=== PATIENT | male | born 1955 | race Caucasian/White ===

== ENCOUNTER 2016-12-03 09:41 | Observation (INO) ==
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
--- NOTE | 2016-12-03 11:01 | XRay Report ---
History: Coronary artery disease Date: 12/03/2016 Study: Chest x-ray PA and lateral Comparison exam: October 18, 2016 The cardiac silhouette is not enlarged. There is no mediastinal mass. The pulmonary vasculature is not engorged. The lungs are generally clear for shallow breath. There is no pleural effusion. Osseous structures are unchanged. There is mild osteopenia. Impression: No acute cardiopulmonary process. No significant interval change from the previous study PROCEDURE INTERPRETED AT [facility] DEPARTMENT OF RADIOLOGY Final Report Signed by: Dr. Kacie Oswald
[2016-12-03 11:22] LABS: Basophils # 0.1 10*3/uL (0.0-0.2); Basophils % 0.8 % (0.0-0.8); Eosinophils # 0.4 10*3/uL (0.0-0.87); Eosinophils % 4.4 % (0.00-10.9); Hematocrit 44.7 VOL% (42.0-52.0); Hemoglobin 16.5 GM/DL (14.0-18.0); Immature Granulocytes % 0.4 %; Immature Granulocytes Absolute 0.04 #; Lymphocytes # 2.2 10*3/uL (1.4-4.0); Mean Corpuscular HGB Conc 36.9 GM/DL (32-36); Mean Corpuscular Hemoglobin 32 PG (27-34); Mean Corpuscular Volume 86.3 FL (87-102); Mean Platelet Volume 11.4 FL (9.6-12.0); Monocytes # 0.6 10*3/uL (0.11-0.8); Monocytes % 5.8 % (1.7-12.7); Neutrophils # 6.2 10*3/uL (1.4-7.4); Neutrophils % 65.6 % (38.7-73.9); Platelet Count 184 T/CUMM (130-400); Red Blood Count 5.18 MC/CUMM (3.8-5.5); Red Cell Distribution Width 13.2 % (9.3-17.3); White Blood Count 9.5 T/CUMM (4-12)
[2016-12-03 11:31] LABS: PT Patient Result 10.6 SECS; Partial Thromboplastin Time 26.4 SECS (0-40)
[2016-12-03 12:08] LABS: Albumin 3.9 G/DL (3.4-5.0); Bilirubin,Total 0.9 MG/DL (0.2-1.0); Osmolality,Calculated 297.1 MOS/KG (273-304); Potassium 4.7 MMOL/L (3.5-5.1); Total Protein 7.9 G/DL (6.4-8.3)
[2016-12-03 12:22] LABS: Apearance,Urine CLEAR (Clear); Bilirubin,Urine Negative (Negative); Blood, Urine Negative (Negative); Glucose,Urine (UA) >=500 mg/dL (Negative); Hyaline Casts,Urine 1 /LPF (0-3); Ketones,Urine 20 mg/dL (Negative); Nitrite,Urine Negative (Negative); Protein,Urine Negative; Urine Color Straw (Yellow); Urine Specific Gravity 1.027 (1.001-1.035); Urine Urobilinogen < 2.0 EU/DL (0.2-1.0); WBC,Urine <1 /HPF (0-6)
[2016-12-03 12:27] LABS: Barbiturates Screen,Urine Negative (Negative); Benzodiazepines Screen,Urine Negative (Negative); Cannabinoid Screen,Urine Negative (Negative); Opiate Screen,Urine Negative (Negative); Phencyclidine Screen,Urine Negative (Negative)
[2016-12-03] MEDS ORDERED: SODIUM CHLORIDE 0.9% 1,000 ML IV STA (12:45)
[2016-12-03] MEDS ORDERED: INSULIN LISPRO 100 UNIT/ML SUBCUT STA (12:45)
[2016-12-03] MEDS ORDERED: INSULIN LISPRO 100 UNIT/ML SUBCUT ONE (12:54)
[2016-12-03] MEDS ORDERED: hydrALAZINE 20 MG/1 ML VIAL IV STA (14:14)
[2016-12-03] MEDS ORDERED: hydrALAZINE 20 MG/1 ML VIAL ONE (14:16)
[2016-12-03] MEDS ORDERED: GLUCAGON 1 MG VIAL IM PRN (15:30)
[2016-12-03] MEDS ORDERED: DEXTROSE 50% 25 GM/50 ML VIAL IV PRN (15:30)
[2016-12-03] MEDS ORDERED: ZALEPLON 5 MG CAPSULE PO PRN (15:30)
[2016-12-03] MEDS ORDERED: ACETAMINOPHEN 325 MG TABLET PO PRN (15:30)
[2016-12-03] MEDS ORDERED: ONDANSETRON 4 MG/2 ML VIAL IV PRN (15:30)
[2016-12-03] MEDS: SODIUM CHLORIDE 0.9% 1,000 ML IV SCH ×2 (16:10→23:19)
[2016-12-03] MEDS: ENOXAPARIN 40 MG/0.4 ML SYRINGE SUBCUT SCH (16:12)
[2016-12-03] MEDS: INSULIN LISPRO 100 UNIT/ML SUBCUT SCH ×2 (16:29→21:17)
[2016-12-03] MEDS: LOSARTAN/HCTZ 50-12.5 MG TABLET PO SCH (16:30)
[2016-12-03] MEDS: amLODIPine 5 MG TABLET PO SCH (16:30)
[2016-12-03] MEDS ORDERED: hydrALAZINE 20 MG/1 ML VIAL IV PRN (16:36)
--- NOTE | 2016-12-03 16:40 | Hospitalist History & Physical ---
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 insulin use: with petroleum terminal plant operator use Qualified Code( s): E11.65 - Type 2 diabetes mellitus with hyperglycemia; Z79.4 - assisted ( current) use of insulin (3) Diabetes mellitus Status: Chronic Current Visit: Yes Qualifiers: Diabetes mellitus type: type 2 Diabetes mellitus complication detail: with chronic kidney disease Diabetes mellitus mcfp insulin use: with mcfp use (4) Aortic stenosis Status: Chronic Current Visit: No Qualifiers: Cardiac valve disease etiology: etiology unspecified Qualified Code(s): I35.0 - Nonrheumatic aortic (valve) stenosis (5) Uncontrolled diabetes mellitus Status: Chronic Current Visit: No Qualifiers: Diabetes mellitus type: type 2 Diabetes mellitus 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 Hartley is a 61 year old male brought to the emergency department today by ambulance with complaints of foot pain. During the course of his workup in the emergency department he was noted to have a blood sugar of greater than 600 and uncontrolled blood pressure with a systolic blood pressure greater than 200 and diastolic blood pressure greater than 110. He was referred to the hospitalist service for admission for management of his hypertensive urgency and uncontrolled hyperglycemia. He did not have evidence of diabetic ketoacidosis and did not appear to be acidotic. He did complain of some headache and was also found to have an elevated creatinine consistent with acute kidney injury suggesting hypertensive urgency with end organ dysfunction. His hemoglobin A1c is greater than 12 and his most recent creatinine was 1.3 today it is 1.8. He will be admitted to acute inpatient to the intensive care unit for management of his hyperglycemia and hypertension. Home Medications Medication Instructions Recorded Confirmed Type Gabapentin Cap/Tab [Neurontin 300 mg PO TID 07/23/15 12/03/16 History Cap/Tab] Insulin NPH/Regular 70/30 [HumuLIN 70 unit SUBCUT BEDTIME 07/23/15 12/03/16 History 70/30] Insulin NPH/Regular 70/30 [HumuLIN 70 unit SUBCUT QAM 07/23/15 12/03/16 History 70/30] Levothyroxine Tab [Synthroid Tab] 200 mcg PO DAILY 07/23/15 12/03/16 History Losartan/Hydrochlorothiazide 1 each PO DAILY 07/23/15 12/03/16 History [Losartan-Hctz 100-25 mg Tab] Zaleplon [Sonata] 20 mg PO BEDTIME PRN 07/23/15 12/03/16 History Atorvastatin [Lipitor] 20 mg PO DAILY 04/10/16 12/03/16 History Clopidogrel [Plavix] 75 mg PO DAILY 04/10/16 12/03/16 History Omeprazole 40 mg PO DAILY 04/10/16 12/03/16 History hydrALAZINE TAB [Apresoline Tab] 50 mg PO BID 04/10/16 12/03/16 History Ibuprofen Tab [Motrin Tab] 800 mg PO TID PRN #20 tablet 10/18/16 12/03/16 Rx Aspirin EC Tab 81 mg PO DAILY 12/03/16 12/03/16 History Carvedilol [Coreg] 6.25 mg PO BID 12/03/16 12/03/16 History Furosemide Tab [Lasix Tab] 20 mg PO DAILY 12/03/16 12/03/16 History amLODIPine [Norvasc] 5 mg PO DAILY 12/03/16 12/03/16 History Allergies Allergy/AdvReac Type Severity Reaction Status Date / Time Iodinated Contrast Media - AdvReac Intermediate Seizure Verified 03/11/16 07:35 Oral and [Iodinated Contrast Media - IV Dye] morphine AdvReac Nausea Verified 03/11/16 07:35 Medical,Surgical,& Family Hx - Medical History Cardio: History of: Hypertension, [place], PVD, Cardiovascular Problems (stents, aortic stenosis) Neurology: History of: Cerebrovascular Accident (possible stroke 20+ years ago) , Peripheral Neuropathy HEENT: History of: HEENT Problems (chronic sinus problems) Endocrine: History of: Diabetes Mellitus (IDDM), Thyroid Disorder Respiratory: History of: Obstructive Sleep Apnea Gastrointestinal: History of: GERD Musculoskeletal: History of: Back/Neck Problems (chronic pain), Musculoskeletal Problems (chronic pain r/t multiple old injuries) Other: History of: Cancer (history of skin cancer) - Surgical History Cardiac Surgeries: Sugical HX of: Cardiac Catheterization Thoracic Surgeries: Patient denies;: Organ Transplant, Lobectomy Neurologic Surgeries: Patient denies: Neurologic Surgery Orthopedic Surgeries: Surgical HX of;: Orthopedic Surgery (bilateral knee surgery), Spinal Surgery (back surgery) - Family History Family History: Reports;: Family Cancer (paternal side), Family Hypertension ( mother and father) - Social History Smoking Status: Never smoker Frequency of Alcohol Use: Rarely Type of Drug Use: None Marital Status: Single Lives With:: Alone Functional capacity: independent ambulation 12 point system: reviewed and no additional remarkable complaints except as stated Review of systems: 12 point review of systems was conducted and found to be otherwise negative except for what is listed above in HPI Exam - Constitutional Vitals: Period Temp Pulse Resp BP Sys/Dunlap Pulse Ox Last 24 Hr 97.0 F-97.0 F 51-56 16-18 181-193/76-98 95-96 Exam: Constitutional System: Mild distress. No tremulousness. Head: Normocephalic, atraumatic. Ears, Nose and Throat System: No pain or tenderness. No epistaxis or discharge Eyes System: Pupils equal, round, and reactive. Extraocular muscles intact. Neck: Supple, without adenopathy, No jugular venous distention. No thyromegaly, neck mass, or prior surgery apparent. Respiratory System: Chest clear to auscultation. Cardiovascular System: Heart with regular rate and rhythm. Systolic ejection murmur consistent with aortic stenosis. GI System: Abdomen soft, nontender. Normo active bowel sounds present. Musculoskeletal System: limbs with no pedal edema. Full distal pulses. Neurological System: No discernable sensory deficit. No aphasia Psychiatric System: Conversation is rational Results - Labs CBC & BMP: 12/03/16 11:16 12/03/16 11:16 Lab Results: I have reviewed the past 24 hour labs - Diagnostic Findings Procedure: Chest x-ray: image reviewed by me, report reviewed by me
[2016-12-03] MEDS: GABAPENTIN 300 MG CAPSULE PO SCH (21:17)
[2016-12-03] MEDS: ZALEPLON 5 MG CAPSULE PO PRN (21:17)
[2016-12-03] MEDS: INSULIN NPH/REGULAR 70/30 100 UNIT/ML SUBCUT SCH (21:18)
[2016-12-03] MEDS: CARVEDILOL 6.25 MG TABLET PO SCH (21:22)
[2016-12-04 05:04] LABS: Basophils # 0.1 10*3/uL (0.0-0.2); Basophils % 0.7 % (0.0-0.8); Eosinophils # 0.4 10*3/uL (0.0-0.87); Eosinophils % 4.5 % (0.00-10.9); Hematocrit 42.8 VOL% (42.0-52.0); Hemoglobin 15.2 GM/DL (14.0-18.0); Immature Granulocytes % 0.3 %; Immature Granulocytes Absolute 0.03 #; Lymphocytes # 2.5 10*3/uL (1.4-4.0); Mean Corpuscular HGB Conc 35.5 GM/DL (32-36); Mean Corpuscular Hemoglobin 31 PG (27-34); Mean Corpuscular Volume 88.2 FL (87-102); Mean Platelet Volume 11.6 FL (9.6-12.0); Monocytes # 0.6 10*3/uL (0.11-0.8); Monocytes % 6.6 % (1.7-12.7); Neutrophils # 5.1 10*3/uL (1.4-7.4); Neutrophils % 58.9 % (38.7-73.9); Platelet Count 168 T/CUMM (130-400); Red Blood Count 4.85 MC/CUMM (3.8-5.5); Red Cell Distribution Width 13.8 % (9.3-17.3); White Blood Count 8.6 T/CUMM (4-12)
[2016-12-04 05:32] LABS: Albumin 3.4 G/DL (3.4-5.0); Bilirubin,Total 0.7 MG/DL (0.2-1.0); Calcium 8.4 MG/DL (8.5-10.1); Magnesium 2.1 MG/DL (1.8-2.4); Potassium 4.3 MMOL/L (3.5-5.1); Risk Ratio 6.7; Thyroid Stimulating Hormone 93.9 uIU/ml (0.358-3.74); Total Protein 6.7 G/DL (6.4-8.3)
[2016-12-04 05:34] LABS: Platelet Estimate Normal
[2016-12-04 06:03] LABS: VLDL CHOLESTEROL 256.6 MG/DL
[2016-12-04] MEDS: SODIUM CHLORIDE 0.9% 1,000 ML IV SCH ×2 (07:42→17:35)
--- NOTE | 2016-12-04 07:43 | EKG Report ---
Stationary ECG Study [facility] ER Test Date: 12/03/2016 10:59:48 AM Pat Name: RADHA MONSALVE Department: Room: 112 Gender: M Tub Mender: : 1955 Requested by: Sam De Jesus Order Number: [id number] Reading MD: ARUN VARGHESE Intervals [place] Rate: 46 P: 46 NC: 187 QRS: 92 QRSD: 102 T: -17 QT: 465 QTc: 424 Interpretive Statements SINUS BRADYCARDIA BORDERLINE RIGHT AXIS DEVIATION Electronically Signed On 12-05-16 15:30:12 CDT by ARUN VARGHESE [email or web address]
[2016-12-04] MEDS: INSULIN NPH/REGULAR 70/30 100 UNIT/ML SUBCUT SCH ×2 (08:42→20:34)
[2016-12-04] MEDS: CLOPIDOGREL 75 MG TABLET PO SCH (08:43)
[2016-12-04] MEDS: PANTOPRAZOLE 40 MG TABLET PO SCH (08:43)
[2016-12-04] MEDS: INSULIN LISPRO 100 UNIT/ML SUBCUT SCH ×4 (08:43→20:34)
[2016-12-04] MEDS: LEVOTHYROXINE 200 MCG TABLET PO SCH (08:43)
[2016-12-04] MEDS: ATORVASTATIN 20 MG TABLET PO SCH (08:44)
[2016-12-04] MEDS: amLODIPine 5 MG TABLET PO SCH (08:44)
[2016-12-04] MEDS: GABAPENTIN 300 MG CAPSULE PO SCH ×3 (08:44→20:34)
[2016-12-04] MEDS: ASPIRIN EC 81 MG TABLET PO SCH (08:45)
[2016-12-04] MEDS: LOSARTAN/HCTZ 50-12.5 MG TABLET PO SCH (08:45)
[2016-12-04] MEDS: CARVEDILOL 6.25 MG TABLET PO SCH (08:49)
[2016-12-04] MEDS ORDERED: PANTOPRAZOLE 40 MG TABLET PO SCH (09:00)
[2016-12-04] MEDS ORDERED: LOSARTAN/HCTZ 50-12.5 MG TABLET PO SCH (09:00)
[2016-12-04] MEDS ORDERED: amLODIPine 5 MG TABLET PO SCH (09:00)
--- NOTE | 2016-12-04 12:24 | Hospitalist Progress Note ---
Assessment and Plan (1) Hypertensive urgency Status: Acute Assessment and plan: Transfer to the floor. Resume home medications IV hydralazine as needed Current Visit: Yes (2) Uncontrolled type 2 diabetes mellitus with hyperglycemia Status: Acute Assessment and plan: Subcutaneous insulin before meals and at bedtime Resume home medications Diabetic diet Diabetes education consult Current Visit: Yes Qualifiers: Diabetes mellitus 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 insulin use: with 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 use Qualified Code( s): E11.65 - Type 2 diabetes mellitus with hyperglycemia; Z79.4 - retirement ( current) use of insulin (3) Diabetes mellitus Status: Chronic Current Visit: Yes Qualifiers: Diabetes mellitus type: type 2 Diabetes mellitus complication detail: with chronic kidney disease Diabetes mellitus care home insulin use: with 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 use (4) Aortic stenosis Status: Chronic Current Visit: No Qualifiers: Cardiac valve disease etiology: etiology unspecified Qualified Code(s): I35.0 - Nonrheumatic aortic (valve) stenosis (5) Uncontrolled diabetes mellitus Status: Chronic Current Visit: No Qualifiers: Diabetes mellitus type: type 2 Diabetes mellitus 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 insulin use: with 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 use (6) Acute renal failure Status: Resolved Current Visit: No Qualifiers: Acute renal failure type: unspecified Qualified Code(s): N17.9 - Acute kidney failure, unspecified (7) Dehydration Status: Resolved Current Visit: No (8) Hypothyroidism Status: Acute Assessment and plan: Markedly elevated TSH. Resume Synthroid 200 mcg daily. Current Visit: Yes Qualifiers: Hypothyroidism type: acquired Qualified Code(s): E03.9 - Hypothyroidism, unspecified Hospitalist: Subjective Interval history: Patient seen and examined. No acute events overnight. Case discussed with nursing staff. Labs reviewed. Patient with a markedly elevated TSH as well as a markedly elevated triglyceride level. He is noncompliant with his medications. Blood pressure and blood sugars have improved. Will transfer to the floor today. Plan for discharge home tomorrow. Exam - Constitutional Vitals: Period Temp Pulse Resp BP Sys/Dunlap Pulse Ox Last 24 Hr 96.8 F-98.4 F 45-72 10-20 138-205/61-86 92-97 Exam: Constitutional System: Mild distress. No tremulousness. Head: Normocephalic, atraumatic. Ears, Nose and Throat System: No pain or tenderness. No epistaxis or discharge Eyes System: Pupils equal, round, and reactive. Extraocular muscles intact. Neck: Supple, without adenopathy, No jugular venous distention. No thyromegaly, neck mass, or prior surgery apparent. Respiratory System: Chest clear to auscultation. Cardiovascular System: Heart with regular rate and rhythm. Systolic ejection murmur consistent with aortic stenosis. GI System: Abdomen soft, nontender. Normo active bowel sounds present. Musculoskeletal System: limbs with no pedal edema. Full distal pulses. Neurological System: No discernable sensory deficit. No aphasia Psychiatric System: Conversation is rational Results - Labs CBC & BMP: 12/04/16 03:45 12/04/16 03:45 Lab Results: I have reviewed the past 24 hour labs
[2016-12-04] MEDS: ENOXAPARIN 40 MG/0.4 ML SYRINGE SUBCUT SCH (15:47)
[2016-12-04] MEDS: ZALEPLON 5 MG CAPSULE PO PRN (20:34)
[2016-12-05] MEDS: SODIUM CHLORIDE 0.9% 1,000 ML IV SCH (02:38)
[2016-12-05] MEDS: LOSARTAN/HCTZ 50-12.5 MG TABLET PO SCH (08:17)
[2016-12-05] MEDS: ATORVASTATIN 20 MG TABLET PO SCH (08:17)
[2016-12-05] MEDS: ASPIRIN EC 81 MG TABLET PO SCH (08:17)
[2016-12-05] MEDS: amLODIPine 5 MG TABLET PO SCH (08:17)
[2016-12-05] MEDS: CLOPIDOGREL 75 MG TABLET PO SCH (08:17)
[2016-12-05] MEDS: INSULIN NPH/REGULAR 70/30 100 UNIT/ML SUBCUT SCH (08:18)
[2016-12-05] MEDS: PANTOPRAZOLE 40 MG TABLET PO SCH (08:18)
[2016-12-05] MEDS: INSULIN LISPRO 100 UNIT/ML SUBCUT SCH ×2 (08:18→10:56)
[2016-12-05] MEDS: GABAPENTIN 300 MG CAPSULE PO SCH (08:18)
[2016-12-05] MEDS: LEVOTHYROXINE 200 MCG TABLET PO SCH (08:18)
[2016-12-05] MEDS ORDERED: CARVEDILOL 3.125 MG TABLET PO SCH (09:00)
--- NOTE | 2016-12-05 10:32 | Physician Query Form ---
CLICK EDIT DOCUMENT TO SELECT QUERY ANSWER --> OK --> SIGN Bertha Alicea RN Clinical Form Coverer W) [phone] (f) [phone] [email or web address] PROVIDERS: Make your selection(s) from the choices in EACH section by typing an "x" and enter comments in the comment section. Please use your independent medical judgment in providing your response. This request does not imply that any particular answer is desired or expected. CLINICAL INDICATORS: (Providers should not edit this section) Based on lab results of sodium on admission of 128. Pt. treated with IV fluids of Normal Saline. Based on the above, could you clarify the appropriate diagnosis, if significant , that supports the above abnormalities and additional evaluation, monitoring, and/or treatment rendered: ( ) Pt. treated for hyponatremia (X ) Pt. not treated for hyponatremia (X ) Other, please specify: This is pseudohyponatremia related to his hyperglycemia. ( ) Clinically unable to determine COMMENTS: PLEASE ALSO DOCUMENT RESPONSE IN PROGRESS NOTES AND/OR DISCHARGE SUMMARY Use of terms such as suspected, likely, or probable (associated with a specific diagnosis that is being evaluated, monitored, or treated as if it exists) are acceptable and can be restated in the discharge summary if not ruled out. MTDD
[2016-12-05 11:05] VITALS: BP 117/73
--- NOTE | 2016-12-05 11:27 | Discharge Summary ---
Hospital Course - Hospital Course Hospital Course: Mr. Hartley was admitted to the emergency department with elevated blood sugars and elevated blood pressure. He has a history of diabetes and hypertension and is noncompliant with his medication therapy. He presented to the emergency department with complaints of foot pain and tooth pain. He had not had his morning blood pressure medications. His blood pressure was found to be uncontrollably high with a systolic greater than 200 and a diastolic greater than 110. His blood sugars were also greater than 600. He was admitted to the hospitalist service to the intensive care unit for IV insulin therapy and IV blood pressure medications and management of his uncontrolled hypertension and uncontrolled hyperglycemia. He improved during the course of hospital stay and was transferred to the fifth floor where he has continued to do well.His blood pressure and blood sugars are much better controlled now. He is stable and ready for discharge home. - Time spent with patient Time with patient DS: Greater than 30 minutes (Total discharge time for this patient, including [id number] time, clinical documentation, medication reconciliation, and discharge planning was 45 minutes.) Diagnosis - Discharge Diagnosis (1) Hypertensive urgency Status: Acute (2) Uncontrolled type 2 diabetes mellitus with hyperglycemia Status: Acute (3) Diabetes mellitus Status: Chronic (4) Aortic stenosis Status: Chronic (5) Uncontrolled diabetes mellitus Status: Chronic (6) Acute renal failure Status: Resolved (7) Dehydration Status: Resolved (8) Hypothyroidism Status: Acute Discharge Plan - Discharge Data Disposition: Disch To Home/Self Care Condition at Discharge: Stable Discharge Diet: diabetic diet Activity: resume usual activities as tolerated Hygiene: no restrictions Contact your physician if you experience:: fever over 101, Shortness of breath - Discharge Medications New Zaleplon [Sonata] 5 mg PO BEDTIME PRN #30 capsule PRN Reason: Insomnia Carvedilol [Coreg] 3.125 mg PO BID #60 tablet HYDROcodone/ACETAMIN 10-325 [[place] 10-325] 1 tablet PO Q4H PRN #60 tablet PRN Reason: Pain Moderate (4-7) Amoxicillin/Clav Tab [Augmentin Tab] 875 mg PO BID #20 tablet Continue Insulin NPH/Regular 70/30 [HumuLIN 70/30] 70 unit SUBCUT QAM Aspirin EC Tab 81 mg PO DAILY amLODIPine [Norvasc] 5 mg PO DAILY #30 Clopidogrel [Plavix] 75 mg PO DAILY #30 Furosemide Tab [Lasix Tab] 20 mg PO DAILY #30 Gabapentin Cap/Tab [Neurontin Cap/Tab] 300 mg PO TID #90 Insulin NPH/Regular 70/30 [HumuLIN 70/30] 70 unit SUBCUT BEDTIME #1 vial Losartan/Hydrochlorothiazide [Losartan-Hctz 100-25 mg Tab] 1 each PO DAILY # 30 Omeprazole 40 mg PO DAILY #30 Ibuprofen Tab [Motrin Tab] 800 mg PO TID PRN #20 tablet PRN Reason: Fever > 100.4 Or Headache Atorvastatin [Lipitor] 20 mg PO DAILY #30 hydrALAZINE TAB [Apresoline Tab] 50 mg PO BID #60 Levothyroxine Tab [Synthroid Tab] 200 mcg PO DAILY #30 Discontinued Zaleplon [Sonata] 20 mg PO BEDTIME PRN PRN Reason: Sleep Carvedilol [Coreg] 6.25 mg PO BID - Follow Up or Referral - Forms/Instructions Additional Discharge Instructions: Follow-up with primary care physician and dentist as soon as possible Exam - Constitutional Vitals: Period Temp Pulse Resp BP Sys/Dunlap Pulse Ox Last 24 Hr 97.6 F-99.4 F 50-73 16-189 117-238/65-92 93-98 Discharge Results Labs on day of discharge: Labs from last 24 hours 12/05/16 12/04/16 12/04/16 07:11 19:50 16:37 POC Glucose 97 301 H 263 H 12/04/16 11:41 POC Glucose 248 H DS: Provider Date of admission: 12/03/16 13:20 Primary care physician: . No PCP Attending physician on admission: Dasia Lilly MD Consults: 12/03/16 15:33 Consult to [facility], Educator [CONS] Routine Reason for Finished Garment Inspector: Diabetes Education Consult to Dietitian [CONS] Routine Reason for Dietitian: Dietary Consult Coumadin Education 12/04/16 21:18 Consult to Diabetes Center, Educator [CONS] Routine Reason for Finished Garment Inspector: Other Consult Comment: cannot afford new meter but feels current one is not calibrated properly Discharging clinician: Dasia Lilly MD Expected date of discharge: 12/05/16
== END 2016-12-05 13:33 | disposition home or self-care (01) ==
LOC: EDUNIT# → EDBD → N.ED 09:41 → SUATTDRO 13:20 → N.EDINP 13:20 → INTOOBSV 13:20 → N.ICU 15:20 → N.5E 12-04 13:26
PROVIDERS: ADMIT Family Medicine; ATTEND Family Medicine

== ENCOUNTER 2017-03-19 16:04 | Inpatient (IN) ==
[2017-03-19] MEDS ORDERED: ENOXAPARIN 100 MG/ML SYRINGE SUBCUT STA (16:55)
[2017-03-19] MEDS ORDERED: ASPIRIN 325 MG TABLET PO STA (16:55)
[2017-03-19] MEDS ORDERED: ASPIRIN 325 MG TABLET ONE (16:58)
[2017-03-19] MEDS ORDERED: ENOXAPARIN 100 MG/ML SYRINGE SUBCUT ONE (16:58)
[2017-03-19 17:07] LABS: Basophils # 0.1 10*3/uL (0.0-0.2); Basophils % 0.7 % (0.0-0.8); Eosinophils # 0.3 10*3/uL (0.0-0.87); Eosinophils % 3.2 % (0.00-10.9); Hematocrit 35.1 VOL% (42.0-52.0); Hemoglobin 12.5 GM/DL (14.0-18.0); Immature Granulocytes % 0.4 %; Immature Granulocytes Absolute 0.03 #; Lymphocytes # 2.1 10*3/uL (1.4-4.0); Lymphocytes % 25.1 % (21.2-54.2); Mean Corpuscular HGB Conc 35.6 GM/DL (32-36); Mean Corpuscular Hemoglobin 31 PG (27-34); Mean Platelet Volume 12.3 FL (9.6-12.0); Monocytes # 0.6 10*3/uL (0.11-0.8); Monocytes % 7.7 % (1.7-12.7); Neutrophils # 5.3 10*3/uL (1.4-7.4); Neutrophils % 62.9 % (38.7-73.9); Platelet Count 147 T/CUMM (130-400); Red Blood Count 4.08 MC/CUMM (3.8-5.5); Red Cell Distribution Width 13.1 % (9.3-17.3); White Blood Count 8.4 T/CUMM (4-12)
[2017-03-19 17:13] LABS: PT Patient Result 10.7 SECS
[2017-03-19 17:17] LABS: Albumin 3.7 G/DL (3.4-5.0); Bilirubin,Total 0.6 MG/DL (0.2-1.0); Calcium 9.8 MG/DL (8.5-10.1); Magnesium 1.8 MG/DL (1.8-2.4); Osmolality,Calculated 295.4 MOS/KG (273-304); Potassium 4.6 MMOL/L (3.5-5.1); Total Protein 6.8 G/DL (6.4-8.3)
[2017-03-19] MEDS ORDERED: DEXTROSE 50% 25 GM/50 ML VIAL IV PRN (17:36)
[2017-03-19] MEDS ORDERED: ONDANSETRON 4 MG/2 ML VIAL IV PRN (17:36)
[2017-03-19] MEDS ORDERED: MAGNESIUM SULF RIDER 4 GM in PREMIX 1 EACH IV PRN (17:36)
[2017-03-19] MEDS ORDERED: MAGNESIUM SULF RIDER 2 GM in PREMIX 1 EACH IV PRN (17:36)
[2017-03-19] MEDS ORDERED: GLUCAGON 1 MG VIAL IM PRN (17:36)
[2017-03-19] MEDS ORDERED: ZALEPLON 5 MG CAPSULE PO PRN (17:36)
[2017-03-19] MEDS ORDERED: NITROGLYCERIN 2% OINT 1 INCH/GM PACK TOP STA (17:38)
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
[2017-03-19] MEDS ORDERED: NITROGLYCERIN 2% OINT 1 INCH/GM PACK TOP ONE (17:58)
--- NOTE | 2017-03-19 18:02 | XRay Report ---
Portable chest Exam date: 03/19/2017 501 PM Indication: Chest pain Comparison: December 03, 2016 Findings: Cardiomediastinal contours are stable with underlying cardiomegaly. Central coarsened interstitial markings, minimally progressed the interim. No acute osseous abnormalities. Visualized upper abdomen demonstrates no acute pathology. Impression: Coarsened central interstitial opacities, may represent hypoaeration changes. Cannot exclude developing inflammatory process or early interstitial edema PROCEDURE INTERPRETED AT [facility] DEPARTMENT OF RADIOLOGY Final Report Signed by: Alan Fountain MD
[2017-03-19] MEDS ORDERED: hydrALAZINE 20 MG/1 ML VIAL IV PRN (19:22)
[2017-03-19] MEDS: CARVEDILOL 6.25 MG TABLET PO SCH (20:54)
--- NOTE | 2017-03-19 21:02 | Order Completion Report ---
See report scanned to EMR
--- NOTE | 2017-03-19 23:53 | Order Completion Report ---
See report scanned to EMR
[2017-03-20 08:41] LABS: Troponin I Only 0.077 NG/ML (0.00-0.045)
[2017-03-20] MEDS: LOSARTAN 50 MG TABLET PO SCH (08:49)
[2017-03-20] MEDS: GABAPENTIN 300 MG CAPSULE PO SCH ×3 (08:49→20:38)
[2017-03-20] MEDS: CARVEDILOL 6.25 MG TABLET PO SCH ×2 (08:52→20:38)
[2017-03-20] MEDS ORDERED: amLODIPine 5 MG TABLET PO SCH (09:00)
[2017-03-20] MEDS ORDERED: MAGNESIUM SULF RIDER 2 GM in PREMIX 1 EACH IV PRN (09:33)
[2017-03-20] MEDS ORDERED: diphenhydrAMINE CAP 25 MG CAPSULE PO ONE (09:33)
[2017-03-20] MEDS ORDERED: HYDROCORTISONE 100 MG VIAL IM ONE (09:33)
[2017-03-20] MEDS ORDERED: DIAZEPAM 5 MG TABLET PO ONE (09:33)
[2017-03-20] MEDS ORDERED: POTASSIUM CHLORIDE RIDER 10 MEQ in PREMIX 1 EACH IV PRN (09:33)
[2017-03-20] MEDS: SODIUM CHLORIDE 0.45% 1,000 ML IV SCH ×3 (10:58→23:41)
--- NOTE | 2017-03-20 11:06 | Ultrasound Report ---
Carotid artery ultrasound Indication: Carotid bruit Comparison: None available Color Doppler flow and spectral analysis was performed. Findings: Small amount of atherosclerotic plaque is present in both proximal internal carotid arteries. Right peak systolic velocity: Right CCA:72.9 cm/s Right proximal Internal Carotid Artery is 110.7 cm/s. Ratio of flow is 1.5 Right distal Internal Carotid is 91.2 cm/s . Left peak systolic velocity: Left CCA:80.6 cm/s Left proximal Internal carotid Artery is 78.6 cm/s . Ratio of flow is 1.1 Left distal Internal carotid Artery is 90.4cm/s Bilateral antegrade vertebral flow is seen. Impression: No evidence of hemodynamically significant stenosis is seen, 0-49% estimated stenosis. Consensus conference on the carotid ultrasound criteria used. Ultrasound images were captured and stored. PROCEDURE INTERPRETED AT [facility] DEPARTMENT OF RADIOLOGY Final Report Signed by: Dr. Siva Martell
[2017-03-20] MEDS ORDERED: LIDOCAINE 1% 20 ML VIAL ONE (11:42)
[2017-03-20] MEDS ORDERED: HEPARIN/NACL 0.9% 2 UNITS/ML 1,000 ML IV ONE (11:42)
[2017-03-20] MEDS ORDERED: MIDAZOLAM 2 MG/2 ML VIAL ONE (11:49)
[2017-03-20] MEDS ORDERED: fentaNYL 100 MCG/2 ML VIAL ONE (11:50)
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
--- NOTE | 2017-03-20 12:06 | History and Physical Update ---
Sedation H&P Update - History and Physical H&P was reviewed, the patient examined and there: are no changes in the patients condition since last H&P was completed. - Dictation Physical: refer to H&P completed by admitting physician - Physical Exam Mental Status: alert and oriented Heart: regular rate and rhythm, other (III/ HSM and I/ early DM) Lung: clear to auscultation Abdomen: within normal limits Vitals: within normal limits - Sedation Plan for Sedation: moderate Patient Consent: Procedure disscussed with patient and patinet has consented., Risks and benefits were discussed with patient,including infection,, bleeding, injury to surrounding structures, seizure, temporary nerve, Patient understands and accepts potential risks/benefits and agrees to, proceed. ASA Class: IV Airway Assessment: Class II: Soft palate, uvula, fauces visible
[2017-03-20] MEDS ORDERED: hydrALAZINE 20 MG/1 ML VIAL ONE (12:39)
[2017-03-20] MEDS ORDERED: ACETAMINOPHEN 325 MG TABLET PO PRN (13:09)
[2017-03-20] MEDS ORDERED: fentaNYL 100 MCG/2 ML VIAL IV PRN (13:09)
[2017-03-20] MEDS ORDERED: GLUCAGON 1 MG VIAL IM PRN (13:15)
--- NOTE | 2017-03-20 13:22 | Order Completion Report ---
See report scanned to EMR
[2017-03-20] MEDS ORDERED: amLODIPine 10 MG TABLET PO SCH (13:58)
[2017-03-20] MEDS ORDERED: ZALEPLON 5 MG CAPSULE PO PRN (14:00)
[2017-03-20] MEDS ORDERED: LABETALOL 20 MG/4 ML SYRINGE IV ONE ×2 (14:03→16:11)
[2017-03-20] MEDS ORDERED: DILTIAZEM 100 MG VIAL.ADD IV ONE (14:31)
[2017-03-20 14:45] LABS: Troponin I Only 0.054 NG/ML (0.00-0.045)
[2017-03-20] MEDS: niCARdipine INJ 25 MG in SODIUM CHLORIDE 0.9% 240 ML IV SCH ×3 (14:59→20:40)
[2017-03-20] MEDS: predniSONE 20 MG TABLET PO SCH ×3 (15:26→23:41)
[2017-03-20] MEDS ORDERED: MORPHINE 2 MG/1 ML SYRINGE ONE (15:56)
[2017-03-20] MEDS ORDERED: MORPHINE 2 MG/1 ML SYRINGE IV ONE (16:00)
[2017-03-20] MEDS ORDERED: HYDROmorphone 2 MG/1 ML VIAL IV ONE (16:30)
[2017-03-20] MEDS: INSULIN REGULAR 100 UNIT/ML SUBCUT SCH ×2 (17:09→20:36)
[2017-03-20 17:32] LABS: Apearance,Urine CLEAR (Clear); Bilirubin,Urine Negative (Negative); Blood, Urine Negative (Negative); Glucose,Urine (UA) >=500 mg/dL (Negative); Ketones,Urine 5 mg/dL (Negative); Nitrite,Urine Negative (Negative); Protein,Urine Negative; RBC,Urine <1 /HPF (0-4); Urine Color Straw (Yellow); Urine Specific Gravity 1.011 (1.001-1.035); Urine Urobilinogen < 2.0 EU/DL (0.2-1.0); WBC,Urine <1 /HPF (0-6)
--- NOTE | 2017-03-20 17:32 | Cardiothoracic Consult ---
Assessment and Plan - Time spent with patient Time spent with patient: Greater than 30 minutes (1) Coronary artery disease Problem details: 04/01: per echo, LV EF 60%; mild mitral/tricuspid regurgitation ; aortic valve with severe stenosis showing GLADYS 0.96cm2, mean gradient 33 mmHg, peak gradient 66 mmHg. Status: Chronic Assessment and plan: Risk Model and Variables - STS Adult Cardiac Surgery Database Version 2.81 RISK SCORES About the STS Risk Calculator Procedure: AV Replacement + CAB Risk of Mortality: 4.483% Morbidity or Mortality: 28.439% Long Length of Stay: 14.26% Short Length of Stay: 24.785% Permanent Stroke: 1.472% Prolonged Ventilation: 19.96% DSW Infection: 0.869% Renal Failure: 9.263% Reoperation: 10.051% 61-year-old male with severe aortic insufficiency combined with stenosis, in- stent restenosis of his right main coronary artery, severe stenosis of his diagonal artery which is a significant branch. Risks benefits and alternatives of a combined aortic valve replacement with a coronary artery bypass graft were discussed with the patient as detailed above. The patient understand and is eager to proceed. We will keep him under close observation for gentle diuresis over the next few days to optimize his condition for the surgery Of note upon my initial evaluation the patient was having hypertensive emergency with chest pain related to his blood pressure being systolic of 200. He was being transferred to the ICU by the cardiology team. Later on his blood pressure got under control and his pain significantly improved after receiving pain medication. During that time his EKG as well as his troponin remained unchanged. We will continue to monitor that closely. If his chest pain recurs while awaiting surgery I will proceed in an emergency fashion to preserve his myocardium. I explained that to the patient with increased risk of an emergency procedure he understands and in agreement. Current Visit: No History of Present Illness - Data of Consult Patient: new to practice Consult date: 03/20/17 - Consult Narrative Reason for consult: Aortic valve stenosis with insufficiency, severe coronary artery disease History of present illness: Mr. Hartley is a 61 year old male who has been having some shortness of breath with chest pain. He was just admitted to the hospital because of that. He did have a heart cath showing diagonal artery stenosis as well as in-stent stenosis of his right main coronary artery. The patient had a known aortic stenosis with aortic insufficiency from a previous echo. On my evaluation immediately after the cath the patient was having hypertensive urgency with chest pain related to that. His EKG as well as his troponins were not changed from prior to that. He was being transferred to the ICU for that reason to control his blood pressure. CC: Maricel Wellington, - Home Medications and Allergies Home Medications: Home Medications Medication Instructions Recorded Confirmed Type Aspirin EC Tab 81 mg PO DAILY 12/03/16 03/19/17 History Carvedilol [Coreg] 3.125 mg PO BID #60 tablet 12/05/16 03/19/17 Rx Clopidogrel [Plavix] 75 mg PO DAILY #30 12/05/16 03/19/17 Rx Furosemide Tab [Lasix Tab] 20 mg PO DAILY #30 12/05/16 03/19/17 Rx Gabapentin Cap/Tab [Neurontin 300 mg PO TID #90 12/05/16 03/19/17 Rx Cap/Tab] Levothyroxine Tab [Synthroid Tab] 200 mcg PO DAILY #30 12/05/16 03/19/17 Rx Losartan/Hydrochlorothiazide 1 each PO DAILY #30 12/05/16 03/19/17 Rx [Losartan-Hctz 100-25 mg Tab] Omeprazole 40 mg PO DAILY #30 12/05/16 03/19/17 Rx amLODIPine [Norvasc] 5 mg PO DAILY #30 12/05/16 03/19/17 Rx hydrALAZINE TAB [Apresoline Tab] 50 mg PO BID #60 12/05/16 03/19/17 Rx Insulin NPH Hum/Reg Insulin Hm 70 unit SUBCUT BID #5 ml 12/19/16 03/19/17 Rx [NovoLIN 70/30] Diclofenac Potassium Tab [Cataflam] 50 mg PO TID PRN #30 tablet 02/20/17 Rx HYDROcodone/ACETAMIN 7.5-325 1 tablet PO Q6H PRN #10 tablet 02/20/17 03/19/17 Rx [Kenvir 7.5-325] Atorvastatin [Lipitor] 20 mg PO BEDTIME 03/19/17 03/19/17 History Zaleplon [Zaleplon] 10 mg PO BEDTIME PRN 03/19/17 03/19/17 History Allergies/Adverse Reactions: Allergies Allergy/AdvReac Type Severity Reaction Status Date / Time Iodinated Contrast Media - AdvReac Intermediate Seizure Verified 12/19/16 09:49 Oral and [Iodinated Contrast Media - IV Dye] morphine AdvReac Nausea Verified 03/19/17 16:19 12 point system: reviewed and no additional remarkable complaints except as stated (HPI) Medical,Surgical,& Family Hx - Medical History Cardio: History of: Hypertension, [place], Valvular Heart Disease, Cardiovascular Problems (stents, aortic stenosis) Psychological: History of: Depression Neurology: History of: Cerebrovascular Accident (possible stroke 20+ years ago) , Peripheral Neuropathy No history of: Seizures HEENT: History of: HEENT Problems (chronic sinus problems) Endocrine: History of: Diabetes Mellitus (IDDM), Thyroid Disorder Respiratory: History of: Obstructive Sleep Apnea Gastrointestinal: History of: GERD Musculoskeletal: History of: Back/Neck Problems (chronic pain), Musculoskeletal Problems (chronic pain r/t multiple old injuries) Other: History of: Cancer (history of skin cancer) - Surgical History Cardiac Surgeries: Sugical HX of: Cardiac Catheterization Thoracic Surgeries: Patient denies;: Organ Transplant, Lobectomy Neurologic Surgeries: Patient denies: Neurologic Surgery Orthopedic Surgeries: Surgical HX of;: Orthopedic Surgery (bilateral knee surgery), Spinal Surgery (back surgery) - Family History Family History: Reports;: Family Cancer (paternal side), Family Heart Disease, Family Hypertension (mother and father) - Social History Smoking Status: Never smoker Frequency of Alcohol Use: None Type of Drug Use: None Physical Examination Vital Signs Temp Pulse Resp BP Pulse Ox 56 F L 55 L 18 206/80 98 03/19/17 16:07 03/19/17 16:07 03/19/17 16:07 03/19/17 16:07 03/19/17 16:07 General: Present: Other (He was initially uncomfortable with chest pain that was immediately improved after controlling his blood pressure and pain medication.) HEENT: Present: PERRL Neck: Present: Supple Neck Cardiac: Present: Reg Rate and Rhythm Lungs: Present: Decreased Breath Sounds Neuro: Present: Cranial Nerve 2-12 Intact Abdomen: Present: Soft Skin: Present: Clear Result/EKG - Labs CBC & BMP: 03/19/17 16:34 03/19/17 16:34 Labs: Laboratory Results - last 24 hr 03/19/17 03/19/17 03/19/17 16:34 20:33 22:46 POC Glucose Total Creatine Kinase CK-MB (CK-2) Troponin I 0.089 H 0.088 H B-Natriuretic Peptide 625 H 03/20/17 03/20/17 03/20/17 07:51 13:54 16:34 POC Glucose 321 H Total Creatine Kinase 64 68 CK-MB (CK-2) 1.3 1.2 Troponin I 0.077 H 0.054 H D B-Natriuretic Peptide
--- NOTE | 2017-03-20 20:12 | Order Completion Report ---
See report scanned to EMR
--- NOTE | 2017-03-20 20:13 | Order Completion Report ---
See report scanned to EMR
[2017-03-20] MEDS: INSULIN NPH/REGULAR 70/30 100 UNIT/ML SUBCUT SCH (20:36)
[2017-03-20 20:37] LABS: Troponin I Only 0.387 NG/ML (0.00-0.045)
[2017-03-20] MEDS: ATORVASTATIN 20 MG TABLET PO SCH (20:38)
[2017-03-20] MEDS ORDERED: niCARdipine INJ 50 MG in SODIUM CHLORIDE 0.9% 480 ML IV SCH (22:00)
--- NOTE | 2017-03-21 04:20 | Order Completion Report ---
See report scanned to EMR
[2017-03-21 05:00] LABS: Basophils % 0.2 % (0.0-0.8); Hematocrit 33.6 VOL% (42.0-52.0); Hemoglobin 11.9 GM/DL (14.0-18.0); Immature Granulocytes % 0.6 %; Immature Granulocytes Absolute 0.05 #; Lymphocytes # 0.9 10*3/uL (1.4-4.0); Lymphocytes % 9.9 % (21.2-54.2); Mean Corpuscular HGB Conc 35.4 GM/DL (32-36); Mean Corpuscular Hemoglobin 30 PG (27-34); Mean Corpuscular Volume 85.9 FL (87-102); Mean Platelet Volume 12.4 FL (9.6-12.0); Monocytes # 0.1 10*3/uL (0.11-0.8); Monocytes % 1.3 % (1.7-12.7); Neutrophils # 7.8 10*3/uL (1.4-7.4); Platelet Count 159 T/CUMM (130-400); Red Blood Count 3.91 MC/CUMM (3.8-5.5); Red Cell Distribution Width 13.2 % (9.3-17.3); White Blood Count 8.9 T/CUMM (4-12)
[2017-03-21 05:26] LABS: Calcium 8.6 MG/DL (8.5-10.1); Osmolality,Calculated 297.7 MOS/KG (273-304); Potassium 4.9 MMOL/L (3.5-5.1)
[2017-03-21 05:28] LABS: Risk Ratio 3.21
[2017-03-21 05:48] LABS: Troponin I Only 5.48 NG/ML (0.00-0.045)
[2017-03-21] MEDS: LEVOTHYROXINE 200 MCG TABLET PO SCH (06:30)
[2017-03-21] MEDS: predniSONE 20 MG TABLET PO SCH (06:30)
[2017-03-21] MEDS: INSULIN NPH/REGULAR 70/30 100 UNIT/ML SUBCUT SCH ×2 (08:31→21:04)
[2017-03-21] MEDS: ASPIRIN EC 81 MG TABLET PO SCH (08:32)
[2017-03-21] MEDS: INSULIN REGULAR 100 UNIT/ML SUBCUT SCH ×4 (08:32→21:05)
[2017-03-21] MEDS: CARVEDILOL 6.25 MG TABLET PO SCH ×2 (08:32→21:01)
[2017-03-21] MEDS: PANTOPRAZOLE 40 MG TABLET PO SCH (08:32)
[2017-03-21] MEDS: LOSARTAN 50 MG TABLET PO SCH (08:32)
[2017-03-21] MEDS: GABAPENTIN 300 MG CAPSULE PO SCH ×3 (08:32→21:01)
[2017-03-21] MEDS: FUROSEMIDE 40 MG/4 ML VIAL IV SCH ×2 (08:33→16:06)
[2017-03-21] MEDS: HEPARIN DRIP 25,000 UNITS/500 ML PREMIX IV SCH (08:33)
[2017-03-21] MEDS ORDERED: LOSARTAN/HCTZ 50-12.5 MG TABLET PO SCH (09:00)
--- NOTE | 2017-03-21 09:09 | Cardiology Progress Note ---
<Terese Lopes E - Last Filed: 03/21/17 09:50> Assessment and Plan - Time spent with patient Time spent with patient: Greater than 30 minutes (due to lengthy patient discussion regarding course of treatment and plan, assessment, plan, documentation, and medication review) (1) NSTEMI (non-ST elevated myocardial infarction) Status: Acute Assessment and plan: See plan of care listed below. Current Visit: Yes (2) Coronary artery disease Problem details: 04/01: per echo, LV EF 60%; mild mitral/tricuspid regurgitation ; aortic valve with severe stenosis showing GLADYS 0.96cm2, mean gradient 33 mmHg, peak gradient 66 mmHg. 04/02: per echo, LV EF 50%, mild TR/MR; moderate to severe showing GLADYS 1.23cm2, mean gradient 25mmHg, maximum gradient 45mmHg. Status: Chronic Assessment and plan: See plan of care listed below. Current Visit: Yes (3) Aortic stenosis Status: Chronic Assessment and plan: See plan of care listed below. Current Visit: Yes Qualifiers: Cardiac valve disease etiology: etiology unspecified Qualified Code(s): I35.0 - Nonrheumatic aortic (valve) stenosis (4) Chronic renal disease Status: Chronic Assessment and plan: See plan of care listed below. Current Visit: Yes Qualifiers: Chronic kidney disease stage: stage 3 (moderate) Qualified Code(s): N18.3 - Chronic kidney disease, stage 3 (moderate) (5) Obstructive sleep apnea Status: Chronic Assessment and plan: See plan of care listed below. Current Visit: Yes (6) Diabetes mellitus Status: Chronic Assessment and plan: See plan of care listed below. Current Visit: Yes Qualifiers: Diabetes mellitus type: type 2 Diabetes mellitus complication detail: with chronic kidney disease Diabetes mellitus jail insulin use: with jail use (7) Essential hypertension Status: Chronic Assessment and plan: See plan of care listed below. Current Visit: Yes (8) Carotid bruit Status: Acute Assessment and plan: See plan of care listed below. Current Visit: Yes Qualifiers: Laterality: bilateral Qualified Code(s): R09.89 - Other specified symptoms and signs involving the circulatory and respiratory systems (9) Chest pain Status: Acute Assessment and plan: See plan of care listed below. Current Visit: Yes Cardiology - PN: Subj Interval history: HEAD TEACHER: Dr. Marie SUMMARY: Mr. Hartley is a 61 year old WM, who presented to the emergency room with complaints of chest discomfort, dyspnea, and diaphoresis. EKG revealed sinus rhythm with PVCs, one EKG demonstrates bigeminy with ST-T wave changes. Cardiac biomarkers mildly elevated but overall flat. He was taken to the woods lab[facility] for further evaluation and was found to have severe two-vessel CAD and moderate to severe aortic regurgitation and aortic stenosis. CV surgery was consulted for AVR/CABG which is tentatively planned for next Saturday. His inferior branch of the first diagonal artery had 95% in-stent restenosis, mid RCA had 95% in-stent restenosis, EF 50%, patent proximal to midLAD stent. Post catheterization, Mr. Hartley had significantly elevated blood pressures and chest pain radiating to the jaw. He was subsequently transferred to the ICU for closer monitoring and placed on Cardene infusion. It was felt the steroids given for his iodine allergy could have been exacerbating his pain. MARCH 21, 2017: This morning, Mr. Hartley is seen resting comfortably in the bed. Overnight, he had a troponin bump to 5.48. We are continuing to follow him for NSTEMI. He is emotional this morning and tells me that he wants to go home before his surgery to make sure he has his affairs in order and to see his grandchildren. He did have some chest pressure last night but reports he got up to the bedside chair early this morning for a while and did not have any pain at that time. He is pain free at this time. He is off the cardene infusion but his blood pressure is a little elevated prior to receiving his morning medicines. If his blood pressure remains well controlled this morning after he receives his medicines, he could be transferred up to telemetry later today. We will continue to monitor his symptoms to determine whether he is stable enough to be discharged home prior to his surgery on Saturday. He was instructed to take it easy and not strain himself. His right groin looks good this morning. His dressing was removed and he has no bleeding, hematoma, or bruit at the site. Femoral pulse is 3+. It is nontender to palpation. Peripheral pulses are present and palpable bilaterally. Dr. Wellington to follow with further plan and addendum. REVIEW OF SYSTEMS: CARDIAC: Denies chest pain. RESPIRATORY: Denies shortness of breath. IMPRESSION AND PLAN: 1. NSTEMI: With troponin up to 5.48. He is scheduled for 2. CAD: [facility] revealed severe two-vessel CAD and moderate to severe aortic regurgitation and aortic stenosis. CV surgery was consulted for AVR/CABG which is tentatively planned for next Saturday. His inferior branch of the first diagonal artery had 95% in-stent restenosis, mid RCA had 95% in-stent restenosis , EF 50%, patent proximal to midLAD stent. 3. AORTIC STENOSIS: Echocardiogram revealed EF 50%, mild MR, moderate to severe aortic stenosis. He is scheduled for AVR on Saturday. 4. CHRONIC RENAL INSUFFICIENCY: Chronic, stage II-III, creatinine 1.8 post catheterization. 5. RISA: Noncompliant with CPAP, states he cannot wear mask. 6. DIABETES MELLITUS: Poorly controlled per pt. report, glucose 297 in labs. 7. HYPERTENSION: Uncontrolled, will monitor and adjust medications accordingly. 8. CAROTID BRUIT: Carotid ultrasound revealed no evidence of hemodynamically significant stenosis bilaterally. I suspect this is radiation of his carotid murmur. 9. CHEST PAIN: It was felt the steroids given for his iodine allergy could have been exacerbating his pain. We will avoid giving him more steroids unless he shows signs of an allergic reaction. Exam (Progress Note) - Constitutional Vitals: Period Temp Pulse Resp BP Sys/Dunlap Pulse Ox Last 24 Hr 97.3 F-98.2 F 46-90 12-23 94-208/46-96 88-97 Exam: General: Appears well with no apparent distress. Pleasant and cooperative. Appears comfortable. HEENT: PERRL, normocephalic, atraumatic. Mucous membranes moist. No jaundice noted. Conjunctiva moist and clear, sclerae anicteric. Neck: No JVD, no thyromegaly or lymphadenopathy noted. Carotid bruit present bilaterally, carotid upstroke is normal. Cardiac: Regular rate and rhythm. 3/6 holosystolic murmur auscultated at the right upper sternal border and apex, there is a 1/6 brief early diastolic murmur., no rub or gallop. PMI is nondisplaced. Lungs: Clear to auscultation without accessory muscle use to assist the respiratory pattern. Abdomen: Soft, bowel sounds normoactive. Nontender and nondistended. No abdominal bruit or thrill noted. No masses noted. Musculoskeletal: No fluid collection. Decreased range of motion is noted. Extremities: No clubbing, cyanosis noted. No edema noted. Upper extremity pulses 2+. Lower extremity pulses 2+. Capillary refill less than 3 seconds. Skin: No unusual lesions or rashes. No skin breakdown appreciated. Neuro: Awake, alert and oriented 3. Moves all extremities well without hemiparesis or paralysis. No essential tremor is appreciated. Right groin: Open to air, no bleeding, hematoma, or bruit at site. Femoral pulse 3+. Distal pulses present and palpable bilaterally. Result/EKG - Labs CBC & BMP: 03/21/17 04:07 03/21/17 04:07 Lab Results: I have reviewed the past 24 hour labs Labs: Laboratory Results - last 24 hr 03/19/17 03/20/17 03/20/17 16:21 13:54 16:34 WBC RBC Hgb Hct MCV MCH MCHC RDW Plt Count MPV Neut % (Auto) Lymph % (Auto) [place] % (Auto) Eos % (Auto) Baso % (Auto) Neut # (Auto) Lymph # (Auto) [place] # (Auto) Eos # (Auto) Baso # (Auto) Immature Gran % Nucleated RBC % Immature Gran # Nucleated RBCs # Immature Plt Fraction Circ Anticoag PTT Sodium Potassium Chloride Carbon Dioxide Anion Gap BUN Creatinine GFR Calculation BUN/Creatinine Ratio Glucose POC Glucose 296 H 321 H Calculated Osmolality Calcium Magnesium Total Creatine Kinase 68 CK-MB (CK-2) 1.2 CK and CKMB Interp Troponin I 0.054 H D Triglycerides Cholesterol LDL Cholesterol VLDL Cholesterol HDL Cholesterol Heart Disease Risk Ratio Urine Color Urine Appearance Urine pH Ur Specific [place] Urine Protein Urine Glucose (UA) Urine Ketones Urine Blood Urine Nitrate Urine Bilirubin Urine Urobilinogen Urine Leukocytes Urine RBC Urine WBC Ur Culture Indicated? 03/20/17 03/20/17 03/20/17 19:17 20:22 23:25 WBC RBC Hgb Hct MCV MCH MCHC RDW Plt Count MPV Neut % (Auto) Lymph % (Auto) [place] % (Auto) Eos % (Auto) Baso % (Auto) Neut # (Auto) Lymph # (Auto) [place] # (Auto) Eos # (Auto) Baso # (Auto) Immature Gran % Nucleated RBC % Immature Gran # Nucleated RBCs # Immature Plt Fraction Circ Anticoag PTT Sodium Potassium Chloride Carbon Dioxide Anion Gap BUN Creatinine GFR Calculation BUN/Creatinine Ratio Glucose POC Glucose 358 H 367 H Calculated Osmolality Calcium Magnesium Total Creatine Kinase 69 CK-MB (CK-2) 2.2 CK and CKMB Interp Troponin I 0.387 H D Triglycerides Cholesterol LDL Cholesterol VLDL Cholesterol HDL Cholesterol Heart Disease Risk Ratio Urine Color Urine Appearance Urine pH Ur Specific [place] Urine Protein Urine Glucose (UA) Urine Ketones Urine Blood Urine Nitrate Urine Bilirubin Urine Urobilinogen Urine Leukocytes Urine RBC Urine WBC Ur Culture Indicated? 03/20/17 03/21/17 03/21/17 Unknown 04:07 04:07 WBC 8.9 RBC 3.91 Hgb 11.9 L Hct 33.6 L MCV 85.9 L MCH 30 MCHC 35.4 RDW 13.2 Plt Count 159 MPV 12.4 H Neut % (Auto) 88.0 H Lymph % (Auto) 9.9 L [place] % (Auto) 1.3 L Eos % (Auto) 0.0 Baso % (Auto) 0.2 Neut # (Auto) 7.8 H Lymph # (Auto) 0.9 L [place] # (Auto) 0.1 L Eos # (Auto) 0.0 Baso # (Auto) 0.0 Immature Gran % 0.6 Nucleated RBC % 0.0 Immature Gran # 0.05 Nucleated RBCs # 0.00 Immature Plt Fraction 0.0 Circ Anticoag PTT Sodium 138 Potassium 4.9 Chloride 103 Carbon Dioxide 25 Anion Gap 14.9 BUN 38 H Creatinine 1.80 H GFR Calculation 49 BUN/Creatinine Ratio 21.00 H Glucose 350 H POC Glucose Calculated Osmolality 297.7 Calcium 8.6 Magnesium 2.0 Total Creatine Kinase CK-MB (CK-2) CK and CKMB Interp Troponin I Triglycerides Cholesterol LDL Cholesterol VLDL Cholesterol HDL Cholesterol Heart Disease Risk Ratio Urine Color Straw Urine Appearance Clear Urine pH 7.0 Ur Specific [place] 1.011 Urine Protein Negative Urine Glucose (UA) >=500 Urine Ketones 5 Urine Blood Negative Urine Nitrate Negative Urine Bilirubin Negative Urine Urobilinogen < 2.0 H Urine Leukocytes Negative Urine RBC <1 Urine WBC <1 Ur Culture Indicated? Not indicated 03/21/17 03/21/17 03/21/17 04:07 04:07 07:28 WBC RBC Hgb Hct MCV MCH MCHC RDW Plt Count MPV Neut % (Auto) Lymph % (Auto) [place] % (Auto) Eos % (Auto) Baso % (Auto) Neut # (Auto) Lymph # (Auto) [place] # (Auto) Eos # (Auto) Baso # (Auto) Immature Gran % Nucleated RBC % Immature Gran # Nucleated RBCs # Immature Plt Fraction Circ Anticoag PTT 26.6 Sodium Potassium Chloride Carbon Dioxide Anion Gap BUN Creatinine GFR Calculation BUN/Creatinine Ratio Glucose POC Glucose Calculated Osmolality Calcium Magnesium Total Creatine Kinase 146 D CK-MB (CK-2) 8.8 H D CK and CKMB Interp 6.0 Troponin I 5.480 H D Triglycerides 145 Cholesterol 125 LDL Cholesterol 64.0 VLDL Cholesterol 29.0 HDL Cholesterol 39 L Heart Disease Risk Ratio 3.21 Urine Color Urine Appearance Urine pH Ur Specific [place] Urine Protein Urine Glucose (UA) Urine Ketones Urine Blood Urine Nitrate Urine Bilirubin Urine Urobilinogen Urine Leukocytes Urine RBC Urine WBC Ur Culture Indicated? 03/21/17 07:47 WBC RBC Hgb Hct MCV MCH MCHC RDW Plt Count MPV Neut % (Auto) Lymph % (Auto) [place] % (Auto) Eos % (Auto) Baso % (Auto) Neut # (Auto) Lymph # (Auto) [place] # (Auto) Eos # (Auto) Baso # (Auto) Immature Gran % Nucleated RBC % Immature Gran # Nucleated RBCs # Immature Plt Fraction Circ Anticoag PTT Sodium Potassium Chloride Carbon Dioxide Anion Gap BUN Creatinine GFR Calculation BUN/Creatinine Ratio Glucose POC Glucose 360 H Calculated Osmolality Calcium Magnesium Total Creatine Kinase CK-MB (CK-2) CK and CKMB Interp Troponin I Triglycerides Cholesterol LDL Cholesterol VLDL Cholesterol HDL Cholesterol Heart Disease Risk Ratio Urine Color Urine Appearance Urine pH Ur Specific [place] Urine Protein Urine Glucose (UA) Urine Ketones Urine Blood Urine Nitrate Urine Bilirubin Urine Urobilinogen Urine Leukocytes Urine RBC Urine WBC Ur Culture Indicated? - EKG EKG results: interpreted by me, sinus rhythm <Maricel Wellington - Last Filed: 03/21/17 17:34> Assessment and Plan (1) Chronic renal disease Status: Chronic Current Visit: Yes Qualifiers: Chronic kidney disease stage: stage 3 (moderate) Qualified Code(s): N18.3 - Chronic kidney disease, stage 3 (moderate) (2) Chest pain Status: Acute Current Visit: Yes (3) Obstructive sleep apnea Status: Chronic Current Visit: Yes (4) Coronary artery disease Problem details: 04/01: per echo, LV EF 60%; mild mitral/tricuspid regurgitation ; aortic valve with severe stenosis showing GLADYS 0.96cm2, mean gradient 33 mmHg, peak gradient 66 mmHg. 04/02: per echo, LV EF 50%, mild TR/MR; moderate to severe showing GLADYS 1.23cm2, mean gradient 25mmHg, maximum gradient 45mmHg. Status: Chronic Current Visit: Yes (5) Uncontrolled diabetes mellitus Status: Chronic Current Visit: No Qualifiers: Diabetes mellitus type: type 2 Diabetes mellitus rag collector insulin use: with jail use (6) Aortic stenosis Status: Chronic Current Visit: Yes Qualifiers: Cardiac valve disease etiology: etiology unspecified Qualified Code(s): I35.0 - Nonrheumatic aortic (valve) stenosis (7) Diabetes mellitus Status: Chronic Current Visit: Yes Qualifiers: Diabetes mellitus type: type 2 Diabetes mellitus complication detail: with chronic kidney disease Diabetes mellitus jail insulin use: with rag collector use (8) Hypertension Status: Acute Current Visit: Yes Cardiology - PN: Subj Interval history: I have personally interviewed and evaluated the patient, reviewed the chart and discussed medical decision-making with practitioner Moses. I have read this note and agree with her documentation here in. Left heart catheterization confirmed severe aortic stenosis and severe aortic insufficiency as well as two- vessel coronary artery disease. The plan is to medically stabilize him prior to proceeding with surgery. Exam (Progress Note) - Constitutional Vitals: Period Temp Pulse Resp BP Sys/Dunlap Pulse Ox Last 24 Hr 97.5 F-98.7 F 52-87 12-25 94-171/46-93 88-97 Result/EKG - Labs CBC & BMP: 03/21/17 04:07 03/21/17 04:07 Labs: Laboratory Results - last 24 hr 03/19/17 03/20/17 03/20/17 16:21 19:17 20:22 WBC RBC Hgb Hct MCV MCH MCHC RDW Plt Count MPV Neut % (Auto) Lymph % (Auto) [place] % (Auto) Eos % (Auto) Baso % (Auto) Neut # (Auto) Lymph # (Auto) [place] # (Auto) Eos # (Auto) Baso # (Auto) Immature Gran % Nucleated RBC % Immature Gran # Nucleated RBCs # Immature Plt Fraction Circ Anticoag PTT Sodium Potassium Chloride Carbon Dioxide Anion Gap BUN Creatinine GFR Calculation BUN/Creatinine Ratio Glucose POC Glucose 296 H 358 H Calculated Osmolality Calcium Magnesium Total Creatine Kinase 69 CK-MB (CK-2) 2.2 CK and CKMB Interp Troponin I 0.387 H D Triglycerides Cholesterol LDL Cholesterol VLDL Cholesterol HDL Cholesterol Heart Disease Risk Ratio Urine Color Urine Appearance Urine pH Ur Specific [place] Urine Protein Urine Glucose (UA) Urine Ketones Urine Blood Urine Nitrate Urine Bilirubin Urine Urobilinogen Urine Leukocytes Urine RBC Urine WBC Ur Culture Indicated? 03/20/17 03/20/17 03/21/17 23:25 Unknown 04:07 WBC 8.9 RBC 3.91 Hgb 11.9 L Hct 33.6 L MCV 85.9 L MCH 30 MCHC 35.4 RDW 13.2 Plt Count 159 MPV 12.4 H Neut % (Auto) 88.0 H Lymph % (Auto) 9.9 L [place] % (Auto) 1.3 L Eos % (Auto) 0.0 Baso % (Auto) 0.2 Neut # (Auto) 7.8 H Lymph # (Auto) 0.9 L [place] # (Auto) 0.1 L Eos # (Auto) 0.0 Baso # (Auto) 0.0 Immature Gran % 0.6 Nucleated RBC % 0.0 Immature Gran # 0.05 Nucleated RBCs # 0.00 Immature Plt Fraction 0.0 Circ Anticoag PTT Sodium Potassium Chloride Carbon Dioxide Anion Gap BUN Creatinine GFR Calculation BUN/Creatinine Ratio Glucose POC Glucose 367 H Calculated Osmolality Calcium Magnesium Total Creatine Kinase CK-MB (CK-2) CK and CKMB Interp Troponin I Triglycerides Cholesterol LDL Cholesterol VLDL Cholesterol HDL Cholesterol Heart Disease Risk Ratio Urine Color Straw Urine Appearance Clear Urine pH 7.0 Ur Specific [place] 1.011 Urine Protein Negative Urine Glucose (UA) >=500 Urine Ketones 5 Urine Blood Negative Urine Nitrate Negative Urine Bilirubin Negative Urine Urobilinogen < 2.0 H Urine Leukocytes Negative Urine RBC <1 Urine WBC <1 Ur Culture Indicated? Not indicated 03/21/17 03/21/17 03/21/17 04:07 04:07 04:07 WBC RBC Hgb Hct MCV MCH MCHC RDW Plt Count MPV Neut % (Auto) Lymph % (Auto) [place] % (Auto) Eos % (Auto) Baso % (Auto) Neut # (Auto) Lymph # (Auto) [place] # (Auto) Eos # (Auto) Baso # (Auto) Immature Gran % Nucleated RBC % Immature Gran # Nucleated RBCs # Immature Plt Fraction Circ Anticoag PTT Sodium 138 Potassium 4.9 Chloride 103 Carbon Dioxide 25 Anion Gap 14.9 BUN 38 H Creatinine 1.80 H GFR Calculation 49 BUN/Creatinine Ratio 21.00 H Glucose 350 H POC Glucose Calculated Osmolality 297.7 Calcium 8.6 Magnesium 2.0 Total Creatine Kinase 146 D CK-MB (CK-2) 8.8 H D CK and CKMB Interp 6.0 Troponin I 5.480 H D Triglycerides 145 Cholesterol 125 LDL Cholesterol 64.0 VLDL Cholesterol 29.0 HDL Cholesterol 39 L Heart Disease Risk Ratio 3.21 Urine Color Urine Appearance Urine pH Ur Specific [place] Urine Protein Urine Glucose (UA) Urine Ketones Urine Blood Urine Nitrate Urine Bilirubin Urine Urobilinogen Urine Leukocytes Urine RBC Urine WBC Ur Culture Indicated? 03/21/17 03/21/17 03/21/17 07:28 07:47 09:58 WBC RBC Hgb Hct MCV MCH MCHC RDW Plt Count MPV Neut % (Auto) Lymph % (Auto) [place] % (Auto) Eos % (Auto) Baso % (Auto) Neut # (Auto) Lymph # (Auto) [place] # (Auto) Eos # (Auto) Baso # (Auto) Immature Gran % Nucleated RBC % Immature Gran # Nucleated RBCs # Immature Plt Fraction Circ Anticoag PTT 26.6 Sodium Potassium Chloride Carbon Dioxide Anion Gap BUN Creatinine GFR Calculation BUN/Creatinine Ratio Glucose POC Glucose 360 H Calculated Osmolality Calcium Magnesium Total Creatine Kinase 156 CK-MB (CK-2) 9.5 H CK and CKMB Interp 6.1 Troponin I 5.510 H Triglycerides Cholesterol LDL Cholesterol VLDL Cholesterol HDL Cholesterol Heart Disease Risk Ratio Urine Color Urine Appearance Urine pH Ur Specific [place] Urine Protein Urine Glucose (UA) Urine Ketones Urine Blood Urine Nitrate Urine Bilirubin Urine Urobilinogen Urine Leukocytes Urine RBC Urine WBC Ur Culture Indicated? 03/21/17 03/21/17 03/21/17 12:19 12:50 15:52 WBC RBC Hgb Hct MCV MCH MCHC RDW Plt Count MPV Neut % (Auto) Lymph % (Auto) [place] % (Auto) Eos % (Auto) Baso % (Auto) Neut # (Auto) Lymph # (Auto) [place] # (Auto) Eos # (Auto) Baso # (Auto) Immature Gran % Nucleated RBC % Immature Gran # Nucleated RBCs # Immature Plt Fraction Circ Anticoag PTT 35.2 D Sodium Potassium Chloride Carbon Dioxide Anion Gap BUN Creatinine GFR Calculation BUN/Creatinine Ratio Glucose POC Glucose 405 H 334 H Calculated Osmolality Calcium Magnesium Total Creatine Kinase CK-MB (CK-2) CK and CKMB Interp Troponin I Triglycerides Cholesterol LDL Cholesterol VLDL Cholesterol HDL Cholesterol Heart Disease Risk Ratio Urine Color Urine Appearance Urine pH Ur Specific [place] Urine Protein Urine Glucose (UA) Urine Ketones Urine Blood Urine Nitrate Urine Bilirubin Urine Urobilinogen Urine Leukocytes Urine RBC Urine WBC Ur Culture Indicated? 03/21/17 16:23 WBC RBC Hgb Hct MCV MCH MCHC RDW Plt Count MPV Neut % (Auto) Lymph % (Auto) [place] % (Auto) Eos % (Auto) Baso % (Auto) Neut # (Auto) Lymph # (Auto) [place] # (Auto) Eos # (Auto) Baso # (Auto) Immature Gran % Nucleated RBC % Immature Gran # Nucleated RBCs # Immature Plt Fraction Circ Anticoag PTT Sodium Potassium Chloride Carbon Dioxide Anion Gap BUN Creatinine GFR Calculation BUN/Creatinine Ratio Glucose POC Glucose Calculated Osmolality Calcium Magnesium Total Creatine Kinase 131 CK-MB (CK-2) 7.0 H CK and CKMB Interp 5.3 Troponin I 3.210 H D Triglycerides Cholesterol LDL Cholesterol VLDL Cholesterol HDL Cholesterol Heart Disease Risk Ratio Urine Color Urine Appearance Urine pH Ur Specific [place] Urine Protein Urine Glucose (UA) Urine Ketones Urine Blood Urine Nitrate Urine Bilirubin Urine Urobilinogen Urine Leukocytes Urine RBC Urine WBC Ur Culture Indicated?
[2017-03-21] MEDS ORDERED: ENOXAPARIN 100 MG/ML SYRINGE SUBCUT SCH (09:30)
[2017-03-21 10:42] LABS: CKMB % 6.1 %
--- NOTE | 2017-03-21 10:43 | Cardiothoracic Progress Note ---
Assessment and Plan (1) Coronary artery disease Problem details: 04/01: per echo, LV EF 60%; mild mitral/tricuspid regurgitation ; aortic valve with severe stenosis showing GLADYS 0.96cm2, mean gradient 33 mmHg, peak gradient 66 mmHg. 04/02: per echo, LV EF 50%, mild TR/MR; moderate to severe showing GLADYS 1.23cm2, mean gradient 25mmHg, maximum gradient 45mmHg. Status: Chronic Assessment and plan: 61-year-old male with non-ST elevation myocardial infarction, the patient had some chest pain yesterday. He appears that he had some demand ischemia yesterday from hypertensive emergency. Although his troponin rise to 5 he is free of chest pain since last night. He has been stable hemodynamically. No major EKG changes. Started him on heparin drip today. Will give his myocardium chance to recover from this demand ischemia and will schedule him for surgery on Saturday for CABG aVR. If he becomes unstable or chest pain recurred would be forced to perform emergency surgery otherwise I would prefer him to recover completely from that event yesterday and to improve his kidney functions prior to surgery. I explained all that to him and he is willing to proceed with this plan. Current Visit: Yes Exam (Progress Note) - Constitutional Vitals: Period Temp Pulse Resp BP Sys/Dunlap Pulse Ox Last 24 Hr 97.3 F-98.7 F 46-90 12-25 94-208/46-96 88-97 Result/EKG - Labs CBC & BMP: 03/21/17 04:07 03/21/17 04:07 Labs: Laboratory Results - last 24 hr 03/19/17 03/20/17 03/20/17 16:21 13:54 16:34 WBC RBC Hgb Hct MCV MCH MCHC RDW Plt Count MPV Neut % (Auto) Lymph % (Auto) [place] % (Auto) Eos % (Auto) Baso % (Auto) Neut # (Auto) Lymph # (Auto) [place] # (Auto) Eos # (Auto) Baso # (Auto) Immature Gran % Nucleated RBC % Immature Gran # Nucleated RBCs # Immature Plt Fraction Circ Anticoag PTT Sodium Potassium Chloride Carbon Dioxide Anion Gap BUN Creatinine GFR Calculation BUN/Creatinine Ratio Glucose POC Glucose 296 H 321 H Calculated Osmolality Calcium Magnesium Total Creatine Kinase 68 CK-MB (CK-2) 1.2 CK and CKMB Interp Troponin I 0.054 H D Triglycerides Cholesterol LDL Cholesterol VLDL Cholesterol HDL Cholesterol Heart Disease Risk Ratio Urine Color Urine Appearance Urine pH Ur Specific Mcgrann Urine Protein Urine Glucose (UA) Urine Ketones Urine Blood Urine Nitrate Urine Bilirubin Urine Urobilinogen Urine Leukocytes Urine RBC Urine WBC Ur Culture Indicated? 03/20/17 03/20/17 03/20/17 19:17 20:22 23:25 WBC RBC Hgb Hct MCV MCH MCHC RDW Plt Count MPV Neut % (Auto) Lymph % (Auto) [place] % (Auto) Eos % (Auto) Baso % (Auto) Neut # (Auto) Lymph # (Auto) [place] # (Auto) Eos # (Auto) Baso # (Auto) Immature Gran % Nucleated RBC % Immature Gran # Nucleated RBCs # Immature Plt Fraction Circ Anticoag PTT Sodium Potassium Chloride Carbon Dioxide Anion Gap BUN Creatinine GFR Calculation BUN/Creatinine Ratio Glucose POC Glucose 358 H 367 H Calculated Osmolality Calcium Magnesium Total Creatine Kinase 69 CK-MB (CK-2) 2.2 CK and CKMB Interp Troponin I 0.387 H D Triglycerides Cholesterol LDL Cholesterol VLDL Cholesterol HDL Cholesterol Heart Disease Risk Ratio Urine Color Urine Appearance Urine pH Ur Specific Mcgrann Urine Protein Urine Glucose (UA) Urine Ketones Urine Blood Urine Nitrate Urine Bilirubin Urine Urobilinogen Urine Leukocytes Urine RBC Urine WBC Ur Culture Indicated? 03/20/17 03/21/17 03/21/17 Unknown 04:07 04:07 WBC 8.9 RBC 3.91 Hgb 11.9 L Hct 33.6 L MCV 85.9 L MCH 30 MCHC 35.4 RDW 13.2 Plt Count 159 MPV 12.4 H Neut % (Auto) 88.0 H Lymph % (Auto) 9.9 L [place] % (Auto) 1.3 L Eos % (Auto) 0.0 Baso % (Auto) 0.2 Neut # (Auto) 7.8 H Lymph # (Auto) 0.9 L [place] # (Auto) 0.1 L Eos # (Auto) 0.0 Baso # (Auto) 0.0 Immature Gran % 0.6 Nucleated RBC % 0.0 Immature Gran # 0.05 Nucleated RBCs # 0.00 Immature Plt Fraction 0.0 Circ Anticoag PTT Sodium 138 Potassium 4.9 Chloride 103 Carbon Dioxide 25 Anion Gap 14.9 BUN 38 H Creatinine 1.80 H GFR Calculation 49 BUN/Creatinine Ratio 21.00 H Glucose 350 H POC Glucose Calculated Osmolality 297.7 Calcium 8.6 Magnesium 2.0 Total Creatine Kinase CK-MB (CK-2) CK and CKMB Interp Troponin I Triglycerides Cholesterol LDL Cholesterol VLDL Cholesterol HDL Cholesterol Heart Disease Risk Ratio Urine Color Straw Urine Appearance Clear Urine pH 7.0 Ur Specific Mcgrann 1.011 Urine Protein Negative Urine Glucose (UA) >=500 Urine Ketones 5 Urine Blood Negative Urine Nitrate Negative Urine Bilirubin Negative Urine Urobilinogen < 2.0 H Urine Leukocytes Negative Urine RBC <1 Urine WBC <1 Ur Culture Indicated? Not indicated 03/21/17 03/21/17 03/21/17 04:07 04:07 07:28 WBC RBC Hgb Hct MCV MCH MCHC RDW Plt Count MPV Neut % (Auto) Lymph % (Auto) [place] % (Auto) Eos % (Auto) Baso % (Auto) Neut # (Auto) Lymph # (Auto) [place] # (Auto) Eos # (Auto) Baso # (Auto) Immature Gran % Nucleated RBC % Immature Gran # Nucleated RBCs # Immature Plt Fraction Circ Anticoag PTT 26.6 Sodium Potassium Chloride Carbon Dioxide Anion Gap BUN Creatinine GFR Calculation BUN/Creatinine Ratio Glucose POC Glucose Calculated Osmolality Calcium Magnesium Total Creatine Kinase 146 D CK-MB (CK-2) 8.8 H D CK and CKMB Interp 6.0 Troponin I 5.480 H D Triglycerides 145 Cholesterol 125 LDL Cholesterol 64.0 VLDL Cholesterol 29.0 HDL Cholesterol 39 L Heart Disease Risk Ratio 3.21 Urine Color Urine Appearance Urine pH Ur Specific Mcgrann Urine Protein Urine Glucose (UA) Urine Ketones Urine Blood Urine Nitrate Urine Bilirubin Urine Urobilinogen Urine Leukocytes Urine RBC Urine WBC Ur Culture Indicated? 03/21/17 07:47 WBC RBC Hgb Hct MCV MCH MCHC RDW Plt Count MPV Neut % (Auto) Lymph % (Auto) [place] % (Auto) Eos % (Auto) Baso % (Auto) Neut # (Auto) Lymph # (Auto) [place] # (Auto) Eos # (Auto) Baso # (Auto) Immature Gran % Nucleated RBC % Immature Gran # Nucleated RBCs # Immature Plt Fraction Circ Anticoag PTT Sodium Potassium Chloride Carbon Dioxide Anion Gap BUN Creatinine GFR Calculation BUN/Creatinine Ratio Glucose POC Glucose 360 H Calculated Osmolality Calcium Magnesium Total Creatine Kinase CK-MB (CK-2) CK and CKMB Interp Troponin I Triglycerides Cholesterol LDL Cholesterol VLDL Cholesterol HDL Cholesterol Heart Disease Risk Ratio Urine Color Urine Appearance Urine pH Ur Specific Mcgrann Urine Protein Urine Glucose (UA) Urine Ketones Urine Blood Urine Nitrate Urine Bilirubin Urine Urobilinogen Urine Leukocytes Urine RBC Urine WBC Ur Culture Indicated?
[2017-03-21 10:48] LABS: Troponin I Only 5.51 NG/ML (0.00-0.045)
--- NOTE | 2017-03-21 14:06 | Physician Query Form ---
CLICK EDIT DOCUMENT TO SELECT QUERY ANSWER --> OK --> SIGN Almaz Cheng RN Clinical Social Sciences Department Chair W) [phone] (f) [phone] [email or web address] PROVIDERS: Make your selection(s) from the choices in EACH section by typing an "x" and enter comments in the comment section. Please use your independent medical judgment in providing your response. This request does not imply that any particular answer is desired or expected. CLINICAL INDICATORS: (Providers should not edit this section) Based on documentation of "Acute chronic renal disease" "Chronic renal disease stage 3" Creatinine from 1.4 to 1.8. GFR form 67 to 49. Treated with 1/2 NS infusion. Clarify which of the following most accurately represents the patient's renal status: ( ) Acute kidney injury (non-traumatic) (X) Acute renal failure ( ) Acute renal failure with underlying Chronic Kidney Disease (CKD) - please provide stage below ( ) Acute renal failure with pathological renal lesion ( ) Acute renal failure with necrosis ( ) tubular ( ) medullary ( ) cortical ( ) CKD - please provide stage below ( ) End Stage Renal Disease ( ) Acute interstitial nephritis ( ) Hepatorenal syndrome ( ) Other, please specify: ( ) Clinically unable to determine Chronic Kidney Disease Stages Source: National Kidney Disease Foundation ( ) Stage I (eGFR > or = 90) CURRENTLY:::: (X) Stage II (eGFR 60 - 89) ( ) Stage III (eGFR 30 - 59) ( ) Stage IV (eGFR 15 - 29) ( ) Stage V (eGFR < 15 or dialysis) COMMENTS: Patient's creatinine worsened after receiving dye from heart catheterization and has since returned to normal at 1.2. PLEASE ALSO DOCUMENT RESPONSE IN PROGRESS NOTES AND/OR DISCHARGE SUMMARY Use of terms such as suspected, likely, or probable (associated with a specific diagnosis that is being evaluated, monitored, or treated as if it exists) are acceptable and can be restated in the discharge summary if not ruled out. MTDD
[2017-03-21] MEDS: hydrALAZINE 25 MG TABLET PO SCH ×2 (16:06→21:01)
[2017-03-21 17:15] LABS: CKMB % 5.3 %
[2017-03-21 17:16] LABS: Troponin I Only 3.21 NG/ML (0.00-0.045)
[2017-03-21 20:20] LABS: PT Patient Result 10.9 SECS
[2017-03-21 20:27] LABS: Partial Thromboplastin Time 45.3 SECS (0-40)
[2017-03-21] MEDS: ATORVASTATIN 20 MG TABLET PO SCH (21:01)
[2017-03-22 02:58] LABS: INR 1.1; PT Patient Result 11.4 SECS
[2017-03-22 03:07] LABS: Partial Thromboplastin Time 54.6 SECS (0-40)
[2017-03-22] MEDS: HEPARIN DRIP 25,000 UNITS/500 ML PREMIX IV SCH ×2 (03:37→21:10)
[2017-03-22 05:10] LABS: Calcium 9.7 MG/DL (8.5-10.1); Magnesium 2.5 MG/DL (1.8-2.4); Osmolality,Calculated 296.4 MOS/KG (273-304); Potassium 4.8 MMOL/L (3.5-5.1)
[2017-03-22] MEDS: LEVOTHYROXINE 200 MCG TABLET PO SCH (06:14)
[2017-03-22] MEDS: INSULIN REGULAR 100 UNIT/ML SUBCUT SCH ×4 (08:34→22:39)
[2017-03-22 08:42] LABS: INR 1.1; PT Patient Result 11.1 SECS
[2017-03-22] MEDS: CARVEDILOL 6.25 MG TABLET PO SCH (09:13)
[2017-03-22] MEDS: ASPIRIN EC 81 MG TABLET PO SCH (09:18)
[2017-03-22] MEDS: amLODIPine 10 MG TABLET PO SCH (09:18)
[2017-03-22] MEDS: PANTOPRAZOLE 40 MG TABLET PO SCH (09:19)
[2017-03-22] MEDS: LOSARTAN 50 MG TABLET PO SCH (09:19)
[2017-03-22] MEDS: hydrALAZINE 25 MG TABLET PO SCH ×3 (09:19→21:12)
[2017-03-22] MEDS: GABAPENTIN 300 MG CAPSULE PO SCH ×3 (09:20→22:44)
[2017-03-22] MEDS: INSULIN NPH/REGULAR 70/30 100 UNIT/ML SUBCUT SCH ×2 (09:39→21:13)
--- NOTE | 2017-03-22 10:05 | Cardiothoracic Progress Note ---
Assessment and Plan (1) Coronary artery disease Problem details: 04/01: per echo, LV EF 60%; mild mitral/tricuspid regurgitation ; aortic valve with severe stenosis showing GLADYS 0.96cm2, mean gradient 33 mmHg, peak gradient 66 mmHg. 04/02: per echo, LV EF 50%, mild TR/MR; moderate to severe showing GLADYS 1.23cm2, mean gradient 25mmHg, maximum gradient 45mmHg. Status: Chronic Assessment and plan: 61-year-old male with non-ST elevation myocardial infarction, the patient is improving and reports no chest pain. His troponins has been trending down steadily. We will continue close observation, anticoagulation in anticipation for surgery on Saturday. The patient seems to elect mechanical valve for his aortic valve replacement which I agree with. Current Visit: Yes Exam (Progress Note) - Constitutional Vitals: Period Temp Pulse Resp BP Sys/Dunlap Pulse Ox Last 24 Hr 98.0 F-98.7 F 44-87 12-24 119-158/54-93 87-96 Result/EKG - Labs CBC & BMP: 03/21/17 04:07 03/22/17 02:40 Labs: Laboratory Results - last 24 hr 03/21/17 03/21/17 03/21/17 09:58 12:19 12:50 INR PT Patient/Control Mix Circ Anticoag PTT 35.2 D Sodium Potassium Chloride Carbon Dioxide Anion Gap BUN Creatinine GFR Calculation BUN/Creatinine Ratio Glucose POC Glucose 405 H Calculated Osmolality Calcium Magnesium Total Creatine Kinase 156 CK-MB (CK-2) 9.5 H CK and CKMB Interp 6.1 Troponin I 5.510 H 03/21/17 03/21/17 03/21/17 15:52 16:22 16:23 INR PT Patient/Control Mix Circ Anticoag PTT 35.5 Sodium Potassium Chloride Carbon Dioxide Anion Gap BUN Creatinine GFR Calculation BUN/Creatinine Ratio Glucose POC Glucose 334 H Calculated Osmolality Calcium Magnesium Total Creatine Kinase 131 CK-MB (CK-2) 7.0 H CK and CKMB Interp 5.3 Troponin I 3.210 H D 03/21/17 03/21/17 03/21/17 19:50 19:55 21:52 INR 1.0 PT Patient/Control Mix 10.9 Circ Anticoag PTT 45.3 H D Sodium Potassium Chloride Carbon Dioxide Anion Gap BUN Creatinine GFR Calculation BUN/Creatinine Ratio Glucose POC Glucose 428 H Calculated Osmolality Calcium Magnesium Total Creatine Kinase 110 CK-MB (CK-2) 4.9 H CK and CKMB Interp Troponin I 2.520 H D 03/21/17 03/22/17 03/22/17 23:57 02:40 02:40 INR 1.1 PT Patient/Control Mix 11.4 Circ Anticoag PTT 54.6 H D Sodium 140 Potassium 4.8 Chloride 107 Carbon Dioxide 25 Anion Gap 12.8 BUN 48 H D Creatinine 1.70 H GFR Calculation 53 BUN/Creatinine Ratio 28.00 H Glucose 190 H POC Glucose 321 H Calculated Osmolality 296.4 Calcium 9.7 Magnesium 2.5 H Total Creatine Kinase CK-MB (CK-2) CK and CKMB Interp Troponin I 03/22/17 03/22/17 03/22/17 04:51 06:03 08:16 INR 1.1 PT Patient/Control Mix 11.1 Circ Anticoag PTT 61.0 H Sodium Potassium Chloride Carbon Dioxide Anion Gap BUN Creatinine GFR Calculation BUN/Creatinine Ratio Glucose POC Glucose 126 H 124 H Calculated Osmolality Calcium Magnesium Total Creatine Kinase CK-MB (CK-2) CK and CKMB Interp Troponin I 03/22/17 08:18 INR PT Patient/Control Mix Circ Anticoag PTT Sodium Potassium Chloride Carbon Dioxide Anion Gap BUN Creatinine GFR Calculation BUN/Creatinine Ratio Glucose POC Glucose 97 Calculated Osmolality Calcium Magnesium Total Creatine Kinase CK-MB (CK-2) CK and CKMB Interp Troponin I Specialty Discharge - Follow Up or Referrals
--- NOTE | 2017-03-22 14:03 | Cardiology Progress Note ---
Assessment and Plan (1) Chronic renal disease Status: Chronic Assessment and plan: SEE PLAN BELOW Current Visit: Yes Qualifiers: Chronic kidney disease stage: stage 3 (moderate) Qualified Code(s): N18.3 - Chronic kidney disease, stage 3 (moderate) (2) Chest pain Status: Acute Assessment and plan: SEE PLAN BELOW Current Visit: Yes (3) Obstructive sleep apnea Status: Chronic Assessment and plan: SEE PLAN BELOW Current Visit: Yes (4) Coronary artery disease Problem details: 04/01: per echo, LV EF 60%; mild mitral/tricuspid regurgitation ; aortic valve with severe stenosis showing GLADYS 0.96cm2, mean gradient 33 mmHg, peak gradient 66 mmHg. 04/02: per echo, LV EF 50%, mild TR/MR; moderate to severe showing GLADYS 1.23cm2, mean gradient 25mmHg, maximum gradient 45mmHg. Status: Chronic Assessment and plan: SEE PLAN BELOW Current Visit: Yes (5) Uncontrolled diabetes mellitus Status: Chronic Assessment and plan: SEE PLAN BELOW Current Visit: No Qualifiers: Diabetes mellitus type: type 2 Diabetes mellitus watermelon inspector insulin use: with watermelon inspector use (6) Aortic stenosis Status: Chronic Assessment and plan: SEE PLAN BELOW Current Visit: Yes Qualifiers: Cardiac valve disease etiology: etiology unspecified Qualified Code(s): I35.0 - Nonrheumatic aortic (valve) stenosis (7) Diabetes mellitus Status: Chronic Assessment and plan: SEE PLAN BELOW Current Visit: Yes Qualifiers: Diabetes mellitus type: type 2 Diabetes mellitus complication detail: with chronic kidney disease Diabetes mellitus watermelon inspector insulin use: with watermelon inspector use (8) Hypertension Status: Acute Assessment and plan: SEE PLAN BELOW Current Visit: Yes Cardiology - PN: Subj Interval history: INFECTION PREVENTION COORDINATOR: Dr. Marie SUMMARY: Mr. Hartley is a 61 year old WM, who presented to the emergency room with complaints of chest discomfort, dyspnea, and diaphoresis. EKG revealed sinus rhythm with PVCs, one EKG demonstrates bigeminy with ST-T wave changes. Cardiac biomarkers mildly elevated but overall flat. He was taken to the specialist employee labor relations and was found to have severe two-vessel CAD and moderate to severe aortic regurgitation and aortic stenosis. CV surgery was consulted for AVR/CABG which is tentatively planned for next Saturday. His inferior branch of the first diagonal artery had 95% in-stent restenosis, mid RCA had 95% in-stent restenosis , EF 50%, patent proximal to midLAD stent. MARCH 21, 2017: This morning, Mr. Hartley is seen resting comfortably in the bed. Overnight, he had a troponin bump to 5.48. We are continuing to follow him for NSTEMI. He is emotional this morning and tells me that he wants to go home before his surgery to make sure he has his affairs in order and to see his grandchildren. He did have some chest pressure last night but reports he got up to the bedside chair early this morning for a while and did not have any pain at that time. He is pain free at this time. He is off the cardene infusion but his blood pressure is a little elevated prior to receiving his morning medicines. If his blood pressure remains well controlled this morning after he receives his medicines, he could be transferred up to telemetry later today. We will continue to monitor his symptoms to determine whether he is stable enough to be discharged home prior to his surgery on Saturday. He was instructed to take it easy and not strain himself. His right groin looks good this morning. His dressing was removed and he has no bleeding, hematoma, or bruit at the site. Femoral pulse is 3+. It is nontender to palpation. Peripheral pulses are present and palpable bilaterally. Dr. Wellington to follow with further plan and addendum. March 22, 2017: He has not had any recurrent chest pain overnight. He has no acute complaints today. He denies shortness of breath. IMPRESSION AND PLAN: 1. NSTEMI: With troponin up to 5.48. He has two-vessel coronary artery disease that are both in-stent restenosis. 2. CAD: [facility] revealed severe two-vessel CAD and moderate to severe aortic regurgitation and aortic stenosis. CV surgery was consulted for AVR/CABG which is tentatively planned for next Saturday. His inferior branch of the first diagonal artery had 95% in-stent restenosis, mid RCA had 95% in-stent restenosis , EF 50%, patent proximal to midLAD stent. 3. AORTIC STENOSIS: Echocardiogram revealed EF 50%, mild MR, moderate to severe aortic stenosis. He is scheduled for AVR on Saturday. 4. CHRONIC RENAL INSUFFICIENCY: Chronic, stage II-III, creatinine 1.8 post catheterization. 5. RISA: Noncompliant with CPAP, states he cannot wear mask. 6. DIABETES MELLITUS: Poorly controlled per pt. report, glucose 297 in labs. 7. HYPERTENSION: Uncontrolled, will monitor and adjust medications accordingly. 8. CAROTID BRUIT: Carotid ultrasound revealed no evidence of hemodynamically significant stenosis bilaterally. I suspect this is radiation of his carotid murmur. Exam (Progress Note) - Constitutional Vitals: Period Temp Pulse Resp BP Sys/Dunlap Pulse Ox Last 24 Hr 97.7 F-98.7 F 44-76 12-24 119-158/54-93 87-96 Exam: General appearance: normal weight, no acute distress - Head Head exam: Present: normal inspection, normocephalic, atraumatic. Absent: hematoma, laceration - Eye Eye exam: Present: EOMI. Absent: conjunctival injection, nystagmus, periorbital swelling, scleral icterus, laceration to eyelids Pupils: Present: PERRL. Absent: constricted, dilated, fixed, irregular, unequal - ENT ENT exam: Present: normal exam, normal external ear exam - Neck Neck exam: Present: normal inspection. Absent: lymphadenopathy, meningismus, tenderness, thyromegaly - Respiratory Respiratory exam: Present: clear to auscultation bilaterally. Absent: accessory muscle use, chest wall tenderness - Cardiovascular Cardiovascular exam: Present: regular rate and rhythm with a 2/6 holosystolic murmur, 1/6 early diastolic murmur, bilateral carotid bruits. Absent: gallop, JVD, rubs - GI/Abdominal GI/Abdominal exam: Present: normal bowel sounds, soft. Absent: distended, firm , guarding, hernia, mass, tenderness, rebound. - Extremities Exam Extremities exam: Present: normal inspection, normal capillary refill. Absent: calf tenderness, edema - Back Exam Back exam: Present: normal inspection. Absent: muscle spasm, vertebral tenderness - Neurological Exam Neurological exam: Present: alert, oriented X3, grossly intact without resting or intention tremor - Psychiatric Psychiatric exam: Present: normal affect, normal mood - Skin Skin exam: Present: normal color, warm, dry, intact. Absent: cyanosis, diaphoretic, rash, urticaria Result/EKG - Labs CBC & BMP: 03/21/17 04:07 03/22/17 02:40 Lab Results: I have reviewed the past 24 hour labs Labs: Laboratory Results - last 24 hr 03/21/17 03/21/17 03/21/17 15:52 16:22 16:23 INR PT Patient/Control Mix Circ Anticoag PTT 35.5 Sodium Potassium Chloride Carbon Dioxide Anion Gap BUN Creatinine GFR Calculation BUN/Creatinine Ratio Glucose POC Glucose 334 H Calculated Osmolality Calcium Magnesium Total Creatine Kinase 131 CK-MB (CK-2) 7.0 H CK and CKMB Interp 5.3 Troponin I 3.210 H D 03/21/17 03/21/17 03/21/17 19:50 19:55 21:52 INR 1.0 PT Patient/Control Mix 10.9 Circ Anticoag PTT 45.3 H D Sodium Potassium Chloride Carbon Dioxide Anion Gap BUN Creatinine GFR Calculation BUN/Creatinine Ratio Glucose POC Glucose 428 H Calculated Osmolality Calcium Magnesium Total Creatine Kinase 110 CK-MB (CK-2) 4.9 H CK and CKMB Interp Troponin I 2.520 H D 03/21/17 03/22/17 03/22/17 23:57 02:40 02:40 INR 1.1 PT Patient/Control Mix 11.4 Circ Anticoag PTT 54.6 H D Sodium 140 Potassium 4.8 Chloride 107 Carbon Dioxide 25 Anion Gap 12.8 BUN 48 H D Creatinine 1.70 H GFR Calculation 53 BUN/Creatinine Ratio 28.00 H Glucose 190 H POC Glucose 321 H Calculated Osmolality 296.4 Calcium 9.7 Magnesium 2.5 H Total Creatine Kinase CK-MB (CK-2) CK and CKMB Interp Troponin I 03/22/17 03/22/17 03/22/17 04:51 06:03 08:16 INR 1.1 PT Patient/Control Mix 11.1 Circ Anticoag PTT 61.0 H Sodium Potassium Chloride Carbon Dioxide Anion Gap BUN Creatinine GFR Calculation BUN/Creatinine Ratio Glucose POC Glucose 126 H 124 H Calculated Osmolality Calcium Magnesium Total Creatine Kinase CK-MB (CK-2) CK and CKMB Interp Troponin I 03/22/17 03/22/17 08:18 11:50 INR PT Patient/Control Mix Circ Anticoag PTT Sodium Potassium Chloride Carbon Dioxide Anion Gap BUN Creatinine GFR Calculation BUN/Creatinine Ratio Glucose POC Glucose 97 88 Calculated Osmolality Calcium Magnesium Total Creatine Kinase CK-MB (CK-2) CK and CKMB Interp Troponin I Specialty Discharge - Follow Up or Referrals
[2017-03-22] MEDS: POLYETHYLENE GLYCOL POWDER 17 GM PACK PO SCH (21:12)
[2017-03-22] MEDS: ATORVASTATIN 20 MG TABLET PO SCH (21:12)
[2017-03-22] MEDS: CARVEDILOL 3.125 MG TABLET PO SCH (21:12)
[2017-03-23 04:37] LABS: Hematocrit 35.8 VOL% (42.0-52.0); Hemoglobin 12.5 GM/DL (14.0-18.0); Mean Corpuscular HGB Conc 34.9 GM/DL (32-36); Mean Corpuscular Hemoglobin 31 PG (27-34); Mean Corpuscular Volume 87.7 FL (87-102); Platelet Count 212 T/CUMM (130-400); Red Blood Count 4.08 MC/CUMM (3.8-5.5); Red Cell Distribution Width 14.1 % (9.3-17.3); White Blood Count 12.8 T/CUMM (4-12)
[2017-03-23 04:38] LABS: Basophils # 0.1 10*3/uL (0.0-0.2); Basophils % 0.6 % (0.0-0.8); Eosinophils # 0.5 10*3/uL (0.0-0.87); Eosinophils % 3.5 % (0.00-10.9); Immature Granulocytes % 0.6 %; Immature Granulocytes Absolute 0.08 #; Lymphocytes % 31.6 % (21.2-54.2); Mean Platelet Volume 12.3 FL (9.6-12.0); Monocytes % 7.6 % (1.7-12.7); Neutrophils # 7.1 10*3/uL (1.4-7.4); Neutrophils % 56.1 % (38.7-73.9)
[2017-03-23 05:20] LABS: Calcium 8.3 MG/DL (8.5-10.1); Magnesium 2.2 MG/DL (1.8-2.4); Osmolality,Calculated 292.1 MOS/KG (273-304); Potassium 3.4 MMOL/L (3.5-5.1)
[2017-03-23] MEDS: LEVOTHYROXINE 200 MCG TABLET PO SCH (06:50)
[2017-03-23] MEDS: INSULIN REGULAR 100 UNIT/ML SUBCUT SCH ×4 (08:27→22:14)
[2017-03-23] MEDS: HEPARIN DRIP 25,000 UNITS/500 ML PREMIX IV SCH ×2 (08:27→16:28)
[2017-03-23] MEDS: CARVEDILOL 3.125 MG TABLET PO SCH ×2 (08:29→08:34)
[2017-03-23] MEDS: INSULIN NPH/REGULAR 70/30 100 UNIT/ML SUBCUT SCH ×2 (08:32→22:20)
[2017-03-23] MEDS: POLYETHYLENE GLYCOL POWDER 17 GM PACK PO SCH (08:32)
[2017-03-23] MEDS: hydrALAZINE 25 MG TABLET PO SCH (08:33)
[2017-03-23] MEDS: amLODIPine 10 MG TABLET PO SCH (08:33)
[2017-03-23] MEDS: ASPIRIN EC 81 MG TABLET PO SCH (08:33)
[2017-03-23] MEDS: GABAPENTIN 300 MG CAPSULE PO SCH ×3 (08:33→22:10)
[2017-03-23] MEDS: PANTOPRAZOLE 40 MG TABLET PO SCH (08:33)
[2017-03-23] MEDS: LOSARTAN 50 MG TABLET PO SCH (08:34)
[2017-03-23] MEDS: FUROSEMIDE 40 MG/4 ML VIAL IV SCH (12:22)
--- NOTE | 2017-03-23 12:26 | Cardiothoracic Progress Note ---
Assessment and Plan (1) Coronary artery disease Problem details: 04/01: per echo, LV EF 60%; mild mitral/tricuspid regurgitation ; aortic valve with severe stenosis showing GLADYS 0.96cm2, mean gradient 33 mmHg, peak gradient 66 mmHg. 04/02: per echo, LV EF 50%, mild TR/MR; moderate to severe showing GLADYS 1.23cm2, mean gradient 25mmHg, maximum gradient 45mmHg. Status: Chronic Assessment and plan: The patient is doing very well. He has no complaints. No chest pain. He has been active. I will start diuresing him gently today. His kidney functions are improving significantly. We will continue with our current plan with surgery planned for Saturday.. Current Visit: Yes Exam (Progress Note) - Constitutional Vitals: Period Temp Pulse Resp BP Sys/Dunlap Pulse Ox Last 24 Hr 97.1 F-98.6 F 42-67 17-20 127-153/55-75 92-98 Result/EKG - Labs CBC & BMP: 03/23/17 03:50 03/23/17 03:50 Labs: Laboratory Results - last 24 hr 03/22/17 03/22/17 03/23/17 15:45 20:29 03:50 WBC 12.8 H D RBC 4.08 Hgb 12.5 L Hct 35.8 L MCV 87.7 MCH 31 MCHC 34.9 RDW 14.1 Plt Count 212 D MPV 12.3 H Neut % (Auto) 56.1 Lymph % (Auto) 31.6 [place] % (Auto) 7.6 Eos % (Auto) 3.5 Baso % (Auto) 0.6 Neut # (Auto) 7.1 Lymph # (Auto) 4.0 [place] # (Auto) 1.0 H Eos # (Auto) 0.5 Baso # (Auto) 0.1 Immature Gran % 0.6 Nucleated RBC % 0.0 Immature Gran # 0.08 Nucleated RBCs # 0.00 Immature Plt Fraction 0.0 Circ Anticoag PTT Sodium Potassium Chloride Carbon Dioxide Anion Gap BUN Creatinine GFR Calculation BUN/Creatinine Ratio Glucose POC Glucose 180 H 150 H Calculated Osmolality Calcium Magnesium 03/23/17 03/23/17 03/23/17 03:50 03:50 04:20 WBC RBC Hgb Hct MCV MCH MCHC RDW Plt Count MPV Neut % (Auto) Lymph % (Auto) [place] % (Auto) Eos % (Auto) Baso % (Auto) Neut # (Auto) Lymph # (Auto) [place] # (Auto) Eos # (Auto) Baso # (Auto) Immature Gran % Nucleated RBC % Immature Gran # Nucleated RBCs # Immature Plt Fraction Circ Anticoag PTT 59.8 H Sodium 142 Potassium 3.4 L Chloride 107 Carbon Dioxide 26 Anion Gap 12.4 BUN 46 H Creatinine 1.30 GFR Calculation 73 BUN/Creatinine Ratio 35.00 H Glucose 54 L POC Glucose 66 L Calculated Osmolality 292.1 Calcium 8.3 L Magnesium 2.2 03/23/17 03/23/17 03/23/17 05:35 07:36 11:52 WBC RBC Hgb Hct MCV MCH MCHC RDW Plt Count MPV Neut % (Auto) Lymph % (Auto) [place] % (Auto) Eos % (Auto) Baso % (Auto) Neut # (Auto) Lymph # (Auto) [place] # (Auto) Eos # (Auto) Baso # (Auto) Immature Gran % Nucleated RBC % Immature Gran # Nucleated RBCs # Immature Plt Fraction Circ Anticoag PTT Sodium Potassium Chloride Carbon Dioxide Anion Gap BUN Creatinine GFR Calculation BUN/Creatinine Ratio Glucose POC Glucose 161 H 200 H 129 H Calculated Osmolality Calcium Magnesium Specialty Discharge - Follow Up or Referrals
--- NOTE | 2017-03-23 13:09 | Cardiology Progress Note ---
Assessment and Plan (1) Chest pain Status: Acute Assessment and plan: SEE PLAN BELOW Current Visit: Yes (2) Coronary artery disease Status: Chronic Assessment and plan: SEE PLAN BELOW Current Visit: Yes (3) Aortic stenosis Status: Chronic Assessment and plan: SEE PLAN BELOW Current Visit: Yes Qualifiers: Cardiac valve disease etiology: etiology unspecified Qualified Code(s): I35.0 - Nonrheumatic aortic (valve) stenosis (4) Diabetes mellitus Status: Chronic Assessment and plan: SEE PLAN BELOW Current Visit: Yes Qualifiers: Diabetes mellitus type: type 2 Diabetes mellitus complication detail: with chronic kidney disease Diabetes mellitus custodial insulin use: with terminal carman use (5) Hypertension Status: Chronic Assessment and plan: SEE PLAN BELOW Current Visit: Yes (6) Chronic renal disease Status: Chronic Assessment and plan: SEE PLAN BELOW Current Visit: Yes Qualifiers: Chronic kidney disease stage: stage 3 (moderate) Qualified Code(s): N18.3 - Chronic kidney disease, stage 3 (moderate) (7) Obstructive sleep apnea Status: Chronic Assessment and plan: SEE PLAN BELOW Current Visit: Yes Cardiology - PN: Subj Interval history: COKE WHEELER: Dr. Marie SUMMARY: Mr. Hartley is a 61 year old WM, who presented to the emergency room with complaints of chest discomfort, dyspnea, and diaphoresis. EKG revealed sinus rhythm with PVCs, one EKG demonstrates bigeminy with ST-T wave changes. Cardiac biomarkers mildly elevated but overall flat. He was taken to the [employer] and was found to have severe two-vessel CAD and moderate to severe aortic regurgitation and aortic stenosis. CV surgery was consulted for AVR/CABG which is tentatively planned for next Saturday. His inferior branch of the first diagonal artery had 95% in-stent restenosis, mid RCA had 95% in-stent restenosis , EF 50%, patent proximal to midLAD stent. He was treated perioperatively with steroids due to contrast allergy, developed extreme hypertension and a non- STEMI test operatively. MARCH 23, 2017: He is doing very well today. He has been ambulating. Denies any chest discomfort, shortness of breath, lower extremity edema. He has been experiencing some constipation. He denies nausea or vomiting. He woke up with diaphoresis, symptoms of hypoglycemia, blood sugar was 60. We have been covering him with a sliding scale. IMPRESSION AND PLAN: 1. NSTEMI: With troponin up to 5.48. He has two-vessel coronary artery disease that are both in-stent restenosis. This has stabilized. He is on a heparin drip. 2. CAD: [facility] revealed severe two-vessel CAD and moderate to severe aortic regurgitation and aortic stenosis. CV surgery was consulted for AVR/CABG which is tentatively planned for next Saturday. His inferior branch of the first diagonal artery had 95% in-stent restenosis, mid RCA had 95% in-stent restenosis , EF 50%, patent proximal to midLAD stent. 3. AORTIC STENOSIS: Echocardiogram revealed EF 50%, mild MR, moderate to severe aortic stenosis and insufficiency. He is scheduled for AVR on Saturday. 4. CHRONIC RENAL INSUFFICIENCY: Chronic, stage II-III, creatinine 1.8 post catheterization. This has improved to 1.3 today. 5. RISA: Noncompliant with CPAP, states he cannot wear mask. 6. DIABETES MELLITUS: Poorly controlled per pt. report, glucose 297 in labs. He has some relative hypoglycemia and I will decrease his sliding scale. 7. HYPERTENSION: Uncontrolled, will monitor and adjust medications accordingly. 8. CAROTID BRUIT: Carotid ultrasound revealed no evidence of hemodynamically significant stenosis bilaterally. I suspect this is radiation of his carotid murmur. Exam (Progress Note) - Constitutional Vitals: Period Temp Pulse Resp BP Sys/Dunlap Pulse Ox Last 24 Hr 97.1 F-98.6 F 42-67 17-20 127-153/55-75 92-98 Exam: General appearance: normal weight, no acute distress - Head Head exam: Present: normal inspection, normocephalic, atraumatic. Absent: hematoma, laceration - Eye Eye exam: Present: EOMI. Absent: conjunctival injection, nystagmus, periorbital swelling, scleral icterus, laceration to eyelids Pupils: Present: PERRL. Absent: constricted, dilated, fixed, irregular, unequal - ENT ENT exam: Present: normal exam, normal external ear exam - Neck Neck exam: Present: normal inspection. Absent: lymphadenopathy, meningismus, tenderness, thyromegaly - Respiratory Respiratory exam: Present: clear to auscultation bilaterally. Absent: accessory muscle use, chest wall tenderness - Cardiovascular Cardiovascular exam: Present: regular rate and rhythm with a 2/6 holosystolic murmur, 1/6 early diastolic murmur, bilateral carotid bruits. Absent: gallop, JVD, rubs - GI/Abdominal GI/Abdominal exam: Present: normal bowel sounds, soft. Absent: distended, firm , guarding, hernia, mass, tenderness, rebound. - Extremities Exam Extremities exam: Present: normal inspection, normal capillary refill. Absent: calf tenderness, edema - Back Exam Back exam: Present: normal inspection. Absent: muscle spasm, vertebral tenderness - Neurological Exam Neurological exam: Present: alert, oriented X3, grossly intact without resting or intention tremor - Psychiatric Psychiatric exam: Present: normal affect, normal mood - Skin Skin exam: Present: normal color, warm, dry, intact. Absent: cyanosis, diaphoretic, rash, urticaria Result/EKG - Labs CBC & BMP: 03/23/17 03:50 03/23/17 03:50 Lab Results: I have reviewed the past 24 hour labs Labs: Laboratory Results - last 24 hr 03/22/17 03/22/17 03/23/17 15:45 20:29 03:50 WBC 12.8 H D RBC 4.08 Hgb 12.5 L Hct 35.8 L MCV 87.7 MCH 31 MCHC 34.9 RDW 14.1 Plt Count 212 D MPV 12.3 H Neut % (Auto) 56.1 Lymph % (Auto) 31.6 [place] % (Auto) 7.6 Eos % (Auto) 3.5 Baso % (Auto) 0.6 Neut # (Auto) 7.1 Lymph # (Auto) 4.0 [place] # (Auto) 1.0 H Eos # (Auto) 0.5 Baso # (Auto) 0.1 Immature Gran % 0.6 Nucleated RBC % 0.0 Immature Gran # 0.08 Nucleated RBCs # 0.00 Immature Plt Fraction 0.0 Circ Anticoag PTT Sodium Potassium Chloride Carbon Dioxide Anion Gap BUN Creatinine GFR Calculation BUN/Creatinine Ratio Glucose POC Glucose 180 H 150 H Calculated Osmolality Calcium Magnesium 03/23/17 03/23/17 03/23/17 03:50 03:50 04:20 WBC RBC Hgb Hct MCV MCH MCHC RDW Plt Count MPV Neut % (Auto) Lymph % (Auto) [place] % (Auto) Eos % (Auto) Baso % (Auto) Neut # (Auto) Lymph # (Auto) [place] # (Auto) Eos # (Auto) Baso # (Auto) Immature Gran % Nucleated RBC % Immature Gran # Nucleated RBCs # Immature Plt Fraction Circ Anticoag PTT 59.8 H Sodium 142 Potassium 3.4 L Chloride 107 Carbon Dioxide 26 Anion Gap 12.4 BUN 46 H Creatinine 1.30 GFR Calculation 73 BUN/Creatinine Ratio 35.00 H Glucose 54 L POC Glucose 66 L Calculated Osmolality 292.1 Calcium 8.3 L Magnesium 2.2 03/23/17 03/23/17 03/23/17 05:35 07:36 11:52 WBC RBC Hgb Hct MCV MCH MCHC RDW Plt Count MPV Neut % (Auto) Lymph % (Auto) [place] % (Auto) Eos % (Auto) Baso % (Auto) Neut # (Auto) Lymph # (Auto) [place] # (Auto) Eos # (Auto) Baso # (Auto) Immature Gran % Nucleated RBC % Immature Gran # Nucleated RBCs # Immature Plt Fraction Circ Anticoag PTT Sodium Potassium Chloride Carbon Dioxide Anion Gap BUN Creatinine GFR Calculation BUN/Creatinine Ratio Glucose POC Glucose 161 H 200 H 129 H Calculated Osmolality Calcium Magnesium Specialty Discharge - Follow Up or Referrals
[2017-03-23] MEDS: ATORVASTATIN 20 MG TABLET PO SCH (22:10)
[2017-03-24 05:00] LABS: Basophils # 0.1 10*3/uL (0.0-0.2); Basophils % 0.5 % (0.0-0.8); Eosinophils # 0.4 10*3/uL (0.0-0.87); Hematocrit 35.3 VOL% (42.0-52.0); Hemoglobin 12.3 GM/DL (14.0-18.0); Immature Granulocytes % 1.2 %; Immature Granulocytes Absolute 0.11 #; Lymphocytes # 2.9 10*3/uL (1.4-4.0); Lymphocytes % 30.1 % (21.2-54.2); Mean Corpuscular HGB Conc 34.8 GM/DL (32-36); Mean Corpuscular Hemoglobin 31 PG (27-34); Mean Corpuscular Volume 87.6 FL (87-102); Mean Platelet Volume 11.9 FL (9.6-12.0); Monocytes # 0.9 10*3/uL (0.11-0.8); Monocytes % 9.1 % (1.7-12.7); Neutrophils # 5.2 10*3/uL (1.4-7.4); Neutrophils % 55.1 % (38.7-73.9); Platelet Count 189 T/CUMM (130-400); Red Blood Count 4.03 MC/CUMM (3.8-5.5); Red Cell Distribution Width 13.9 % (9.3-17.3); White Blood Count 9.5 T/CUMM (4-12)
[2017-03-24 05:29] LABS: Calcium 8.6 MG/DL (8.5-10.1); Magnesium 2.2 MG/DL (1.8-2.4); Osmolality,Calculated 295.7 MOS/KG (273-304); Potassium 3.6 MMOL/L (3.5-5.1)
[2017-03-24] MEDS: LEVOTHYROXINE 200 MCG TABLET PO SCH (06:55)
[2017-03-24] MEDS: GABAPENTIN 300 MG CAPSULE PO SCH ×3 (08:29→22:36)
[2017-03-24] MEDS: PANTOPRAZOLE 40 MG TABLET PO SCH (08:29)
[2017-03-24] MEDS: ASPIRIN EC 81 MG TABLET PO SCH (08:29)
[2017-03-24] MEDS: amLODIPine 10 MG TABLET PO SCH (08:29)
[2017-03-24] MEDS: LOSARTAN 50 MG TABLET PO SCH (08:29)
[2017-03-24] MEDS: POLYETHYLENE GLYCOL POWDER 17 GM PACK PO SCH (08:30)
[2017-03-24] MEDS: FUROSEMIDE 40 MG/4 ML VIAL IV SCH (08:32)
[2017-03-24] MEDS: INSULIN REGULAR 100 UNIT/ML SUBCUT SCH ×4 (08:35→22:36)
[2017-03-24] MEDS: INSULIN NPH/REGULAR 70/30 100 UNIT/ML SUBCUT SCH ×2 (10:08→22:35)
--- NOTE | 2017-03-24 10:22 | Cardiothoracic Progress Note ---
Assessment and Plan (1) Coronary artery disease Status: Chronic Assessment and plan: The patient is doing very well. He has no complaints. No chest pain. He has been active. He is diuresing well. He is scheduled for CABG aVR as planned on March 26. Current Visit: Yes Exam (Progress Note) - Constitutional Vitals: Period Temp Pulse Resp BP Sys/Dunlap Pulse Ox Last 24 Hr 97.7 F-98.5 F 45-93 18-20 125-154/47-71 90-95 Result/EKG - Labs CBC & BMP: 03/24/17 04:05 03/24/17 04:05 Labs: Laboratory Results - last 24 hr 03/23/17 03/23/17 03/23/17 11:52 15:36 22:14 WBC RBC Hgb Hct MCV MCH MCHC RDW Plt Count MPV Neut % (Auto) Lymph % (Auto) [place] % (Auto) Eos % (Auto) Baso % (Auto) Neut # (Auto) Lymph # (Auto) [place] # (Auto) Eos # (Auto) Baso # (Auto) Immature Gran % Nucleated RBC % Immature Gran # Nucleated RBCs # Immature Plt Fraction Circ Anticoag PTT Sodium Potassium Chloride Carbon Dioxide Anion Gap BUN Creatinine GFR Calculation BUN/Creatinine Ratio Glucose POC Glucose 129 H 270 H 234 H Calculated Osmolality Calcium Magnesium 03/24/17 03/24/17 03/24/17 04:05 04:05 04:05 WBC 9.5 RBC 4.03 Hgb 12.3 L Hct 35.3 L MCV 87.6 MCH 31 MCHC 34.8 RDW 13.9 Plt Count 189 MPV 11.9 Neut % (Auto) 55.1 Lymph % (Auto) 30.1 [place] % (Auto) 9.1 Eos % (Auto) 4.0 Baso % (Auto) 0.5 Neut # (Auto) 5.2 Lymph # (Auto) 2.9 [place] # (Auto) 0.9 H Eos # (Auto) 0.4 Baso # (Auto) 0.1 Immature Gran % 1.2 Nucleated RBC % 0.0 Immature Gran # 0.11 Nucleated RBCs # 0.00 Immature Plt Fraction 0.0 Circ Anticoag PTT 50.7 H Sodium 145 Potassium 3.6 Chloride 108 H Carbon Dioxide 28 Anion Gap 12.6 BUN 35 H Creatinine 1.20 GFR Calculation 81 BUN/Creatinine Ratio 29.00 H Glucose 97 POC Glucose Calculated Osmolality 295.7 Calcium 8.6 Magnesium 2.2 03/24/17 03/24/17 07:32 09:18 WBC RBC Hgb Hct MCV MCH MCHC RDW Plt Count MPV Neut % (Auto) Lymph % (Auto) [place] % (Auto) Eos % (Auto) Baso % (Auto) Neut # (Auto) Lymph # (Auto) [place] # (Auto) Eos # (Auto) Baso # (Auto) Immature Gran % Nucleated RBC % Immature Gran # Nucleated RBCs # Immature Plt Fraction Circ Anticoag PTT Sodium Potassium Chloride Carbon Dioxide Anion Gap BUN Creatinine GFR Calculation BUN/Creatinine Ratio Glucose POC Glucose 65 L 160 H Calculated Osmolality Calcium Magnesium Specialty Discharge - Follow Up or Referrals
[2017-03-24] MEDS: HEPARIN DRIP 25,000 UNITS/500 ML PREMIX IV SCH (14:43)
--- NOTE | 2017-03-24 15:10 | Cardiology Progress Note ---
Assessment and Plan (1) Chest pain Status: Acute Assessment and plan: SEE PLAN BELOW Current Visit: Yes (2) Coronary artery disease Status: Chronic Assessment and plan: SEE PLAN BELOW Current Visit: Yes (3) Aortic stenosis Status: Chronic Assessment and plan: SEE PLAN BELOW Current Visit: Yes Qualifiers: Cardiac valve disease etiology: etiology unspecified Qualified Code(s): I35.0 - Nonrheumatic aortic (valve) stenosis (4) Diabetes mellitus Status: Chronic Assessment and plan: SEE PLAN BELOW Current Visit: Yes Qualifiers: Diabetes mellitus type: type 2 Diabetes mellitus complication detail: with chronic kidney disease Diabetes mellitus custodial insulin use: with adjunct faculty for medical terminology use (5) Hypertension Status: Chronic Assessment and plan: SEE PLAN BELOW Current Visit: Yes (6) Chronic renal disease Status: Chronic Assessment and plan: SEE PLAN BELOW Current Visit: Yes Qualifiers: Chronic kidney disease stage: stage 3 (moderate) Qualified Code(s): N18.3 - Chronic kidney disease, stage 3 (moderate) (7) Obstructive sleep apnea Status: Chronic Assessment and plan: SEE PLAN BELOW Current Visit: Yes Cardiology - PN: Subj Interval history: TELETYPIST: Dr. Marie SUMMARY: Mr. Hartley is a 61 year old WM, who presented to the emergency room with complaints of chest discomfort, dyspnea, and diaphoresis. EKG revealed sinus rhythm with PVCs, one EKG demonstrates bigeminy with ST-T wave changes. Cardiac biomarkers mildly elevated but overall flat. 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 CV surgery was consulted for AVR/CABG which is tentatively planned for Monday 03/26. His inferior branch of the first diagonal artery had 95% in-stent restenosis, mid RCA had 95% in-stent restenosis , EF 50%, patent proximal to midLAD stent. He was treated perioperatively with steroids due to contrast allergy, developed extreme hypertension and a non- STEMI post operatively. MARCH 25, 2017: He is doing very well today. He has been ambulating. Denies any chest discomfort, shortness of breath, lower extremity edema. He is ready for surgery Saturday he tells me. He continues to have some mild bradycardia off of his beta-marina but overall this is improved. IMPRESSION AND PLAN: 1. NSTEMI: With troponin up to 5.48. He has two-vessel coronary artery disease that are both in-stent restenosis. This has stabilized. He is on a heparin drip. 2. CAD: [facility] revealed severe two-vessel CAD and moderate to severe aortic regurgitation and aortic stenosis. CV surgery was consulted for AVR/CABG which is tentatively planned for next Saturday. His inferior branch of the first diagonal artery had 95% in-stent restenosis, mid RCA had 95% in-stent restenosis , EF 50%, patent proximal to midLAD stent. 3. AORTIC STENOSIS: Echocardiogram revealed EF 50%, mild MR, moderate to severe aortic stenosis and insufficiency. He is scheduled for AVR on Saturday. 4. CHRONIC RENAL INSUFFICIENCY: Chronic, stage II-III, creatinine 1.8 post catheterization. This has improved. 5. RISA: Noncompliant with CPAP, states he cannot wear mask. 6. DIABETES MELLITUS: Poorly controlled per pt. he is on insulin and sliding scale. 7. HYPERTENSION: Controlled. He is not on beta mar[place] due to his bradycardia. 8. CAROTID BRUIT: Carotid ultrasound revealed no evidence of hemodynamically significant stenosis bilaterally. I suspect this is radiation of his carotid murmur. Exam (Progress Note) - Constitutional Vitals: Period Temp Pulse Resp BP Sys/Dunlap Pulse Ox Last 24 Hr 97.0 F-98.5 F 45-93 18-20 125-154/47-71 90-94 Exam: General appearance: normal weight, no acute distress - Head Head exam: Present: normal inspection, normocephalic, atraumatic. Absent: hematoma, laceration - Eye Eye exam: Present: EOMI. Absent: conjunctival injection, nystagmus, periorbital swelling, scleral icterus, laceration to eyelids Pupils: Present: PERRL. Absent: constricted, dilated, fixed, irregular, unequal - ENT ENT exam: Present: normal exam, normal external ear exam - Neck Neck exam: Present: normal inspection. Absent: lymphadenopathy, meningismus, tenderness, thyromegaly - Respiratory Respiratory exam: Present: clear to auscultation bilaterally. Absent: accessory muscle use, chest wall tenderness - Cardiovascular Cardiovascular exam: Present: regular rate and rhythm with a 2/6 holosystolic murmur, 1/6 early diastolic murmur, bilateral carotid bruits. Absent: gallop, JVD, rubs - GI/Abdominal GI/Abdominal exam: Present: normal bowel sounds, soft. Absent: distended, firm , guarding, hernia, mass, tenderness, rebound. - Extremities Exam Extremities exam: Present: normal inspection, normal capillary refill. Absent: calf tenderness, edema - Back Exam Back exam: Present: normal inspection. Absent: muscle spasm, vertebral tenderness - Neurological Exam Neurological exam: Present: alert, oriented X3, grossly intact without resting or intention tremor - Psychiatric Psychiatric exam: Present: normal affect, normal mood - Skin Skin exam: Present: normal color, warm, dry, intact. Absent: cyanosis, diaphoretic, rash, urticaria Result/EKG - Labs CBC & BMP: 03/24/17 04:05 03/24/17 04:05 Lab Results: I have reviewed the past 24 hour labs Labs: Laboratory Results - last 24 hr 03/23/17 03/23/17 03/24/17 15:36 22:14 04:05 WBC 9.5 RBC 4.03 Hgb 12.3 L Hct 35.3 L MCV 87.6 MCH 31 MCHC 34.8 RDW 13.9 Plt Count 189 MPV 11.9 Neut % (Auto) 55.1 Lymph % (Auto) 30.1 [place] % (Auto) 9.1 Eos % (Auto) 4.0 Baso % (Auto) 0.5 Neut # (Auto) 5.2 Lymph # (Auto) 2.9 [place] # (Auto) 0.9 H Eos # (Auto) 0.4 Baso # (Auto) 0.1 Immature Gran % 1.2 Nucleated RBC % 0.0 Immature Gran # 0.11 Nucleated RBCs # 0.00 Immature Plt Fraction 0.0 Circ Anticoag PTT Sodium Potassium Chloride Carbon Dioxide Anion Gap BUN Creatinine GFR Calculation BUN/Creatinine Ratio Glucose POC Glucose 270 H 234 H Calculated Osmolality Calcium Magnesium 03/24/17 03/24/17 03/24/17 04:05 04:05 07:32 WBC RBC Hgb Hct MCV MCH MCHC RDW Plt Count MPV Neut % (Auto) Lymph % (Auto) [place] % (Auto) Eos % (Auto) Baso % (Auto) Neut # (Auto) Lymph # (Auto) [place] # (Auto) Eos # (Auto) Baso # (Auto) Immature Gran % Nucleated RBC % Immature Gran # Nucleated RBCs # Immature Plt Fraction Circ Anticoag PTT 50.7 H Sodium 145 Potassium 3.6 Chloride 108 H Carbon Dioxide 28 Anion Gap 12.6 BUN 35 H Creatinine 1.20 GFR Calculation 81 BUN/Creatinine Ratio 29.00 H Glucose 97 POC Glucose 65 L Calculated Osmolality 295.7 Calcium 8.6 Magnesium 2.2 03/24/17 03/24/17 09:18 11:45 WBC RBC Hgb Hct MCV MCH MCHC RDW Plt Count MPV Neut % (Auto) Lymph % (Auto) [place] % (Auto) Eos % (Auto) Baso % (Auto) Neut # (Auto) Lymph # (Auto) [place] # (Auto) Eos # (Auto) Baso # (Auto) Immature Gran % Nucleated RBC % Immature Gran # Nucleated RBCs # Immature Plt Fraction Circ Anticoag PTT Sodium Potassium Chloride Carbon Dioxide Anion Gap BUN Creatinine GFR Calculation BUN/Creatinine Ratio Glucose POC Glucose 160 H 175 H Calculated Osmolality Calcium Magnesium Specialty Discharge - Follow Up or Referrals
[2017-03-24] MEDS: MAGNESIUM HYDROXIDE SUSP 30 ML UDCUP PO PRN ×2 (16:26→22:35)
[2017-03-24] MEDS: ATORVASTATIN 20 MG TABLET PO SCH (22:36)
[2017-03-25 06:03] LABS: Calcium 8.6 MG/DL (8.5-10.1); Magnesium 2.4 MG/DL (1.8-2.4); Potassium 3.8 MMOL/L (3.5-5.1)
[2017-03-25] MEDS: LEVOTHYROXINE 200 MCG TABLET PO SCH (06:17)
[2017-03-25 06:25] LABS: Basophils # 0.1 10*3/uL (0.0-0.2); Basophils % 0.9 % (0.0-0.8); Eosinophils # 0.4 10*3/uL (0.0-0.87); Eosinophils % 4.1 % (0.00-10.9); Hematocrit 38.1 VOL% (42.0-52.0); Hemoglobin 13.1 GM/DL (14.0-18.0); Immature Granulocytes % 1.9 %; Immature Granulocytes Absolute 0.17 #; Lymphocytes # 2.6 10*3/uL (1.4-4.0); Lymphocytes % 28.2 % (21.2-54.2); Mean Corpuscular HGB Conc 34.4 GM/DL (32-36); Mean Corpuscular Hemoglobin 31 PG (27-34); Mean Corpuscular Volume 89.9 FL (87-102); Mean Platelet Volume 11.8 FL (9.6-12.0); Monocytes # 0.8 10*3/uL (0.11-0.8); Monocytes % 8.4 % (1.7-12.7); Neutrophils # 5.1 10*3/uL (1.4-7.4); Neutrophils % 56.5 % (38.7-73.9); Platelet Count 164 T/CUMM (130-400); Red Blood Count 4.24 MC/CUMM (3.8-5.5); Red Cell Distribution Width 14.4 % (9.3-17.3); White Blood Count 9.1 T/CUMM (4-12)
--- NOTE | 2017-03-25 08:23 | Ultrasound Report ---
History is saphenous vein mapping for CABG The saphenous veins is a at their proximal mid and distal aspects of the effectively measure: Right; 5.2 mm, 2.5 mm, 1.6 mm Left; 4.2 mm, 2.1 mm, 1.7 mm Both saphenous veins are patent without evidence of thrombus. Impression: Saphenous vein mapping described above. PROCEDURE INTERPRETED AT [facility] DEPARTMENT OF RADIOLOGY Final Report Signed by: Dr. Ana Pope
[2017-03-25] MEDS: INSULIN NPH/REGULAR 70/30 100 UNIT/ML SUBCUT SCH ×2 (09:44→21:18)
[2017-03-25] MEDS: FUROSEMIDE 40 MG/4 ML VIAL IV SCH (09:45)
[2017-03-25] MEDS: INSULIN REGULAR 100 UNIT/ML SUBCUT SCH ×4 (09:45→20:59)
[2017-03-25] MEDS: LOSARTAN 50 MG TABLET PO SCH (09:46)
[2017-03-25] MEDS: ASPIRIN EC 81 MG TABLET PO SCH (09:46)
[2017-03-25] MEDS: GABAPENTIN 300 MG CAPSULE PO SCH ×3 (09:47→21:18)
[2017-03-25] MEDS: PANTOPRAZOLE 40 MG TABLET PO SCH (09:47)
[2017-03-25] MEDS: POLYETHYLENE GLYCOL POWDER 17 GM PACK PO SCH (09:48)
--- NOTE | 2017-03-25 10:14 | Cardiology Progress Note ---
Cardiology - PN: Subj Interval history: Cardiology note 61-year-old man status post non-Q-wave SC. Cardiac cath showed two-vessel CAD and moderate /AI No chest pain or shortness of breath Telemetry benign O2 sat 94% on 2 L Blood pressure 140/76 Regular rhythm with systolic ejection murmur Decreased breath sounds but clear Abdomen benign Right groin soft and dry. No hematoma Lab data White count 9.1 hemoglobin 13.1 hematocrit 38.1 Sodium 143 potassium 3.8 chloride 108 CO2 24 BUN 27 creatinine 1.20 glucose 169 Impression Status post non-Q-wave SC Three-vessel CAD and moderate /AI Chronic hypertension Diabetes Echo showed EF 50% Mild chronic renal insufficiency Plan Continue losartan 100 mg, amlodipine 10 mg daily and hydralazine 50 mg 3 times daily Continue Lipitor 20 mg daily and aspirin 81 mg daily Combined AVR/CABG tomorrow Watch sugars closely Exam (Progress Note) - Constitutional Vitals: Period Temp Pulse Resp BP Sys/Dunlap Pulse Ox Last 24 Hr 97.0 F-98.3 F 49-70 16-20 141-187/63-91 92-98 Result/EKG - Labs CBC & BMP: 03/25/17 05:00 03/25/17 05:00 Labs: Laboratory Results - last 24 hr 03/24/17 03/24/17 03/25/17 11:45 15:02 05:00 WBC 9.1 RBC 4.24 Hgb 13.1 L Hct 38.1 L MCV 89.9 MCH 31 MCHC 34.4 RDW 14.4 Plt Count 164 MPV 11.8 Neut % (Auto) 56.5 Lymph % (Auto) 28.2 [place] % (Auto) 8.4 Eos % (Auto) 4.1 Baso % (Auto) 0.9 H Neut # (Auto) 5.1 Lymph # (Auto) 2.6 [place] # (Auto) 0.8 Eos # (Auto) 0.4 Baso # (Auto) 0.1 Immature Gran % 1.9 Nucleated RBC % 0.0 Immature Gran # 0.17 Nucleated RBCs # 0.00 Circ Anticoag PTT Sodium Potassium Chloride Carbon Dioxide Anion Gap BUN Creatinine GFR Calculation BUN/Creatinine Ratio Glucose POC Glucose 175 H 151 H Calculated Osmolality Calcium Magnesium Blood Type Antibody Screen 03/25/17 03/25/17 03/25/17 05:00 06:27 06:27 WBC RBC Hgb Hct MCV MCH MCHC RDW Plt Count MPV Neut % (Auto) Lymph % (Auto) [place] % (Auto) Eos % (Auto) Baso % (Auto) Neut # (Auto) Lymph # (Auto) [place] # (Auto) Eos # (Auto) Baso # (Auto) Immature Gran % Nucleated RBC % Immature Gran # Nucleated RBCs # Circ Anticoag PTT 56.7 H Sodium 143 Potassium 3.8 Chloride 108 H Carbon Dioxide 24 Anion Gap 14.8 BUN 27 H Creatinine 1.20 GFR Calculation 81 BUN/Creatinine Ratio 22.00 H Glucose 169 H POC Glucose Calculated Osmolality 293.0 Calcium 8.6 Magnesium 2.4 Blood Type O POSITIVE Antibody Screen Negative 03/25/17 08:31 WBC RBC Hgb Hct MCV MCH MCHC RDW Plt Count MPV Neut % (Auto) Lymph % (Auto) [place] % (Auto) Eos % (Auto) Baso % (Auto) Neut # (Auto) Lymph # (Auto) [place] # (Auto) Eos # (Auto) Baso # (Auto) Immature Gran % Nucleated RBC % Immature Gran # Nucleated RBCs # Circ Anticoag PTT Sodium Potassium Chloride Carbon Dioxide Anion Gap BUN Creatinine GFR Calculation BUN/Creatinine Ratio Glucose POC Glucose 155 H Calculated Osmolality Calcium Magnesium Blood Type Antibody Screen Quality Measures - VTE Contraindication to Pharmacological VTE Prophylaxis: Active Bleeding Specialty Discharge - Follow Up or Referrals
[2017-03-25] MEDS: amLODIPine 10 MG TABLET PO SCH (10:18)
[2017-03-25] MEDS: SODIUM CHLORIDE 0.9% 1,000 ML IV SCH (10:19)
[2017-03-25] MEDS: CHLORHEXIDINE 4% SOLN 118 ML BOTTLE TOP SCH ×3 (14:42→21:19)
[2017-03-25] MEDS: HEPARIN DRIP 25,000 UNITS/500 ML PREMIX IV SCH (14:42)
[2017-03-25] MEDS: CHLORHEXIDINE 0.12% ORAL RINSE 60 ML BOTTLE SWISH/SPIT SCH ×2 (14:43→21:20)
[2017-03-25] MEDS: ATORVASTATIN 20 MG TABLET PO SCH (21:19)
[2017-03-26] MEDS ORDERED: CEFUROXIME INJ 1,500 MG in SODIUM CHLORIDE 0.9% 100 ML IV ONE (00:01)
[2017-03-26] MEDS ORDERED: VANCOMYCIN 1,000 MG VIAL ONE ×2 (05:18)
[2017-03-26] MEDS ORDERED: PAPAVERINE 60 MG/2 ML VIAL ONE (05:18)
[2017-03-26] MEDS ORDERED: FAMOTIDINE 20 MG TABLET PO ONE (05:36)
[2017-03-26] MEDS ORDERED: LORazepam 1 MG TABLET PO ONE (05:36)
[2017-03-26] MEDS: LEVOTHYROXINE 200 MCG TABLET PO SCH (06:00)
[2017-03-26] MEDS: amLODIPine 10 MG TABLET PO SCH ×2 (06:00→09:07)
[2017-03-26] MEDS: PANTOPRAZOLE 40 MG TABLET PO SCH ×2 (06:00→09:08)
[2017-03-26] MEDS: LOSARTAN 50 MG TABLET PO SCH ×2 (06:00→09:07)
[2017-03-26] MEDS ORDERED: TRANEXAMIC ACID 1,000 MG/10 ML VIAL IV ONE ×2 (06:38→13:51)
--- NOTE | 2017-03-26 07:34 | Cardiology Progress Note ---
Cardiology - PN: Subj Interval history: Cardiology note 61-year-old man status post non-Q-wave [place]. Patient has two-vessel CAD and moderate /AI For combined AVR and CABG today Telemetry shows steady sinus rhythm blood pressure 136/84 O2 sat 96% room air Regular rhythm no gallop 2/6 systolic murmur as before Abdomen soft benign Clear chest Right groin looks good no bruit or hematoma Fasting blood sugar 118 Impression Status post non-Q-wave [place] two-vessel CAD and moderate /AI Diabetes Hypertension EF 50% by echo Mild chronic renal insufficiency Plan Combined AVR/CABG today Intra-Op CEDRICK Watch sugars closely Aspirin 81 mg and Lipitor 20 mg daily Current blood pressure regimen includes losartan 100 mg daily, amlodipine 10 mg daily, hydralazine 50 mg 3 times daily Exam (Progress Note) - Constitutional Vitals: Period Temp Pulse Resp BP Sys/Dunlap Pulse Ox Last 24 Hr 98 F-98.5 F 51-92 16-20 128-170/51-89 94-98 Result/EKG - Labs CBC & BMP: 03/25/17 05:00 03/25/17 05:00 Labs: Laboratory Results - last 24 hr 03/24/17 03/25/17 03/25/17 19:48 06:27 08:31 POC Glucose 204 H 155 H Blood Type O POSITIVE Antibody Screen Negative Crossmatch Blood Bank Comment 03/25/17 03/25/17 03/25/17 12:06 15:09 19:03 POC Glucose 98 120 H 172 H Blood Type Antibody Screen Crossmatch Blood Bank Comment 03/26/17 03/26/17 03/26/17 03:15 04:31 05:42 POC Glucose 66 L 119 H Blood Type Cancelled Antibody Screen Cancelled Crossmatch See Detail Blood Bank Comment Cancelled 03/26/17 Unknown POC Glucose Blood Type O POSITIVE Antibody Screen Crossmatch Blood Bank Comment Quality Measures - VTE Contraindication to Pharmacological VTE Prophylaxis: Active Bleeding Specialty Discharge - Follow Up or Referrals
[2017-03-26 07:58] LABS: ABG Base Excess 0.6 MMOL/L (-2.5-2.5); ABG PCO2 30.9 MM HG (35-48); ABG PH 7.483 (7.35-7.45); ABG TCO2 20.2 MMOL/L (23-27); Glucose Heart Surgery 132 MG/DL (74-106); Hematocrit Heart Surgery 38.9 PERCENT (42-52); Hemoglobin Heart Surgery 12.6 G/DL (14.0-18.0); Ionized Calcium Arterial 1.15 MMOL/L (1.21-1.46); PCO2 Patient Temp Arterial 30.9 MMHG; PH Patient Temp Arterial 7.483; Patient Temperature 37 CELCIUS; Potassium Heart/CVR 3.9 MMOL/L (3.5-5.1); Sodium Heart/CVR 141 MMOL/L (135-145)
[2017-03-26 08:14] LABS: Apearance,Urine CLEAR (Clear); Bilirubin,Urine Negative (Negative); Blood, Urine Negative (Negative); Glucose,Urine (UA) Negative (Negative); Ketones,Urine Negative (Negative); Mucus,Urine Occasional /LPF (Occasional); Nitrite,Urine Negative (Negative); Protein,Urine Negative; RBC,Urine 2 /HPF (0-4); Urine Color Yellow (Yellow); Urine Specific Gravity 1.016 (1.001-1.035); Urine Urobilinogen < 2.0 EU/DL (0.2-1.0); WBC,Urine 1 /HPF (0-6)
[2017-03-26] MEDS ORDERED: TISSUE ADHESIVE 1 EACH APPLICATOR TOP ONE (08:21)
[2017-03-26] MEDS ORDERED: PHENYLEPHRINE DRIP 0 MG/0 ML PREMIX IV ONE (08:28)
[2017-03-26 08:43] LABS: Hemoglobin Heart Surgery 8.6 G/DL (14.0-18.0); PCO2 Patient Temp Venous 34.9 MM HG; PH Patient Temp Venous 7.477; PO2 Patient Temp Venous 41.3 MM HG; Potassium Heart/CVR 4.1 MMOL/L (3.5-5.1); VBG Base Excess 2.5 MEQ/L (0-4); VBG HCO3 26.5 MEQ/L (24-28); VBG Oxygen Saturation 85.9 %; VBG PCO2 40.3 MMHG (41-51); VBG PH 7.432; VBG PO2 50.7 MMHG (17-40)
[2017-03-26 08:44] LABS: Hematocrit Heart Surgery 26.8 PERCENT (42-52)
[2017-03-26] MEDS: HEPARIN DRIP 25,000 UNITS/500 ML PREMIX IV SCH (09:05)
[2017-03-26] MEDS: INSULIN REGULAR 100 UNIT/ML SUBCUT SCH ×2 (09:06→16:23)
[2017-03-26] MEDS: ASPIRIN EC 81 MG TABLET PO SCH (09:06)
[2017-03-26] MEDS: POLYETHYLENE GLYCOL POWDER 17 GM PACK PO SCH (09:07)
[2017-03-26] MEDS: FUROSEMIDE 40 MG/4 ML VIAL IV SCH (09:07)
[2017-03-26] MEDS: INSULIN NPH/REGULAR 70/30 100 UNIT/ML SUBCUT SCH (09:07)
[2017-03-26] MEDS: GABAPENTIN 300 MG CAPSULE PO SCH (09:07)
[2017-03-26] MEDS: CHLORHEXIDINE 0.12% ORAL RINSE 60 ML BOTTLE SWISH/SPIT SCH ×2 (09:08→20:48)
[2017-03-26] MEDS: SODIUM CHLORIDE 0.9% 1,000 ML IV SCH (09:08)
[2017-03-26 09:19] LABS: PH Patient Temp Venous 7.556; Potassium Heart/CVR 4.4 MMOL/L (3.5-5.1); VBG Base Excess 2.7 MEQ/L (0-4); VBG HCO3 26.3 MEQ/L (24-28); VBG Oxygen Saturation 80.6 %; VBG PCO2 36.1 MMHG (41-51); VBG PH 7.48; VBG PO2 39.4 MMHG (17-40)
[2017-03-26 09:20] LABS: PO2 Patient Temp Venous 27.7 MM HG
[2017-03-26 09:42] LABS: Hematocrit Heart Surgery 26.3 PERCENT (42-52); Hemoglobin Heart Surgery 8.5 G/DL (14.0-18.0); PCO2 Patient Temp Venous 28.5 MM HG; PH Patient Temp Venous 7.552; PO2 Patient Temp Venous 30.5 MM HG; Potassium Heart/CVR 4.5 MMOL/L (3.5-5.1); VBG Base Excess 3.2 MEQ/L (0-4); VBG HCO3 27.1 MEQ/L (24-28); VBG Oxygen Saturation 80.8 %; VBG PCO2 36.2 MMHG (41-51); VBG PH 7.477; VBG PO2 43.2 MMHG (17-40)
[2017-03-26 10:15] LABS: PCO2 Patient Temp Venous 24.7 MM HG; PH Patient Temp Venous 7.59; Potassium Heart/CVR 4.2 MMOL/L (3.5-5.1); VBG Base Excess 1.3 MEQ/L (0-4); VBG HCO3 24.1 MEQ/L (24-28); VBG Oxygen Saturation 80.4 %; VBG PCO2 30.7 MMHG (41-51); VBG PH 7.513; VBG PO2 37.6 MMHG (17-40)
[2017-03-26 10:16] LABS: PO2 Patient Temp Venous 26.4 MM HG
[2017-03-26 10:45] LABS: Hematocrit Heart Surgery 25.4 PERCENT (42-52); Hemoglobin Heart Surgery 8.2 G/DL (14.0-18.0); PCO2 Patient Temp Venous 34.2 MM HG; PH Patient Temp Venous 7.483; PO2 Patient Temp Venous 38.1 MM HG; Potassium Heart/CVR 4.3 MMOL/L (3.5-5.1); VBG Base Excess 2.4 MEQ/L (0-4); VBG HCO3 26.2 MEQ/L (24-28); VBG Oxygen Saturation 76.8 %; VBG PCO2 35.9 MMHG (41-51); VBG PH 7.468; VBG PO2 40.8 MMHG (17-40)
[2017-03-26 11:43] LABS: ABG Base Excess -1.8 MMOL/L (-2.5-2.5); ABG HCO3 22.9 MMOL/L (20-26); ABG PCO2 31.4 MM HG (35-48); ABG PH 7.446 (7.35-7.45); ABG TCO2 19.9 MMOL/L (23-27); Glucose Heart Surgery 268 MG/DL (74-106); Hematocrit Heart Surgery 27.8 PERCENT (42-52); Hemoglobin Heart Surgery 8.9 G/DL (14.0-18.0); Ionized Calcium Arterial 1.18 MMOL/L (1.21-1.46); PCO2 Patient Temp Arterial 31.4 MMHG; PH Patient Temp Arterial 7.446; Patient Temperature 37 CELCIUS; Potassium Heart/CVR 3.5 MMOL/L (3.5-5.1); Sodium Heart/CVR 134 MMOL/L (135-145)
[2017-03-26] MEDS ORDERED: PHENYLEPHRINE DRIP 20 MG/250 ML PREMIX IV ONE ×2 (11:46→13:57)
[2017-03-26] MEDS ORDERED: DEXTROSE 5% KCL 20 MEQ 60 MEQ/3,000 ML BAG IV ONE (11:46)
[2017-03-26] MEDS ORDERED: MANNITOL 100 GM/500 ML BAG IV ONE (11:46)
[2017-03-26] MEDS ORDERED: SODIUM BICARBONATE 50 MEQ/50 ML SYRINGE IV ONE (11:46)
[2017-03-26] MEDS ORDERED: HEPARIN 10,000 UNIT/10 ML VIAL ONE (11:47)
[2017-03-26] MEDS ORDERED: PROTAMINE SULFATE 250 MG/25 ML VIAL IV ONE (11:47)
[2017-03-26] MEDS ORDERED: MAGNESIUM SULFATE 1 GM/2 ML VIAL ONE (11:47)
[2017-03-26] MEDS ORDERED: ALBUMIN 25% 25 GM/100 ML VIAL IV ONE (11:47)
[2017-03-26] MEDS ORDERED: ALBUMIN 5% 12.5 GM/250 ML VIAL IV ONE ×3 (11:47→12:38)
[2017-03-26] MEDS ORDERED: methylPREDNISolone SOD SUC 1,000 MG/8 ML VIAL ONE (11:47)
[2017-03-26] MEDS ORDERED: FUROSEMIDE 20 MG/2 ML VIAL ONE (11:47)
[2017-03-26] MEDS ORDERED: PROTAMINE SULFATE 50 MG/5 ML VIAL IV ONE (11:48)
[2017-03-26] MEDS ORDERED: EPINEPHrine 1 MG/ML VIAL ONE (12:07)
--- NOTE | 2017-03-26 12:37 | Anesthesia Procedures ---
Anesthesia Procedures - Arterial Line Time out performed arterial line: Yes Size (Gauge): 20 Technique used arterial line: guide wire technique Post-Procedure: line sutured into place, dry sterile dressing placed Patient tolerated procedure arterial line: well, no complications Complications art line: none Site: right
[2017-03-26] MEDS ORDERED: ONDANSETRON 4 MG/2 ML VIAL IV PRN (12:43)
[2017-03-26] MEDS ORDERED: MAGNESIUM SULF RIDER 4 GM in PREMIX 1 EACH IV PRN (12:43)
[2017-03-26] MEDS ORDERED: MIDAZOLAM 2 MG/2 ML VIAL IV PRN (12:43)
[2017-03-26] MEDS ORDERED: CALCIUM CHLORIDE 1,000 MG/10 ML SYRINGE IV PRN (12:43)
[2017-03-26] MEDS ORDERED: ACETAMINOPHEN 650 MG SUPP RECTAL PRN (12:43)
[2017-03-26] MEDS ORDERED: MORPHINE 2 MG/1 ML SYRINGE IV PRN (12:43)
[2017-03-26] MEDS ORDERED: SODIUM CHLORIDE 0.9% 250 ML IV PRN (12:43)
[2017-03-26] MEDS ORDERED: MORPHINE 10 MG/1 ML VIAL IV PRN (12:43)
[2017-03-26] MEDS ORDERED: DEXTROSE 50% 25 GM/50 ML VIAL IV PRN ×2 (12:43)
[2017-03-26] MEDS ORDERED: CHLORHEXIDINE 4% SOLN 118 ML BOTTLE TOP PRN (12:43)
[2017-03-26] MEDS ORDERED: POTASSIUM CHLORIDE RIDER 20 MEQ in PREMIX 1 EACH IV PRN (12:43)
[2017-03-26] MEDS ORDERED: POTASSIUM CHLORIDE RIDER 10 MEQ in PREMIX 1 EACH IV PRN (12:43)
--- NOTE | 2017-03-26 12:43 | Anesthesia Procedures ---
Anesthesia Procedures - Central Venous Insert Monitors Applied: pulse oximetry, EKG, BP cuff, oxygen via MSBT: pulse oximetry, EKG, BP cuff, oxygen via Procedure: after sterile technique was performed as outlined above, , ultrasound guidance was used to identify vessel, 18G introducer needle was passed into vessel under direct visualizatio (Jwire passed using seldinger tegnique, SWG cather advaced through RA-RV-PA(09/06) TO WEDGE position(12 Mm)
[2017-03-26] MEDS ORDERED: SUFentanil 250 MCG/5 ML AMP ONE (12:44)
[2017-03-26] MEDS ORDERED: ePHEDrine 50 MG/ML AMP ONE (12:45)
[2017-03-26] MEDS ORDERED: MIDAZOLAM 10 MG/2 ML VIAL ONE (12:45)
[2017-03-26 12:49] LABS: Basophils % 0.2 % (0.0-0.8); Eosinophils # 0.2 10*3/uL (0.0-0.87); Eosinophils % 0.9 % (0.00-10.9); Hematocrit 28.2 VOL% (42.0-52.0); Hemoglobin 9.8 GM/DL (14.0-18.0); Immature Granulocytes % 2.4 %; Immature Granulocytes Absolute 0.41 #; Lymphocytes # 2.6 10*3/uL (1.4-4.0); Lymphocytes % 15.3 % (21.2-54.2); Mean Corpuscular HGB Conc 34.8 GM/DL (32-36); Mean Corpuscular Hemoglobin 31 PG (27-34); Mean Corpuscular Volume 89.5 FL (87-102); Mean Platelet Volume 11.7 FL (9.6-12.0); Monocytes # 0.6 10*3/uL (0.11-0.8); Monocytes % 3.7 % (1.7-12.7); NRBC # 0.02 10*3/uL; Neutrophils # 13.1 10*3/uL (1.4-7.4); Neutrophils % 77.5 % (38.7-73.9); Platelet Count 150 T/CUMM (130-400); Red Blood Count 3.15 MC/CUMM (3.8-5.5); Red Cell Distribution Width 14.6 % (9.3-17.3)
[2017-03-26 13:01] LABS: VBG Base Excess -4.2 MEQ/L (0-4); VBG HCO3 20.4 MEQ/L (24-28); VBG Oxygen Saturation 65.1 %; VBG PCO2 43.9 MMHG (41-51); VBG PH 7.307; VBG PO2 39.5 MMHG (17-40)
[2017-03-26 13:01] LABS: INR 1.3; PT Patient Result 13.4 SECS; Partial Thromboplastin Time 33.7 SECS (0-40)
[2017-03-26 13:03] LABS: ABG Base Excess -3.3 MMOL/L (-2.5-2.5); ABG Oxygen Saturation 97.4 % (95-100); ABG PH 7.397 (7.35-7.45); ABG PO2 114.6 MM HG (80-95); ABG TCO2 22.1 MMOL/L (23-27); Glucose Heart Surgery 239 MG/DL (74-106); Hemoglobin Heart Surgery 10.3 G/DL (14.0-18.0); Potassium Heart/CVR 3.6 MMOL/L (3.5-5.1)
[2017-03-26] MEDS: SODIUM CHLORIDE 0.45% 1,000 ML IV SCH ×2 (13:09→13:11)
[2017-03-26 13:10] LABS: Calcium 7.6 MG/DL (8.5-10.1); Magnesium 2.3 MG/DL (1.8-2.4); Osmolality,Calculated 294.1 MOS/KG (273-304); Potassium 3.8 MMOL/L (3.5-5.1)
[2017-03-26] MEDS: ALBUMIN 5% 12.5 GM in PREMIX 1 EACH IV PRN ×4 (13:13→13:17)
--- NOTE | 2017-03-26 13:13 | XRay Report ---
Portable chest Date: 03/26/2017 Clinical history: Endotracheal tube and line placement Comparison: 03/19/2017 Technique: Portable AP sitting chest Findings: Persistent cardiomegaly with interval median sternotomy and cardiac valve replacement. The endotracheal tube, nasogastric tube and mediastinal chest tubes are in satisfactory position. Right IJ N[place]-Adri catheter with tip coiled upon itself in the right atrium. Progressive perihilar atelectasis/edema with no significant pneumothorax. Impression: Interval median sternotomy with cardiac valve replacement. Minimal perihilar atelectasis/edema with no pneumothorax on this supine film. The endotracheal tube, nasogastric tube, mediastinal chest tubes are in satisfactory position. However the N[place]-Adri catheter is coiled upon itself in the right atrium as discussed with the patient's nurseKate at 1:10 PM on 03/26/2017. PROCEDURE INTERPRETED AT [facility] DEPARTMENT OF RADIOLOGY Final Report Signed by: Dr. Bethany Norton
[2017-03-26 13:16] LABS: Band Neutrophils 3 % (0-10); Eosinophils 2 % (0-10); Giant Platelets Few; Hypochromasia Slight; Lymphocytes 16 % (20-55); Nucleated Red Blood Cells 1 (0-5); Platelet Estimate Normal; Segmented Neutrophils 79 % (50-85); Total Cells Counted 100
--- NOTE | 2017-03-26 13:20 | Operative Note ---
Date of procedure: 03/26/17 Pre-op diagnosis: Aortic stenosis with aortic insufficiency, coronary artery disease Post-op diagnosis: same Procedure: 1. [place] of left great saphenous vein 2. Institution of cardiopulmonary bypass 3. Coronary artery bypass graft 2, venous graft to the diagonal artery, venous graft to the posterior descending artery 4. Aortic valve replacement with size 21 mechanical valve 5. Transesophageal echocardiogram Findings: It was noted the patient had severe inflammatory reaction mainly around the aorta as well as the right atrium which lead me to believe he had pericarditis in the past was some adhesions noted. There was severe distal coronary artery disease for which the patient received a coronary artery bypass graft using venous graft to the posterior descending artery with good size distal around 1.5 mm with good flow after institution of the bypass, the patient also had a large diagonal distal target with good flow in the instituted graft. The aortic valve leaflets were noted to be calcified however the annulus was free of disease for the most part. 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 Of note on the transesophageal echocardiogram that was done after the procedure his previously noted mitral insufficiency was more characterized to be through a defect in the mitral valve leaflet. It can needs to be characterized as moderate. Details of the procedure: The patient was brought into the OR placed supine on the OR table and general endotracheal anesthesia was induced without any problems. The patient was then prepped and draped in the usual sterile fashion. Antibiotics were given and timeout was performed. Midline chest incision was performed. Sternotomy was performed. Hemostasis was achieved. The pericardium was opened and pericardial cradle was achieved. Again noted that chronic inflammatory reaction around the aortic adventitia and the right atrium. After giving heparin and achieving ACT I cannulated the proximal arch of the aorta. The dual stage cannula was inserted through the right atrium to the IVC. Cardioplegia needle was inserted in the aortic root. Started cardiopulmonary bypass without any problems. I inserted LV vent through the right superior pulmonary vein. Cross-clamp was applied and the heart arrested successfully with cardioplegia. I then performed a bypass to the posterior descending artery using 7-0 Prolene stitch with a reversed saphenous vein graft. There was very good flow when tested. After that I turned my attention to the diagonal branch. The bypass was also instituted without any problems using 7-0 Prolene stitch. Again noted very good flow after institution of the bypass. At this point I gave extra dose of cardioplegia through the right coronary venous graft I give a total of 200 cc. At this point I proceeded with doing my aortotomy. I opened the aorta transversely and then towards the middle of the noncoronary sinus. The valve leaflets were noted to be diseased with some defects through the leaflets. They were cleaned resected successfully. The annulus was cleaned and debrided. The heart was irrigated. And then I sized the valve annulus to be size 21 mechanical valve. Alternating green white Ethibond horizontal mattress pledgeted stitches were placed in a subannular fashion circumferentially. The stitches were then inserted into the cuff of the valve. The valve was seated well without any problems. All knots were tied using core not. I then proceeded with closing the aortotomy with 33 0 Prolene stitches one from each side with over and over technique. I then proceeded with the earring the heart with the de-airing maneuvers with Trendelenburg and giving positive ventilation as well as increasing the volume in the left ventricle. After that I removed the cross clamp and the heart recovered successfully without any problems. At this point I instituted the anastomosis to the ascending aorta proximal this was done using running 6-0 Prolene stitches. This was done successfully to both grafts without any problems. I then started weaning the patient off pump. He was weaned successfully without any problems. At this point Dr. Zimmerman performed a transesophageal echocardiogram which showed very good cardiac function as well as will seated valve with no leak. I think it is more protamine and reversed the heparin. After protamine was given and while preparing to decannulate there was a transient episode of decreased myocardial activity as well as hypertension. It was mainly due to LV depressed function however this recovered spontaneously without any problems. It appears to be due to a transient protamine reaction. The heart after the completely recovered and a repeat CEDRICK showed very good function After this I proceeded with completely decannulating the heart. Hemostasis was achieved. A CT was back to baseline. After placing the chest tube and pacing wire I proceeded with closing the sternum with wires. Subcutaneous tissue was closed using PDS. And the skin was closed using Monocryl. The patient tolerated the procedure fairly well. He was transferred to ICU in good condition Anesthesia: GETA Surgeon / Physician: Caryl Seaman Utility Aide: Lis Rodriguez Estimated blood loss: other (Cardiopulmonary bypass) Tourniquet Time (Minutes): 103 Specimens: other (Aortic valve leaflets) Condition: stable Disposition: ICU Results - Labs CBC & BMP: 03/26/17 12:34 03/25/17 05:00 Discharge Plan - Discharge Medications No Action Aspirin EC Tab 81 mg PO DAILY amLODIPine [Norvasc] 5 mg PO DAILY #30 Clopidogrel [Plavix] 75 mg PO DAILY #30 Furosemide Tab [Lasix Tab] 20 mg PO DAILY #30 Gabapentin Cap/Tab [Neurontin Cap/Tab] 300 mg PO TID #90 Losartan/Hydrochlorothiazide [Losartan-Hctz 100-25 mg Tab] 1 each PO DAILY # 30 Omeprazole 40 mg PO DAILY #30 Insulin NPH Hum/Reg Insulin Hm [NovoLIN 70/30] 70 unit SUBCUT BID #5 ml Diclofenac Potassium Tab [Cataflam] 50 mg PO TID PRN #30 tablet PRN Reason: Pain HYDROcodone/ACETAMIN 7.5-325 [[place] 7.5-325] 1 tablet PO Q6H PRN #10 tablet PRN Reason: Pain Atorvastatin [Lipitor] 20 mg PO BEDTIME Carvedilol [Coreg] 3.125 mg PO BID #60 tablet hydrALAZINE TAB [Apresoline Tab] 50 mg PO BID #60 Levothyroxine Tab [Synthroid Tab] 200 mcg PO DAILY #30 Zaleplon [Zaleplon] 10 mg PO BEDTIME PRN PRN Reason: Sleep - Follow Up or Referral - Forms/Instructions Instructions: Myocardial Infarction (GEN), Coronary Artery Disease (GEN), Heart Healthy Diet (GEN)
[2017-03-26] MEDS: INSULIN REGULAR DRIP 100 ML IV SCH ×2 (13:33→19:04)
[2017-03-26 13:42] LABS: Lactic Acid 4.2 MMOL/L (0.4-2.0)
[2017-03-26] MEDS ORDERED: SEVOFLURANE 1 UNIT/15 MINUTE INH ONE (13:54)
[2017-03-26] MEDS ORDERED: CALCIUM CHLORIDE 1,000 MG/10 ML VIAL IV ONE (13:57)
[2017-03-26] MEDS ORDERED: ATROPINE 1 MG/1 ML VIAL ONE (13:57)
[2017-03-26] MEDS ORDERED: HEPARIN/NACL 0.9% 2 UNITS/ML 500 ML IV ONE (13:57)
[2017-03-26] MEDS ORDERED: MINERAL OIL/PETROLATUM OPH OINT 3.5 GM TUBE ONE (13:58)
[2017-03-26] MEDS ORDERED: EPINEPHrine 1 MG/10 ML SYRINGE ONE (13:58)
[2017-03-26] MEDS ORDERED: ETOMIDATE 20 MG/10 ML VIAL IV ONE (13:58)
[2017-03-26] MEDS ORDERED: SODIUM CHLORIDE 0.9% 1,000 ML IV ONE (13:58)
[2017-03-26] MEDS ORDERED: NITROGLYCERIN DRIP 50 MG/250 ML BOTTLE IV ONE (13:58)
[2017-03-26] MEDS ORDERED: diphenhydrAMINE 50 MG/1 ML VIAL ONE (13:58)
[2017-03-26] MEDS ORDERED: VECURONIUM 10 MG VIAL IV ONE (13:58)
[2017-03-26] MEDS ORDERED: LACTATED RINGERS 1,000 ML IV ONE (13:58)
[2017-03-26] MEDS ORDERED: HYDROCORTISONE 100 MG VIAL ONE (13:58)
[2017-03-26] MEDS ORDERED: SODIUM CHLORIDE 0.9% 500 ML IV ONE (13:58)
--- NOTE | 2017-03-26 14:06 | Order Completion Report ---
See report scanned to EMR
[2017-03-26] MEDS: MAGNESIUM SULF RIDER 2 GM in PREMIX 1 EACH IV PRN (14:25)
[2017-03-26] MEDS: INSULIN REGULAR 100 UNIT/ML IV PRN ×2 (15:13→17:11)
--- NOTE | 2017-03-26 15:24 | XRay Report ---
Portable chest. Indication: Line placement. Comparison: Exam from earlier today. An endotracheal tube is in place and is in satisfactory position. 3 mediastinal chest tubes are seen. The heart size is enlarged. The pulmonary vasculature is normal. There is worsening atelectasis at the left lung base with a small left-sided pleural effusion. A [place]ri catheter coils upon itself within the right atrium, unchanged from the previous. The tip does not appear to reach the pulmonary outflow tract. Impression: Continued coiling and malposition of the [place]Adri catheter. Worsening atelectasis at the left lung base. PROCEDURE INTERPRETED AT [facility] DEPARTMENT OF RADIOLOGY Final Report Signed by: Dr. Tg Pope
[2017-03-26] MEDS ORDERED: CALCIUM GLUCONATE 1,000 MG in SODIUM CHLORIDE 0.9% 100 ML IV ONE (16:52)
[2017-03-26] MEDS ORDERED: LACTATED RINGERS 500 ML IV ONE (16:54)
[2017-03-26 20:33] LABS: ABG Base Excess -0.6 MMOL/L (-2.5-2.5); ABG HCO3 23.9 MMOL/L (20-26); ABG Oxygen Saturation 98.5 % (95-100); ABG PH 7.414 (7.35-7.45); Glucose Heart Surgery 140 MG/DL (74-106); Hematocrit Heart Surgery 25.7 PERCENT (42-52); Hemoglobin Heart Surgery 8.3 G/DL (14.0-18.0); Potassium Heart/CVR 4.4 MMOL/L (3.5-5.1)
[2017-03-26] MEDS: CEFUROXIME INJ 1,500 MG in SODIUM CHLORIDE 0.9% 50 ML IV SCH (20:48)
[2017-03-26] MEDS: HYDROmorphone 2 MG/1 ML VIAL IV PRN (23:02)
[2017-03-27] MEDS: SODIUM CHLORIDE 0.45% 1,000 ML IV SCH ×2 (01:32→11:22)
[2017-03-27] MEDS: INSULIN REGULAR DRIP 100 ML IV SCH ×2 (01:34→14:50)
[2017-03-27 02:17] LABS: Basophils % 0.1 % (0.0-0.8); Hematocrit 27.2 VOL% (42.0-52.0); Hemoglobin 9.4 GM/DL (14.0-18.0); Immature Granulocytes % 1.5 %; Lymphocytes # 0.9 10*3/uL (1.4-4.0); Lymphocytes % 6.6 % (21.2-54.2); Mean Corpuscular HGB Conc 34.6 GM/DL (32-36); Mean Corpuscular Hemoglobin 31 PG (27-34); Mean Corpuscular Volume 88.9 FL (87-102); Mean Platelet Volume 11.8 FL (9.6-12.0); Monocytes # 0.4 10*3/uL (0.11-0.8); Monocytes % 2.8 % (1.7-12.7); Neutrophils # 12.1 10*3/uL (1.4-7.4); Platelet Count 133 T/CUMM (130-400); Red Blood Count 3.06 MC/CUMM (3.8-5.5); Red Cell Distribution Width 14.8 % (9.3-17.3); White Blood Count 13.6 T/CUMM (4-12)
[2017-03-27 02:18] LABS: Calcium 8.3 MG/DL (8.5-10.1); Magnesium 2.5 MG/DL (1.8-2.4); Potassium 4.4 MMOL/L (3.5-5.1)
[2017-03-27] MEDS: HYDROmorphone 2 MG/1 ML VIAL IV PRN ×5 (03:06→20:53)
[2017-03-27] MEDS: METOPROLOL TARTRATE 5 MG/5 ML VIAL IV SCH ×4 (05:12→16:49)
[2017-03-27 06:54] LABS: ABG Base Excess -1.8 MMOL/L (-2.5-2.5); ABG HCO3 22.9 MMOL/L (20-26); ABG Oxygen Saturation 98.6 % (95-100); ABG PCO2 40.4 MM HG (35-48); ABG PH 7.369 (7.35-7.45); ABG TCO2 21.4 MMOL/L (23-27); Glucose Heart Surgery 89 MG/DL (74-106); Hematocrit Heart Surgery 29.6 PERCENT (42-52); Hemoglobin Heart Surgery 9.6 G/DL (14.0-18.0); Potassium Heart/CVR 4.4 MMOL/L (3.5-5.1)
[2017-03-27] MEDS ORDERED: FUROSEMIDE 40 MG/4 ML VIAL IV ONE (06:58)
--- NOTE | 2017-03-27 07:17 | Cardiology Progress Note ---
Cardiology - PN: Subj Interval history: Cardiology note Postop day #1 combined #21 [place] AVR and two-vessel CABG with vein graft to diagonal and vein graft to PDA. Preop EF 40%. Sleepy but arousable. Telemetry shows sinus rhythm in the 60s Blood pressure 160/65 O2 sat 9940% FiO2 Good urine output Total CT drainage 680 Received 1 unit transfusion last night Regular rhythm prosthetic clicks and systolic murmur Decreased breath sounds Abdomen benign Incision looks good Lab data today White count 13.6 hemoglobin 9.4 hematocrit 27.2 Sodium 143 potassium 4.4 chloride 109 CO2 26 BUN 23 creatinine 1.0 glucose 121 magnesium 2.5 Impression Status post non-Q-wave NE Status post combined two-vessel CABG vein graft to diagonal and vein graft to PDA and #21 [place] AVR EF 40% with mild 2+ MR by CEDRICK. Baseline gradient across the mechanical aortic valve is 30 mmHg Diabetes Hypertension Mild chronic renal insufficiency Plan Extubate today Insulin drip We will need to restart BP meds Exam (Progress Note) - Constitutional Vitals: Period Temp Pulse Resp BP Sys/[place] Pulse Ox Last 24 Hr 97.0 F-99.5 F 55-86 8-15 105-196/47-83 97-100 Result/EKG - Labs CBC & BMP: 03/27/17 02:00 03/27/17 01:45 Labs: Laboratory Results - last 24 hr 03/26/17 03/26/17 03/26/17 03:15 07:00 07:55 WBC RBC Hgb Hct MCV MCH MCHC RDW Plt Count 158 MPV Neut % (Auto) Lymph % (Auto) [place] % (Auto) Eos % (Auto) Baso % (Auto) Neut # (Auto) Lymph # (Auto) [place] # (Auto) Eos # (Auto) Baso # (Auto) Total Counted Immature Gran % Nucleated RBC % Immature Gran # Segmented Neutrophils Band Neutrophils Lymphocytes Eosinophils Nucleated RBCs Nucleated RBCs # Platelet Estimate Giant Platelets Immature Plt Fraction Hypochromasia INR PT Patient/Control Mix Circ Anticoag PTT Patient Temperature ABG pH ABG pH at Pt Temp ABG pCO2 ABG pCO2 at Pt Temp ABG pO2 ABG pO2 at Pt Temp ABG HCO3 ABG Total CO2 ABG O2 Saturation ABG Base Excess ABG Sodium VBG pH VBG pCO2 VBG pO2 VBG HCO3 VBG Total CO2 VBG O2 Saturation VBG Base Excess Hemoglobin Hematocrit Potassium Glucose Ionized Calcium FiO2 Sodium Chloride Carbon Dioxide Anion Gap BUN Creatinine GFR Calculation BUN/Creatinine Ratio POC Glucose Calculated Osmolality Lactic Acid Calcium Venous Ioniz Calcium Magnesium Urine Color Yellow Urine Appearance Clear Urine pH 5.0 Ur Specific [place] 1.016 Urine Protein Negative Urine Glucose (UA) Negative Urine Ketones Negative Urine Blood Negative Urine Nitrate Negative Urine Bilirubin Negative Urine Urobilinogen < 2.0 H Urine Leukocytes Negative Urine RBC 2 Urine WBC 1 Urine Mucus Occasional Ur Culture Indicated? Not indicated Blood Type Cancelled Antibody Screen Cancelled Crossmatch See Detail Blood Bank Comment Cancelled 03/26/17 03/26/17 03/26/17 07:55 08:40 09:10 WBC RBC Hgb Hct MCV MCH MCHC RDW Plt Count MPV Neut % (Auto) Lymph % (Auto) [place] % (Auto) Eos % (Auto) Baso % (Auto) Neut # (Auto) Lymph # (Auto) [place] # (Auto) Eos # (Auto) Baso # (Auto) Total Counted Immature Gran % Nucleated RBC % Immature Gran # Segmented Neutrophils Band Neutrophils Lymphocytes Eosinophils Nucleated RBCs Nucleated RBCs # Platelet Estimate Giant Platelets Immature Plt Fraction Hypochromasia INR PT Patient/Control Mix Circ Anticoag PTT Patient Temperature 37 34 32 ABG pH 7.483 H ABG pH at Pt Temp 7.483 7.477 7.556 ABG pCO2 30.9 L ABG pCO2 at Pt Temp 30.9 34.9 29.0 ABG pO2 495.0 H ABG pO2 at Pt Temp 495.0 41.3 27.7 ABG HCO3 25.0 ABG Total CO2 20.2 L ABG O2 Saturation 100.0 ABG Base Excess 0.6 ABG Sodium 141 135 132 L VBG pH 7.432 7.480 VBG pCO2 40.3 L 36.1 L VBG pO2 50.7 H 39.4 VBG HCO3 26.5 26.3 VBG Total CO2 24.9 27.4 VBG O2 Saturation 85.9 80.6 VBG Base Excess 2.5 2.7 Hemoglobin 12.6 L 8.6 L D 9.0 L Hematocrit 38.9 L 26.8 L 26.0 L Potassium 3.9 4.1 4.4 Glucose 132 H 259 H 271 H Ionized Calcium 1.15 L FiO2 80.00 80.00 Sodium Chloride Carbon Dioxide Anion Gap BUN Creatinine GFR Calculation BUN/Creatinine Ratio POC Glucose Calculated Osmolality Lactic Acid Calcium Venous Ioniz Calcium 1.02 L 1.00 Magnesium Urine Color Urine Appearance Urine pH Ur Specific [place] Urine Protein Urine Glucose (UA) Urine Ketones Urine Blood Urine Nitrate Urine Bilirubin Urine Urobilinogen Urine Leukocytes Urine RBC Urine WBC Urine Mucus Ur Culture Indicated? Blood Type Antibody Screen Crossmatch Blood Bank Comment 03/26/17 03/26/17 03/26/17 09:39 10:10 10:40 WBC RBC Hgb Hct MCV MCH MCHC RDW Plt Count MPV Neut % (Auto) Lymph % (Auto) [place] % (Auto) Eos % (Auto) Baso % (Auto) Neut # (Auto) Lymph # (Auto) [place] # (Auto) Eos # (Auto) Baso # (Auto) Total Counted Immature Gran % Nucleated RBC % Immature Gran # Segmented Neutrophils Band Neutrophils Lymphocytes Eosinophils Nucleated RBCs Nucleated RBCs # Platelet Estimate Giant Platelets Immature Plt Fraction Hypochromasia INR PT Patient/Control Mix Circ Anticoag PTT Patient Temperature 32 32 36 ABG pH ABG pH at Pt Temp 7.552 7.590 7.483 ABG pCO2 ABG pCO2 at Pt Temp 28.5 24.7 34.2 ABG pO2 ABG pO2 at Pt Temp 30.5 26.4 38.1 ABG HCO3 ABG Total CO2 ABG O2 Saturation ABG Base Excess ABG Sodium 132 L 131 L 133 L VBG pH 7.477 7.513 7.468 VBG pCO2 36.2 L 30.7 L 35.9 L VBG pO2 43.2 H 37.6 40.8 H VBG HCO3 27.1 24.1 26.2 VBG Total CO2 24.9 25.1 24.2 VBG O2 Saturation 80.8 80.4 76.8 VBG Base Excess 3.2 1.3 2.4 Hemoglobin 8.5 L 8.0 L 8.2 L Hematocrit 26.3 L 24.0 L 25.4 L Potassium 4.5 4.2 4.3 Glucose 329 H 256 H 307 H Ionized Calcium FiO2 80.00 80.00 80.00 Sodium Chloride Carbon Dioxide Anion Gap BUN Creatinine GFR Calculation BUN/Creatinine Ratio POC Glucose Calculated Osmolality Lactic Acid Calcium Venous Ioniz Calcium 1.04 L 0.94 1.19 L Magnesium Urine Color Urine Appearance Urine pH Ur Specific [place] Urine Protein Urine Glucose (UA) Urine Ketones Urine Blood Urine Nitrate Urine Bilirubin Urine Urobilinogen Urine Leukocytes Urine RBC Urine WBC Urine Mucus Ur Culture Indicated? Blood Type Antibody Screen Crossmatch Blood Bank Comment 03/26/17 03/26/17 03/26/17 11:40 11:40 12:34 WBC 17.0 H D RBC 3.15 L D Hgb 9.8 L D Hct 28.2 L MCV 89.5 MCH 31 MCHC 34.8 RDW 14.6 Plt Count 110 L D 150 D MPV 11.7 Neut % (Auto) 77.5 H Lymph % (Auto) 15.3 L [place] % (Auto) 3.7 Eos % (Auto) 0.9 Baso % (Auto) 0.2 Neut # (Auto) 13.1 H Lymph # (Auto) 2.6 [place] # (Auto) 0.6 Eos # (Auto) 0.2 Baso # (Auto) 0.0 Total Counted 100 Immature Gran % 2.4 Nucleated RBC % 0.1 Immature Gran # 0.41 Segmented Neutrophils 79 Band Neutrophils 3 Lymphocytes 16 L Eosinophils 2 Nucleated RBCs 1 Nucleated RBCs # 0.02 Platelet Estimate Normal Giant Platelets Few Immature Plt Fraction 0.0 Hypochromasia Slight INR PT Patient/Control Mix Circ Anticoag PTT Patient Temperature 37 ABG pH 7.446 ABG pH at Pt Temp 7.446 ABG pCO2 31.4 L ABG pCO2 at Pt Temp 31.4 ABG pO2 507.0 H ABG pO2 at Pt Temp 507.0 ABG HCO3 22.9 ABG Total CO2 19.9 L ABG O2 Saturation 99.0 ABG Base Excess -1.8 ABG Sodium 134 L VBG pH VBG pCO2 VBG pO2 VBG HCO3 VBG Total CO2 VBG O2 Saturation VBG Base Excess Hemoglobin 8.9 L Hematocrit 27.8 L Potassium 3.5 Glucose 268 H Ionized Calcium 1.18 L FiO2 Sodium Chloride Carbon Dioxide Anion Gap BUN Creatinine GFR Calculation BUN/Creatinine Ratio POC Glucose Calculated Osmolality Lactic Acid Calcium Venous Ioniz Calcium Magnesium Urine Color Urine Appearance Urine pH Ur Specific [place] Urine Protein Urine Glucose (UA) Urine Ketones Urine Blood Urine Nitrate Urine Bilirubin Urine Urobilinogen Urine Leukocytes Urine RBC Urine WBC Urine Mucus Ur Culture Indicated? Blood Type Antibody Screen Crossmatch Blood Bank Comment 03/26/17 03/26/17 03/26/17 12:34 12:34 12:34 WBC RBC Hgb Hct MCV MCH MCHC RDW Plt Count MPV Neut % (Auto) Lymph % (Auto) [place] % (Auto) Eos % (Auto) Baso % (Auto) Neut # (Auto) Lymph # (Auto) [place] # (Auto) Eos # (Auto) Baso # (Auto) Total Counted Immature Gran % Nucleated RBC % Immature Gran # Segmented Neutrophils Band Neutrophils Lymphocytes Eosinophils Nucleated RBCs Nucleated RBCs # Platelet Estimate Giant Platelets Immature Plt Fraction Hypochromasia INR 1.3 PT Patient/Control Mix 13.4 D Circ Anticoag PTT 33.7 D Patient Temperature ABG pH 7.397 ABG pH at Pt Temp ABG pCO2 35.0 ABG pCO2 at Pt Temp ABG pO2 114.6 H ABG pO2 at Pt Temp ABG HCO3 21.0 ABG Total CO2 22.1 L ABG O2 Saturation 97.4 ABG Base Excess -3.3 L ABG Sodium VBG pH VBG pCO2 VBG pO2 VBG HCO3 VBG Total CO2 VBG O2 Saturation VBG Base Excess Hemoglobin 10.3 L D Hematocrit 30.0 L Potassium 3.8 3.6 Glucose 248 H 239 H Ionized Calcium FiO2 Sodium 142 Chloride 108 H Carbon Dioxide 23 Anion Gap 14.8 BUN 23 H Creatinine 1.30 GFR Calculation 74 BUN/Creatinine Ratio 17.00 POC Glucose Calculated Osmolality 294.1 Lactic Acid 4.2 H Calcium 7.6 L Venous Ioniz Calcium Magnesium 2.3 Urine Color Urine Appearance Urine pH Ur Specific [place] Urine Protein Urine Glucose (UA) Urine Ketones Urine Blood Urine Nitrate Urine Bilirubin Urine Urobilinogen Urine Leukocytes Urine RBC Urine WBC Urine Mucus Ur Culture Indicated? Blood Type Antibody Screen Crossmatch Blood Bank Comment 03/26/17 03/26/17 03/26/17 12:55 14:04 15:07 WBC RBC Hgb Hct MCV MCH MCHC RDW Plt Count MPV Neut % (Auto) Lymph % (Auto) [place] % (Auto) Eos % (Auto) Baso % (Auto) Neut # (Auto) Lymph # (Auto) [place] # (Auto) Eos # (Auto) Baso # (Auto) Total Counted Immature Gran % Nucleated RBC % Immature Gran # Segmented Neutrophils Band Neutrophils Lymphocytes Eosinophils Nucleated RBCs Nucleated RBCs # Platelet Estimate Giant Platelets Immature Plt Fraction Hypochromasia INR PT Patient/Control Mix Circ Anticoag PTT Patient Temperature ABG pH ABG pH at Pt Temp ABG pCO2 ABG pCO2 at Pt Temp ABG pO2 ABG pO2 at Pt Temp ABG HCO3 ABG Total CO2 ABG O2 Saturation ABG Base Excess ABG Sodium VBG pH 7.307 VBG pCO2 43.9 VBG pO2 39.5 VBG HCO3 20.4 L VBG Total CO2 20.4 VBG O2 Saturation 65.1 VBG Base Excess -4.2 L Hemoglobin Hematocrit Potassium Glucose Ionized Calcium FiO2 21.00 Sodium Chloride Carbon Dioxide Anion Gap BUN Creatinine GFR Calculation BUN/Creatinine Ratio POC Glucose 285 H 290 H Calculated Osmolality Lactic Acid Calcium Venous Ioniz Calcium Magnesium Urine Color Urine Appearance Urine pH Ur Specific [place] Urine Protein Urine Glucose (UA) Urine Ketones Urine Blood Urine Nitrate Urine Bilirubin Urine Urobilinogen Urine Leukocytes Urine RBC Urine WBC Urine Mucus Ur Culture Indicated? Blood Type Antibody Screen Crossmatch Blood Bank Comment 03/26/17 03/26/17 03/26/17 16:04 17:05 18:05 WBC RBC Hgb Hct MCV MCH MCHC RDW Plt Count MPV Neut % (Auto) Lymph % (Auto) [place] % (Auto) Eos % (Auto) Baso % (Auto) Neut # (Auto) Lymph # (Auto) [place] # (Auto) Eos # (Auto) Baso # (Auto) Total Counted Immature Gran % Nucleated RBC % Immature Gran # Segmented Neutrophils Band Neutrophils Lymphocytes Eosinophils Nucleated RBCs Nucleated RBCs # Platelet Estimate Giant Platelets Immature Plt Fraction Hypochromasia INR PT Patient/Control Mix Circ Anticoag PTT Patient Temperature ABG pH ABG pH at Pt Temp ABG pCO2 ABG pCO2 at Pt Temp ABG pO2 ABG pO2 at Pt Temp ABG HCO3 ABG Total CO2 ABG O2 Saturation ABG Base Excess ABG Sodium VBG pH VBG pCO2 VBG pO2 VBG HCO3 VBG Total CO2 VBG O2 Saturation VBG Base Excess Hemoglobin Hematocrit Potassium Glucose Ionized Calcium FiO2 Sodium Chloride Carbon Dioxide Anion Gap BUN Creatinine GFR Calculation BUN/Creatinine Ratio POC Glucose 272 H 263 H 211 H Calculated Osmolality Lactic Acid Calcium Venous Ioniz Calcium Magnesium Urine Color Urine Appearance Urine pH Ur Specific [place] Urine Protein Urine Glucose (UA) Urine Ketones Urine Blood Urine Nitrate Urine Bilirubin Urine Urobilinogen Urine Leukocytes Urine RBC Urine WBC Urine Mucus Ur Culture Indicated? Blood Type Antibody Screen Crossmatch Blood Bank Comment 03/26/17 03/26/17 03/27/17 20:34 20:34 01:45 WBC RBC Hgb Hct MCV MCH MCHC RDW Plt Count MPV Neut % (Auto) Lymph % (Auto) [place] % (Auto) Eos % (Auto) Baso % (Auto) Neut # (Auto) Lymph # (Auto) [place] # (Auto) Eos # (Auto) Baso # (Auto) Total Counted Immature Gran % Nucleated RBC % Immature Gran # Segmented Neutrophils Band Neutrophils Lymphocytes Eosinophils Nucleated RBCs Nucleated RBCs # Platelet Estimate Giant Platelets Immature Plt Fraction Hypochromasia INR PT Patient/Control Mix Circ Anticoag PTT Patient Temperature ABG pH 7.414 ABG pH at Pt Temp ABG pCO2 37.0 ABG pCO2 at Pt Temp ABG pO2 107.0 H ABG pO2 at Pt Temp ABG HCO3 23.9 ABG Total CO2 22.0 L ABG O2 Saturation 98.5 ABG Base Excess -0.6 ABG Sodium VBG pH VBG pCO2 VBG pO2 VBG HCO3 VBG Total CO2 VBG O2 Saturation VBG Base Excess Hemoglobin 8.3 L Hematocrit 25.7 L Potassium 4.4 4.4 Glucose 140 H 121 H Ionized Calcium FiO2 Sodium 143 Chloride 109 H Carbon Dioxide 26 Anion Gap 12.4 BUN 23 H Creatinine 1.00 GFR Calculation 101 BUN/Creatinine Ratio 23.00 H POC Glucose Calculated Osmolality 289.0 Lactic Acid 1.6 Calcium 8.3 L Venous Ioniz Calcium Magnesium 2.5 H Urine Color Urine Appearance Urine pH Ur Specific [place] Urine Protein Urine Glucose (UA) Urine Ketones Urine Blood Urine Nitrate Urine Bilirubin Urine Urobilinogen Urine Leukocytes Urine RBC Urine WBC Urine Mucus Ur Culture Indicated? Blood Type Antibody Screen Crossmatch Blood Bank Comment 03/27/17 03/27/17 02:00 06:50 WBC 13.6 H RBC 3.06 L Hgb 9.4 L Hct 27.2 L MCV 88.9 MCH 31 MCHC 34.6 RDW 14.8 Plt Count 133 MPV 11.8 Neut % (Auto) 89.0 H Lymph % (Auto) 6.6 L [place] % (Auto) 2.8 Eos % (Auto) 0.0 Baso % (Auto) 0.1 Neut # (Auto) 12.1 H Lymph # (Auto) 0.9 L [place] # (Auto) 0.4 Eos # (Auto) 0.0 Baso # (Auto) 0.0 Total Counted Immature Gran % 1.5 Nucleated RBC % 0.0 Immature Gran # 0.20 Segmented Neutrophils Band Neutrophils Lymphocytes Eosinophils Nucleated RBCs Nucleated RBCs # 0.00 Platelet Estimate Giant Platelets Immature Plt Fraction 0.0 Hypochromasia INR PT Patient/Control Mix Circ Anticoag PTT Patient Temperature ABG pH 7.369 ABG pH at Pt Temp ABG pCO2 40.4 ABG pCO2 at Pt Temp ABG pO2 120.0 H ABG pO2 at Pt Temp ABG HCO3 22.9 ABG Total CO2 21.4 L ABG O2 Saturation 98.6 ABG Base Excess -1.8 ABG Sodium VBG pH VBG pCO2 VBG pO2 VBG HCO3 VBG Total CO2 VBG O2 Saturation VBG Base Excess Hemoglobin 9.6 L Hematocrit 29.6 L Potassium 4.4 Glucose 89 Ionized Calcium FiO2 Sodium Chloride Carbon Dioxide Anion Gap BUN Creatinine GFR Calculation BUN/Creatinine Ratio POC Glucose Calculated Osmolality Lactic Acid Calcium Venous Ioniz Calcium Magnesium Urine Color Urine Appearance Urine pH Ur Specific [place] Urine Protein Urine Glucose (UA) Urine Ketones Urine Blood Urine Nitrate Urine Bilirubin Urine Urobilinogen Urine Leukocytes Urine RBC Urine WBC Urine Mucus Ur Culture Indicated? Blood Type Antibody Screen Crossmatch Blood Bank Comment Quality Measures - VTE Contraindication to Pharmacological VTE Prophylaxis: Active Bleeding Specialty Discharge - Follow Up or Referrals
--- NOTE | 2017-03-27 07:35 | XRay Report ---
History is chest tube management Comparison 03/26/2017 ET tube tip is at T3. Anterior chest tube remains. There has been improvement of prior mild diffuse interstitial edema. Minimal patchy and reticular opacities the lung bases remain. No pneumothorax seen. Impression: Mild improvement described above. PROCEDURE INTERPRETED AT [facility] DEPARTMENT OF RADIOLOGY Final Report Signed by: Dr. Ana Pope
--- NOTE | 2017-03-27 07:38 | Anesthesia Post-Op ---
Anesthesia Post OP - Post Ansesthetic Evaluation Patient seen in post op: Yes Resp: within normal limits (remains intubated) CV: within normal limits Mental: other (alert, oriented, follows commands) Temp: within normal limits [id number]: within normal limits Nausea and Vomiting: within normal limits Pain: within normal limits
[2017-03-27] MEDS: CEFUROXIME INJ 1,500 MG in SODIUM CHLORIDE 0.9% 50 ML IV SCH ×2 (09:48→22:12)
[2017-03-27] MEDS: CLOPIDOGREL 75 MG TABLET PO SCH (09:49)
[2017-03-27] MEDS: CHLORHEXIDINE 0.12% ORAL RINSE 60 ML BOTTLE SWISH/SPIT SCH ×2 (10:05→22:11)
[2017-03-27] MEDS: ATORVASTATIN 40 MG TABLET PO SCH (13:04)
[2017-03-27] MEDS: ASPIRIN EC 325 MG TABLET PO SCH (13:07)
[2017-03-27] MEDS: FUROSEMIDE 40 MG TABLET PO SCH (13:07)
--- NOTE | 2017-03-27 15:35 | Cardiothoracic Progress Note ---
Assessment and Plan (1) Coronary artery disease Status: Chronic Assessment and plan: Postoperative day 1 status post CABG 2, aortic valve replacement. The patient has been doing very well. He was extubated earlier this morning within 24 hours after surgery will put the chest tubes to. Waterseal, get him out of bed , start aspirin, statin, Lasix, Plavix. We will remove the A-line. Start him on metoprolol p.o. 25 twice daily, he was started on IV metoprolol to control his heart rate as his blood pressure which is controlled well. Current Visit: Yes Exam (Progress Note) - Constitutional Vitals: Period Temp Pulse Resp BP Sys/Dunlap Pulse Ox Last 24 Hr 98.0 F-99.7 F 55-83 8-15 105-196/47-91 97-100 Result/EKG - Labs CBC & BMP: 03/27/17 02:00 03/27/17 01:45 Labs: Laboratory Results - last 24 hr 03/26/17 03/26/17 03/26/17 03:15 14:04 15:07 WBC RBC Hgb Hct MCV MCH MCHC RDW Plt Count MPV Neut % (Auto) Lymph % (Auto) [place] % (Auto) Eos % (Auto) Baso % (Auto) Neut # (Auto) Lymph # (Auto) [place] # (Auto) Eos # (Auto) Baso # (Auto) Immature Gran % Nucleated RBC % Immature Gran # Nucleated RBCs # Immature Plt Fraction ABG pH ABG pCO2 ABG pO2 ABG HCO3 ABG Total CO2 ABG O2 Saturation ABG Base Excess Hemoglobin Hematocrit Potassium Glucose Sodium Chloride Carbon Dioxide Anion Gap BUN Creatinine GFR Calculation BUN/Creatinine Ratio POC Glucose 285 H 290 H Calculated Osmolality Lactic Acid Calcium Magnesium Blood Type Cancelled Antibody Screen Cancelled Crossmatch See Detail Blood Bank Comment Cancelled 03/26/17 03/26/17 03/26/17 16:04 17:05 18:05 WBC RBC Hgb Hct MCV MCH MCHC RDW Plt Count MPV Neut % (Auto) Lymph % (Auto) [place] % (Auto) Eos % (Auto) Baso % (Auto) Neut # (Auto) Lymph # (Auto) [place] # (Auto) Eos # (Auto) Baso # (Auto) Immature Gran % Nucleated RBC % Immature Gran # Nucleated RBCs # Immature Plt Fraction ABG pH ABG pCO2 ABG pO2 ABG HCO3 ABG Total CO2 ABG O2 Saturation ABG Base Excess Hemoglobin Hematocrit Potassium Glucose Sodium Chloride Carbon Dioxide Anion Gap BUN Creatinine GFR Calculation BUN/Creatinine Ratio POC Glucose 272 H 263 H 211 H Calculated Osmolality Lactic Acid Calcium Magnesium Blood Type Antibody Screen Crossmatch Blood Bank Comment 03/26/17 03/26/17 03/26/17 19:02 20:01 20:34 WBC RBC Hgb Hct MCV MCH MCHC RDW Plt Count MPV Neut % (Auto) Lymph % (Auto) [place] % (Auto) Eos % (Auto) Baso % (Auto) Neut # (Auto) Lymph # (Auto) [place] # (Auto) Eos # (Auto) Baso # (Auto) Immature Gran % Nucleated RBC % Immature Gran # Nucleated RBCs # Immature Plt Fraction ABG pH ABG pCO2 ABG pO2 ABG HCO3 ABG Total CO2 ABG O2 Saturation ABG Base Excess Hemoglobin Hematocrit Potassium Glucose Sodium Chloride Carbon Dioxide Anion Gap BUN Creatinine GFR Calculation BUN/Creatinine Ratio POC Glucose 186 H 183 H Calculated Osmolality Lactic Acid 1.6 Calcium Magnesium Blood Type Antibody Screen Crossmatch Blood Bank Comment 03/26/17 03/26/17 03/26/17 20:34 21:07 22:03 WBC RBC Hgb Hct MCV MCH MCHC RDW Plt Count MPV Neut % (Auto) Lymph % (Auto) [place] % (Auto) Eos % (Auto) Baso % (Auto) Neut # (Auto) Lymph # (Auto) [place] # (Auto) Eos # (Auto) Baso # (Auto) Immature Gran % Nucleated RBC % Immature Gran # Nucleated RBCs # Immature Plt Fraction ABG pH 7.414 ABG pCO2 37.0 ABG pO2 107.0 H ABG HCO3 23.9 ABG Total CO2 22.0 L ABG O2 Saturation 98.5 ABG Base Excess -0.6 Hemoglobin 8.3 L Hematocrit 25.7 L Potassium 4.4 Glucose 140 H Sodium Chloride Carbon Dioxide Anion Gap BUN Creatinine GFR Calculation BUN/Creatinine Ratio POC Glucose 139 H 122 H Calculated Osmolality Lactic Acid Calcium Magnesium Blood Type Antibody Screen Crossmatch Blood Bank Comment 03/26/17 03/27/17 03/27/17 22:58 00:01 01:17 WBC RBC Hgb Hct MCV MCH MCHC RDW Plt Count MPV Neut % (Auto) Lymph % (Auto) [place] % (Auto) Eos % (Auto) Baso % (Auto) Neut # (Auto) Lymph # (Auto) [place] # (Auto) Eos # (Auto) Baso # (Auto) Immature Gran % Nucleated RBC % Immature Gran # Nucleated RBCs # Immature Plt Fraction ABG pH ABG pCO2 ABG pO2 ABG HCO3 ABG Total CO2 ABG O2 Saturation ABG Base Excess Hemoglobin Hematocrit Potassium Glucose Sodium Chloride Carbon Dioxide Anion Gap BUN Creatinine GFR Calculation BUN/Creatinine Ratio POC Glucose 92 90 127 H Calculated Osmolality Lactic Acid Calcium Magnesium Blood Type Antibody Screen Crossmatch Blood Bank Comment 03/27/17 03/27/17 03/27/17 01:45 02:00 02:12 WBC 13.6 H RBC 3.06 L Hgb 9.4 L Hct 27.2 L MCV 88.9 MCH 31 MCHC 34.6 RDW 14.8 Plt Count 133 MPV 11.8 Neut % (Auto) 89.0 H Lymph % (Auto) 6.6 L [place] % (Auto) 2.8 Eos % (Auto) 0.0 Baso % (Auto) 0.1 Neut # (Auto) 12.1 H Lymph # (Auto) 0.9 L [place] # (Auto) 0.4 Eos # (Auto) 0.0 Baso # (Auto) 0.0 Immature Gran % 1.5 Nucleated RBC % 0.0 Immature Gran # 0.20 Nucleated RBCs # 0.00 Immature Plt Fraction 0.0 ABG pH ABG pCO2 ABG pO2 ABG HCO3 ABG Total CO2 ABG O2 Saturation ABG Base Excess Hemoglobin Hematocrit Potassium 4.4 Glucose 121 H Sodium 143 Chloride 109 H Carbon Dioxide 26 Anion Gap 12.4 BUN 23 H Creatinine 1.00 GFR Calculation 101 BUN/Creatinine Ratio 23.00 H POC Glucose 124 H Calculated Osmolality 289.0 Lactic Acid Calcium 8.3 L Magnesium 2.5 H Blood Type Antibody Screen Crossmatch Blood Bank Comment 03/27/17 03/27/17 03/27/17 03:02 04:13 05:06 WBC RBC Hgb Hct MCV MCH MCHC RDW Plt Count MPV Neut % (Auto) Lymph % (Auto) [place] % (Auto) Eos % (Auto) Baso % (Auto) Neut # (Auto) Lymph # (Auto) [place] # (Auto) Eos # (Auto) Baso # (Auto) Immature Gran % Nucleated RBC % Immature Gran # Nucleated RBCs # Immature Plt Fraction ABG pH ABG pCO2 ABG pO2 ABG HCO3 ABG Total CO2 ABG O2 Saturation ABG Base Excess Hemoglobin Hematocrit Potassium Glucose Sodium Chloride Carbon Dioxide Anion Gap BUN Creatinine GFR Calculation BUN/Creatinine Ratio POC Glucose 106 82 102 Calculated Osmolality Lactic Acid Calcium Magnesium Blood Type Antibody Screen Crossmatch Blood Bank Comment 03/27/17 03/27/17 03/27/17 06:18 06:50 07:07 WBC RBC Hgb Hct MCV MCH MCHC RDW Plt Count MPV Neut % (Auto) Lymph % (Auto) [place] % (Auto) Eos % (Auto) Baso % (Auto) Neut # (Auto) Lymph # (Auto) [place] # (Auto) Eos # (Auto) Baso # (Auto) Immature Gran % Nucleated RBC % Immature Gran # Nucleated RBCs # Immature Plt Fraction ABG pH 7.369 ABG pCO2 40.4 ABG pO2 120.0 H ABG HCO3 22.9 ABG Total CO2 21.4 L ABG O2 Saturation 98.6 ABG Base Excess -1.8 Hemoglobin 9.6 L Hematocrit 29.6 L Potassium 4.4 Glucose 89 Sodium Chloride Carbon Dioxide Anion Gap BUN Creatinine GFR Calculation BUN/Creatinine Ratio POC Glucose 100 93 Calculated Osmolality Lactic Acid Calcium Magnesium Blood Type Antibody Screen Crossmatch Blood Bank Comment 03/27/17 08:19 WBC RBC Hgb Hct MCV MCH MCHC RDW Plt Count MPV Neut % (Auto) Lymph % (Auto) [place] % (Auto) Eos % (Auto) Baso % (Auto) Neut # (Auto) Lymph # (Auto) [place] # (Auto) Eos # (Auto) Baso # (Auto) Immature Gran % Nucleated RBC % Immature Gran # Nucleated RBCs # Immature Plt Fraction ABG pH ABG pCO2 ABG pO2 ABG HCO3 ABG Total CO2 ABG O2 Saturation ABG Base Excess Hemoglobin Hematocrit Potassium Glucose Sodium Chloride Carbon Dioxide Anion Gap BUN Creatinine GFR Calculation BUN/Creatinine Ratio POC Glucose 83 Calculated Osmolality Lactic Acid Calcium Magnesium Blood Type Antibody Screen Crossmatch Blood Bank Comment Quality Measures - VTE Contraindication to Pharmacological VTE Prophylaxis: Active Bleeding Specialty Discharge - Follow Up or Referrals
[2017-03-27] MEDS: INSULIN REGULAR 100 UNIT/ML SUBCUT SCH ×2 (16:48→20:13)
--- NOTE | 2017-03-27 17:37 | Sleep Medicine Consult ---
Assessment and Plan (1) Obstructive sleep apnea Status: Chronic Assessment and plan: This patient has a history of obstructive sleep apnea and we will try to see if we can find evidence of prior evaluation at [place]. He needs to be reevaluated and treated given his comorbidities. He did not sound like he was very interested in doing so but this may just be postop related. We possibly could reevaluate him with home sleep testing in the next few days after he recovers from surgery. I will follow-up with him Saturday if still here. Current Visit: Yes (2) Uncontrolled diabetes mellitus Status: Chronic Assessment and plan: The prevalence rate for obstructive sleep apnea in patients with type 2 diabetes can be as high as 86%. Those patients with moderate to severe obstructive sleep apnea are at a greater risk for diabetic nephropathy and neuropathy. Compliance with CPAP therapy for these patients can lead to improvement in glycemic control and improvement in insulin sensitivity. 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 This study proved significant reduction in the risk of fatal and nonfatal cardiac events in patients with severe obstructive sleep apnea compliant with CPAP, in comparison with those noncompliant with CPAP for severe sleep apnea. Current Visit: Yes History of Present Illness Chief complaint: Obstructive sleep apnea History of present illness: Mr. Hartley is a 61 year old male status post bypass surgery with aortic valve replacement. Sleep medicine was consulted. This patient has a history of sleep apnea in the past according to Dr. Wellington's note. He states that he does have a history of snoring and abnormal breathing during sleep. States that he was treated with CPAP at [place] many years ago but that he could not tolerate CPAP and quit using it. I do not have any details of that evaluation or severity of sleep apnea. He does usually retires about 10:50 PM and awakens at 6 AM. He awakens 3-4 times a night to urinate. He does have issues with daytime fatigue and sleepiness and will awaken from sleep short of breath. He has been told in the past by his ex- that he stop breathing during his sleep. Home Medications Medication Instructions Recorded Confirmed Type Aspirin EC Tab 81 mg PO DAILY 12/03/16 03/19/17 History Carvedilol [Coreg] 3.125 mg PO BID #60 tablet 12/05/16 03/19/17 Rx Clopidogrel [Plavix] 75 mg PO DAILY #30 12/05/16 03/19/17 Rx Furosemide Tab [Lasix Tab] 20 mg PO DAILY #30 12/05/16 03/19/17 Rx Gabapentin Cap/Tab [Neurontin 300 mg PO TID #90 12/05/16 03/19/17 Rx Cap/Tab] Levothyroxine Tab [Synthroid Tab] 200 mcg PO DAILY #30 12/05/16 03/19/17 Rx Losartan/Hydrochlorothiazide 1 each PO DAILY #30 12/05/16 03/19/17 Rx [Losartan-Hctz 100-25 mg Tab] Omeprazole 40 mg PO DAILY #30 12/05/16 03/19/17 Rx amLODIPine [Norvasc] 5 mg PO DAILY #30 12/05/16 03/19/17 Rx hydrALAZINE TAB [Apresoline Tab] 50 mg PO BID #60 12/05/16 03/19/17 Rx Insulin NPH Hum/Reg Insulin Hm 70 unit SUBCUT BID #5 ml 12/19/16 03/19/17 Rx [NovoLIN 70/30] Diclofenac Potassium Tab [Cataflam] 50 mg PO TID PRN #30 tablet 02/20/17 Rx HYDROcodone/ACETAMIN 7.5-325 1 tablet PO Q6H PRN #10 tablet 02/20/17 03/19/17 Rx [[place] 7.5-325] Atorvastatin [Lipitor] 20 mg PO BEDTIME 03/19/17 03/19/17 History Zaleplon [Zaleplon] 10 mg PO BEDTIME PRN 03/19/17 03/19/17 History Allergies Allergy/AdvReac Type Severity Reaction Status Date / Time Iodinated Contrast Media - AdvReac Intermediate Seizure Verified 12/19/16 09:49 Oral and [Iodinated Contrast Media - IV Dye] morphine AdvReac Nausea Verified 03/19/17 16:19 Review of systems: Otherwise unremarkable from a sleep medicine standpoint. Exam ([place]) H&P - Constitutional Vitals: Period Temp Pulse Resp BP Sys/Dunlap Pulse Ox Last 24 Hr 98.0 F-100.0 F 55-87 8-15 105-196/47-91 97-100 Exam: He is alert and responsive. Pupils equal round reactive to light and accommodation. Extraocular movements intact. Oropharynx with a class IV Mallampati exam. Neck supple without adenopathy. Chest with symmetrical breath sounds without focal wheeze rhonchi. Cardiac exam reveals regular rhythm without murmur gallop. Abdomen soft nontender extremities without overt edema. Neurologically, he is grossly intact. Medical,Surgical,& Family Hx - Medical History Cardio: History of: Hypertension, ID, Valvular Heart Disease, Cardiovascular Problems (stents, aortic stenosis) Psychological: History of: Depression Neurology: History of: Cerebrovascular Accident (possible stroke 20+ years ago) , Peripheral Neuropathy No history of: Seizures HEENT: History of: HEENT Problems (chronic sinus problems) Endocrine: History of: Diabetes Mellitus (IDDM), Thyroid Disorder Respiratory: History of: Obstructive Sleep Apnea Gastrointestinal: History of: GERD Musculoskeletal: History of: Back/Neck Problems (chronic pain), Musculoskeletal Problems (chronic pain r/t multiple old injuries) Other: History of: Cancer (history of skin cancer) - Surgical History Cardiac Surgeries: Sugical HX of: Cardiac Catheterization Thoracic Surgeries: Patient denies;: Organ Transplant, Lobectomy Neurologic Surgeries: Patient denies: Neurologic Surgery Orthopedic Surgeries: Surgical HX of;: Orthopedic Surgery (bilateral knee surgery), Spinal Surgery (back surgery) - Family History Family History: Reports;: Family Cancer (paternal side), Family Heart Disease, Family Hypertension (mother and father) - Social History Smoking Status: Never smoker Frequency of Alcohol Use: None Type of Drug Use: None Results - Labs CBC & BMP: 03/27/17 02:00 03/27/17 01:45 Lab Results: I have reviewed the past 24 hour labs Quality Measures - VTE Contraindication to Pharmacological VTE Prophylaxis: Active Bleeding Specialty Discharge - Follow Up or Referrals
[2017-03-27] MEDS: METOPROLOL TARTRATE 25 MG TABLET PO SCH (22:10)
[2017-03-28] MEDS: INSULIN REGULAR 100 UNIT/ML SUBCUT SCH ×6 (00:16→20:19)
[2017-03-28] MEDS: HYDROmorphone 2 MG/1 ML VIAL IV PRN ×3 (00:46→20:10)
[2017-03-28 03:21] LABS: Basophils % 0.1 % (0.0-0.8); Hematocrit 26.1 VOL% (42.0-52.0); Hemoglobin 8.7 GM/DL (14.0-18.0); Immature Granulocytes Absolute 0.17 #; Lymphocytes # 1.8 10*3/uL (1.4-4.0); Lymphocytes % 10.4 % (21.2-54.2); Mean Corpuscular HGB Conc 33.3 GM/DL (32-36); Mean Corpuscular Hemoglobin 31 PG (27-34); Mean Corpuscular Volume 91.6 FL (87-102); Mean Platelet Volume 11.8 FL (9.6-12.0); Monocytes # 1.8 10*3/uL (0.11-0.8); Monocytes % 10.4 % (1.7-12.7); NRBC # 0.02 10*3/uL; Neutrophils # 13.4 10*3/uL (1.4-7.4); Neutrophils % 78.1 % (38.7-73.9); Platelet Count 149 T/CUMM (130-400); Red Blood Count 2.85 MC/CUMM (3.8-5.5); Red Cell Distribution Width 14.9 % (9.3-17.3); White Blood Count 17.2 T/CUMM (4-12)
[2017-03-28 03:43] LABS: Calcium 8.3 MG/DL (8.5-10.1); Magnesium 2.5 MG/DL (1.8-2.4); Osmolality,Calculated 293.5 MOS/KG (273-304); Potassium 4.8 MMOL/L (3.5-5.1)
--- NOTE | 2017-03-28 07:36 | Cardiology Progress Note ---
Cardiology - PN: Subj Interval history: Cardiology note Postop day #2 combined #21 [place] AVR and two-vessel CABG with vein graft to diagonal and vein graft to PDA. EF 40% Awake and alert today. Telemetry shows sinus rhythm in the 60s-70s. Blood pressure 140/74 O2 sat 97% on 2 L cannula Regular rhythm with prosthetic click and soft systolic murmur Decreased breath sounds Abdomen nontender Incision looks good Lab data today White count 17.2 hemoglobin 8.7 hematocrit 26.1 Sodium 139 potassium 4.8 chloride 104 CO2 29 BUN 41 creatinine 1.40 glucose 222 magnesium 2.5 Impression Status post non-Q-wave NV. Postop day #2 combined two-vessel CABG with vein graft to diagonal and vein graft to PDA #21 [place] AVR EF 40% with mild 2+ MR by CEDRICK. Diabetes Hypertension Mild chronic renal insufficiency Plan Pull chest tube today Transferred to telemetry Watch blood pressure Exam (Progress Note) - Constitutional Vitals: Period Temp Pulse Resp BP Sys/Dunlap Pulse Ox Last 24 Hr 99.0 F-100.0 F 59-87 10-18 116-175/55-91 95-99 Result/EKG - Labs CBC & BMP: 03/28/17 03:05 03/28/17 03:05 Labs: Laboratory Results - last 24 hr 03/26/17 03/26/17 03/26/17 03:15 19:02 20:01 WBC RBC Hgb Hct MCV MCH MCHC RDW Plt Count MPV Neut % (Auto) Lymph % (Auto) [place] % (Auto) Eos % (Auto) Baso % (Auto) Neut # (Auto) Lymph # (Auto) [place] # (Auto) Eos # (Auto) Baso # (Auto) Immature Gran % Nucleated RBC % Immature Gran # Nucleated RBCs # Immature Plt Fraction Sodium Potassium Chloride Carbon Dioxide Anion Gap BUN Creatinine GFR Calculation BUN/Creatinine Ratio Glucose POC Glucose 186 H 183 H Calculated Osmolality Calcium Magnesium Crossmatch See Detail 03/26/17 03/26/17 03/26/17 21:07 22:03 22:58 WBC RBC Hgb Hct MCV MCH MCHC RDW Plt Count MPV Neut % (Auto) Lymph % (Auto) [place] % (Auto) Eos % (Auto) Baso % (Auto) Neut # (Auto) Lymph # (Auto) [place] # (Auto) Eos # (Auto) Baso # (Auto) Immature Gran % Nucleated RBC % Immature Gran # Nucleated RBCs # Immature Plt Fraction Sodium Potassium Chloride Carbon Dioxide Anion Gap BUN Creatinine GFR Calculation BUN/Creatinine Ratio Glucose POC Glucose 139 H 122 H 92 Calculated Osmolality Calcium Magnesium Crossmatch 03/27/17 03/27/17 03/27/17 00:01 01:17 02:12 WBC RBC Hgb Hct MCV MCH MCHC RDW Plt Count MPV Neut % (Auto) Lymph % (Auto) [place] % (Auto) Eos % (Auto) Baso % (Auto) Neut # (Auto) Lymph # (Auto) [place] # (Auto) Eos # (Auto) Baso # (Auto) Immature Gran % Nucleated RBC % Immature Gran # Nucleated RBCs # Immature Plt Fraction Sodium Potassium Chloride Carbon Dioxide Anion Gap BUN Creatinine GFR Calculation BUN/Creatinine Ratio Glucose POC Glucose 90 127 H 124 H Calculated Osmolality Calcium Magnesium Crossmatch 03/27/17 03/27/17 03/27/17 03:02 04:13 05:06 WBC RBC Hgb Hct MCV MCH MCHC RDW Plt Count MPV Neut % (Auto) Lymph % (Auto) [place] % (Auto) Eos % (Auto) Baso % (Auto) Neut # (Auto) Lymph # (Auto) [place] # (Auto) Eos # (Auto) Baso # (Auto) Immature Gran % Nucleated RBC % Immature Gran # Nucleated RBCs # Immature Plt Fraction Sodium Potassium Chloride Carbon Dioxide Anion Gap BUN Creatinine GFR Calculation BUN/Creatinine Ratio Glucose POC Glucose 106 82 102 Calculated Osmolality Calcium Magnesium Crossmatch 03/27/17 03/27/17 03/27/17 06:18 07:07 08:19 WBC RBC Hgb Hct MCV MCH MCHC RDW Plt Count MPV Neut % (Auto) Lymph % (Auto) [place] % (Auto) Eos % (Auto) Baso % (Auto) Neut # (Auto) Lymph # (Auto) [place] # (Auto) Eos # (Auto) Baso # (Auto) Immature Gran % Nucleated RBC % Immature Gran # Nucleated RBCs # Immature Plt Fraction Sodium Potassium Chloride Carbon Dioxide Anion Gap BUN Creatinine GFR Calculation BUN/Creatinine Ratio Glucose POC Glucose 100 93 83 Calculated Osmolality Calcium Magnesium Crossmatch 03/27/17 03/27/17 03/28/17 16:35 20:05 00:12 WBC RBC Hgb Hct MCV MCH MCHC RDW Plt Count MPV Neut % (Auto) Lymph % (Auto) [place] % (Auto) Eos % (Auto) Baso % (Auto) Neut # (Auto) Lymph # (Auto) [place] # (Auto) Eos # (Auto) Baso # (Auto) Immature Gran % Nucleated RBC % Immature Gran # Nucleated RBCs # Immature Plt Fraction Sodium Potassium Chloride Carbon Dioxide Anion Gap BUN Creatinine GFR Calculation BUN/Creatinine Ratio Glucose POC Glucose 275 H 305 H 319 H Calculated Osmolality Calcium Magnesium Crossmatch 03/28/17 03/28/17 03:05 03:05 WBC 17.2 H RBC 2.85 L Hgb 8.7 L Hct 26.1 L MCV 91.6 MCH 31 MCHC 33.3 RDW 14.9 Plt Count 149 MPV 11.8 Neut % (Auto) 78.1 H Lymph % (Auto) 10.4 L [place] % (Auto) 10.4 Eos % (Auto) 0.0 Baso % (Auto) 0.1 Neut # (Auto) 13.4 H Lymph # (Auto) 1.8 [place] # (Auto) 1.8 H Eos # (Auto) 0.0 Baso # (Auto) 0.0 Immature Gran % 1.0 Nucleated RBC % 0.1 Immature Gran # 0.17 Nucleated RBCs # 0.02 Immature Plt Fraction 0.0 Sodium 139 Potassium 4.8 Chloride 104 Carbon Dioxide 29 Anion Gap 10.8 BUN 41 H Creatinine 1.40 H GFR Calculation 65 BUN/Creatinine Ratio 29.00 H Glucose 222 H POC Glucose Calculated Osmolality 293.5 Calcium 8.3 L Magnesium 2.5 H Crossmatch Quality Measures - VTE Contraindication to Pharmacological VTE Prophylaxis: Active Bleeding Specialty Discharge - Follow Up or Referrals
--- NOTE | 2017-03-28 07:49 | XRay Report ---
Portable chest Date: 03/28/2017 Clinical history: Evaluate for pneumothorax Comparison: 03/27/2017 Technique: Portable AP sitting chest Findings: Persistent cardiomegaly in patient with median sternotomy and cardiac valve replacement. Coronary artery calcifications/stents. Removal of the endotracheal tube and nasogastric tube with minimal atelectasis/edema at the lung bases with small pleural effusions. No definite pneumothorax is identified with stable mediastinal chest tubes. Degenerative changes are noted. Impression: Removal of the endotracheal tube and nasogastric tube with recent median sternotomy and cardiac valve replacement. Residual edema/atelectasis at the lung bases with small pleural effusions. PROCEDURE INTERPRETED AT [facility] DEPARTMENT OF RADIOLOGY Final Report Signed by: Dr. Bethany Norton
[2017-03-28] MEDS ORDERED: FUROSEMIDE 40 MG/4 ML VIAL IV ONE (07:51)
--- NOTE | 2017-03-28 08:14 | XRay Report ---
Portable chest Date: 03/28/2017 Clinical history: Post chest tube removal Comparison: 03/28/2017 Technique: Portable AP sitting chest Findings: Persistent cardiomegaly patient with prior median sternotomy and cardiac valve replacement. Coronary artery calcifications/stents noted. Interval removal of the mediastinal chest tubes with no definite pneumothorax. Stable edema/atelectasis at the lung bases with small pleural effusions. Impression: No pneumothorax following removal of the mediastinal chest tubes. Recent median sternotomy and cardiac valve replacement. Fairly stable edema/atelectasis at the lung bases with small pleural effusions. PROCEDURE INTERPRETED AT [facility] DEPARTMENT OF RADIOLOGY Final Report Signed by: Dr. Bethany Norton
[2017-03-28] MEDS: FUROSEMIDE 40 MG TABLET PO SCH (08:17)
[2017-03-28] MEDS: CLOPIDOGREL 75 MG TABLET PO SCH (08:18)
[2017-03-28] MEDS: ASPIRIN EC 325 MG TABLET PO SCH (08:18)
[2017-03-28] MEDS: METOPROLOL TARTRATE 25 MG TABLET PO SCH ×2 (08:18→20:06)
[2017-03-28] MEDS: INSULIN REGULAR DRIP 100 ML IV SCH (08:46)
[2017-03-28] MEDS: CHLORHEXIDINE 0.12% ORAL RINSE 60 ML BOTTLE SWISH/SPIT SCH ×2 (09:45→20:19)
--- NOTE | 2017-03-28 12:45 | Cardiothoracic Progress Note ---
Assessment and Plan (1) Coronary artery disease Status: Chronic Assessment and plan: Postoperative day 2 status post CABG 2, aortic valve replacement. The patient has been doing very well. I removed the mediastinal chest tubes, the pacing wire. Patient getting out of bed. Pain is well controlled. Will increase his ambulation. I gave him an extra dose of Lasix today. Current Visit: Yes Exam (Progress Note) - Constitutional Vitals: Period Temp Pulse Resp BP Sys/Dunlap Pulse Ox Last 24 Hr 97.2 F-100.0 F 58-87 10-20 116-152/55-87 95-99 Result/EKG - Labs CBC & BMP: 03/28/17 03:05 03/28/17 03:05 Labs: Laboratory Results - last 24 hr 03/26/17 03/27/17 03/27/17 03:15 09:09 10:08 WBC RBC Hgb Hct MCV MCH MCHC RDW Plt Count MPV Neut % (Auto) Lymph % (Auto) [place] % (Auto) Eos % (Auto) Baso % (Auto) Neut # (Auto) Lymph # (Auto) [place] # (Auto) Eos # (Auto) Baso # (Auto) Immature Gran % Nucleated RBC % Immature Gran # Nucleated RBCs # Immature Plt Fraction Sodium Potassium Chloride Carbon Dioxide Anion Gap BUN Creatinine GFR Calculation BUN/Creatinine Ratio Glucose POC Glucose 93 139 H Calculated Osmolality Calcium Magnesium Crossmatch See Detail 03/27/17 03/27/17 03/27/17 11:18 12:31 16:35 WBC RBC Hgb Hct MCV MCH MCHC RDW Plt Count MPV Neut % (Auto) Lymph % (Auto) [place] % (Auto) Eos % (Auto) Baso % (Auto) Neut # (Auto) Lymph # (Auto) [place] # (Auto) Eos # (Auto) Baso # (Auto) Immature Gran % Nucleated RBC % Immature Gran # Nucleated RBCs # Immature Plt Fraction Sodium Potassium Chloride Carbon Dioxide Anion Gap BUN Creatinine GFR Calculation BUN/Creatinine Ratio Glucose POC Glucose 159 H 175 H 275 H Calculated Osmolality Calcium Magnesium Crossmatch 03/27/17 03/28/17 03/28/17 20:05 00:12 03:05 WBC 17.2 H RBC 2.85 L Hgb 8.7 L Hct 26.1 L MCV 91.6 MCH 31 MCHC 33.3 RDW 14.9 Plt Count 149 MPV 11.8 Neut % (Auto) 78.1 H Lymph % (Auto) 10.4 L [place] % (Auto) 10.4 Eos % (Auto) 0.0 Baso % (Auto) 0.1 Neut # (Auto) 13.4 H Lymph # (Auto) 1.8 [place] # (Auto) 1.8 H Eos # (Auto) 0.0 Baso # (Auto) 0.0 Immature Gran % 1.0 Nucleated RBC % 0.1 Immature Gran # 0.17 Nucleated RBCs # 0.02 Immature Plt Fraction 0.0 Sodium Potassium Chloride Carbon Dioxide Anion Gap BUN Creatinine GFR Calculation BUN/Creatinine Ratio Glucose POC Glucose 305 H 319 H Calculated Osmolality Calcium Magnesium Crossmatch 03/28/17 03/28/17 03/28/17 03:05 08:05 11:53 WBC RBC Hgb Hct MCV MCH MCHC RDW Plt Count MPV Neut % (Auto) Lymph % (Auto) [place] % (Auto) Eos % (Auto) Baso % (Auto) Neut # (Auto) Lymph # (Auto) [place] # (Auto) Eos # (Auto) Baso # (Auto) Immature Gran % Nucleated RBC % Immature Gran # Nucleated RBCs # Immature Plt Fraction Sodium 139 Potassium 4.8 Chloride 104 Carbon Dioxide 29 Anion Gap 10.8 BUN 41 H Creatinine 1.40 H GFR Calculation 65 BUN/Creatinine Ratio 29.00 H Glucose 222 H POC Glucose 183 H 216 H Calculated Osmolality 293.5 Calcium 8.3 L Magnesium 2.5 H Crossmatch Quality Measures - VTE Contraindication to Pharmacological VTE Prophylaxis: Active Bleeding Specialty Discharge - Follow Up or Referrals
--- NOTE | 2017-03-28 18:19 | Pathology Report from [facility] ---
[facility] ACCESSION # : [id number] PATIENT NAME : Radha Monsalve ORDERING DR : Caryl Seaman MD CLINICAL HX: Aortic stenosis - Coronary artery disease POST-OP DX: Same SPECIMEN INFO: Aortic valve GROSS DESCRIPTION: The specimen is received in formalin labeled with the patients name and consists of three fragments of partially calcified thickened valve tissue measuring 3.0 x 2.2 cm in aggregate. Embedded Software Engineer sections submitted in one cassette following decalcification. DIAGNOSIS FOR RADHA MONSALVE: AORTIC VALVE: Calcified aortic valve with new bone formation. COLLECTED DATE: 03/26/2017 [facility] REPORT DATE: 03/27/2017 ELECTRONICALLY SIGNED BY: Tyler Mcginnis III, M.D. 03/27/2017 - 10:51:04 RADHA
[2017-03-28] MEDS: ATORVASTATIN 40 MG TABLET PO SCH (20:06)
[2017-03-29] MEDS: INSULIN REGULAR 100 UNIT/ML SUBCUT SCH ×5 (00:11→16:54)
[2017-03-29] MEDS: HYDROmorphone 2 MG/1 ML VIAL IV PRN ×2 (00:12→06:15)
[2017-03-29 05:42] LABS: Hematocrit 23.6 VOL% (42.0-52.0); Immature Granulocytes Absolute 0.13 #; Lymphocytes # 1.7 10*3/uL (1.4-4.0); Lymphocytes % 12.9 % (21.2-54.2); Mean Corpuscular HGB Conc 33.9 GM/DL (32-36); Mean Corpuscular Hemoglobin 31 PG (27-34); Mean Corpuscular Volume 90.4 FL (87-102); Mean Platelet Volume 11.8 FL (9.6-12.0); Monocytes # 1.5 10*3/uL (0.11-0.8); Monocytes % 11.2 % (1.7-12.7); Neutrophils # 9.7 10*3/uL (1.4-7.4); Neutrophils % 74.9 % (38.7-73.9); Platelet Count 130 T/CUMM (130-400); Red Blood Count 2.61 MC/CUMM (3.8-5.5); Red Cell Distribution Width 14.5 % (9.3-17.3)
[2017-03-29 06:07] LABS: Calcium 8.5 MG/DL (8.5-10.1); Magnesium 2.2 MG/DL (1.8-2.4); Osmolality,Calculated 293.5 MOS/KG (273-304); Potassium 4.2 MMOL/L (3.5-5.1)
--- NOTE | 2017-03-29 08:31 | XRay Report ---
Portable chest Date: 03/29/2017 Clinical history: Postop, evaluate for pneumothorax Comparison: 03/28/2017 Technique: Portable AP sitting chest Findings: Persistent cardiomegaly patient with recent median sternotomy and cardiac valve replacement. No evidence of a pneumothorax. Persistent diffuse parenchymal findings in the mid to lower lung zones with small pleural effusions. Stable mediastinum and osseous structures. Impression: No pneumothorax. Recent median sternotomy and cardiac valve replacement. Progressive pulmonary edema/atelectasis with enlarging at least small bilateral pleural effusions. PROCEDURE INTERPRETED AT [facility] DEPARTMENT OF RADIOLOGY Final Report Signed by: Dr. Bethany Norton
[2017-03-29] MEDS: CLOPIDOGREL 75 MG TABLET PO SCH (08:53)
[2017-03-29] MEDS: ASPIRIN EC 325 MG TABLET PO SCH (08:53)
[2017-03-29] MEDS: METOPROLOL TARTRATE 25 MG TABLET PO SCH (08:53)
[2017-03-29] MEDS: FUROSEMIDE 40 MG TABLET PO SCH (08:53)
[2017-03-29] MEDS: CHLORHEXIDINE 0.12% ORAL RINSE 60 ML BOTTLE SWISH/SPIT SCH ×2 (08:54→21:06)
[2017-03-29] MEDS ORDERED: SODIUM CHLORIDE 0.9% 250 ML IV PRN (09:20)
[2017-03-29] MEDS ORDERED: FUROSEMIDE 40 MG/4 ML VIAL IV ONE (09:21)
--- NOTE | 2017-03-29 10:45 | Cardiothoracic Progress Note ---
Assessment and Plan (1) Coronary artery disease Status: Chronic Assessment and plan: Postoperative day 3 status post CABG 2, aortic valve replacement. The patient has been doing very well. H&H is 02/06 today I will transfuse 2 units of packed RBCs with an extra dose of IV Lasix 80 mg. I would likely start anticoagulation for the mechanical valve over the weekend. Current Visit: Yes Exam (Progress Note) - Constitutional Vitals: Period Temp Pulse Resp BP Sys/Dunlap Pulse Ox Last 24 Hr 97.2 F-98.7 F 55-78 16-20 117-143/60-79 90-98 Result/EKG - Labs CBC & BMP: 03/29/17 04:58 03/29/17 04:58 Labs: Laboratory Results - last 24 hr 03/28/17 03/28/17 03/28/17 11:53 16:12 20:06 WBC RBC Hgb Hct MCV MCH MCHC RDW Plt Count MPV Neut % (Auto) Lymph % (Auto) [place] % (Auto) Eos % (Auto) Baso % (Auto) Neut # (Auto) Lymph # (Auto) [place] # (Auto) Eos # (Auto) Baso # (Auto) Immature Gran % Nucleated RBC % Immature Gran # Nucleated RBCs # Immature Plt Fraction Sodium Potassium Chloride Carbon Dioxide Anion Gap BUN Creatinine GFR Calculation BUN/Creatinine Ratio Glucose POC Glucose 216 H 295 H 274 H Calculated Osmolality Calcium Magnesium Blood Type Antibody Screen Crossmatch 03/28/17 03/29/17 03/29/17 23:55 04:58 04:58 WBC 13.0 H RBC 2.61 L Hgb 8.0 L Hct 23.6 L MCV 90.4 MCH 31 MCHC 33.9 RDW 14.5 Plt Count 130 MPV 11.8 Neut % (Auto) 74.9 H Lymph % (Auto) 12.9 L [place] % (Auto) 11.2 Eos % (Auto) 0.0 Baso % (Auto) 0.0 Neut # (Auto) 9.7 H Lymph # (Auto) 1.7 [place] # (Auto) 1.5 H Eos # (Auto) 0.0 Baso # (Auto) 0.0 Immature Gran % 1.0 Nucleated RBC % 0.0 Immature Gran # 0.13 Nucleated RBCs # 0.00 Immature Plt Fraction 0.0 Sodium 139 Potassium 4.2 Chloride 102 Carbon Dioxide 30 Anion Gap 11.2 BUN 42 H Creatinine 1.20 GFR Calculation 82 BUN/Creatinine Ratio 35.00 H Glucose 206 H POC Glucose 269 H Calculated Osmolality 293.5 Calcium 8.5 Magnesium 2.2 Blood Type Antibody Screen Crossmatch 03/29/17 03/29/17 04:58 07:15 WBC RBC Hgb Hct MCV MCH MCHC RDW Plt Count MPV Neut % (Auto) Lymph % (Auto) [place] % (Auto) Eos % (Auto) Baso % (Auto) Neut # (Auto) Lymph # (Auto) [place] # (Auto) Eos # (Auto) Baso # (Auto) Immature Gran % Nucleated RBC % Immature Gran # Nucleated RBCs # Immature Plt Fraction Sodium Potassium Chloride Carbon Dioxide Anion Gap BUN Creatinine GFR Calculation BUN/Creatinine Ratio Glucose POC Glucose 301 H Calculated Osmolality Calcium Magnesium Blood Type O POSITIVE Antibody Screen Negative Crossmatch See Detail Quality Measures - VTE Contraindication to Pharmacological VTE Prophylaxis: Active Bleeding Specialty Discharge - Follow Up or Referrals
[2017-03-29] MEDS: SERTRALINE 25 MG TABLET PO SCH (13:27)
--- NOTE | 2017-03-29 16:43 | Hospitalist Consult Note ---
Assessment and Plan - Time spent with patient Time spent with patient: Greater than 30 minutes (1) Diabetes mellitus Status: Chronic Assessment and plan: Patient has history of insulin requiring diabetes mellitus. His blood sugars have been reviewed while here. We will make further adjustments to optimize his glucose control and continue Accu-Cheks with sliding scale insulin. Current Visit: Yes Qualifiers: Diabetes mellitus type: type 2 Diabetes mellitus complication detail: with chronic kidney disease Diabetes mellitus senior care insulin use: with senior care use (2) Hypothyroidism Status: Chronic Assessment and plan: Continuing thyroid replacement therapy. Current Visit: No Qualifiers: Hypothyroidism type: acquired Qualified Code(s): E03.9 - Hypothyroidism, unspecified (3) Essential hypertension Status: Chronic Assessment and plan: Blood pressure well controlled at this time. Continue current regimen. Current Visit: Yes (4) Hyperlipidemia Status: Chronic Current Visit: No (5) Coronary artery disease Status: Chronic Assessment and plan: Patient had coronary artery disease and aortic stenosis and is now status post CABG and status post aortic valve replacement. Defer post op care to Dr. Nina Baxter. Current Visit: Yes (6) Aortic stenosis Status: Chronic Current Visit: Yes Qualifiers: Cardiac valve disease etiology: etiology unspecified Qualified Code(s): I35.0 - Nonrheumatic aortic (valve) stenosis (7) S/P CABG x 2 Status: Acute Current Visit: Yes (8) S/P AVR (aortic valve replacement) Status: Acute Current Visit: Yes History of Present Illness - Data of Consult Consult date: 03/29/17 Requesting Physician: Caryl Seaman - Consult Narrative Reason for consult: Assist with med management History of present illness: Mr. Hartley is a 61 year old white male who was initially admitted to the cardiology service and found to have coronary disease and severe aortic stenosis and ultimately underwent coronary artery bypass grafting and aortic valve placement. He is now on telemetry and sitting upright in a chair and has no complaints. We have been consulted to assist with his medical management. He only has some postoperative pain. He denies any shortness of breath, abdominal pain, nausea, vomiting, diarrhea, constipation, melena, hematochezia, hematemesis, dysuria, hematuria, urinary frequency urgency or incontinence. He does complain that both feet or extremely cold. CC: Maricel Wellington, - Home Medications and Allergies Home Medications: Home Medications Medication Instructions Recorded Confirmed Type Aspirin EC Tab 81 mg PO DAILY 12/03/16 03/19/17 History Carvedilol [Coreg] 3.125 mg PO BID #60 tablet 12/05/16 03/19/17 Rx Clopidogrel [Plavix] 75 mg PO DAILY #30 12/05/16 03/19/17 Rx Furosemide Tab [Lasix Tab] 20 mg PO DAILY #30 12/05/16 03/19/17 Rx Gabapentin Cap/Tab [Neurontin 300 mg PO TID #90 12/05/16 03/19/17 Rx Cap/Tab] Levothyroxine Tab [Synthroid Tab] 200 mcg PO DAILY #30 12/05/16 03/19/17 Rx Losartan/Hydrochlorothiazide 1 each PO DAILY #30 12/05/16 03/19/17 Rx [Losartan-Hctz 100-25 mg Tab] Omeprazole 40 mg PO DAILY #30 12/05/16 03/19/17 Rx amLODIPine [Norvasc] 5 mg PO DAILY #30 12/05/16 03/19/17 Rx hydrALAZINE TAB [Apresoline Tab] 50 mg PO BID #60 12/05/16 03/19/17 Rx Insulin NPH Hum/Reg Insulin Hm 70 unit SUBCUT BID #5 ml 12/19/16 03/19/17 Rx [NovoLIN 70/30] Diclofenac Potassium Tab [Cataflam] 50 mg PO TID PRN #30 tablet 02/20/17 Rx HYDROcodone/ACETAMIN 7.5-325 1 tablet PO Q6H PRN #10 tablet 02/20/17 03/19/17 Rx [[place] 7.5-325] Atorvastatin [Lipitor] 20 mg PO BEDTIME 03/19/17 03/19/17 History Zaleplon [Zaleplon] 10 mg PO BEDTIME PRN 03/19/17 03/19/17 History Allergies/Adverse Reactions: Allergies Allergy/AdvReac Type Severity Reaction Status Date / Time Iodinated Contrast Media - AdvReac Intermediate Seizure Verified 12/19/16 09:49 Oral and [Iodinated Contrast Media - IV Dye] morphine AdvReac Nausea Verified 03/19/17 16:19 Medical,Surgical,& Family Hx - Medical History Cardio: History of: Hypertension, CT, Valvular Heart Disease, Cardiovascular Problems (stents, aortic stenosis) Psychological: History of: Depression Neurology: History of: Cerebrovascular Accident (possible stroke 20+ years ago) , Peripheral Neuropathy No history of: Seizures HEENT: History of: HEENT Problems (chronic sinus problems) Endocrine: History of: Diabetes Mellitus (IDDM), Thyroid Disorder Respiratory: History of: Obstructive Sleep Apnea Gastrointestinal: History of: GERD Musculoskeletal: History of: Back/Neck Problems (chronic pain), Musculoskeletal Problems (chronic pain r/t multiple old injuries) Other: History of: Cancer (history of skin cancer) - Surgical History Cardiac Surgeries: Sugical HX of: Cardiac Catheterization Thoracic Surgeries: Patient denies;: Organ Transplant, Lobectomy Neurologic Surgeries: Patient denies: Neurologic Surgery Orthopedic Surgeries: Surgical HX of;: Orthopedic Surgery (bilateral knee surgery), Spinal Surgery (back surgery) - Family History Family History: Reports;: Family Cancer (paternal side), Family Heart Disease, Family Hypertension (mother and father) - Social History Smoking Status: Never smoker Frequency of Alcohol Use: None Type of Drug Use: None 12 point system: reviewed and no additional remarkable complaints except as stated Exam - Constitutional Vitals: Period Temp Pulse Resp BP Sys/Dunlap Pulse Ox Last 24 Hr 97.3 F-98.6 F 51-78 16-20 117-140/57-84 90-100 General appearance: no acute distress - Head Head exam: Present: normocephalic, atraumatic - Eye Eye exam: Present: EOMI. Absent: scleral icterus Pupils: Present: SYEDA - ENT ENT exam: Present: normal oropharynx - Neck Neck exam: Present: normal inspection - Respiratory Respiratory exam: Present: clear to auscultation bilaterally - Cardiovascular Cardiovascular exam: Present: regular rate and rhythm - GI/Abdominal GI/Abdominal exam: Present: normal bowel sounds, soft. Absent: tenderness, rebound - Extremities Exam Extremities exam: Present: normal capillary refill. Absent: calf tenderness - Back Exam Back exam: Present: normal inspection - Neurological Exam Neurological exam: Present: alert, oriented X3, CN II-XII intact. Absent: motor sensory deficit - Psychiatric Psychiatric exam: Present: normal affect, normal mood. Absent: agitated, anxious - Skin Skin exam: Present: warm, dry. Absent: rash Results - Labs CBC & BMP: 03/29/17 04:58 03/29/17 04:58 Lab Results: I have reviewed the past 24 hour labs - Diagnostic Findings Procedure: Chest x-ray: report reviewed by me Quality Measures - VTE Contraindication to Pharmacological VTE Prophylaxis: Active Bleeding Specialty Discharge - Follow Up or Referrals
[2017-03-29] MEDS: INSULIN NPH/REGULAR 70/30 100 UNIT/ML SUBCUT SCH (17:20)
[2017-03-29 19:42] LABS: Hematocrit 28.9 VOL% (42.0-52.0)
[2017-03-29 19:45] LABS: Hemoglobin 10.1 GM/DL (14.0-18.0)
[2017-03-29] MEDS: ATORVASTATIN 40 MG TABLET PO SCH (20:59)
[2017-03-29] MEDS ORDERED: METOPROLOL TARTRATE 25 MG TABLET PO SCH (21:00)
[2017-03-29] MEDS ORDERED: DOCUSATE SODIUM 100 MG CAPSULE PO SCH (21:00)
[2017-03-29] MEDS: INSULIN LISPRO 100 UNIT/ML SUBCUT SCH (21:15)
--- NOTE | 2017-03-29 23:25 | Cardiology Progress Note ---
I, Yvette Vazquez, BJ, am scribing for, and in the presence of, Dioni Marie MD 23:23. Assessment and Plan - Time spent with patient Time spent with patient: Greater than 30 minutes (Record review, assessment, and documentation) (1) Chronic renal disease Status: Chronic Assessment and plan: SEE PLAN BELOW the patient is irritable and complaining he seems to be moping. He likely has postoperative depression We'll try sertraline 25 mg now and then daily at bedtime May increase the dose as tolerated Increase activity I discussed with him the likely has sleep apnea and recommended being evaluated for CPAP. He declines. Current Visit: Yes Qualifiers: Chronic kidney disease stage: stage 3 (moderate) Qualified Code(s): N18.3 - Chronic kidney disease, stage 3 (moderate) (2) Chest pain Status: Resolved Assessment and plan: SEE PLAN BELOW Current Visit: Yes (3) Obstructive sleep apnea Status: Chronic Assessment and plan: SEE PLAN BELOW Current Visit: Yes (4) Coronary artery disease Status: Chronic Assessment and plan: SEE PLAN BELOW Current Visit: Yes (5) Uncontrolled diabetes mellitus Status: Chronic Assessment and plan: SEE PLAN BELOW Current Visit: No Qualifiers: Diabetes mellitus type: type 2 Diabetes mellitus medical terminologist insulin use: with medical terminologist use (6) Aortic stenosis Status: Chronic Assessment and plan: SEE PLAN BELOW Current Visit: Yes Qualifiers: Cardiac valve disease etiology: etiology unspecified Qualified Code(s): I35.0 - Nonrheumatic aortic (valve) stenosis (7) Diabetes mellitus Status: Chronic Assessment and plan: SEE PLAN BELOW Current Visit: Yes Qualifiers: Diabetes mellitus type: type 2 Diabetes mellitus complication detail: with chronic kidney disease Diabetes mellitus medical terminologist insulin use: with jail use (8) Hypertension Status: Chronic Assessment and plan: SEE PLAN BELOW Current Visit: Yes (9) NSTEMI (non-ST elevated myocardial infarction) Status: Acute Assessment and plan: SEE PLAN LISTED BELOW Current Visit: Yes (10) S/P CABG x 2 Status: Acute Assessment and plan: SEE PLAN LISTED BELOW Current Visit: Yes (11) S/P AVR (aortic valve replacement) Status: Acute Assessment and plan: SEE PLAN LISTED BELOW Current Visit: Yes (12) Postoperative depression Status: Acute Current Visit: Yes Cardiology - PN: Subj Interval history: MECHANICAL MAINTENANCE WORKER: Dr. Marie SUMMARY: Mr. Hartley is a 61 year old WM, admitted with chest discomfort, dyspnea, and diaphoresis. Cardiac cath revealed severe two-vessel CAD and moderate to severe aortic regurgitation and aortic stenosis. 03/26/17 pt. underwent CABG X 2, venous graft to diagonal artery, venous graft to the PDA. Aortic valve replacement with #21 [place] [place] mechanical valve. EF 40% with mild 2 + MR by CEDRICK. Baseline gradient across the mechanical aortic valve is 30 mmHg. 1 unit PRBCs transfused. March 29, 2017: The patient was seen today sitting up in a chair, postop day #3. He is awake and alert and states he is not feeling well today. 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 Cardiac rehab has been initiated and the patient is ambulating throughout the unit. Blood pressure 127/62 this morning, sinus rhythm noted on monitor rate 50s-70s. I's and O's reviewed, weight is down 3 pounds. Labs reviewed: WBCs 13 and trending downward, hemoglobin 8, hematocrit 24 and the patient will be transfused today. Potassium 4.2, sodium 139, creatinine one-point today, BUN 42 , technetium 2.2. Glucose poorly controlled. Plan blood transfusion today, start sertraline for depression, monitor blood pressure closely. IMPRESSION AND PLAN: DIABETES -poorly controlled, Accu-Cheks with sliding scale. CAD -POD #3 s/p CABG X2 with AVR. Continue ASA, Plavix, beta-marina, status post non-Q-wave DC. SEVERE AORTIC STENOSIS - s/p AVR with #21 [facility] [place] mechanical valve, anticipate initiation of warfarin. CHRONIC RENAL INSUFFICIENCY -creatinine 1.2 today, will continue to monitor closely. DEPRESSION - initiate Sertraline 25mg daily. HYPERTENSION -continue to monitor closely, adjust medications accordingly. CHF -persistent diffuse parenchymal findings with small pleural effusion bilaterally, enlarging per chest xray. Exam (Progress Note) - Constitutional Vitals: Period Temp Pulse Resp BP Sys/Dunlap Pulse Ox Last 24 Hr 97.2 F-98.7 F 55-78 16-20 117-143/60-79 90-98 Exam: General: Appears well with no apparent distress. Pleasant and cooperative. Appears comfortable. HEENT: PERRL, normocephalic, atraumatic. Mucous membranes moist. No jaundice noted. Conjunctiva moist and clear, sclerae anicteric. Neck: No JVD, no thyromegaly or lymphadenopathy noted. No carotid bruit appreciated. Cardiac: Regular rate and rhythm. Soft murmur, No gallop, prosthetic click auscultated. PMI is nondisplaced. Lungs: Bilaterally decreased bases, auscultation without accessory muscle use to assist the respiratory pattern. Oxygen in use via nasal cannula. Abdomen: Soft, bowel sounds normoactive. Nontender and nondistended. No abdominal bruit or thrill noted. No masses noted. Musculoskeletal: Incisional dressing noted to midline sternum, epigastric region , left leg. Decreased range of motion is noted. Extremities: No clubbing, cyanosis noted. Trace generalized edema noted. Upper extremity pulses 2+. Lower extremity pulses 2+. Capillary refill less than 3 seconds. Skin: Warm and dry. No unusual lesions or rashes. No skin breakdown appreciated. Neuro: Awake, alert and oriented 3. Moves all extremities well without hemiparesis or paralysis. No essential tremor is appreciated. Result/EKG - Labs CBC & BMP: 03/29/17 19:13 03/29/17 04:58 Lab Results: I have reviewed the past 24 hour labs Labs: Laboratory Results - last 24 hr 03/28/17 03/28/17 03/28/17 11:53 16:12 20:06 WBC RBC Hgb Hct MCV MCH MCHC RDW Plt Count MPV Neut % (Auto) Lymph % (Auto) [place] % (Auto) Eos % (Auto) Baso % (Auto) Neut # (Auto) Lymph # (Auto) [place] # (Auto) Eos # (Auto) Baso # (Auto) Immature Gran % Nucleated RBC % Immature Gran # Nucleated RBCs # Immature Plt Fraction Sodium Potassium Chloride Carbon Dioxide Anion Gap BUN Creatinine GFR Calculation BUN/Creatinine Ratio Glucose POC Glucose 216 H 295 H 274 H Calculated Osmolality Calcium Magnesium Blood Type Antibody Screen Crossmatch 03/28/17 03/29/17 03/29/17 23:55 04:58 04:58 WBC 13.0 H RBC 2.61 L Hgb 8.0 L Hct 23.6 L MCV 90.4 MCH 31 MCHC 33.9 RDW 14.5 Plt Count 130 MPV 11.8 Neut % (Auto) 74.9 H Lymph % (Auto) 12.9 L [place] % (Auto) 11.2 Eos % (Auto) 0.0 Baso % (Auto) 0.0 Neut # (Auto) 9.7 H Lymph # (Auto) 1.7 [place] # (Auto) 1.5 H Eos # (Auto) 0.0 Baso # (Auto) 0.0 Immature Gran % 1.0 Nucleated RBC % 0.0 Immature Gran # 0.13 Nucleated RBCs # 0.00 Immature Plt Fraction 0.0 Sodium 139 Potassium 4.2 Chloride 102 Carbon Dioxide 30 Anion Gap 11.2 BUN 42 H Creatinine 1.20 GFR Calculation 82 BUN/Creatinine Ratio 35.00 H Glucose 206 H POC Glucose 269 H Calculated Osmolality 293.5 Calcium 8.5 Magnesium 2.2 Blood Type Antibody Screen Crossmatch 03/29/17 03/29/17 04:58 07:15 WBC RBC Hgb Hct MCV MCH MCHC RDW Plt Count MPV Neut % (Auto) Lymph % (Auto) [place] % (Auto) Eos % (Auto) Baso % (Auto) Neut # (Auto) Lymph # (Auto) [place] # (Auto) Eos # (Auto) Baso # (Auto) Immature Gran % Nucleated RBC % Immature Gran # Nucleated RBCs # Immature Plt Fraction Sodium Potassium Chloride Carbon Dioxide Anion Gap BUN Creatinine GFR Calculation BUN/Creatinine Ratio Glucose POC Glucose 301 H Calculated Osmolality Calcium Magnesium Blood Type O POSITIVE Antibody Screen Negative Crossmatch See Detail - Diagnostic Findings Procedure: Chest x-ray: report reviewed by me - EKG EKG results: interpreted by me, sinus rhythm Quality Measures - VTE Contraindication to Pharmacological VTE Prophylaxis: Active Bleeding Specialty Discharge - Follow Up or Referrals Follow up with: Dioni Marie MD [Physician] - ICynthia Dale, MD, personally performed the services described in this documentation, ascribed by Yvette Vazquez NP in my presence, and it is both accurate and complete [id number] .
[2017-03-30] MEDS: METOPROLOL TARTRATE 5 MG/5 ML VIAL IV PRN (04:01)
[2017-03-30 04:10] LABS: Basophils % 0.1 % (0.0-0.8); Eosinophils # 0.1 10*3/uL (0.0-0.87); Eosinophils % 0.5 % (0.00-10.9); Hematocrit 29.1 VOL% (42.0-52.0); Hemoglobin 10.3 GM/DL (14.0-18.0); Immature Granulocytes % 1.3 %; Immature Granulocytes Absolute 0.14 #; Lymphocytes # 1.8 10*3/uL (1.4-4.0); Lymphocytes % 16.2 % (21.2-54.2); Mean Corpuscular HGB Conc 35.4 GM/DL (32-36); Mean Corpuscular Hemoglobin 31 PG (27-34); Mean Corpuscular Volume 87.4 FL (87-102); Monocytes # 1.1 10*3/uL (0.11-0.8); Monocytes % 9.6 % (1.7-12.7); NRBC # 0.02 10*3/uL; Neutrophils % 72.3 % (38.7-73.9); Platelet Count 134 T/CUMM (130-400); Red Blood Count 3.33 MC/CUMM (3.8-5.5); Red Cell Distribution Width 13.6 % (9.3-17.3); White Blood Count 11.1 T/CUMM (4-12)
[2017-03-30 04:39] LABS: Calcium 8.6 MG/DL (8.5-10.1); Magnesium 1.9 MG/DL (1.8-2.4); Osmolality,Calculated 292.5 MOS/KG (273-304)
[2017-03-30] MEDS ORDERED: AMIODARONE INJ 450 MG in DEXTROSE 5% 241 ML IV SCH (06:30)
[2017-03-30] MEDS: LEVOTHYROXINE 100 MCG TABLET PO SCH (07:00)
[2017-03-30] MEDS: MAGNESIUM SULF RIDER 2 GM in PREMIX 1 EACH IV PRN (07:00)
[2017-03-30] MEDS: INSULIN NPH/REGULAR 70/30 100 UNIT/ML SUBCUT SCH ×2 (09:12→16:38)
[2017-03-30] MEDS: ASPIRIN EC 325 MG TABLET PO SCH (09:12)
[2017-03-30] MEDS: FUROSEMIDE 40 MG TABLET PO SCH (09:12)
[2017-03-30] MEDS: CLOPIDOGREL 75 MG TABLET PO SCH (09:12)
[2017-03-30] MEDS: METOPROLOL TARTRATE 25 MG TABLET PO SCH ×2 (09:12→21:11)
[2017-03-30] MEDS: SERTRALINE 25 MG TABLET PO SCH (09:12)
[2017-03-30] MEDS: INSULIN LISPRO 100 UNIT/ML SUBCUT SCH ×4 (09:13→21:10)
[2017-03-30] MEDS: CHLORHEXIDINE 0.12% ORAL RINSE 60 ML BOTTLE SWISH/SPIT SCH ×2 (09:14→21:11)
--- NOTE | 2017-03-30 11:54 | Order Completion Report ---
See report scanned to EMR
[2017-03-30] MEDS ORDERED: AMIODARONE INJ 150 MG in DEXTROSE 5% 100 ML IV ONE (12:30)
--- NOTE | 2017-03-30 13:15 | Hospitalist Progress Note ---
Assessment and Plan (1) S/P CABG x 2 Status: Acute Assessment and plan: Managed by Dr. Seaman Current Visit: Yes (2) S/P AVR (aortic valve replacement) Status: Acute Assessment and plan: Managed by Dr. Seaman Current Visit: Yes (3) Insulin dependent diabetes mellitus Status: Acute Assessment and plan: Add metformin 500 mg p.o. twice daily change 70/30 to 25 units twice a day Current Visit: Yes Hospitalist: Subjective Interval history: Patient is status post CABG. We are responsible for blood sugar management only. Exam - Constitutional Vitals: Period Temp Pulse Resp BP Sys/Dunlap Pulse Ox Last 24 Hr 97.9 F-98.6 F 51-107 16-20 117-160/57-86 94-99 Exam: Heart Rate-[RRR] Lungs-[CTAB but diminished] GI-[+bs soft Psych depressed mood and affect Results - Labs CBC & BMP: 03/30/17 02:41 03/30/17 02:41 Lab Results: I have reviewed the past 24 hour labs Quality Measures - VTE Contraindication to Pharmacological VTE Prophylaxis: Active Bleeding Specialty Discharge - Follow Up or Referrals Follow up with: Dioni Marie MD [Physician] -
--- NOTE | 2017-03-30 16:19 | Cardiothoracic Progress Note ---
Assessment and Plan (1) Coronary artery disease Status: Chronic Assessment and plan: Postoperative day 4 status post CABG 2, aortic valve replacement. The patient has been doing very well. He had a transient episode of atrial fibrillation that was controlled with beta-marina overnight. Patient is were otherwise doing very well. Hemodynamically stable. Ambulating well. I will start anticoagulation for his mechanical valve tomorrow. I anticipate discharge on Saturday. Current Visit: Yes Exam (Progress Note) - Constitutional Vitals: Period Temp Pulse Resp BP Sys/Dunlap Pulse Ox Last 24 Hr 97.9 F-99 F 54-107 16-20 117-160/61-86 94-99 Result/EKG - Labs CBC & BMP: 03/30/17 02:41 03/30/17 02:41 Labs: Laboratory Results - last 24 hr 03/29/17 03/29/17 03/29/17 04:58 16:50 19:13 WBC RBC Hgb 10.1 L D Hct 28.9 L MCV MCH MCHC RDW Plt Count MPV Neut % (Auto) Lymph % (Auto) [place] % (Auto) Eos % (Auto) Baso % (Auto) Neut # (Auto) Lymph # (Auto) [place] # (Auto) Eos # (Auto) Baso # (Auto) Immature Gran % Nucleated RBC % Immature Gran # Nucleated RBCs # Immature Plt Fraction Sodium Potassium Chloride Carbon Dioxide Anion Gap BUN Creatinine GFR Calculation BUN/Creatinine Ratio Glucose POC Glucose 248 H Calculated Osmolality Calcium Magnesium Crossmatch See Detail 03/29/17 03/30/17 03/30/17 21:05 02:41 02:41 WBC 11.1 RBC 3.33 L D Hgb 10.3 L Hct 29.1 L MCV 87.4 MCH 31 MCHC 35.4 RDW 13.6 Plt Count 134 MPV 12.0 Neut % (Auto) 72.3 Lymph % (Auto) 16.2 L [place] % (Auto) 9.6 Eos % (Auto) 0.5 Baso % (Auto) 0.1 Neut # (Auto) 8.0 H Lymph # (Auto) 1.8 [place] # (Auto) 1.1 H Eos # (Auto) 0.1 Baso # (Auto) 0.0 Immature Gran % 1.3 Nucleated RBC % 0.2 Immature Gran # 0.14 Nucleated RBCs # 0.02 Immature Plt Fraction 0.0 Sodium 139 Potassium 4.0 Chloride 100 Carbon Dioxide 29 Anion Gap 14.0 BUN 38 H Creatinine 1.10 GFR Calculation 92 BUN/Creatinine Ratio 34.00 H Glucose 220 H POC Glucose 256 H Calculated Osmolality 292.5 Calcium 8.6 Magnesium 1.9 Crossmatch 03/30/17 03/30/17 03/30/17 06:58 11:19 14:57 WBC RBC Hgb Hct MCV MCH MCHC RDW Plt Count MPV Neut % (Auto) Lymph % (Auto) [place] % (Auto) Eos % (Auto) Baso % (Auto) Neut # (Auto) Lymph # (Auto) [place] # (Auto) Eos # (Auto) Baso # (Auto) Immature Gran % Nucleated RBC % Immature Gran # Nucleated RBCs # Immature Plt Fraction Sodium Potassium Chloride Carbon Dioxide Anion Gap BUN Creatinine GFR Calculation BUN/Creatinine Ratio Glucose POC Glucose 268 H 304 H 235 H Calculated Osmolality Calcium Magnesium Crossmatch Quality Measures - VTE Contraindication to Pharmacological VTE Prophylaxis: Active Bleeding Specialty Discharge - Follow Up or Referrals Follow up with: Dioni Marie MD [Physician] -
[2017-03-30] MEDS: metFORMIN 500 MG TABLET PO SCH (16:37)
--- NOTE | 2017-03-30 17:34 | Cardiology Progress Note ---
Assessment and Plan (1) Chronic renal disease Status: Chronic Assessment and plan: SEE PLAN BELOW the patient is irritable and complaining he seems to be moping. He likely has postoperative depression We'll try sertraline 25 mg now and then daily at bedtime May increase the dose as tolerated Increase activity I discussed with him the likely has sleep apnea and recommended being evaluated for CPAP. He declines. 03/30/17 Slightly better regarding his postop depression it may be a halo effect We will increase the dose of sertraline to 50 mg p.o. nightly Current Visit: Yes Qualifiers: Chronic kidney disease stage: stage 3 (moderate) Qualified Code(s): N18.3 - Chronic kidney disease, stage 3 (moderate) (2) Chest pain Status: Resolved Assessment and plan: SEE PLAN BELOW Current Visit: Yes (3) Obstructive sleep apnea Status: Chronic Assessment and plan: SEE PLAN BELOW Current Visit: Yes (4) Coronary artery disease Status: Chronic Assessment and plan: SEE PLAN BELOW Current Visit: Yes (5) Uncontrolled diabetes mellitus Status: Chronic Assessment and plan: SEE PLAN BELOW Current Visit: No Qualifiers: Diabetes mellitus type: type 2 Diabetes mellitus 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 insulin use: with intermediate use (6) Aortic stenosis Status: Chronic Assessment and plan: SEE PLAN BELOW Current Visit: Yes Qualifiers: Cardiac valve disease etiology: etiology unspecified Qualified Code(s): I35.0 - Nonrheumatic aortic (valve) stenosis (7) Diabetes mellitus Status: Chronic Assessment and plan: SEE PLAN BELOW Current Visit: Yes Qualifiers: Diabetes mellitus type: type 2 Diabetes mellitus complication detail: with chronic kidney disease Diabetes mellitus intermediate insulin use: with intermediate use (8) Hypertension Status: Chronic Assessment and plan: SEE PLAN BELOW Current Visit: Yes (9) NSTEMI (non-ST elevated myocardial infarction) Status: Acute Assessment and plan: SEE PLAN LISTED BELOW Current Visit: Yes (10) S/P CABG x 2 Status: Acute Assessment and plan: SEE PLAN LISTED BELOW Current Visit: Yes (11) S/P AVR (aortic valve replacement) Status: Acute Assessment and plan: SEE PLAN LISTED BELOW Current Visit: Yes (12) Postoperative depression Status: Acute Current Visit: Yes (13) Suspected sleep apnea Status: Acute Current Visit: Yes Cardiology - PN: Subj Interval history: No chest pain or shortness of breath. Exam (Progress Note) - Constitutional Vitals: Period Temp Pulse Resp BP Sys/Dunlap Pulse Ox Last 24 Hr 97.9 F-99 F 54-107 16-20 117-160/61-77 95-99 Exam: General: Appears well with no apparent distress. Pleasant and cooperative. Appears comfortable. HEENT: PERRL, normocephalic, atraumatic. Mucous membranes moist. No jaundice noted. Conjunctiva moist and clear, sclerae anicteric. Neck: No JVD, no thyromegaly or lymphadenopathy noted. No carotid bruit appreciated. Cardiac: Regular rate and rhythm. Soft murmur, No gallop, prosthetic click auscultated. PMI is nondisplaced. Lungs: Bilaterally decreased bases, auscultation without accessory muscle use to assist the respiratory pattern. Oxygen in use via nasal cannula. Abdomen: Soft, bowel sounds normoactive. Nontender and nondistended. No abdominal bruit or thrill noted. No masses noted. Musculoskeletal: Incisional dressing noted to midline sternum, epigastric region , left leg. Decreased range of motion is noted. Extremities: No clubbing, cyanosis noted. Trace generalized edema noted. Upper extremity pulses 2+. Lower extremity pulses 2+. Capillary refill less than 3 seconds. Skin: Warm and dry. No unusual lesions or rashes. No skin breakdown appreciated. Neuro: Awake, alert and oriented 3. Moves all extremities well without hemiparesis or paralysis. No essential tremor is appreciated. The patient seems slightly less irritable today Result/EKG - Labs CBC & BMP: 03/30/17 02:41 03/30/17 02:41 Lab Results: I have reviewed the past 24 hour labs Labs: Laboratory Results - last 24 hr 03/29/17 03/29/17 03/30/17 19:13 21:05 02:41 WBC 11.1 RBC 3.33 L D Hgb 10.1 L D 10.3 L Hct 28.9 L 29.1 L MCV 87.4 MCH 31 MCHC 35.4 RDW 13.6 Plt Count 134 MPV 12.0 Neut % (Auto) 72.3 Lymph % (Auto) 16.2 L [place] % (Auto) 9.6 Eos % (Auto) 0.5 Baso % (Auto) 0.1 Neut # (Auto) 8.0 H Lymph # (Auto) 1.8 [place] # (Auto) 1.1 H Eos # (Auto) 0.1 Baso # (Auto) 0.0 Immature Gran % 1.3 Nucleated RBC % 0.2 Immature Gran # 0.14 Nucleated RBCs # 0.02 Immature Plt Fraction 0.0 Sodium Potassium Chloride Carbon Dioxide Anion Gap BUN Creatinine GFR Calculation BUN/Creatinine Ratio Glucose POC Glucose 256 H Calculated Osmolality Calcium Magnesium 03/30/17 03/30/17 03/30/17 02:41 06:58 11:19 WBC RBC Hgb Hct MCV MCH MCHC RDW Plt Count MPV Neut % (Auto) Lymph % (Auto) [place] % (Auto) Eos % (Auto) Baso % (Auto) Neut # (Auto) Lymph # (Auto) [place] # (Auto) Eos # (Auto) Baso # (Auto) Immature Gran % Nucleated RBC % Immature Gran # Nucleated RBCs # Immature Plt Fraction Sodium 139 Potassium 4.0 Chloride 100 Carbon Dioxide 29 Anion Gap 14.0 BUN 38 H Creatinine 1.10 GFR Calculation 92 BUN/Creatinine Ratio 34.00 H Glucose 220 H POC Glucose 268 H 304 H Calculated Osmolality 292.5 Calcium 8.6 Magnesium 1.9 03/30/17 14:57 WBC RBC Hgb Hct MCV MCH MCHC RDW Plt Count MPV Neut % (Auto) Lymph % (Auto) [place] % (Auto) Eos % (Auto) Baso % (Auto) Neut # (Auto) Lymph # (Auto) [place] # (Auto) Eos # (Auto) Baso # (Auto) Immature Gran % Nucleated RBC % Immature Gran # Nucleated RBCs # Immature Plt Fraction Sodium Potassium Chloride Carbon Dioxide Anion Gap BUN Creatinine GFR Calculation BUN/Creatinine Ratio Glucose POC Glucose 235 H Calculated Osmolality Calcium Magnesium - EKG EKG results: interpreted by me Quality Measures - VTE Contraindication to Pharmacological VTE Prophylaxis: Active Bleeding Specialty Discharge - Follow Up or Referrals Follow up with: Dioni Marie MD [Physician] -
[2017-03-30] MEDS: ATORVASTATIN 40 MG TABLET PO SCH (21:11)
[2017-03-30] MEDS: SERTRALINE 50 MG TABLET PO SCH (21:11)
[2017-03-31 06:18] LABS: Basophils % 0.2 % (0.0-0.8); Eosinophils # 0.1 10*3/uL (0.0-0.87); Eosinophils % 0.6 % (0.00-10.9); Hematocrit 28.7 VOL% (42.0-52.0); Immature Granulocytes % 1.2 %; Immature Granulocytes Absolute 0.15 #; Lymphocytes # 1.9 10*3/uL (1.4-4.0); Lymphocytes % 14.7 % (21.2-54.2); Mean Corpuscular HGB Conc 34.8 GM/DL (32-36); Mean Corpuscular Hemoglobin 31 PG (27-34); Mean Corpuscular Volume 88.9 FL (87-102); Mean Platelet Volume 11.7 FL (9.6-12.0); Monocytes # 1.2 10*3/uL (0.11-0.8); Monocytes % 9.6 % (1.7-12.7); Neutrophils # 9.6 10*3/uL (1.4-7.4); Neutrophils % 73.7 % (38.7-73.9); Platelet Count 181 T/CUMM (130-400); Red Blood Count 3.23 MC/CUMM (3.8-5.5); Red Cell Distribution Width 14.1 % (9.3-17.3)
[2017-03-31 06:45] LABS: Calcium 8.5 MG/DL (8.5-10.1); Magnesium 2.2 MG/DL (1.8-2.4); Osmolality,Calculated 286.4 MOS/KG (273-304); Potassium 3.9 MMOL/L (3.5-5.1)
[2017-03-31] MEDS: LEVOTHYROXINE 100 MCG TABLET PO SCH (06:52)
[2017-03-31] MEDS: INSULIN LISPRO 100 UNIT/ML SUBCUT SCH ×4 (08:11→21:20)
[2017-03-31] MEDS: metFORMIN 500 MG TABLET PO SCH ×2 (08:13→17:15)
[2017-03-31] MEDS: INSULIN NPH/REGULAR 70/30 100 UNIT/ML SUBCUT SCH ×2 (08:13→17:15)
[2017-03-31] MEDS: METOPROLOL TARTRATE 25 MG TABLET PO SCH (08:13)
[2017-03-31] MEDS: FUROSEMIDE 40 MG TABLET PO SCH (08:13)
[2017-03-31] MEDS: ASPIRIN EC 325 MG TABLET PO SCH (08:13)
[2017-03-31] MEDS: CHLORHEXIDINE 0.12% ORAL RINSE 60 ML BOTTLE SWISH/SPIT SCH ×2 (08:16→21:21)
--- NOTE | 2017-03-31 10:44 | Cardiothoracic Progress Note ---
Assessment and Plan (1) Coronary artery disease Status: Chronic Assessment and plan: Postoperative day 5 status post CABG 2, aortic valve replacement. The patient has been doing very well. He is pain-free this morning. He has been ambulating well. I will proceed with starting anti-coagulation for his mechanical valve today. I anticipate discharge with home health services tomorrow. Current Visit: Yes Exam (Progress Note) - Constitutional Vitals: Period Temp Pulse Resp BP Sys/Dunlap Pulse Ox Last 24 Hr 96.9 F-99.1 F 54-72 18-20 132-171/63-80 93-99 Result/EKG - Labs CBC & BMP: 03/31/17 04:48 03/31/17 04:48 Labs: Laboratory Results - last 24 hr 03/30/17 03/30/17 03/30/17 11:19 14:57 19:09 WBC RBC Hgb Hct MCV MCH MCHC RDW Plt Count MPV Neut % (Auto) Lymph % (Auto) [place] % (Auto) Eos % (Auto) Baso % (Auto) Neut # (Auto) Lymph # (Auto) [place] # (Auto) Eos # (Auto) Baso # (Auto) Immature Gran % Nucleated RBC % Immature Gran # Nucleated RBCs # Immature Plt Fraction Sodium Potassium Chloride Carbon Dioxide Anion Gap BUN Creatinine GFR Calculation BUN/Creatinine Ratio Glucose POC Glucose 304 H 235 H 215 H Calculated Osmolality Calcium Magnesium 03/31/17 03/31/17 03/31/17 04:48 04:48 07:10 WBC 13.0 H RBC 3.23 L Hgb 10.0 L Hct 28.7 L MCV 88.9 MCH 31 MCHC 34.8 RDW 14.1 Plt Count 181 D MPV 11.7 Neut % (Auto) 73.7 Lymph % (Auto) 14.7 L [place] % (Auto) 9.6 Eos % (Auto) 0.6 Baso % (Auto) 0.2 Neut # (Auto) 9.6 H Lymph # (Auto) 1.9 [place] # (Auto) 1.2 H Eos # (Auto) 0.1 Baso # (Auto) 0.0 Immature Gran % 1.2 Nucleated RBC % 0.0 Immature Gran # 0.15 Nucleated RBCs # 0.00 Immature Plt Fraction 0.0 Sodium 140 Potassium 3.9 Chloride 100 Carbon Dioxide 30 Anion Gap 13.9 BUN 28 H Creatinine 0.90 GFR Calculation 113 BUN/Creatinine Ratio 31.00 H Glucose 136 H POC Glucose 171 H Calculated Osmolality 286.4 Calcium 8.5 Magnesium 2.2 Quality Measures - VTE Contraindication to Pharmacological VTE Prophylaxis: Active Bleeding Specialty Discharge - Follow Up or Referrals Follow up with: Dioni Marie MD [Physician] -
[2017-03-31] MEDS ORDERED: hydrALAZINE 25 MG TABLET PO SCH (11:00)
[2017-03-31] MEDS: ENOXAPARIN 40 MG/0.4 ML SYRINGE SUBCUT SCH ×2 (11:39→21:19)
--- NOTE | 2017-03-31 11:57 | Hospitalist Progress Note ---
Assessment and Plan (1) S/P CABG x 2 Status: Acute Assessment and plan: Managed by Dr. Seaman Current Visit: Yes (2) S/P AVR (aortic valve replacement) Status: Acute Assessment and plan: Managed by Dr. Seaman Current Visit: Yes (3) Insulin dependent diabetes mellitus Status: Acute Assessment and plan: Continue metformin 500 mg p.o. twice daily increase 70/30 to 32 units twice a day Current Visit: Yes Hospitalist: Subjective Interval history: Blood sugars this morning are little better but still too high. We will continue the metformin and try to increase his insulin. Patient is extremely depressed. Exam - Constitutional Vitals: Period Temp Pulse Resp BP Sys/Dunlap Pulse Ox Last 24 Hr 96.9 F-99.1 F 58-72 18-20 132-171/67-80 93-95 Exam: Heart Rate-[RRR] Lungs-[CTAB but diminished] GI-[+bs soft Psych depressed mood and affect Results - Labs CBC & BMP: 03/31/17 04:48 03/31/17 04:48 Lab Results: I have reviewed the past 24 hour labs Quality Measures - VTE Contraindication to Pharmacological VTE Prophylaxis: Active Bleeding Specialty Discharge - Follow Up or Referrals Follow up with: Dioni Marie MD [Physician] -
[2017-03-31] MEDS: METOPROLOL TARTRATE 5 MG/5 ML VIAL IV PRN ×2 (12:57→13:45)
--- NOTE | 2017-03-31 13:46 | Cardiology Progress Note ---
Assessment and Plan (1) Chronic renal disease Status: Chronic Assessment and plan: SEE PLAN BELOW the patient is irritable and complaining he seems to be moping. He likely has postoperative depression We'll try sertraline 25 mg now and then daily at bedtime May increase the dose as tolerated Increase activity I discussed with him the likely has sleep apnea and recommended being evaluated for CPAP. He declines. 03/30/17 Slightly better regarding his postop depression it may be a halo effect We will increase the dose of sertraline to 50 mg p.o. nightly 03/31/17 We will change the metoprolol back to carvedilol which would be better for him with his diabetes We discontinue the hydralazine and start back on losartan, which would be renal protective with her diabetes We will start a low-dose of Spironolactone. It may be will help with some of the fluid retention/pleural effusions We will watch renal function carefully with these med changes Check a CMP tomorrow, check albumin level in addition to the creatinine and potassium. Hopefully his depression will improve on the sertraline Current Visit: Yes Qualifiers: Chronic kidney disease stage: stage 3 (moderate) Qualified Code(s): N18.3 - Chronic kidney disease, stage 3 (moderate) (2) Chest pain Status: Resolved Assessment and plan: SEE PLAN BELOW Current Visit: Yes (3) Obstructive sleep apnea Status: Chronic Assessment and plan: SEE PLAN BELOW Current Visit: Yes (4) Coronary artery disease Status: Chronic Assessment and plan: SEE PLAN BELOW Current Visit: Yes (5) Uncontrolled diabetes mellitus Status: Chronic Assessment and plan: SEE PLAN BELOW Current Visit: No Qualifiers: Diabetes mellitus type: type 2 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 (6) Aortic stenosis Status: Chronic Assessment and plan: SEE PLAN BELOW Current Visit: Yes Qualifiers: Cardiac valve disease etiology: etiology unspecified Qualified Code(s): I35.0 - Nonrheumatic aortic (valve) stenosis (7) Diabetes mellitus Status: Chronic Assessment and plan: SEE PLAN BELOW Current Visit: Yes Qualifiers: Diabetes mellitus type: type 2 Diabetes mellitus complication detail: with chronic kidney disease Diabetes mellitus senior living insulin use: with senior living use (8) Hypertension Status: Chronic Assessment and plan: SEE PLAN BELOW Current Visit: Yes (9) NSTEMI (non-ST elevated myocardial infarction) Status: Acute Assessment and plan: SEE PLAN LISTED BELOW Current Visit: Yes (10) S/P CABG x 2 Status: Acute Assessment and plan: SEE PLAN LISTED BELOW Current Visit: Yes (11) S/P AVR (aortic valve replacement) Status: Acute Assessment and plan: SEE PLAN LISTED BELOW Current Visit: Yes (12) Postoperative depression Status: Acute Current Visit: Yes (13) Suspected sleep apnea Status: Acute Current Visit: Yes Cardiology - PN: Subj Interval history: No chest pain or shortness of breath. Some difficulty sleeping at night. Exam (Progress Note) - Constitutional Vitals: Period Temp Pulse Resp BP Sys/Dunlap Pulse Ox Last 24 Hr 96.9 F-99.1 F 58-132 18-20 120-186/63-90 93-96 Exam: General: Appears well with no apparent distress. Pleasant and cooperative. Appears comfortable. HEENT: PERRL, normocephalic, atraumatic. Mucous membranes moist. No jaundice noted. Conjunctiva moist and clear, sclerae anicteric. Neck: No JVD, no thyromegaly or lymphadenopathy noted. No carotid bruit appreciated. Cardiac: Regular rate and rhythm. Soft murmur, No gallop, prosthetic click auscultated. PMI is nondisplaced. Lungs: Bilaterally decreased bases, auscultation without accessory muscle use to assist the respiratory pattern. Oxygen in use via nasal cannula. Abdomen: Soft, bowel sounds normoactive. Nontender and nondistended. No abdominal bruit or thrill noted. No masses noted. Musculoskeletal: Incisional dressing noted to midline sternum, epigastric region , left leg. Decreased range of motion is noted. Extremities: No clubbing, cyanosis noted. Trace generalized edema noted. Upper extremity pulses 2+. Lower extremity pulses 2+. Capillary refill less than 3 seconds. Skin: Warm and dry. No unusual lesions or rashes. No skin breakdown appreciated. Neuro: Awake, alert and oriented 3. Moves all extremities well without hemiparesis or paralysis. No essential tremor is appreciated. The patient seems slightly less irritable today Result/EKG - Labs CBC & BMP: 03/31/17 04:48 03/31/17 04:48 Lab Results: I have reviewed the past 24 hour labs Labs: Laboratory Results - last 24 hr 03/30/17 03/30/1717 14:57 19:09 04:48 WBC 13.0 H RBC 3.23 L Hgb 10.0 L Hct 28.7 L MCV 88.9 MCH 31 MCHC 34.8 RDW 14.1 Plt Count 181 D MPV 11.7 Neut % (Auto) 73.7 Lymph % (Auto) 14.7 L [place] % (Auto) 9.6 Eos % (Auto) 0.6 Baso % (Auto) 0.2 Neut # (Auto) 9.6 H Lymph # (Auto) 1.9 [place] # (Auto) 1.2 H Eos # (Auto) 0.1 Baso # (Auto) 0.0 Immature Gran % 1.2 Nucleated RBC % 0.0 Immature Gran # 0.15 Nucleated RBCs # 0.00 Immature Plt Fraction 0.0 Sodium Potassium Chloride Carbon Dioxide Anion Gap BUN Creatinine GFR Calculation BUN/Creatinine Ratio Glucose POC Glucose 235 H 215 H Calculated Osmolality Calcium Magnesium 03/31/17 03/31/17 03/31/17 04:48 07:10 11:23 WBC RBC Hgb Hct MCV MCH MCHC RDW Plt Count MPV Neut % (Auto) Lymph % (Auto) [place] % (Auto) Eos % (Auto) Baso % (Auto) Neut # (Auto) Lymph # (Auto) [place] # (Auto) Eos # (Auto) Baso # (Auto) Immature Gran % Nucleated RBC % Immature Gran # Nucleated RBCs # Immature Plt Fraction Sodium 140 Potassium 3.9 Chloride 100 Carbon Dioxide 30 Anion Gap 13.9 BUN 28 H Creatinine 0.90 GFR Calculation 113 BUN/Creatinine Ratio 31.00 H Glucose 136 H POC Glucose 171 H 268 H Calculated Osmolality 286.4 Calcium 8.5 Magnesium 2.2 - Diagnostic Findings Procedure: Chest x-ray: report reviewed by me - EKG EKG results: interpreted by me Quality Measures - VTE Contraindication to Pharmacological VTE Prophylaxis: Active Bleeding Specialty Discharge - Follow Up or Referrals Follow up with: Dioni Marie MD [Physician] -
[2017-03-31] MEDS: LOSARTAN 25 MG TABLET PO SCH ×2 (14:01→21:20)
[2017-03-31] MEDS: MAGNESIUM CHLORIDE 64 MG TABLET PO SCH (15:22)
[2017-03-31] MEDS: SPIRONOLACTONE 25 MG TABLET PO SCH (15:22)
[2017-03-31] MEDS ORDERED: AMIODARONE 200 MG TABLET PO ONE ×2 (15:30→21:00)
[2017-03-31] MEDS: WARFARIN 5 MG TABLET PO SCH (17:15)
[2017-03-31] MEDS ORDERED: CARVEDILOL 12.5 MG TABLET PO SCH (21:00)
[2017-03-31] MEDS: CARVEDILOL 12.5 MG TABLET PO SCH (21:19)
[2017-03-31] MEDS: SERTRALINE 50 MG TABLET PO SCH (21:19)
[2017-03-31] MEDS: ATORVASTATIN 40 MG TABLET PO SCH (21:20)
[2017-04-01 04:46] LABS: Basophils % 0.3 % (0.0-0.8); Eosinophils # 0.3 10*3/uL (0.0-0.87); Eosinophils % 1.9 % (0.00-10.9); Hematocrit 29.7 VOL% (42.0-52.0); Hemoglobin 10.3 GM/DL (14.0-18.0); Immature Granulocytes Absolute 0.16 #; Lymphocytes # 2.2 10*3/uL (1.4-4.0); Mean Corpuscular HGB Conc 34.7 GM/DL (32-36); Mean Corpuscular Hemoglobin 31 PG (27-34); Mean Corpuscular Volume 88.9 FL (87-102); Monocytes # 1.1 10*3/uL (0.11-0.8); Monocytes % 7.1 % (1.7-12.7); Neutrophils # 11.7 10*3/uL (1.4-7.4); Neutrophils % 75.7 % (38.7-73.9); Platelet Count 233 T/CUMM (130-400); Red Blood Count 3.34 MC/CUMM (3.8-5.5); Red Cell Distribution Width 14.3 % (9.3-17.3); White Blood Count 15.5 T/CUMM (4-12)
[2017-04-01 05:10] LABS: Calcium 7.9 MG/DL (8.5-10.1); Magnesium 2.2 MG/DL (1.8-2.4); Osmolality,Calculated 277.8 MOS/KG (273-304); Potassium 3.6 MMOL/L (3.5-5.1)
[2017-04-01 05:15] LABS: Albumin 3.1 G/DL (3.4-5.0); Bilirubin,Total 1.6 MG/DL (0.2-1.0); Osmolality,Calculated 279.7 MOS/KG (273-304); Potassium 3.7 MMOL/L (3.5-5.1); Total Protein 5.5 G/DL (6.4-8.3)
[2017-04-01] MEDS: LEVOTHYROXINE 100 MCG TABLET PO SCH (06:22)
[2017-04-01] MEDS: INSULIN LISPRO 100 UNIT/ML SUBCUT SCH ×4 (08:00→21:26)
[2017-04-01 09:18] LABS: PT Patient Result 10.5 SECS
[2017-04-01] MEDS: LOSARTAN 25 MG TABLET PO SCH ×2 (09:23→21:23)
[2017-04-01] MEDS: ASPIRIN EC 325 MG TABLET PO SCH (09:24)
[2017-04-01] MEDS: MAGNESIUM CHLORIDE 64 MG TABLET PO SCH (09:25)
[2017-04-01] MEDS: SULFAMETHOX/TRIMETHOPRIM 800-160 MG TABLET PO SCH ×2 (09:25→21:24)
[2017-04-01] MEDS: FUROSEMIDE 40 MG TABLET PO SCH (09:25)
[2017-04-01] MEDS: AMIODARONE 200 MG TABLET PO SCH ×2 (09:25→21:24)
[2017-04-01] MEDS: metFORMIN 500 MG TABLET PO SCH ×2 (09:26→18:16)
[2017-04-01] MEDS: SPIRONOLACTONE 25 MG TABLET PO SCH (09:26)
[2017-04-01] MEDS: CARVEDILOL 12.5 MG TABLET PO SCH ×2 (09:27→21:23)
[2017-04-01] MEDS: INSULIN NPH/REGULAR 70/30 100 UNIT/ML SUBCUT SCH ×2 (09:27→17:40)
[2017-04-01] MEDS: CHLORHEXIDINE 0.12% ORAL RINSE 60 ML BOTTLE SWISH/SPIT SCH ×2 (09:28→21:27)
[2017-04-01] MEDS: ENOXAPARIN 40 MG/0.4 ML SYRINGE SUBCUT SCH ×2 (09:28→21:27)
--- NOTE | 2017-04-01 09:52 | Discharge Summary ---
Hospital Course - Hospital Course Hospital Course: Patient had a cath showing two-vessel disease as well as the known severe aortic stenosis combined with insufficiency. The patient was observed in the hospital that his kidney functions improved. Initially he had a rise in his troponin signifying non-Q-wave myocardial infarction probably related to demand ischemia due to hypertensive emergency immediately after the cath. That resolved eventually. I took him to surgery and CABG with aortic valve replacement was performed without any problems. The patient tolerated the procedure well. He remained in ICU postoperative day 0 and he was extubated within 4 hours after surgery. The patient was then transferred to telemetry. He was ambulating well. I removed his chest tubes as well as the pacing wires. The patient was tolerating his diet. On postoperative day 5 he was doing very well I started him on anticoagulation for his mechanical valve. The patient tolerated that well as well. He had transient episodes of atrial fibrillation which were controlled with beta-marina. Diagnosis - Discharge Diagnosis (1) Coronary artery disease Status: Chronic Specialty Discharge - Follow Up or Referrals Follow up with: Dioni Marie MD [Physician] - Discharge Plan - Discharge Data Disposition: Home Health Service Condition at Discharge: Stable Discharge Diet: advance to your usual diet, diabetic diet, heart healthy Activity: resume usual activities as tolerated Weight Bearing at Discharge: full weight bearing Contact your physician if you experience:: fever over 101, Difficulty voiding, Redness or swelling, Nausea/Vomiting, Shortness of breath, Bleeding - Discharge Medications New Amiodarone Tab [Cordarone Tab] 200 mg PO BID #60 tablet Carvedilol [Coreg] 6.25 mg PO BID tablet metFORMIN [Glucophage] 500 mg PO BID W/MEALS tablet Aspirin EC Tab 325 mg PO DAILY #90 tablet Atorvastatin [Lipitor] 40 mg PO BEDTIME tablet Enoxaparin [Lovenox] 40 mg SUBCUT BID #14 syringe Furosemide Tab [Lasix Tab] 40 mg PO DAILY tablet HYDROcodone/ACETAMIN 5-325 [[place] 5-325] 1 tablet PO Q4H PRN tablet PRN Reason: Pain Moderate (4-7) Insulin NPH Hum/Reg Insulin Hm [Novolin 70-30 100 Unit/ml Vial] 100 unit SQ DIRECTED #30 vial Levothyroxine Tab [Synthroid Tab] 100 mcg PO DAILY@0630 tablet Losartan [Cozaar] 12.5 mg PO BID tablet Sertraline [Zoloft] 50 mg PO BEDTIME tablet Spironolactone [Aldactone] 12.5 mg PO DAILY tablet Sulfameth/Trimeth 800-160 Tab [Bactrim DS Tab] 1 tablet PO BID #14 tablet Warfarin [Coumadin] 5 mg PO DAILY@1800 #14 tablet Continue Gabapentin Cap/Tab [Neurontin Cap/Tab] 300 mg PO TID #90 Losartan/Hydrochlorothiazide [Losartan-Hctz 100-25 mg Tab] 1 each PO DAILY # 30 Insulin NPH Hum/Reg Insulin Hm [NovoLIN 70/30] 70 unit SUBCUT BID #5 ml Levothyroxine Tab [Synthroid Tab] 200 mcg PO DAILY #30 Zaleplon 10 mg PO BEDTIME PRN PRN Reason: Sleep Discontinued Aspirin EC Tab 81 mg PO DAILY amLODIPine [Norvasc] 5 mg PO DAILY #30 Clopidogrel [Plavix] 75 mg PO DAILY #30 Furosemide Tab [Lasix Tab] 20 mg PO DAILY #30 Omeprazole 40 mg PO DAILY #30 Diclofenac Potassium Tab [Cataflam] 50 mg PO TID PRN #30 tablet PRN Reason: Pain HYDROcodone/ACETAMIN 7.5-325 [[place] 7.5-325] 1 tablet PO Q6H PRN #10 tablet PRN Reason: Pain Atorvastatin [Lipitor] 20 mg PO BEDTIME Carvedilol [Coreg] 3.125 mg PO BID #60 tablet hydrALAZINE TAB [Apresoline Tab] 50 mg PO BID #60 - Follow Up or Referral Follow Up: Dioni Marie MD [Physician] - - Forms/Instructions Instructions: Myocardial Infarction (GEN), Coronary Artery Disease (GEN), Heart Healthy Diet (GEN), Coronary Artery Bypass Graft, Stable Hand (GEN), Sternal Precautions (GEN), Acute Coronary Syndrome Exam - Constitutional Vitals: Period Temp Pulse Resp BP Sys/Dunlap Pulse Ox Last 24 Hr 97.2 F-99.5 F 53-132 16-20 117-186/62-90 93-96 Discharge Results Procedures and tests throughout hospitalization: Pending Orders 03/26/17 03:15 Fresh Frozen Plasma IN AM Red Blood Cells Leuko Red IN AM Single Donor Platelets IN AM Labs on day of discharge: Labs from last 24 hours 04/01/17 04/01/17 04/01/17 09:03 07:29 04:08 WBC RBC Hgb Hct MCV MCH MCHC RDW Plt Count MPV Neut % (Auto) Lymph % (Auto) [place] % (Auto) Eos % (Auto) Baso % (Auto) Neut # (Auto) Lymph # (Auto) [place] # (Auto) Eos # (Auto) Baso # (Auto) Immature Gran % Nucleated RBC % Immature Gran # Nucleated RBCs # Immature Plt Fraction INR 1.0 PT Patient/Control Mix 10.5 D Sodium 138 Potassium 3.7 Chloride 98 Carbon Dioxide 30 Anion Gap 13.7 BUN 30 H Creatinine 1.10 GFR Calculation 89 BUN/Creatinine Ratio 27.00 H Glucose 87 POC Glucose 131 H Calculated Osmolality 279.7 Calcium 8.0 L Magnesium Total Bilirubin 1.60 H AST 13 ALT 20 Alkaline Phosphatase 93 Total Protein 5.5 L Albumin 3.1 L Globulin 2.4 Albumin/Globulin Ratio 1.2 04/01/17 04/01/17 03/31/17 04:08 04:08 19:24 WBC 15.5 H RBC 3.34 L Hgb 10.3 L Hct 29.7 L MCV 88.9 MCH 31 MCHC 34.7 RDW 14.3 Plt Count 233 D MPV 11.0 Neut % (Auto) 75.7 H Lymph % (Auto) 14.0 L [place] % (Auto) 7.1 Eos % (Auto) 1.9 Baso % (Auto) 0.3 Neut # (Auto) 11.7 H Lymph # (Auto) 2.2 [place] # (Auto) 1.1 H Eos # (Auto) 0.3 Baso # (Auto) 0.0 Immature Gran % 1.0 Nucleated RBC % 0.0 Immature Gran # 0.16 Nucleated RBCs # 0.00 Immature Plt Fraction 0.0 INR PT Patient/Control Mix Sodium 137 Potassium 3.6 Chloride 99 Carbon Dioxide 30 Anion Gap 11.6 BUN 30 H Creatinine 1.00 GFR Calculation 99 BUN/Creatinine Ratio 30.00 H Glucose 88 POC Glucose 202 H Calculated Osmolality 277.8 Calcium 7.9 L Magnesium 2.2 Total Bilirubin AST ALT Alkaline Phosphatase Total Protein Albumin Globulin Albumin/Globulin Ratio 03/31/17 03/31/17 15:42 11:23 WBC RBC Hgb Hct MCV MCH MCHC RDW Plt Count MPV Neut % (Auto) Lymph % (Auto) [place] % (Auto) Eos % (Auto) Baso % (Auto) Neut # (Auto) Lymph # (Auto) [place] # (Auto) Eos # (Auto) Baso # (Auto) Immature Gran % Nucleated RBC % Immature Gran # Nucleated RBCs # Immature Plt Fraction INR PT Patient/Control Mix Sodium Potassium Chloride Carbon Dioxide Anion Gap BUN Creatinine GFR Calculation BUN/Creatinine Ratio Glucose POC Glucose 249 H 268 H Calculated Osmolality Calcium Magnesium Total Bilirubin AST ALT Alkaline Phosphatase Total Protein Albumin Globulin Albumin/Globulin Ratio DS: Provider Date of admission: 03/20/17 14:47 Primary care physician: . No PCP Attending physician on admission: Maricel Wellington, Consults: 03/21/17 09:52 Consult to Dietitian [CONS] Routine Reason for Dietitian: Diet Recommendations Consult Comment: patient requests to speak with engineer steam 03/26/17 12:43 Consult to Occupational Therapy [CONS] Routine Reason for Occupational Therapy: Evaluate and Treat Start Therapy: Tomorrow Consult to Physical Therapy [CONS] Routine Reason for Physical Therapy: Evaluate and Treat Start Therapy: Tomorrow 03/27/17 13:00 Consult to Sleep Center [CONS] Routine Reason for Sleep Center: Other 03/28/17 13:55 Consult to Case Mgmt/Social Srvs [CONS] Routine Reason for Case Mgmt/Social Srvs: Home Health Consult Comment: home health, plan for discharge saturday03/29/17 14:28 Consult to Physician [CONS] Routine Comment: Consulting Provider: [facility] When should Consulting Provider be notified: Now Person Notified: BRI LORENZO Date Notified: 03/29/17 Time Notified: 14:30 Discharging clinician: Caryl Seaman MD Expected date of discharge: 04/01/17
[2017-04-01] MEDS ORDERED: METOPROLOL TARTRATE 5 MG/5 ML VIAL IV ONE ×2 (11:16→14:10)
[2017-04-01] MEDS ORDERED: AMIODARONE 200 MG TABLET PO ONE (14:36)
--- NOTE | 2017-04-01 14:50 | Order Completion Report ---
See report scanned to EMR
[2017-04-01] MEDS ORDERED: ceFAZolin 1,000 MG VIAL IRRIG ONE (15:45)
--- NOTE | 2017-04-01 15:53 | Cardiology Progress Note ---
George Albrecht Lesley, NP, am scribing for, and in the presence of, Breezy Sweet MD 15:50. Assessment and Plan - Time spent with patient Time spent with patient: Greater than 30 minutes (Record review, assessment, documentation, medication review) (1) Chronic renal disease Status: Chronic Assessment and plan: SEE PLAN BELOW Current Visit: Yes Qualifiers: Chronic kidney disease stage: stage 3 (moderate) Qualified Code(s): N18.3 - Chronic kidney disease, stage 3 (moderate) (2) Chest pain Status: Resolved Assessment and plan: SEE PLAN BELOW Current Visit: Yes (3) Obstructive sleep apnea Status: Chronic Assessment and plan: SEE PLAN BELOW Current Visit: Yes (4) Coronary artery disease Status: Chronic Assessment and plan: SEE PLAN BELOW Current Visit: Yes (5) Uncontrolled diabetes mellitus Status: Chronic Assessment and plan: SEE PLAN BELOW Current Visit: No Qualifiers: Diabetes mellitus type: type 2 Diabetes mellitus snf insulin use: with snf use (6) Aortic stenosis Status: Chronic Assessment and plan: SEE PLAN BELOW Current Visit: Yes Qualifiers: Cardiac valve disease etiology: etiology unspecified Qualified Code(s): I35.0 - Nonrheumatic aortic (valve) stenosis (7) Diabetes mellitus Status: Chronic Assessment and plan: SEE PLAN BELOW Current Visit: Yes Qualifiers: Diabetes mellitus type: type 2 Diabetes mellitus complication detail: with chronic kidney disease 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 computer terminal operator 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 (8) Hypertension Status: Chronic Assessment and plan: SEE PLAN BELOW Current Visit: Yes (9) NSTEMI (non-ST elevated myocardial infarction) Status: Acute Assessment and plan: SEE PLAN LISTED BELOW Current Visit: Yes (10) S/P CABG x 2 Status: Acute Assessment and plan: SEE PLAN LISTED BELOW Current Visit: Yes (11) S/P AVR (aortic valve replacement) Status: Acute Assessment and plan: SEE PLAN LISTED BELOW Current Visit: Yes (12) CHF (congestive heart failure) Status: Acute Assessment and plan: SEE PLAN LISTED BELOW Current Visit: Yes Cardiology - PN: Subj Interval 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 Marie SUMMARY: Mr. Hartley is a 61 year old WM, admitted with chest discomfort, dyspnea, and diaphoresis. Cardiac cath revealed severe two-vessel CAD and moderate to severe aortic regurgitation and aortic stenosis. 03/26/17 pt. underwent CABG X 2, venous graft to diagonal artery, venous graft to the PDA. Aortic valve replacement with #21 [employer] Jonathan mechanical valve. EF 40% with mild 2 + MR by CEDRICK. Baseline gradient across the mechanical aortic valve is 30 mmHg. 1 unit PRBCs transfused. April 01, 2017: The patient continues to be monitored for the following chronic conditions: hypertension, CAD, CHF, DM all are stable. Lab data: WBC 15.5, Hgb 10, Hct 30, INR 1.0, K 3.7, Mag 2.2, Creatinine 1.1, BUN 30, glucose 233. The patient was seen today laying in bed, postop day #6. He is awake and alert and states he is not feeling well today. Blood pressure 120/73 this morning. Atrial Fib noted on manager of administration, rate 110-120s. The patient was started on Amiodarone orally, 400mg X 1, and then 200mg BID. After receiving Lopressor 5mg IV for Afib with RVR, the patient was noted to convert to SB rate in the 30- 40's. He was flipping between SB and Afib on monitor. Dr. Sweet discussed the patient with Dr. Seaman. Pt. currently in Afib with RVR. ROS: denies chest pain no acute distress IMPRESSION AND PLAN: -Sick sinus, tachycardia, conversion pauses. He is moderately symptomatic from this. We discussed risks and benefits of management options. He has structural heart disease, recent heart surgery, the arrhythmia will make rehabilitation quite difficult. I expect on beta-marina, amiodarone reaches therapeutic levels, this will become even more prominent. We discussed this in length, I also spoke with Dr. Seaman and Dr. Marie. Proceed with a dual- chamber pacemaker implant tomorrow morning, under conscious sedation. N.p.o. after midnight. -Continue anticoagulation with Coumadin. INR subtherapeutic, follow INR -Continue amiodarone, will increase beta-marina for rate control, was protected from bradycardia. DIABETES -continue oral antidiabetic's. CAD -POD #6 s/p CABG X2 with AVR. Continue ASA, statin. SEVERE AORTIC STENOSIS - s/p AVR with #21 [employer] Jonathan mechanical valve, warfarin started 03/31/17, INR 1.0. CHRONIC RENAL INSUFFICIENCY -creatinine 1.1 today, will continue to monitor closely. DEPRESSION - continue Sertraline 50mg daily. HYPERTENSION -continue to monitor closely, adjust medications accordingly Exam (Progress Note) - Constitutional Vitals: Period Temp Pulse Resp BP Sys/Dunlap Pulse Ox Last 24 Hr 97.2 F-99.5 F 53-107 16-20 117-152/62-79 92-94 Exam: General: Appears well with no apparent distress. Pleasant and cooperative. Appears comfortable. HEENT: PERRL, normocephalic, atraumatic. Mucous membranes moist. No jaundice noted. Conjunctiva moist and clear, sclerae anicteric. Neck: No JVD, no thyromegaly or lymphadenopathy noted. No carotid bruit appreciated. Cardiac: Regular rate and rhythm. Soft murmur, No gallop, prosthetic click auscultated. PMI is nondisplaced. Lungs: Bilaterally decreased bases, auscultation without accessory muscle use to assist the respiratory pattern. Oxygen in use via nasal cannula. Abdomen: Soft, bowel sounds normoactive. Nontender and nondistended. No abdominal bruit or thrill noted. No masses noted. Musculoskeletal: Incisional dressing noted to midline sternum, epigastric region , left leg. Decreased range of motion is noted. Extremities: No clubbing, cyanosis noted. Trace generalized edema noted. Upper extremity pulses 2+. Lower extremity pulses 2+. Capillary refill less than 3 seconds. Skin: Warm and dry. No unusual lesions or rashes. No skin breakdown appreciated. Neuro: Awake, alert and oriented 3. Moves all extremities well without hemiparesis or paralysis. No essential tremor is appreciated. Result/EKG - Labs CBC & BMP: 04/01/17 04:08 04/01/17 04:08 Lab Results: I have reviewed the past 24 hour labs Labs: Laboratory Results - last 24 hr 03/31/17 03/31/17 04/01/17 15:42 19:24 04:08 WBC 15.5 H RBC 3.34 L Hgb 10.3 L Hct 29.7 L MCV 88.9 MCH 31 MCHC 34.7 RDW 14.3 Plt Count 233 D MPV 11.0 Neut % (Auto) 75.7 H Lymph % (Auto) 14.0 L [place] % (Auto) 7.1 Eos % (Auto) 1.9 Baso % (Auto) 0.3 Neut # (Auto) 11.7 H Lymph # (Auto) 2.2 [place] # (Auto) 1.1 H Eos # (Auto) 0.3 Baso # (Auto) 0.0 Immature Gran % 1.0 Nucleated RBC % 0.0 Immature Gran # 0.16 Nucleated RBCs # 0.00 Immature Plt Fraction 0.0 INR PT Patient/Control Mix Sodium Potassium Chloride Carbon Dioxide Anion Gap BUN Creatinine GFR Calculation BUN/Creatinine Ratio Glucose POC Glucose 249 H 202 H Calculated Osmolality Calcium Magnesium Total Bilirubin AST ALT Alkaline Phosphatase Total Protein Albumin Globulin Albumin/Globulin Ratio 04/01/17 04/01/17 04/01/17 04:08 04:08 07:29 WBC RBC Hgb Hct MCV MCH MCHC RDW Plt Count MPV Neut % (Auto) Lymph % (Auto) [place] % (Auto) Eos % (Auto) Baso % (Auto) Neut # (Auto) Lymph # (Auto) [place] # (Auto) Eos # (Auto) Baso # (Auto) Immature Gran % Nucleated RBC % Immature Gran # Nucleated RBCs # Immature Plt Fraction INR PT Patient/Control Mix Sodium 137 138 Potassium 3.6 3.7 Chloride 99 98 Carbon Dioxide 30 30 Anion Gap 11.6 13.7 BUN 30 H 30 H Creatinine 1.00 1.10 GFR Calculation 99 89 BUN/Creatinine Ratio 30.00 H 27.00 H Glucose 88 87 POC Glucose 131 H Calculated Osmolality 277.8 279.7 Calcium 7.9 L 8.0 L Magnesium 2.2 Total Bilirubin 1.60 H AST 13 ALT 20 Alkaline Phosphatase 93 Total Protein 5.5 L Albumin 3.1 L Globulin 2.4 Albumin/Globulin Ratio 1.2 04/01/17 04/01/17 09:03 11:23 WBC RBC Hgb Hct MCV MCH MCHC RDW Plt Count MPV Neut % (Auto) Lymph % (Auto) [place] % (Auto) Eos % (Auto) Baso % (Auto) Neut # (Auto) Lymph # (Auto) [place] # (Auto) Eos # (Auto) Baso # (Auto) Immature Gran % Nucleated RBC % Immature Gran # Nucleated RBCs # Immature Plt Fraction INR 1.0 PT Patient/Control Mix 10.5 D Sodium Potassium Chloride Carbon Dioxide Anion Gap BUN Creatinine GFR Calculation BUN/Creatinine Ratio Glucose POC Glucose 233 H Calculated Osmolality Calcium Magnesium Total Bilirubin AST ALT Alkaline Phosphatase Total Protein Albumin Globulin Albumin/Globulin Ratio - Diagnostic Findings Procedure: Chest x-ray: report reviewed by me - EKG EKG shows: atrial fibrillation Quality Measures - VTE Contraindication to Pharmacological VTE Prophylaxis: Active Bleeding Specialty Discharge - Follow Up or Referrals Follow up with: Breezy Sweet MD [Physician] - 1 Week Caryl Seaman MD [Physician] - (3 weeks followup ) Dioni Marie MD [Physician] - 1 Week (INR 2016 at [facility]. F/U appointment Dr. Marie 3-4 weeks) IKee Attila, MD, personally performed the services described in this documentation, ascribed by Yvette Vazquez NP in my presence, and it is both accurate and complete [phone] .
[2017-04-01] MEDS: WARFARIN 5 MG TABLET PO SCH (18:16)
[2017-04-01] MEDS: ATORVASTATIN 40 MG TABLET PO SCH (21:24)
[2017-04-01] MEDS: SERTRALINE 50 MG TABLET PO SCH (21:26)
[2017-04-02 05:19] LABS: Basophils % 0.2 % (0.0-0.8); Eosinophils # 0.2 10*3/uL (0.0-0.87); Eosinophils % 1.4 % (0.00-10.9); Hematocrit 31.4 VOL% (42.0-52.0); Hemoglobin 10.9 GM/DL (14.0-18.0); Immature Granulocytes % 1.7 %; Immature Granulocytes Absolute 0.29 #; Lymphocytes # 1.8 10*3/uL (1.4-4.0); Lymphocytes % 10.7 % (21.2-54.2); Mean Corpuscular HGB Conc 34.7 GM/DL (32-36); Mean Corpuscular Hemoglobin 31 PG (27-34); Mean Corpuscular Volume 88.2 FL (87-102); Mean Platelet Volume 10.6 FL (9.6-12.0); Neutrophils # 13.8 10*3/uL (1.4-7.4); Platelet Count 299 T/CUMM (130-400); Red Blood Count 3.56 MC/CUMM (3.8-5.5); Red Cell Distribution Width 14.1 % (9.3-17.3); White Blood Count 17.3 T/CUMM (4-12)
[2017-04-02 05:22] LABS: INR 1.1; PT Patient Result 11.1 SECS
[2017-04-02 05:47] LABS: Calcium 8.7 MG/DL (8.5-10.1); Magnesium 2.1 MG/DL (1.8-2.4); Osmolality,Calculated 281.5 MOS/KG (273-304)
--- NOTE | 2017-04-02 07:15 | Order Completion Report ---
See report scanned to EMR
[2017-04-02] MEDS ORDERED: LIDOCAINE 1% 20 ML VIAL ONE (08:12)
[2017-04-02] MEDS ORDERED: HEPARIN/NACL 0.9% 2 UNITS/ML 0 ML IV ONE (08:12)
--- NOTE | 2017-04-02 08:31 | XRay Report ---
XR chest 2V Date: 04/02/2017 4:00 AM History: Pleural effusions Comparison: 03/29/2017 Technique: PA and lateral chest Findings: The heart is smaller in size with recent median sternotomy and cardiac valve replacement. Reduced parenchymal findings with smaller pleural effusions. No pneumothorax. Coronary artery calcifications/stents noted. Stable mediastinum with degenerative changes. Impression: Status post median sternotomy and cardiac valve replacement. The heart is smaller in size with improved pulmonary edema/atelectasis and smaller pleural effusions. PROCEDURE INTERPRETED AT [facility] DEPARTMENT OF RADIOLOGY Final Report Signed by: Dr. Bethany Norton
[2017-04-02] MEDS: INSULIN LISPRO 100 UNIT/ML SUBCUT SCH ×3 (08:58→17:37)
[2017-04-02] MEDS: LEVOTHYROXINE 100 MCG TABLET PO SCH (09:00)
[2017-04-02] MEDS: INSULIN NPH/REGULAR 70/30 100 UNIT/ML SUBCUT SCH ×2 (09:23→17:38)
[2017-04-02] MEDS: ASPIRIN EC 325 MG TABLET PO SCH (09:24)
[2017-04-02] MEDS: SPIRONOLACTONE 25 MG TABLET PO SCH (09:24)
[2017-04-02] MEDS: SULFAMETHOX/TRIMETHOPRIM 800-160 MG TABLET PO SCH (09:24)
[2017-04-02] MEDS: MAGNESIUM CHLORIDE 64 MG TABLET PO SCH (09:24)
[2017-04-02] MEDS: ENOXAPARIN 40 MG/0.4 ML SYRINGE SUBCUT SCH (09:24)
[2017-04-02] MEDS: CARVEDILOL 12.5 MG TABLET PO SCH (09:25)
[2017-04-02] MEDS: metFORMIN 500 MG TABLET PO SCH ×2 (09:25→17:38)
[2017-04-02] MEDS: AMIODARONE 200 MG TABLET PO SCH (09:26)
[2017-04-02] MEDS: CHLORHEXIDINE 0.12% ORAL RINSE 60 ML BOTTLE SWISH/SPIT SCH (09:26)
[2017-04-02] MEDS: LOSARTAN 25 MG TABLET PO SCH (09:26)
[2017-04-02] MEDS: FUROSEMIDE 40 MG TABLET PO SCH (09:26)
[2017-04-02 16:25] VITALS: BP 127/73
--- NOTE | 2017-04-02 16:27 | Cardiology Progress Note ---
George Albrecht Lesley, NP, am scribing for, and in the presence of, Breezy Sweet MD 16:27. Assessment and Plan - Time spent with patient Time spent with patient: Greater than 30 minutes (Record review, medication review, assessment, documentation) (1) Chronic renal disease Status: Chronic Assessment and plan: SEE PLAN BELOW Current Visit: Yes Qualifiers: Chronic kidney disease stage: stage 3 (moderate) Qualified Code(s): N18.3 - Chronic kidney disease, stage 3 (moderate) (2) Chest pain Status: Resolved Assessment and plan: SEE PLAN BELOW Current Visit: Yes (3) Obstructive sleep apnea Status: Chronic Assessment and plan: SEE PLAN BELOW Current Visit: Yes (4) Coronary artery disease Status: Chronic Assessment and plan: SEE PLAN BELOW Current Visit: Yes (5) Uncontrolled diabetes mellitus Status: Chronic Assessment and plan: SEE PLAN BELOW Current Visit: No Qualifiers: Diabetes mellitus type: type 2 Diabetes mellitus usp insulin use: with usp use (6) Aortic stenosis Status: Chronic Assessment and plan: SEE PLAN BELOW Current Visit: Yes Qualifiers: Cardiac valve disease etiology: etiology unspecified Qualified Code(s): I35.0 - Nonrheumatic aortic (valve) stenosis (7) Hypertension Status: Chronic Assessment and plan: SEE PLAN BELOW Current Visit: Yes (8) NSTEMI (non-ST elevated myocardial infarction) Status: Acute Assessment and plan: SEE PLAN LISTED BELOW Current Visit: Yes (9) S/P CABG x 2 Status: Acute Assessment and plan: SEE PLAN LISTED BELOW Current Visit: Yes (10) S/P AVR (aortic valve replacement) Status: Acute Assessment and plan: SEE PLAN LISTED BELOW Current Visit: Yes (11) CHF (congestive heart failure) Status: Acute Assessment and plan: SEE PLAN LISTED BELOW Current Visit: Yes Cardiology - PN: Subj Interval 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 Marie SUMMARY: Mr. Hartley is a 61 year old WM, admitted with chest discomfort, dyspnea, and diaphoresis. Cardiac cath revealed severe two-vessel CAD and moderate to severe aortic regurgitation and aortic stenosis. 03/26/17 pt. underwent CABG X 2, venous graft to diagonal artery, venous graft to the PDA. Aortic valve replacement with #21 [employer]. Jonathan mechanical valve. EF 40% with mild 2 + MR by CEDRICK. Baseline gradient across the mechanical aortic valve is 30 mmHg. 1 unit PRBCs transfused. April 02, 2017: The patient continues to be monitored for the following chronic conditions: hypertension, CAD, CHF, DM all are stable. The patient has been monitored for the following acute conditions including status post CABG with aortic valve replacement, atrial fibrillation, renal insufficiency.The patient was seen today sitting up in a chair, POD #7. He is awake and alert, and has ambulated in the telemetry unit without difficulty. Blood pressure 113/78 this morning. Sinus Rhythm with PVCs on EKG this morning, Atrial Fib persistent at times on cardiac monitoring rate 110-120s. Chest x-ray revealed improved atelectasis and small left pleural effusions. The patient has a persistent leukocytosis of unknown etiology, and for this reason a pacemaker will not be placed today. Blood cultures and urinalysis were done. The patient is to be discharged home today prior cardiothoracic surgery. Patient will follow-up with Dr. Sweet in 1 week, will need EKG, CBC, INR, BMP with mag prior to the appointment. Plan for the patient to pear picker an event monitor at [facility] today upon discharge. Lab data: WBC 17.3, Hgb 10, Hct 31, INR 1.1, K 4, Mag 2.1, Creatinine 1.3, BUN 31, glucose 198. ROS: denies chest pain no acute distress IMPRESSION AND PLAN: -Sick sinus syndrome, tachybradycardia, PAFL. He continues to have frequent runs of atrial ectopy, with short conversion pauses. Mildly symptomatic. Unfortunately, his WBC count increased, with a central line suspected as potential source. This is being discontinued today. Discussed risks and benefits of management options. He did not have major symptoms so far, we can plan to discharge him with close monitoring, an event recorder. -Decrease amiodarone to 200 mg daily, continue beta-marina -If the symptomatic tachybrady remains persistent, we will need to pursue a DDD pacemaker implant, when the periprocedural risks lower. If the event recorder confirms high risk arrhythmia, may need to pursue this sooner. -Coumadin was started for anticoagulation, low dose LMWH bridging per CTS recommendations. DIABETES -continue oral antidiabetic's. CAD -POD #7 s/p CABG X2 with AVR. Continue ASA, statin, beta marina. SEVERE AORTIC STENOSIS - s/p AVR with #21 [address] Jonathan mechanical valve, warfarin started 03/31/17, INR 1.1. Pt. is being bridged with Lovenox due to INR subtherapeutic. CHRONIC RENAL INSUFFICIENCY -creatinine 1.1 today, will continue to monitor closely. Exam (Progress Note) - Constitutional Vitals: Period Temp Pulse Resp BP Sys/Dunlap Pulse Ox Last 24 Hr 97.4 F-98.7 F 50-105 18-20 108-152/66-77 92-97 Exam: General: Appears well with no apparent distress. Pleasant and cooperative. Appears comfortable. HEENT: PERRL, normocephalic, atraumatic. Mucous membranes moist. No jaundice noted. Conjunctiva moist and clear, sclerae anicteric. Neck: No JVD, no thyromegaly or lymphadenopathy noted. No carotid bruit appreciated. Cardiac: Regular rate and rhythm. Soft murmur, No gallop, prosthetic click auscultated. PMI is nondisplaced. Lungs: Bilaterally decreased bases, auscultation without accessory muscle use to assist the respiratory pattern. Oxygen in use via nasal cannula. Abdomen: Soft, bowel sounds normoactive. Nontender and nondistended. No abdominal bruit or thrill noted. No masses noted. Musculoskeletal: Incisional dressing noted to midline sternum, epigastric region , left leg. Decreased range of motion is noted. Extremities: No clubbing, cyanosis noted. Trace generalized edema noted. Upper extremity pulses 2+. Lower extremity pulses 2+. Capillary refill less than 3 seconds. Skin: Warm and dry. No unusual lesions or rashes. No skin breakdown appreciated. Neuro: Awake, alert and oriented 3. Moves all extremities well without hemiparesis or paralysis. No essential tremor is appreciated. Result/EKG - Labs CBC & BMP: 04/02/17 03:52 04/02/17 03:52 Lab Results: I have reviewed the past 24 hour labs Labs: Laboratory Results - last 24 hr 04/01/17 04/01/17 04/02/17 15:48 18:57 03:52 WBC 17.3 H RBC 3.56 L Hgb 10.9 L Hct 31.4 L MCV 88.2 MCH 31 MCHC 34.7 RDW 14.1 Plt Count 299 D MPV 10.6 Neut % (Auto) 80.0 H Lymph % (Auto) 10.7 L [place] % (Auto) 6.0 Eos % (Auto) 1.4 Baso % (Auto) 0.2 Neut # (Auto) 13.8 H Lymph # (Auto) 1.8 [place] # (Auto) 1.0 H Eos # (Auto) 0.2 Baso # (Auto) 0.0 Immature Gran % 1.7 Nucleated RBC % 0.0 Immature Gran # 0.29 Nucleated RBCs # 0.00 Immature Plt Fraction 0.0 INR PT Patient/Control Mix Sodium Potassium Chloride Carbon Dioxide Anion Gap BUN Creatinine GFR Calculation BUN/Creatinine Ratio Glucose POC Glucose 185 H 198 H Calculated Osmolality Calcium Magnesium 04/02/17 04/02/17 04/02/17 03:52 03:52 07:41 WBC RBC Hgb Hct MCV MCH MCHC RDW Plt Count MPV Neut % (Auto) Lymph % (Auto) [place] % (Auto) Eos % (Auto) Baso % (Auto) Neut # (Auto) Lymph # (Auto) [place] # (Auto) Eos # (Auto) Baso # (Auto) Immature Gran % Nucleated RBC % Immature Gran # Nucleated RBCs # Immature Plt Fraction INR 1.1 PT Patient/Control Mix 11.1 Sodium 139 Potassium 4.0 Chloride 99 Carbon Dioxide 30 Anion Gap 14.0 BUN 31 H Creatinine 1.30 GFR Calculation 72 BUN/Creatinine Ratio 23.00 H Glucose 62 L POC Glucose 110 H Calculated Osmolality 281.5 Calcium 8.7 Magnesium 2.1 04/02/17 11:25 WBC RBC Hgb Hct MCV MCH MCHC RDW Plt Count MPV Neut % (Auto) Lymph % (Auto) [place] % (Auto) Eos % (Auto) Baso % (Auto) Neut # (Auto) Lymph # (Auto) [place] # (Auto) Eos # (Auto) Baso # (Auto) Immature Gran % Nucleated RBC % Immature Gran # Nucleated RBCs # Immature Plt Fraction INR PT Patient/Control Mix Sodium Potassium Chloride Carbon Dioxide Anion Gap BUN Creatinine GFR Calculation BUN/Creatinine Ratio Glucose POC Glucose 198 H Calculated Osmolality Calcium Magnesium - Diagnostic Findings Procedure: Chest x-ray: report reviewed by me - EKG EKG results: interpreted by me, sinus rhythm Quality Measures - VTE Contraindication to Pharmacological VTE Prophylaxis: Active Bleeding Specialty Discharge - Follow Up or Referrals Follow up with: Breezy Sweet MD [Physician] - 04/09/17 8:20 am (EKG, CBC, INR prior to appt) Frederick-Caryl Baxter MD [Physician] - 04/29/17 8:45 am (3 weeks followup ) Dioni Marie MD [Physician] - 04/24/17 1:30 pm (INR Saturday, 2016 1: 15 pm at [facility]. F/U appointment Dr. Marie 3-4 weeks) - Speciality Discharge Instructions Cardiology Instructions: Instruct patient to pear picker cardiac event monitor at [facility] today before 5pm. Contact Kee Lyman Attila, MD, personally performed the services described in this documentation, ascribed by Yvette Vazquez NP in my presence, and it is both accurate and complete [phone] .
[2017-04-02 16:58] LABS: Apearance,Urine CLEAR (Clear); Bilirubin,Urine Negative (Negative); Blood, Urine Negative (Negative); Glucose,Urine (UA) 50 mg/dL (Negative); Ketones,Urine Negative (Negative); Mucus,Urine Occasional /LPF (Occasional); Nitrite,Urine Negative (Negative); Protein,Urine Negative; RBC,Urine 4 /HPF (0-4); Urine Color Yellow (Yellow); Urine Specific Gravity 1.013 (1.001-1.035); WBC,Urine <1 /HPF (0-6)
[2017-04-03] MEDS ORDERED: AMIODARONE 200 MG TABLET PO SCH (09:00)
== END 2017-04-02 17:44 | disposition home health service (06) | DRG 217 ==
LOC: N.ED 16:04 → N.EDINP 16:04 → N.TELES 18:15 → N.ICU 03-20 14:26 → N.TELEN 03-22 14:13 → N.CVR 03-26 12:13 → N.ICU 03-27 19:49 → N.TELES 03-28 11:17
PROVIDERS: ADMIT Internal Medicine Cardiovascular Disease; ATTEND Internal Medicine Cardiovascular Disease
PROC: CABGAVR (ICD-10-PCS; 2017-03-26 08:00)

== ENCOUNTER 2017-04-05 21:44 | Inpatient (IN) ==
[2017-04-05] MEDS ORDERED: ONDANSETRON 4 MG/2 ML VIAL ONE (22:09)
[2017-04-05] MEDS ORDERED: ASPIRIN 325 MG TABLET PO STA (22:26)
[2017-04-05] MEDS ORDERED: SODIUM CHLORIDE 0.9% 500 ML IV STA (22:26)
[2017-04-05] MEDS ORDERED: VANCOMYCIN INJ 1,000 MG in SODIUM CHLORIDE 0.9% 250 ML IV STA (22:30)
[2017-04-05] MEDS ORDERED: PIPERACILLIN/TAZOBACTAM 3,375 MG in SODIUM CHLORIDE 0.9% 100 ML IV STA (22:31)
[2017-04-05 22:37] LABS: Basophils % 0.2 % (0.0-0.8); Eosinophils # 0.2 10*3/uL (0.0-0.87); Hematocrit 30.4 VOL% (42.0-52.0); Hemoglobin 10.3 GM/DL (14.0-18.0); Immature Granulocytes % 1.4 %; Immature Granulocytes Absolute 0.22 #; Lymphocytes # 3.3 10*3/uL (1.4-4.0); Lymphocytes % 20.9 % (21.2-54.2); Mean Corpuscular HGB Conc 33.9 GM/DL (32-36); Mean Corpuscular Hemoglobin 31 PG (27-34); Mean Corpuscular Volume 90.5 FL (87-102); Mean Platelet Volume 10.3 FL (9.6-12.0); Monocytes % 6.5 % (1.7-12.7); Neutrophils # 10.9 10*3/uL (1.4-7.4); Platelet Count 449 T/CUMM (130-400); Red Blood Count 3.36 MC/CUMM (3.8-5.5); Red Cell Distribution Width 14.3 % (9.3-17.3); White Blood Count 15.6 T/CUMM (4-12)
[2017-04-05 22:41] LABS: Apearance,Urine CLEAR (Clear); Bilirubin,Urine Negative (Negative); Blood, Urine Negative (Negative); Glucose,Urine (UA) Negative (Negative); Hyaline Casts,Urine 10 /LPF (0-3); Ketones,Urine Negative (Negative); Nitrite,Urine Negative (Negative); Protein,Urine Negative; RBC,Urine 2 /HPF (0-4); Squamous Epithelial Cell,Urine Occasional /HPF (0-10); Urine Color Yellow (Yellow); Urine Specific Gravity 1.011 (1.001-1.035); Urine Urobilinogen < 2.0 EU/DL (0.2-1.0)
[2017-04-05 22:45] LABS: INR 1.5; PT Patient Result 15.7 SECS
[2017-04-05] MEDS ORDERED: PIPERACILLIN/TAZOBACTAM 3,375 MG VIAL IV ONE (23:00)
[2017-04-05] MEDS ORDERED: VANCOMYCIN 1,000 MG VIAL ONE (23:00)
[2017-04-05] MEDS ORDERED: ASPIRIN 325 MG TABLET ONE (23:01)
[2017-04-05] MEDS ORDERED: SODIUM CHLORIDE 0.9% 100 ML IV ONE (23:02)
[2017-04-05 23:10] LABS: Barbiturates Screen,Urine Negative (Negative); Benzodiazepines Screen,Urine Positive (Negative); Cannabinoid Screen,Urine Negative (Negative); Magnesium 2.3 MG/DL (1.8-2.4); Opiate Screen,Urine Positive (Negative); Phencyclidine Screen,Urine Negative (Negative)
[2017-04-05] MEDS ORDERED: NOREPINEPHRINE 4 MG/4 ML VIAL IV ONE (23:10)
[2017-04-05 23:12] LABS: Albumin 3.1 G/DL (3.4-5.0); Bilirubin,Total 0.5 MG/DL (0.2-1.0); Calcium 8.5 MG/DL (8.5-10.1); Osmolality,Calculated 285.2 MOS/KG (273-304); Potassium 5.2 MMOL/L (3.5-5.1)
[2017-04-05] MEDS ORDERED: METOCLOPRAMIDE 10 MG/2 ML VIAL ONE (23:49)
[2017-04-06] MEDS ORDERED: METOCLOPRAMIDE 10 MG/2 ML VIAL IV STA (01:23)
[2017-04-06] MEDS ORDERED: ONDANSETRON 4 MG/2 ML VIAL IV STA (01:58)
[2017-04-06] MEDS ORDERED: LACTATED RINGERS 1,000 ML IV ONE (01:59)
[2017-04-06] MEDS ORDERED: SODIUM CHLORIDE 0.9% 500 ML IV STA (01:59)
[2017-04-06] MEDS ORDERED: NOREPINEPHRINE 8 MG in SODIUM CHLORIDE 0.9% 242 ML IV SCH (02:00)
[2017-04-06] MEDS: SODIUM CHLORIDE 0.9% 1,000 ML IV SCH ×3 (03:00→22:12)
[2017-04-06] MEDS ORDERED: GLUCAGON 1 MG VIAL IM PRN (03:05)
[2017-04-06] MEDS ORDERED: DEXTROSE 50% 25 GM/50 ML VIAL IV PRN (03:05)
[2017-04-06] MEDS ORDERED: SODIUM CHLORIDE 0.9% 1,000 ML IV ONE (04:43)
[2017-04-06 04:54] LABS: Basophils % 0.1 % (0.0-0.8); Eosinophils % 0.1 % (0.00-10.9); Hematocrit 29.7 VOL% (42.0-52.0); Immature Granulocytes % 2.5 %; Immature Granulocytes Absolute 0.37 #; Lymphocytes # 2.1 10*3/uL (1.4-4.0); Lymphocytes % 14.2 % (21.2-54.2); Mean Corpuscular HGB Conc 33.7 GM/DL (32-36); Mean Corpuscular Hemoglobin 31 PG (27-34); Mean Corpuscular Volume 92.8 FL (87-102); Mean Platelet Volume 10.8 FL (9.6-12.0); Monocytes # 0.8 10*3/uL (0.11-0.8); Monocytes % 5.3 % (1.7-12.7); Neutrophils # 11.6 10*3/uL (1.4-7.4); Neutrophils % 77.8 % (38.7-73.9); Platelet Count 420 T/CUMM (130-400); Red Cell Distribution Width 14.2 % (9.3-17.3); White Blood Count 14.8 T/CUMM (4-12)
[2017-04-06] MEDS: NOREPINEPHRINE 16 MG in SODIUM CHLORIDE 0.9% 234 ML IV SCH (05:10)
[2017-04-06 05:18] LABS: Lactic Acid 5.3 MMOL/L (0.4-2.0)
[2017-04-06 05:19] LABS: Albumin 2.7 G/DL (3.4-5.0); Bilirubin,Total 0.8 MG/DL (0.2-1.0); Calcium 7.9 MG/DL (8.5-10.1); Osmolality,Calculated 283.5 MOS/KG (273-304); Total Protein 5.2 G/DL (6.4-8.3)
[2017-04-06 05:25] LABS: Potassium 6.2 MMOL/L (3.5-5.1)
[2017-04-06 05:33] LABS: Free T4 (Free Thyroxine) 0.86 NG/DL (0.76-1.46); Thyroid Stimulating Hormone 49.9 uIU/ml (0.358-3.74)
[2017-04-06] MEDS ORDERED: SODIUM BICARBONATE 50 MEQ/50 ML SYRINGE IV ONE (06:00)
[2017-04-06] MEDS ORDERED: INSULIN REGULAR 100 UNIT/ML IV ONE (06:00)
[2017-04-06] MEDS ORDERED: SODIUM POLYSTYRENE SULFATE 15 GM/60 ML BOTTLE PO ONE (06:00)
[2017-04-06] MEDS ORDERED: DEXTROSE 50% 25 GM/50 ML VIAL IV ONE (06:00)
[2017-04-06] MEDS ORDERED: ACETAMINOPHEN 325 MG TABLET PO PRN (06:27)
[2017-04-06] MEDS ORDERED: ACETAMINOPHEN 325 MG TABLET ONE (06:29)
[2017-04-06] MEDS: INSULIN REGULAR 100 UNIT/ML SUBCUT SCH ×3 (06:41→18:39)
[2017-04-06] MEDS: PHENYLEPHRINE DRIP 40 MG/250 ML PREMIX IV SCH (07:02)
[2017-04-06] MEDS ORDERED: SODIUM CHLORIDE 0.9% 250 ML IV PRN (07:57)
[2017-04-06] MEDS ORDERED: VANCOMYCIN 1,000 MG VIAL ONE (08:34)
[2017-04-06] MEDS ORDERED: SUGAMMADEX 200 MG/2 ML VIAL IV ONE (09:57)
[2017-04-06] MEDS: AMPICILLIN/SULBACTAM 3,000 MG in SODIUM CHLORIDE 0.9% 100 ML IV SCH ×2 (13:36→22:02)
[2017-04-06] MEDS ORDERED: fentaNYL 100 MCG/2 ML VIAL ONE (13:57)
[2017-04-06] MEDS ORDERED: MIDAZOLAM 2 MG/2 ML VIAL ONE (13:57)
[2017-04-06] MEDS ORDERED: FUROSEMIDE 40 MG/4 ML VIAL IV ONE (15:31)
[2017-04-06] MEDS ORDERED: INSULIN REGULAR 100 UNIT/ML ONE (21:53)
[2017-04-06] MEDS: traMADol 50 MG TABLET PO PRN (22:01)
[2017-04-06] MEDS ORDERED: SODIUM CHLORIDE 0.9% 1,000 ML IV SCH (22:12)
[2017-04-07] MEDS: traMADol 50 MG TABLET PO PRN ×2 (03:57→16:18)
[2017-04-07 04:42] LABS: Basophils % 0.2 % (0.0-0.8); Eosinophils # 0.1 10*3/uL (0.0-0.87); Eosinophils % 0.3 % (0.00-10.9); Hematocrit 25.7 VOL% (42.0-52.0); Hemoglobin 8.6 GM/DL (14.0-18.0); Immature Granulocytes % 1.5 %; Immature Granulocytes Absolute 0.24 #; Lymphocytes # 2.4 10*3/uL (1.4-4.0); Mean Corpuscular HGB Conc 33.5 GM/DL (32-36); Mean Corpuscular Hemoglobin 30 PG (27-34); Mean Corpuscular Volume 90.2 FL (87-102); Mean Platelet Volume 10.7 FL (9.6-12.0); Monocytes # 0.5 10*3/uL (0.11-0.8); NRBC # 0.03 10*3/uL; Neutrophils # 12.9 10*3/uL (1.4-7.4); Platelet Count 297 T/CUMM (130-400); Red Blood Count 2.85 MC/CUMM (3.8-5.5); Red Cell Distribution Width 14.7 % (9.3-17.3); White Blood Count 16.2 T/CUMM (4-12)
[2017-04-07] MEDS: NOREPINEPHRINE 16 MG in SODIUM CHLORIDE 0.9% 234 ML IV SCH (05:36)
[2017-04-07 05:45] LABS: Albumin 2.6 G/DL (3.4-5.0); Bilirubin,Total 0.9 MG/DL (0.2-1.0); Calcium 7.3 MG/DL (8.5-10.1); Osmolality,Calculated 292.7 MOS/KG (273-304); Potassium 4.6 MMOL/L (3.5-5.1)
[2017-04-07] MEDS: INSULIN REGULAR 100 UNIT/ML SUBCUT SCH ×6 (06:12→20:52)
[2017-04-07] MEDS: LEVOTHYROXINE 100 MCG TABLET PO SCH (06:12)
[2017-04-07] MEDS ORDERED: ePHEDrine 50 MG/ML AMP ONE (06:42)
[2017-04-07] MEDS: AMPICILLIN/SULBACTAM 3,000 MG in SODIUM CHLORIDE 0.9% 100 ML IV SCH ×2 (08:15→22:01)
[2017-04-07] MEDS: PHENYLEPHRINE DRIP 40 MG/250 ML PREMIX IV SCH (08:46)
[2017-04-07] MEDS ORDERED: ASPIRIN 325 MG TABLET PO SCH (09:00)
[2017-04-07] MEDS: DOCUSATE SODIUM 100 MG CAPSULE PO SCH (12:55)
[2017-04-07] MEDS ORDERED: ZALEPLON 5 MG CAPSULE PO PRN (13:36)
[2017-04-07] MEDS ORDERED: ASPIRIN EC 325 MG TABLET PO SCH (13:36)
[2017-04-07] MEDS ORDERED: DILTIAZEM 100 MG VIAL.ADD IV ONE (14:28)
[2017-04-07] MEDS ORDERED: SODIUM CHLORIDE 0.9% 100 ML IV ONE (14:30)
[2017-04-07] MEDS ORDERED: DILTIAZEM INJ 100 MG in SODIUM CHLORIDE 0.9% 100 ML IV SCH (14:40)
[2017-04-07] MEDS ORDERED: CALCIUM GLUCONATE 1,000 MG in SODIUM CHLORIDE 0.9% 100 ML IV ONE (14:51)
[2017-04-07] MEDS ORDERED: SODIUM CHLORIDE 0.9% 250 ML IV PRN (14:52)
[2017-04-07] MEDS: FUROSEMIDE 40 MG TABLET PO SCH (15:31)
[2017-04-07] MEDS: GABAPENTIN 300 MG CAPSULE PO SCH ×3 (15:31→20:50)
[2017-04-07] MEDS: SPIRONOLACTONE 25 MG TABLET PO SCH (15:31)
[2017-04-07] MEDS: INSULIN NPH/REGULAR 70/30 100 UNIT/ML SUBCUT SCH (17:32)
[2017-04-07] MEDS: SERTRALINE 50 MG TABLET PO SCH (20:51)
[2017-04-07] MEDS ORDERED: DILTIAZEM CD 180 MG CAPSULE PO SCH (21:00)
[2017-04-08] MEDS: INSULIN REGULAR 100 UNIT/ML SUBCUT SCH ×6 (00:20→20:54)
[2017-04-08 05:57] LABS: Basophils % 0.2 % (0.0-0.8); Eosinophils # 0.1 10*3/uL (0.0-0.87); Eosinophils % 0.9 % (0.00-10.9); Hematocrit 27.8 VOL% (42.0-52.0); Hemoglobin 9.3 GM/DL (14.0-18.0); Immature Granulocytes % 1.4 %; Immature Granulocytes Absolute 0.17 #; Lymphocytes # 1.4 10*3/uL (1.4-4.0); Lymphocytes % 11.9 % (21.2-54.2); Mean Corpuscular HGB Conc 33.5 GM/DL (32-36); Mean Corpuscular Hemoglobin 30 PG (27-34); Mean Corpuscular Volume 89.1 FL (87-102); Mean Platelet Volume 10.2 FL (9.6-12.0); Monocytes # 0.4 10*3/uL (0.11-0.8); Monocytes % 3.2 % (1.7-12.7); NRBC # 0.08 10*3/uL; Neutrophils # 9.9 10*3/uL (1.4-7.4); Neutrophils % 82.4 % (38.7-73.9); Platelet Count 259 T/CUMM (130-400); Red Blood Count 3.12 MC/CUMM (3.8-5.5); Red Cell Distribution Width 14.9 % (9.3-17.3)
[2017-04-08] MEDS ORDERED: LEVOTHYROXINE 100 MCG TABLET PO SCH (06:30)
[2017-04-08 06:42] LABS: Albumin 2.8 G/DL (3.4-5.0); Bilirubin,Total 1.1 MG/DL (0.2-1.0); Calcium 7.6 MG/DL (8.5-10.1); Osmolality,Calculated 277.8 MOS/KG (273-304)
[2017-04-08] MEDS: LEVOTHYROXINE 100 MCG TABLET PO SCH (07:31)
[2017-04-08] MEDS: CARVEDILOL 3.125 MG TABLET PO SCH ×2 (08:25→20:53)
[2017-04-08] MEDS: DILTIAZEM CD 300 MG CAPSULE PO SCH (08:25)
[2017-04-08] MEDS: DOCUSATE SODIUM 100 MG CAPSULE PO SCH (08:25)
[2017-04-08] MEDS: FUROSEMIDE 40 MG TABLET PO SCH (08:25)
[2017-04-08] MEDS: INSULIN NPH/REGULAR 70/30 100 UNIT/ML SUBCUT SCH ×2 (08:25→17:15)
[2017-04-08] MEDS: SPIRONOLACTONE 25 MG TABLET PO SCH (08:26)
[2017-04-08] MEDS: ASPIRIN EC 325 MG TABLET PO SCH (08:26)
[2017-04-08] MEDS: GABAPENTIN 300 MG CAPSULE PO SCH ×3 (08:26→20:53)
[2017-04-08] MEDS: AMPICILLIN/SULBACTAM 3,000 MG in SODIUM CHLORIDE 0.9% 100 ML IV SCH (08:27)
[2017-04-08] MEDS ORDERED: SODIUM PHOSPHATE ENEMA 133 ML BOTTLE RECTAL ONE (16:53)
[2017-04-08] MEDS: SERTRALINE 50 MG TABLET PO SCH (20:53)
[2017-04-08] MEDS: CIPROFLOXACIN 500 MG TABLET PO SCH (20:54)
[2017-04-08] MEDS: metroNIDAZOLE 500 MG TABLET PO SCH (22:17)
[2017-04-09] MEDS: INSULIN REGULAR 100 UNIT/ML SUBCUT SCH ×4 (00:45→12:26)
[2017-04-09 04:52] LABS: Basophils % 0.3 % (0.0-0.8); Eosinophils # 0.3 10*3/uL (0.0-0.87); Eosinophils % 2.3 % (0.00-10.9); Hematocrit 26.1 VOL% (42.0-52.0); Hemoglobin 8.8 GM/DL (14.0-18.0); Immature Granulocytes % 1.4 %; Immature Granulocytes Absolute 0.16 #; Lymphocytes # 1.6 10*3/uL (1.4-4.0); Lymphocytes % 14.6 % (21.2-54.2); Mean Corpuscular HGB Conc 33.7 GM/DL (32-36); Mean Corpuscular Hemoglobin 30 PG (27-34); Mean Platelet Volume 10.3 FL (9.6-12.0); Monocytes # 0.6 10*3/uL (0.11-0.8); NRBC # 0.07 10*3/uL; Neutrophils # 8.5 10*3/uL (1.4-7.4); Neutrophils % 76.4 % (38.7-73.9); Platelet Count 250 T/CUMM (130-400); Red Cell Distribution Width 14.8 % (9.3-17.3); White Blood Count 11.2 T/CUMM (4-12)
[2017-04-09 05:40] LABS: Albumin 2.5 G/DL (3.4-5.0); Bilirubin,Total 0.8 MG/DL (0.2-1.0); Calcium 7.7 MG/DL (8.5-10.1); Osmolality,Calculated 278.8 MOS/KG (273-304); Total Protein 4.9 G/DL (6.4-8.3)
[2017-04-09] MEDS: LEVOTHYROXINE 100 MCG TABLET PO SCH (06:24)
[2017-04-09] MEDS: metroNIDAZOLE 500 MG TABLET PO SCH (06:24)
[2017-04-09] MEDS: CARVEDILOL 3.125 MG TABLET PO SCH (08:40)
[2017-04-09] MEDS: DILTIAZEM CD 300 MG CAPSULE PO SCH (08:40)
[2017-04-09] MEDS: FUROSEMIDE 40 MG TABLET PO SCH (08:40)
[2017-04-09] MEDS: ASPIRIN EC 325 MG TABLET PO SCH (08:40)
[2017-04-09] MEDS: SPIRONOLACTONE 25 MG TABLET PO SCH (08:41)
[2017-04-09] MEDS: DOCUSATE SODIUM 100 MG CAPSULE PO SCH (08:41)
[2017-04-09] MEDS: GABAPENTIN 300 MG CAPSULE PO SCH (08:41)
[2017-04-09] MEDS: CIPROFLOXACIN 500 MG TABLET PO SCH (08:41)
[2017-04-09] MEDS: INSULIN NPH/REGULAR 70/30 100 UNIT/ML SUBCUT SCH (08:42)
[2017-04-09] MEDS ORDERED: BISACODYL 5 MG TABLET PO SCH (09:00)
[2017-04-09 11:54] VITALS: BP 97/70
== END 2017-04-09 13:05 | disposition home health service (06) | DRG 871 ==
LOC: EDUNIT# → EDBD → N.ED 21:44 → N.ICU 04-06 00:58 → N.TELES 04-07 13:30
PROVIDERS: ADMIT Thoracic Surgery (Cardiothoracic Vascular Surgery); ATTEND Thoracic Surgery (Cardiothoracic Vascular Surgery)

== ENCOUNTER 2017-04-23 13:09 | Inpatient (IN) ==
[2017-04-23] MEDS ORDERED: ASPIRIN 325 MG TABLET PO STA (13:31)
[2017-04-23] MEDS ORDERED: ONDANSETRON 4 MG/2 ML VIAL IV STA (13:31)
[2017-04-23] MEDS ORDERED: NITROGLYCERIN 2% OINT 1 INCH/GM PACK TOP STA (13:31)
[2017-04-23] MEDS ORDERED: DILTIAZEM 50 MG/10 ML VIAL IV STA (13:33)
[2017-04-23 13:54] LABS: Basophils # 0.1 10*3/uL (0.0-0.2); Basophils % 0.8 % (0.0-0.8); Eosinophils # 0.1 10*3/uL (0.0-0.87); Eosinophils % 1.5 % (0.00-10.9); Hematocrit 38.6 VOL% (42.0-52.0); Hemoglobin 12.9 GM/DL (14.0-18.0); Immature Granulocytes % 1.5 %; Immature Granulocytes Absolute 0.13 #; Lymphocytes # 1.7 10*3/uL (1.4-4.0); Lymphocytes % 19.5 % (21.2-54.2); Mean Corpuscular HGB Conc 33.4 GM/DL (32-36); Mean Corpuscular Hemoglobin 30 PG (27-34); Mean Corpuscular Volume 88.9 FL (87-102); Mean Platelet Volume 9.5 FL (9.6-12.0); Monocytes # 0.7 10*3/uL (0.11-0.8); Monocytes % 8.2 % (1.7-12.7); Neutrophils # 5.8 10*3/uL (1.4-7.4); Neutrophils % 68.5 % (38.7-73.9); Platelet Count 320 T/CUMM (130-400); Red Blood Count 4.34 MC/CUMM (3.8-5.5); Red Cell Distribution Width 16.2 % (9.3-17.3); White Blood Count 8.5 T/CUMM (4-12)
[2017-04-23] MEDS ORDERED: ONDANSETRON 4 MG/2 ML VIAL ONE (13:58)
[2017-04-23] MEDS ORDERED: DILTIAZEM 100 MG VIAL.ADD IV ONE (13:58)
[2017-04-23] MEDS ORDERED: SODIUM CHLORIDE 0.9% 100 ML IV ONE (13:58)
[2017-04-23] MEDS ORDERED: NITROGLYCERIN 2% OINT 1 INCH/GM PACK TOP ONE (13:58)
[2017-04-23] MEDS ORDERED: ASPIRIN 325 MG TABLET ONE (13:58)
[2017-04-23] MEDS ORDERED: DILTIAZEM 50 MG/10 ML VIAL IV ONE (13:58)
[2017-04-23 14:03] LABS: INR 1.1; PT Patient Result 11.4 SECS; Partial Thromboplastin Time 25.3 SECS (0-40)
[2017-04-23 14:16] LABS: Albumin 3.4 G/DL (3.4-5.0); Bilirubin,Total 0.9 MG/DL (0.2-1.0); Calcium 8.6 MG/DL (8.5-10.1); Osmolality,Calculated 285.4 MOS/KG (273-304); Potassium 4.1 MMOL/L (3.5-5.1); Total Protein 7.2 G/DL (6.4-8.3)
[2017-04-23] MEDS: DILTIAZEM INJ 100 MG in SODIUM CHLORIDE 0.9% 100 ML IV SCH ×2 (15:09→23:57)
[2017-04-23] MEDS ORDERED: methylPREDNISolone SOD SUC 125 MG/2 ML VIAL IV STA (15:10)
[2017-04-23] MEDS ORDERED: diphenhydrAMINE 50 MG/1 ML VIAL IV STA (15:10)
[2017-04-23] MEDS ORDERED: SODIUM CHLORIDE 0.9% 1,000 ML IV STA (16:14)
[2017-04-23] MEDS ORDERED: methylPREDNISolone SOD SUC 125 MG/2 ML VIAL ONE (17:08)
[2017-04-23] MEDS ORDERED: diphenhydrAMINE 50 MG/1 ML VIAL ONE (17:08)
[2017-04-23] MEDS ORDERED: ENOXAPARIN 80 MG/0.8 ML SYRINGE SUBCUT STA (17:50)
[2017-04-23] MEDS ORDERED: ENOXAPARIN 100 MG/ML SYRINGE SUBCUT ONE (18:41)
[2017-04-23] MEDS ORDERED: METOPROLOL TARTRATE 5 MG/5 ML VIAL IV STA (18:48)
[2017-04-23] MEDS ORDERED: METOPROLOL TARTRATE 5 MG/5 ML VIAL IV ONE (18:53)
[2017-04-23] MEDS ORDERED: MAGNESIUM CITRATE 300 ML BOTTLE PO ONE (19:47)
[2017-04-23] MEDS ORDERED: MAGNESIUM CITRATE 300 ML BOTTLE ONE (21:00)
[2017-04-23] MEDS ORDERED: GLUCAGON 1 MG VIAL IM PRN (22:07)
[2017-04-23] MEDS ORDERED: ACETAMINOPHEN 325 MG TABLET PO PRN (22:07)
[2017-04-23] MEDS ORDERED: DEXTROSE 50% 25 GM/50 ML VIAL IV PRN (22:07)
[2017-04-23] MEDS ORDERED: WARFARIN 7.5 MG TABLET PO SCH (22:07)
[2017-04-23] MEDS ORDERED: DOCUSATE SODIUM 100 MG CAPSULE PO PRN (22:07)
[2017-04-23] MEDS ORDERED: ONDANSETRON 4 MG/2 ML VIAL IV PRN (22:07)
[2017-04-23] MEDS: INSULIN NPH/REGULAR 70/30 100 UNIT/ML SUBCUT SCH (23:51)
[2017-04-23] MEDS: METOPROLOL TARTRATE 50 MG TABLET PO SCH (23:52)
[2017-04-23] MEDS: ENOXAPARIN 100 MG/ML SYRINGE SUBCUT SCH (23:52)
[2017-04-23] MEDS: SODIUM CHLORIDE 0.9% 1,000 ML IV SCH (23:53)
[2017-04-24 01:20] LABS: INR 1.1; PT Patient Result 11.7 SECS
[2017-04-24 01:40] LABS: Basophils % 0.3 % (0.0-0.8); Eosinophils % 0.2 % (0.00-10.9); Hematocrit 34.6 VOL% (42.0-52.0); Hemoglobin 11.7 GM/DL (14.0-18.0); Immature Granulocytes % 1.4 %; Immature Granulocytes Absolute 0.08 #; Lymphocytes % 16.9 % (21.2-54.2); Mean Corpuscular HGB Conc 33.8 GM/DL (32-36); Mean Corpuscular Hemoglobin 30 PG (27-34); Mean Corpuscular Volume 89.2 FL (87-102); Mean Platelet Volume 10.2 FL (9.6-12.0); Monocytes # 0.1 10*3/uL (0.11-0.8); Monocytes % 2.4 % (1.7-12.7); Neutrophils # 4.7 10*3/uL (1.4-7.4); Neutrophils % 78.8 % (38.7-73.9); Platelet Count 303 T/CUMM (130-400); Red Blood Count 3.88 MC/CUMM (3.8-5.5); Red Cell Distribution Width 16.5 % (9.3-17.3); White Blood Count 5.9 T/CUMM (4-12)
[2017-04-24 01:41] LABS: Albumin 3.1 G/DL (3.4-5.0); Calcium 7.6 MG/DL (8.5-10.1); Magnesium 2.2 MG/DL (1.8-2.4); Osmolality,Calculated 293.1 MOS/KG (273-304); Risk Ratio 5.07; Thyroid Stimulating Hormone 17.9 uIU/ml (0.358-3.74); Total Protein 5.9 G/DL (6.4-8.3); VLDL CHOLESTEROL 43.4 MG/DL
[2017-04-24 06:58] LABS: Apearance,Urine CLEAR (Clear); Bilirubin,Urine Negative (Negative); Blood, Urine Negative (Negative); Glucose,Urine (UA) >=500 mg/dL (Negative); Ketones,Urine Negative (Negative); Nitrite,Urine Negative (Negative); Protein,Urine 30 MG/DL; RBC,Urine <1 /HPF (0-4); Urine Color Yellow (Yellow); Urine Specific Gravity 1.037 (1.001-1.035); Urine Urobilinogen < 2.0 EU/DL (0.2-1.0); WBC,Urine 1 /HPF (0-6)
[2017-04-24] MEDS ORDERED: INSULIN REGULAR 100 UNIT/ML SUBCUT ONE (07:52)
[2017-04-24] MEDS ORDERED: SENNA 8.6 MG TABLET PO PRN (08:33)
[2017-04-24] MEDS ORDERED: WARFARIN 10 MG TABLET PO ONE (08:42)
[2017-04-24] MEDS ORDERED: CARVEDILOL 3.125 MG TABLET PO SCH (09:00)
[2017-04-24] MEDS ORDERED: DILTIAZEM CD 120 MG CAPSULE PO SCH (09:00)
[2017-04-24] MEDS ORDERED: ASPIRIN EC 81 MG TABLET PO SCH (09:00)
[2017-04-24] MEDS ORDERED: NON-FORMULARY MEDICATION (Omeprazole [Omeprazole] 40 MG) PO SCH (09:00)
[2017-04-24] MEDS: DILTIAZEM CD 300 MG CAPSULE PO SCH (10:36)
[2017-04-24] MEDS: PANTOPRAZOLE 40 MG TABLET PO SCH (10:36)
[2017-04-24] MEDS: LACTULOSE 20 GM/30 ML UDCUP PO SCH ×2 (10:36→21:54)
[2017-04-24] MEDS: ASPIRIN EC 325 MG TABLET PO SCH (10:36)
[2017-04-24] MEDS: METOPROLOL TARTRATE 50 MG TABLET PO SCH ×2 (10:37→22:11)
[2017-04-24] MEDS: CARVEDILOL 6.25 MG TABLET PO SCH ×2 (10:37→21:56)
[2017-04-24] MEDS: SPIRONOLACTONE 25 MG TABLET PO SCH (10:37)
[2017-04-24] MEDS: GABAPENTIN 300 MG CAPSULE PO SCH ×3 (10:38→21:56)
[2017-04-24] MEDS: FUROSEMIDE 40 MG TABLET PO SCH (10:38)
[2017-04-24] MEDS: INSULIN NPH/REGULAR 70/30 100 UNIT/ML SUBCUT SCH ×2 (10:38→21:54)
[2017-04-24] MEDS: LEVOTHYROXINE 175 MCG TABLET PO SCH (10:50)
[2017-04-24] MEDS: ENOXAPARIN 100 MG/ML SYRINGE SUBCUT SCH ×3 (10:50→23:46)
[2017-04-24] MEDS: INSULIN REGULAR 100 UNIT/ML SUBCUT SCH ×3 (11:40→21:55)
[2017-04-24] MEDS: DILTIAZEM INJ 100 MG in SODIUM CHLORIDE 0.9% 100 ML IV SCH (13:48)
[2017-04-24] MEDS: SODIUM CHLORIDE 0.9% 1,000 ML IV SCH ×3 (13:49→23:13)
[2017-04-24] MEDS ORDERED: metFORMIN 500 MG TABLET PO SCH (17:00)
[2017-04-24] MEDS: SERTRALINE 50 MG TABLET PO SCH (21:56)
[2017-04-24] MEDS: ZALEPLON 5 MG CAPSULE PO PRN (22:04)
[2017-04-25 04:41] LABS: Basophils % 0.3 % (0.0-0.8); Eosinophils % 0.4 % (0.00-10.9); Hematocrit 30.7 VOL% (42.0-52.0); Hemoglobin 10.1 GM/DL (14.0-18.0); Immature Granulocytes % 1.7 %; Immature Granulocytes Absolute 0.12 #; Lymphocytes # 1.9 10*3/uL (1.4-4.0); Lymphocytes % 27.1 % (21.2-54.2); Mean Corpuscular HGB Conc 32.9 GM/DL (32-36); Mean Corpuscular Hemoglobin 30 PG (27-34); Mean Corpuscular Volume 91.1 FL (87-102); Mean Platelet Volume 10.2 FL (9.6-12.0); Monocytes # 0.6 10*3/uL (0.11-0.8); Monocytes % 8.5 % (1.7-12.7); NRBC # 0.02 10*3/uL; Neutrophils # 4.4 10*3/uL (1.4-7.4); Platelet Count 254 T/CUMM (130-400); Red Blood Count 3.37 MC/CUMM (3.8-5.5); Red Cell Distribution Width 16.9 % (9.3-17.3); White Blood Count 7.2 T/CUMM (4-12)
[2017-04-25] MEDS: DILTIAZEM INJ 100 MG in SODIUM CHLORIDE 0.9% 100 ML IV SCH ×2 (04:59→17:08)
[2017-04-25 05:10] LABS: Albumin 2.9 G/DL (3.4-5.0); Bilirubin,Total 1.1 MG/DL (0.2-1.0); Calcium 7.5 MG/DL (8.5-10.1); Osmolality,Calculated 287.1 MOS/KG (273-304); Potassium 4.1 MMOL/L (3.5-5.1); Total Protein 5.3 G/DL (6.4-8.3)
[2017-04-25 05:14] LABS: INR 1.3; PT Patient Result 13.7 SECS
[2017-04-25] MEDS: LEVOTHYROXINE 175 MCG TABLET PO SCH (06:03)
[2017-04-25] MEDS ORDERED: LEVOTHYROXINE 100 MCG TABLET PO SCH (06:30)
[2017-04-25] MEDS: SODIUM CHLORIDE 0.9% 1,000 ML IV SCH ×2 (06:31→18:31)
[2017-04-25] MEDS: INSULIN REGULAR 100 UNIT/ML SUBCUT SCH ×4 (08:16→21:40)
[2017-04-25] MEDS: SPIRONOLACTONE 25 MG TABLET PO SCH (09:36)
[2017-04-25] MEDS: DILTIAZEM CD 300 MG CAPSULE PO SCH (09:37)
[2017-04-25] MEDS: CARVEDILOL 6.25 MG TABLET PO SCH ×2 (09:37→21:40)
[2017-04-25] MEDS: INSULIN NPH/REGULAR 70/30 100 UNIT/ML SUBCUT SCH ×2 (09:37→21:40)
[2017-04-25] MEDS: PANTOPRAZOLE 40 MG TABLET PO SCH (09:37)
[2017-04-25] MEDS: ASPIRIN EC 325 MG TABLET PO SCH (09:37)
[2017-04-25] MEDS: METOPROLOL TARTRATE 50 MG TABLET PO SCH ×2 (09:37→21:40)
[2017-04-25] MEDS: FUROSEMIDE 40 MG TABLET PO SCH (09:37)
[2017-04-25] MEDS: GABAPENTIN 300 MG CAPSULE PO SCH ×3 (09:37→21:40)
[2017-04-25] MEDS: ENOXAPARIN 100 MG/ML SYRINGE SUBCUT SCH ×2 (12:03→21:39)
[2017-04-25] MEDS: WARFARIN 7.5 MG TABLET PO SCH ×2 (16:02→17:12)
[2017-04-25] MEDS: SERTRALINE 50 MG TABLET PO SCH (21:40)
[2017-04-25] MEDS: traMADol 50 MG TABLET PO PRN (23:20)
[2017-04-26] MEDS: ENOXAPARIN 100 MG/ML SYRINGE SUBCUT SCH ×3 (00:20→23:54)
[2017-04-26] MEDS: ZALEPLON 5 MG CAPSULE PO PRN ×2 (01:10→21:12)
[2017-04-26] MEDS: SODIUM CHLORIDE 0.9% 1,000 ML IV SCH ×4 (01:14→23:06)
[2017-04-26 05:41] LABS: Basophils # 0.1 10*3/uL (0.0-0.2); Basophils % 0.6 % (0.0-0.8); Eosinophils # 0.2 10*3/uL (0.0-0.87); Eosinophils % 2.1 % (0.00-10.9); Hematocrit 32.7 VOL% (42.0-52.0); Hemoglobin 10.8 GM/DL (14.0-18.0); Immature Granulocytes % 2.5 %; Lymphocytes # 2.4 10*3/uL (1.4-4.0); Lymphocytes % 30.7 % (21.2-54.2); Mean Corpuscular Hemoglobin 30 PG (27-34); Mean Corpuscular Volume 91.9 FL (87-102); Mean Platelet Volume 9.9 FL (9.6-12.0); Monocytes # 0.7 10*3/uL (0.11-0.8); NRBC # 0.02 10*3/uL; Neutrophils # 4.4 10*3/uL (1.4-7.4); Neutrophils % 55.1 % (38.7-73.9); Platelet Count 269 T/CUMM (130-400); Red Blood Count 3.56 MC/CUMM (3.8-5.5); Red Cell Distribution Width 17.2 % (9.3-17.3); White Blood Count 7.9 T/CUMM (4-12)
[2017-04-26 05:42] LABS: INR 1.6; PT Patient Result 16.5 SECS
[2017-04-26] MEDS: LEVOTHYROXINE 175 MCG TABLET PO SCH (06:04)
[2017-04-26 06:24] LABS: Albumin 2.8 G/DL (3.4-5.0); Bilirubin,Total 0.4 MG/DL (0.2-1.0); Calcium 6.9 MG/DL (8.5-10.1); Osmolality,Calculated 275.7 MOS/KG (273-304); Potassium 3.8 MMOL/L (3.5-5.1); Total Protein 5.3 G/DL (6.4-8.3)
[2017-04-26] MEDS: INSULIN REGULAR 100 UNIT/ML SUBCUT SCH ×4 (07:45→20:37)
[2017-04-26] MEDS: FUROSEMIDE 40 MG TABLET PO SCH (08:16)
[2017-04-26] MEDS: SPIRONOLACTONE 25 MG TABLET PO SCH (08:17)
[2017-04-26] MEDS: PANTOPRAZOLE 40 MG TABLET PO SCH (08:17)
[2017-04-26] MEDS: ASPIRIN EC 325 MG TABLET PO SCH (08:17)
[2017-04-26] MEDS: METOPROLOL TARTRATE 50 MG TABLET PO SCH ×2 (08:17→21:10)
[2017-04-26] MEDS: CARVEDILOL 6.25 MG TABLET PO SCH ×2 (08:17→21:10)
[2017-04-26] MEDS: GABAPENTIN 300 MG CAPSULE PO SCH ×3 (08:17→21:10)
[2017-04-26] MEDS: DILTIAZEM CD 300 MG CAPSULE PO SCH (08:18)
[2017-04-26] MEDS: INSULIN NPH/REGULAR 70/30 100 UNIT/ML SUBCUT SCH ×2 (09:00→20:37)
[2017-04-26] MEDS ORDERED: WARFARIN 3 MG TABLET PO ONE (09:11)
[2017-04-26] MEDS: traMADol 50 MG TABLET PO PRN ×2 (09:29→21:15)
[2017-04-26] MEDS: DILTIAZEM INJ 100 MG in SODIUM CHLORIDE 0.9% 100 ML IV SCH (14:16)
[2017-04-26] MEDS: WARFARIN 7.5 MG TABLET PO SCH (17:31)
[2017-04-26] MEDS: SERTRALINE 50 MG TABLET PO SCH (21:11)
[2017-04-27] MEDS: SODIUM CHLORIDE 0.9% 1,000 ML IV SCH (05:33)
[2017-04-27 05:45] LABS: Basophils % 0.2 % (0.0-0.8); Eosinophils % 0.3 % (0.00-10.9); Hemoglobin 12.2 GM/DL (14.0-18.0); Immature Granulocytes % 1.1 %; Immature Granulocytes Absolute 0.16 #; Lymphocytes # 2.6 10*3/uL (1.4-4.0); Lymphocytes % 17.8 % (21.2-54.2); Mean Corpuscular Hemoglobin 30 PG (27-34); Mean Corpuscular Volume 91.6 FL (87-102); Mean Platelet Volume 10.6 FL (9.6-12.0); Monocytes # 1.2 10*3/uL (0.11-0.8); Monocytes % 8.4 % (1.7-12.7); NRBC # 0.03 10*3/uL; Neutrophils # 10.3 10*3/uL (1.4-7.4); Neutrophils % 72.2 % (38.7-73.9); Platelet Count 332 T/CUMM (130-400); Red Blood Count 4.04 MC/CUMM (3.8-5.5); Red Cell Distribution Width 17.6 % (9.3-17.3); White Blood Count 14.3 T/CUMM (4-12)
[2017-04-27 06:03] LABS: INR 2.4
[2017-04-27 06:13] LABS: PT Patient Result 24.8 SECS
[2017-04-27 06:20] LABS: Calcium 7.9 MG/DL (8.5-10.1); Magnesium 2.4 MG/DL (1.8-2.4); Osmolality,Calculated 271.2 MOS/KG (273-304); Potassium 4.5 MMOL/L (3.5-5.1)
[2017-04-27] MEDS: LEVOTHYROXINE 175 MCG TABLET PO SCH (06:28)
[2017-04-27 07:42] VITALS: BP 140/81
[2017-04-27] MEDS: INSULIN REGULAR 100 UNIT/ML SUBCUT SCH (07:56)
[2017-04-27] MEDS: INSULIN NPH/REGULAR 70/30 100 UNIT/ML SUBCUT SCH (08:01)
[2017-04-27] MEDS: GABAPENTIN 300 MG CAPSULE PO SCH (08:02)
[2017-04-27] MEDS: ASPIRIN EC 325 MG TABLET PO SCH (08:02)
[2017-04-27] MEDS: traMADol 50 MG TABLET PO PRN (08:02)
[2017-04-27] MEDS: METOPROLOL TARTRATE 50 MG TABLET PO SCH (08:02)
[2017-04-27] MEDS: FUROSEMIDE 40 MG TABLET PO SCH (08:02)
[2017-04-27] MEDS: CARVEDILOL 6.25 MG TABLET PO SCH (08:02)
[2017-04-27] MEDS: PANTOPRAZOLE 40 MG TABLET PO SCH (08:02)
[2017-04-27] MEDS: DILTIAZEM CD 300 MG CAPSULE PO SCH (08:02)
[2017-04-27] MEDS: SPIRONOLACTONE 25 MG TABLET PO SCH (08:03)
[2017-04-27] MEDS: ENOXAPARIN 100 MG/ML SYRINGE SUBCUT SCH (11:27)
== END 2017-04-27 11:50 | disposition home or self-care (01) | DRG 310 ==
LOC: EDUNIT# → EDBD → N.ED 13:09 → N.EDINP 19:44 → N.TELEN 19:58
PROVIDERS: ADMIT Family Medicine; ATTEND Family Medicine

== ENCOUNTER 2017-04-28 08:50 | Inpatient (IN) ==
[2017-04-28] MEDS ORDERED: ALUM/MAG/SIMETH/LIDO VISC 1:1 30 ML BOTTLE PO STA (11:13)
[2017-04-28] MEDS ORDERED: SODIUM CHLORIDE 0.9% 500 ML IV STA (11:21)
[2017-04-28] MEDS ORDERED: ALUM/MAG/SIMETH/LIDO VISC 1:1 30 ML BOTTLE PO ONE (11:48)
[2017-04-28 11:52] LABS: Basophils % 0.1 % (0.0-0.8); Eosinophils # 0.1 10*3/uL (0.0-0.87); Eosinophils % 0.4 % (0.00-10.9); Hematocrit 34.2 VOL% (42.0-52.0); Hemoglobin 11.2 GM/DL (14.0-18.0); Immature Granulocytes % 1.2 %; Immature Granulocytes Absolute 0.16 #; Lymphocytes # 1.6 10*3/uL (1.4-4.0); Lymphocytes % 12.2 % (21.2-54.2); Mean Corpuscular HGB Conc 32.7 GM/DL (32-36); Mean Corpuscular Hemoglobin 30 PG (27-34); Mean Corpuscular Volume 90.2 FL (87-102); Monocytes % 7.3 % (1.7-12.7); Neutrophils # 10.4 10*3/uL (1.4-7.4); Neutrophils % 78.8 % (38.7-73.9); Platelet Count 260 T/CUMM (130-400); Red Blood Count 3.79 MC/CUMM (3.8-5.5); Red Cell Distribution Width 17.1 % (9.3-17.3); White Blood Count 13.2 T/CUMM (4-12)
[2017-04-28 12:04] LABS: INR 2.1
[2017-04-28 12:07] LABS: PT Patient Result 21.9 SECS
[2017-04-28 12:27] LABS: Alanine Aminotransferase 36 U/L (16-61); Albumin 2.7 G/DL (3.4-5.0); Alkaline Phosphatase 147 U/L (45-117); Amylase 13 U/L (25-115); Aspartate Amino Transferase 16 U/L (0-37); Blood Urea Nitrogen 32 MG/DL (7-18); Calcium 7.4 MG/DL (8.5-10.1); Glucose 260 MG/DL (74-106); Osmolality,Calculated 275.8 MOS/KG (273-304); Potassium 4.4 MMOL/L (3.5-5.1); Sodium 130 MMOL/L (136-145); Total Protein 5.6 G/DL (6.4-8.3); Troponin I Only < 0.015 NG/ML (0.00-0.045)
[2017-04-28 15:59] LABS: Apearance,Urine CLEAR (Clear); Bilirubin,Urine Negative (Negative); Blood, Urine Negative (Negative); Glucose,Urine (UA) >=500 mg/dL (Negative); Hyaline Casts,Urine 4 /LPF (0-3); Ketones,Urine Negative (Negative); Mucus,Urine Occasional /LPF (Occasional); Nitrite,Urine Negative (Negative); Protein,Urine Negative; RBC,Urine <1 /HPF (0-4); Urine Color Amber (Yellow); Urine Urobilinogen < 2.0 EU/DL (0.2-1.0); WBC,Urine 1 /HPF (0-6)
[2017-04-28] MEDS ORDERED: LACTULOSE 20 GM/30 ML UDCUP PO PRN (18:45)
[2017-04-28] MEDS ORDERED: ACETAMINOPHEN 325 MG TABLET PO PRN (18:45)
[2017-04-28] MEDS ORDERED: ONDANSETRON 4 MG/2 ML VIAL IV PRN (18:45)
[2017-04-28] MEDS ORDERED: HEPARIN 5,000 UNIT/1 ML VIAL IV ONE (19:30)
[2017-04-28] MEDS: METOPROLOL TARTRATE 50 MG TABLET PO SCH (20:48)
[2017-04-28] MEDS: traMADol 50 MG TABLET PO PRN (20:48)
[2017-04-28] MEDS: DOCUSATE SODIUM 100 MG CAPSULE PO SCH (20:48)
[2017-04-28] MEDS: SERTRALINE 50 MG TABLET PO SCH (20:48)
[2017-04-28] MEDS: GABAPENTIN 300 MG CAPSULE PO SCH (20:48)
[2017-04-28] MEDS: CARVEDILOL 6.25 MG TABLET PO SCH (20:49)
[2017-04-28] MEDS: HEPARIN DRIP 25,000 UNITS/500 ML PREMIX IV SCH (21:03)
[2017-04-28] MEDS: SODIUM CHLORIDE 0.9% 1,000 ML IV SCH (21:28)
[2017-04-29] MEDS: SODIUM CHLORIDE 0.9% 1,000 ML IV SCH ×3 (03:00→20:30)
[2017-04-29 04:43] LABS: Basophils % 0.2 % (0.0-0.8); Eosinophils # 0.1 10*3/uL (0.0-0.87); Eosinophils % 0.7 % (0.00-10.9); Hematocrit 29.8 VOL% (42.0-52.0); Hemoglobin 9.8 GM/DL (14.0-18.0); Immature Granulocytes % 1.8 %; Lymphocytes # 1.3 10*3/uL (1.4-4.0); Lymphocytes % 11.9 % (21.2-54.2); Mean Corpuscular HGB Conc 32.9 GM/DL (32-36); Mean Corpuscular Hemoglobin 30 PG (27-34); Mean Platelet Volume 10.5 FL (9.6-12.0); Monocytes # 0.9 10*3/uL (0.11-0.8); Neutrophils # 8.5 10*3/uL (1.4-7.4); Neutrophils % 77.4 % (38.7-73.9); Platelet Count 240 T/CUMM (130-400); Red Blood Count 3.31 MC/CUMM (3.8-5.5); Red Cell Distribution Width 17.1 % (9.3-17.3); White Blood Count 10.9 T/CUMM (4-12)
[2017-04-29 04:46] LABS: INR 2.3
[2017-04-29 04:52] LABS: PT Patient Result 23.2 SECS
[2017-04-29] MEDS: traMADol 50 MG TABLET PO PRN (04:56)
[2017-04-29 04:59] LABS: Calcium 7.5 MG/DL (8.5-10.1); Osmolality,Calculated 276.7 MOS/KG (273-304); Potassium 4.1 MMOL/L (3.5-5.1)
[2017-04-29] MEDS ORDERED: GLUCAGON 1 MG VIAL IM PRN (07:33)
[2017-04-29] MEDS ORDERED: DEXTROSE 50% 25 GM/50 ML VIAL IV PRN (07:33)
[2017-04-29 07:58] LABS: Albumin 2.4 G/DL (3.4-5.0); Bilirubin,Direct 0.52 MG/DL (0.0-0.20); Bilirubin,Indirect 0.4 MG/DL (0.0-1.0); Bilirubin,Total 0.9 MG/DL (0.2-1.0); Total Protein 5.4 G/DL (6.4-8.3)
[2017-04-29] MEDS ORDERED: metFORMIN 500 MG TABLET PO SCH (08:00)
[2017-04-29] MEDS: KETOROLAC 30 MG/1 ML VIAL IV PRN (08:30)
[2017-04-29] MEDS: INSULIN LISPRO 100 UNIT/ML SUBCUT SCH ×2 (11:03→16:39)
[2017-04-29] MEDS: PIPERACILLIN/TAZOBACTAM 3,375 MG in SODIUM CHLORIDE 0.9% 100 ML IV SCH ×2 (12:24→20:31)
[2017-04-29] MEDS: FUROSEMIDE 40 MG TABLET PO SCH (13:07)
[2017-04-29] MEDS: GABAPENTIN 300 MG CAPSULE PO SCH ×3 (13:07→20:27)
[2017-04-29] MEDS: METOPROLOL TARTRATE 50 MG TABLET PO SCH ×2 (13:08→20:31)
[2017-04-29] MEDS: DILTIAZEM CD 300 MG CAPSULE PO SCH (13:08)
[2017-04-29] MEDS: DOCUSATE SODIUM 100 MG CAPSULE PO SCH ×2 (13:08→20:32)
[2017-04-29] MEDS: ASPIRIN EC 325 MG TABLET PO SCH (13:08)
[2017-04-29] MEDS: SPIRONOLACTONE 25 MG TABLET PO SCH (13:08)
[2017-04-29] MEDS: LEVOTHYROXINE 100 MCG TABLET PO SCH (13:08)
[2017-04-29] MEDS: CARVEDILOL 6.25 MG TABLET PO SCH ×2 (13:09→16:40)
[2017-04-29] MEDS: PANTOPRAZOLE 40 MG TABLET PO SCH (13:09)
[2017-04-29] MEDS: HEPARIN DRIP 25,000 UNITS/500 ML PREMIX IV SCH ×3 (15:21→20:35)
[2017-04-29] MEDS: SERTRALINE 50 MG TABLET PO SCH (20:27)
[2017-04-30] MEDS: PIPERACILLIN/TAZOBACTAM 3,375 MG in SODIUM CHLORIDE 0.9% 100 ML IV SCH ×3 (00:16→15:47)
[2017-04-30 02:59] LABS: INR 1.8; PT Patient Result 18.2 SECS
[2017-04-30 03:04] LABS: Basophils % 0.2 % (0.0-0.8); Eosinophils # 0.1 10*3/uL (0.0-0.87); Hematocrit 26.8 VOL% (42.0-52.0); Hemoglobin 8.6 GM/DL (14.0-18.0); Immature Granulocytes Absolute 0.17 #; Lymphocytes # 1.3 10*3/uL (1.4-4.0); Lymphocytes % 15.3 % (21.2-54.2); Mean Corpuscular HGB Conc 32.1 GM/DL (32-36); Mean Corpuscular Hemoglobin 29 PG (27-34); Mean Corpuscular Volume 90.8 FL (87-102); Mean Platelet Volume 10.3 FL (9.6-12.0); Monocytes # 0.8 10*3/uL (0.11-0.8); Monocytes % 9.5 % (1.7-12.7); Neutrophils # 6.2 10*3/uL (1.4-7.4); Platelet Count 228 T/CUMM (130-400); Red Blood Count 2.95 MC/CUMM (3.8-5.5); Red Cell Distribution Width 17.3 % (9.3-17.3); White Blood Count 8.7 T/CUMM (4-12)
[2017-04-30 03:17] LABS: Osmolality,Calculated 276.5 MOS/KG (273-304); Potassium 4.1 MMOL/L (3.5-5.1)
[2017-04-30] MEDS: SODIUM CHLORIDE 0.9% 1,000 ML IV SCH ×5 (04:06→21:13)
[2017-04-30] MEDS: KETOROLAC 30 MG/1 ML VIAL IV PRN ×2 (05:08→21:06)
[2017-04-30] MEDS: LEVOTHYROXINE 100 MCG TABLET PO SCH (06:43)
[2017-04-30] MEDS ORDERED: fentaNYL 100 MCG/2 ML VIAL IV ONE (11:56)
[2017-04-30] MEDS ORDERED: MIDAZOLAM 2 MG/2 ML VIAL IV ONE (11:56)
[2017-04-30] MEDS ORDERED: DIAZEPAM 5 MG TABLET PO ONE (11:56)
[2017-04-30] MEDS ORDERED: MIDAZOLAM 2 MG/2 ML VIAL ONE (13:49)
[2017-04-30] MEDS ORDERED: fentaNYL 100 MCG/2 ML VIAL ONE (13:49)
[2017-04-30] MEDS ORDERED: ONDANSETRON 4 MG/2 ML VIAL ONE (14:29)
[2017-04-30] MEDS ORDERED: MEPERIDINE 25 MG/1 ML VIAL ONE (14:30)
[2017-04-30] MEDS ORDERED: MEPERIDINE 25 MG/1 ML VIAL IV PRN (14:33)
[2017-04-30] MEDS: INSULIN LISPRO 100 UNIT/ML SUBCUT SCH ×2 (14:57→16:58)
[2017-04-30] MEDS: METOPROLOL TARTRATE 50 MG TABLET PO SCH (14:58)
[2017-04-30] MEDS: FUROSEMIDE 40 MG TABLET PO SCH (15:42)
[2017-04-30] MEDS: GABAPENTIN 300 MG CAPSULE PO SCH ×3 (15:42→21:07)
[2017-04-30] MEDS: PANTOPRAZOLE 40 MG TABLET PO SCH (15:43)
[2017-04-30] MEDS: CARVEDILOL 6.25 MG TABLET PO SCH ×2 (15:43→16:45)
[2017-04-30] MEDS: SPIRONOLACTONE 25 MG TABLET PO SCH (15:43)
[2017-04-30] MEDS: ASPIRIN EC 325 MG TABLET PO SCH (15:43)
[2017-04-30] MEDS: DOCUSATE SODIUM 100 MG CAPSULE PO SCH ×2 (15:43→21:07)
[2017-04-30] MEDS: DILTIAZEM CD 300 MG CAPSULE PO SCH (15:44)
[2017-04-30] MEDS: HEPARIN DRIP 25,000 UNITS/500 ML PREMIX IV SCH (15:51)
[2017-04-30] MEDS ORDERED: WARFARIN 10 MG TABLET PO ONE (17:35)
[2017-04-30] MEDS: ENOXAPARIN 100 MG/ML SYRINGE SUBCUT SCH (18:52)
[2017-04-30] MEDS: SERTRALINE 50 MG TABLET PO SCH (21:07)
[2017-05-01] MEDS: SODIUM CHLORIDE 0.9% 1,000 ML IV SCH ×2 (03:51→14:02)
[2017-05-01 06:15] LABS: Basophils % 0.3 % (0.0-0.8); Eosinophils # 0.1 10*3/uL (0.0-0.87); Eosinophils % 1.7 % (0.00-10.9); Hematocrit 27.9 VOL% (42.0-52.0); Hemoglobin 8.9 GM/DL (14.0-18.0); Immature Granulocytes % 4.1 %; Immature Granulocytes Absolute 0.25 #; Lymphocytes # 1.3 10*3/uL (1.4-4.0); Lymphocytes % 21.2 % (21.2-54.2); Mean Corpuscular HGB Conc 31.9 GM/DL (32-36); Mean Corpuscular Hemoglobin 29 PG (27-34); Mean Corpuscular Volume 91.2 FL (87-102); Monocytes # 0.6 10*3/uL (0.11-0.8); Neutrophils # 3.8 10*3/uL (1.4-7.4); Neutrophils % 62.7 % (38.7-73.9); Platelet Count 230 T/CUMM (130-400); Red Blood Count 3.06 MC/CUMM (3.8-5.5); Red Cell Distribution Width 17.2 % (9.3-17.3)
[2017-05-01 06:24] LABS: INR 1.8; PT Patient Result 18.8 SECS
[2017-05-01 06:25] LABS: INR 1.8
[2017-05-01] MEDS: LEVOTHYROXINE 100 MCG TABLET PO SCH (06:28)
[2017-05-01] MEDS: ENOXAPARIN 100 MG/ML SYRINGE SUBCUT SCH ×3 (06:28→17:36)
[2017-05-01 06:47] LABS: Albumin 1.9 G/DL (3.4-5.0); Bilirubin,Total 0.9 MG/DL (0.2-1.0); Calcium 7.5 MG/DL (8.5-10.1); Osmolality,Calculated 285.7 MOS/KG (273-304); Potassium 4.1 MMOL/L (3.5-5.1); Total Protein 4.8 G/DL (6.4-8.3)
[2017-05-01] MEDS: PIPERACILLIN/TAZOBACTAM 3,375 MG in SODIUM CHLORIDE 0.9% 100 ML IV SCH ×3 (07:23→16:09)
[2017-05-01] MEDS: FUROSEMIDE 40 MG TABLET PO SCH (09:08)
[2017-05-01] MEDS: SPIRONOLACTONE 25 MG TABLET PO SCH (09:08)
[2017-05-01] MEDS: PANTOPRAZOLE 40 MG TABLET PO SCH (09:08)
[2017-05-01] MEDS: GABAPENTIN 300 MG CAPSULE PO SCH ×3 (09:08→20:41)
[2017-05-01] MEDS: AMIODARONE 200 MG TABLET PO SCH (09:13)
[2017-05-01] MEDS: DOCUSATE SODIUM 100 MG CAPSULE PO SCH ×2 (09:14→20:41)
[2017-05-01] MEDS: DILTIAZEM CD 300 MG CAPSULE PO SCH (09:14)
[2017-05-01] MEDS: INSULIN LISPRO 100 UNIT/ML SUBCUT SCH ×2 (09:14→17:18)
[2017-05-01] MEDS: ASPIRIN EC 325 MG TABLET PO SCH (09:15)
[2017-05-01] MEDS ORDERED: FUROSEMIDE 40 MG/4 ML VIAL IV ONE (14:30)
[2017-05-01] MEDS: WARFARIN 5 MG TABLET PO SCH (17:18)
[2017-05-01] MEDS: SERTRALINE 50 MG TABLET PO SCH (20:41)
[2017-05-01] MEDS: traMADol 50 MG TABLET PO PRN (20:42)
[2017-05-02] MEDS: PIPERACILLIN/TAZOBACTAM 3,375 MG in SODIUM CHLORIDE 0.9% 100 ML IV SCH ×4 (00:07→23:40)
[2017-05-02 04:33] LABS: Basophils % 0.7 % (0.0-0.8); Eosinophils # 0.1 10*3/uL (0.0-0.87); Eosinophils % 2.1 % (0.00-10.9); Hematocrit 29.9 VOL% (42.0-52.0); Hemoglobin 9.6 GM/DL (14.0-18.0); Immature Granulocytes % 7.5 %; Immature Granulocytes Absolute 0.43 #; Lymphocytes # 1.6 10*3/uL (1.4-4.0); Mean Corpuscular HGB Conc 32.1 GM/DL (32-36); Mean Corpuscular Hemoglobin 29 PG (27-34); Mean Corpuscular Volume 89.3 FL (87-102); Monocytes # 0.5 10*3/uL (0.11-0.8); Monocytes % 8.7 % (1.7-12.7); Neutrophils # 3.1 10*3/uL (1.4-7.4); Platelet Count 248 T/CUMM (130-400); Red Blood Count 3.35 MC/CUMM (3.8-5.5); White Blood Count 5.8 T/CUMM (4-12)
[2017-05-02 04:44] LABS: INR 2.7
[2017-05-02 04:54] LABS: PT Patient Result 27.4 SECS
[2017-05-02 05:08] LABS: Osmolality,Calculated 288.4 MOS/KG (273-304); Potassium 3.6 MMOL/L (3.5-5.1)
[2017-05-02 05:57] LABS: Eosinophils 3 % (0-10); Lymphocytes 25 % (20-55); Metamyelocytes 1 %; Myelocytes 4 %; Segmented Neutrophils 57 % (50-85); Total Cells Counted 100
[2017-05-02 05:58] LABS: Microcytosis 1+; Platelet Estimate Normal
[2017-05-02] MEDS: ENOXAPARIN 100 MG/ML SYRINGE SUBCUT SCH (08:27)
[2017-05-02] MEDS: LEVOTHYROXINE 100 MCG TABLET PO SCH (09:06)
[2017-05-02] MEDS: SPIRONOLACTONE 25 MG TABLET PO SCH (09:10)
[2017-05-02] MEDS: GABAPENTIN 300 MG CAPSULE PO SCH ×3 (09:10→21:44)
[2017-05-02] MEDS: ASPIRIN EC 325 MG TABLET PO SCH (09:10)
[2017-05-02] MEDS: FUROSEMIDE 40 MG TABLET PO SCH (09:11)
[2017-05-02] MEDS: PANTOPRAZOLE 40 MG TABLET PO SCH (09:11)
[2017-05-02] MEDS: INSULIN LISPRO 100 UNIT/ML SUBCUT SCH ×2 (09:12→18:22)
[2017-05-02] MEDS: DOCUSATE SODIUM 100 MG CAPSULE PO SCH ×2 (09:16→21:44)
[2017-05-02] MEDS: AMIODARONE 200 MG TABLET PO SCH (09:16)
[2017-05-02] MEDS: DILTIAZEM CD 300 MG CAPSULE PO SCH (09:17)
[2017-05-02] MEDS ORDERED: TUBERCULIN SKIN TEST 0.1 ML SYRINGE INTRADERM ONE (17:27)
[2017-05-02] MEDS: WARFARIN 5 MG TABLET PO SCH (18:22)
[2017-05-02] MEDS ORDERED: INSULIN GLARGINE 100 UNIT/ML SUBCUT SCH (21:00)
[2017-05-02] MEDS: SERTRALINE 50 MG TABLET PO SCH (21:45)
[2017-05-02] MEDS: traMADol 50 MG TABLET PO PRN (21:45)
[2017-05-03 05:08] LABS: Basophils % 0.7 % (0.0-0.8); Eosinophils # 0.1 10*3/uL (0.0-0.87); Eosinophils % 1.6 % (0.00-10.9); Hematocrit 31.1 VOL% (42.0-52.0); Hemoglobin 9.9 GM/DL (14.0-18.0); Immature Granulocytes % 7.8 %; Immature Granulocytes Absolute 0.43 #; Lymphocytes # 1.6 10*3/uL (1.4-4.0); Lymphocytes % 28.6 % (21.2-54.2); Mean Corpuscular HGB Conc 31.8 GM/DL (32-36); Mean Corpuscular Hemoglobin 28 PG (27-34); Mean Corpuscular Volume 89.4 FL (87-102); Mean Platelet Volume 9.7 FL (9.6-12.0); Monocytes # 0.5 10*3/uL (0.11-0.8); Monocytes % 8.8 % (1.7-12.7); NRBC # 0.02 10*3/uL; Neutrophils # 2.9 10*3/uL (1.4-7.4); Neutrophils % 52.5 % (38.7-73.9); Platelet Count 258 T/CUMM (130-400); Red Blood Count 3.48 MC/CUMM (3.8-5.5); Red Cell Distribution Width 16.9 % (9.3-17.3); White Blood Count 5.5 T/CUMM (4-12)
[2017-05-03 05:36] LABS: Calcium 8.3 MG/DL (8.5-10.1); Magnesium 1.9 MG/DL (1.8-2.4); Osmolality,Calculated 288.4 MOS/KG (273-304); Potassium 3.8 MMOL/L (3.5-5.1)
[2017-05-03 05:44] LABS: INR 2.3
[2017-05-03 06:12] LABS: PT Patient Result 23.7 SECS
[2017-05-03] MEDS: LEVOTHYROXINE 100 MCG TABLET PO SCH (06:45)
[2017-05-03] MEDS: PIPERACILLIN/TAZOBACTAM 3,375 MG in SODIUM CHLORIDE 0.9% 100 ML IV SCH (06:46)
[2017-05-03 06:55] LABS: Band Neutrophils 4 % (0-10); Hypochromasia 2+; Lymphocytes 23 % (20-55); Metamyelocytes 4 %; Myelocytes 2 %; Platelet Estimate Normal; Segmented Neutrophils 59 % (50-85); Total Cells Counted 100
[2017-05-03] MEDS: INSULIN LISPRO 100 UNIT/ML SUBCUT SCH (09:20)
[2017-05-03] MEDS: SPIRONOLACTONE 25 MG TABLET PO SCH (09:21)
[2017-05-03] MEDS: ASPIRIN EC 325 MG TABLET PO SCH (09:21)
[2017-05-03] MEDS: FUROSEMIDE 40 MG TABLET PO SCH (09:21)
[2017-05-03] MEDS: GABAPENTIN 300 MG CAPSULE PO SCH (09:21)
[2017-05-03] MEDS: AMIODARONE 200 MG TABLET PO SCH (09:21)
[2017-05-03] MEDS: PANTOPRAZOLE 40 MG TABLET PO SCH (09:22)
[2017-05-03] MEDS: DOCUSATE SODIUM 100 MG CAPSULE PO SCH (09:22)
[2017-05-03] MEDS ORDERED: LOSARTAN 50 MG TABLET PO SCH (10:30)
[2017-05-03 12:37] VITALS: BP 172/80
== END 2017-05-03 13:21 | disposition home health service (06) | DRG 445 ==
LOC: N.ED 08:50 → N.EDINP 08:50 → INTOOBSV 15:46 → OBSVTOIN 17:36 → SUATTDRO 17:36 → N.TELES 18:00 → SUATTDRO 05-02 13:22
PROVIDERS: ADMIT Family Medicine; ATTEND Internal Medicine Nephrology

== ENCOUNTER 2017-06-11 12:59 | Observation (INO) ==
[2017-06-11] MEDS ORDERED: ASPIRIN 325 MG TABLET PO STA (15:22)
[2017-06-11] MEDS ORDERED: ACETAMINOPHEN 500 MG TABLET PO STA (15:29)
[2017-06-11] MEDS ORDERED: SODIUM CHLORIDE 0.9% 1,000 ML IV STA (15:29)
[2017-06-11] MEDS ORDERED: ACETAMINOPHEN 500 MG TABLET ONE (16:08)
[2017-06-11] MEDS ORDERED: ASPIRIN 325 MG TABLET ONE (16:08)
[2017-06-11 16:21] LABS: Basophils % 0.5 % (0.0-0.8); Eosinophils % 0.2 % (0.00-10.9); Hematocrit 36.8 VOL% (42.0-52.0); Hemoglobin 11.9 GM/DL (14.0-18.0); Immature Granulocytes % 1.7 %; Immature Granulocytes Absolute 0.14 #; Lymphocytes # 1.5 10*3/uL (1.4-4.0); Lymphocytes % 17.8 % (21.2-54.2); Mean Corpuscular HGB Conc 32.3 GM/DL (32-36); Mean Corpuscular Hemoglobin 28 PG (27-34); Mean Platelet Volume 10.7 FL (9.6-12.0); Monocytes # 0.8 10*3/uL (0.11-0.8); Monocytes % 9.1 % (1.7-12.7); Neutrophils # 5.9 10*3/uL (1.4-7.4); Neutrophils % 70.7 % (38.7-73.9); Platelet Count 259 T/CUMM (130-400); Red Blood Count 4.33 MC/CUMM (3.8-5.5); Red Cell Distribution Width 15.7 % (9.3-17.3); White Blood Count 8.4 T/CUMM (4-12)
[2017-06-11 16:35] LABS: INR 1.4; PT Patient Result 14.9 SECS; Partial Thromboplastin Time 33.5 SECS (0-40)
[2017-06-11 16:36] LABS: Albumin 3.7 G/DL (3.4-5.0); Bilirubin,Total 0.4 MG/DL (0.2-1.0); Calcium 9.1 MG/DL (8.5-10.1); Osmolality,Calculated 275.8 MOS/KG (273-304); Potassium 4.4 MMOL/L (3.5-5.1)
[2017-06-11] MEDS ORDERED: ALBUTEROL 2.5 MG/3 ML NEB RESP TX STA (16:55)
[2017-06-11] MEDS ORDERED: LEVOFLOXACIN INJ 500 MG in PREMIX 1 EACH IV STA (16:55)
[2017-06-11 17:28] LABS: Apearance,Urine CLEAR (Clear); Bilirubin,Urine Negative (Negative); Blood, Urine Negative (Negative); Glucose,Urine (UA) >=500 mg/dL (Negative); Hyaline Casts,Urine 7 /LPF (0-3); Ketones,Urine Negative (Negative); Mucus,Urine Occasional /LPF (Occasional); Nitrite,Urine Negative (Negative); Protein,Urine Negative; Urine Color Straw (Yellow); Urine Specific Gravity 1.007 (1.001-1.035); Urine Urobilinogen < 2.0 EU/DL (0.2-1.0); WBC,Urine <1 /HPF (0-6)
[2017-06-11] MEDS ORDERED: ALBUTEROL 2.5 MG/3 ML NEB RESP TX ONE (17:33)
[2017-06-11] MEDS ORDERED: LEVOFLOXACIN INJ 100 ML IV ONE (18:07)
[2017-06-11] MEDS ORDERED: ZALEPLON 5 MG CAPSULE PO PRN (19:02)
[2017-06-11] MEDS ORDERED: SENNA 8.6 MG TABLET PO PRN (19:02)
[2017-06-11] MEDS ORDERED: ONDANSETRON 4 MG/2 ML VIAL IV PRN (19:03)
[2017-06-11] MEDS ORDERED: GLUCAGON 1 MG VIAL IM PRN (19:03)
[2017-06-11] MEDS ORDERED: DEXTROSE 50% 25 GM/50 ML VIAL IV PRN (19:03)
[2017-06-11] MEDS: GABAPENTIN 300 MG CAPSULE PO SCH (22:32)
[2017-06-11] MEDS: INSULIN NPH/REGULAR 70/30 100 UNIT/ML SUBCUT SCH (22:32)
[2017-06-11] MEDS: TAMSULOSIN 0.4 MG CAPSULE PO SCH (22:32)
[2017-06-11] MEDS: LOSARTAN 50 MG TABLET PO SCH (22:32)
[2017-06-11] MEDS: ACETAMINOPHEN 325 MG TABLET PO PRN (22:42)
[2017-06-11] MEDS: INSULIN REGULAR 100 UNIT/ML SUBCUT SCH (22:44)
[2017-06-11] MEDS: SERTRALINE 50 MG TABLET PO SCH (22:44)
[2017-06-11] MEDS: SODIUM CHLORIDE 0.9% 1,000 ML IV SCH (23:56)
[2017-06-12 04:44] LABS: Basophils % 0.7 % (0.0-0.8); Eosinophils # 0.1 10*3/uL (0.0-0.87); Hematocrit 31.9 VOL% (42.0-52.0); Hemoglobin 10.3 GM/DL (14.0-18.0); Immature Granulocytes % 1.5 %; Immature Granulocytes Absolute 0.09 #; Lymphocytes # 2.1 10*3/uL (1.4-4.0); Lymphocytes % 35.2 % (21.2-54.2); Mean Corpuscular HGB Conc 32.3 GM/DL (32-36); Mean Corpuscular Hemoglobin 28 PG (27-34); Mean Corpuscular Volume 85.3 FL (87-102); Mean Platelet Volume 11.1 FL (9.6-12.0); Monocytes # 0.6 10*3/uL (0.11-0.8); Monocytes % 9.6 % (1.7-12.7); Platelet Count 203 T/CUMM (130-400); Red Blood Count 3.74 MC/CUMM (3.8-5.5); Red Cell Distribution Width 15.9 % (9.3-17.3); White Blood Count 5.9 T/CUMM (4-12)
[2017-06-12 05:12] LABS: Calcium 8.3 MG/DL (8.5-10.1); Osmolality,Calculated 282.7 MOS/KG (273-304); Thyroid Stimulating Hormone 3.23 uIU/ml (0.358-3.74)
[2017-06-12] MEDS: LEVOTHYROXINE 175 MCG TABLET PO SCH (06:05)
[2017-06-12] MEDS: INSULIN REGULAR 100 UNIT/ML SUBCUT SCH ×4 (07:35→21:46)
[2017-06-12] MEDS: ACETAMINOPHEN 325 MG TABLET PO PRN (08:45)
[2017-06-12] MEDS: FUROSEMIDE 40 MG TABLET PO SCH (08:46)
[2017-06-12] MEDS: LOSARTAN 50 MG TABLET PO SCH ×2 (08:46→21:46)
[2017-06-12] MEDS: amLODIPine 5 MG TABLET PO SCH (08:46)
[2017-06-12] MEDS: AMIODARONE 200 MG TABLET PO SCH (08:46)
[2017-06-12] MEDS: GABAPENTIN 300 MG CAPSULE PO SCH ×3 (08:46→21:46)
[2017-06-12] MEDS: ASPIRIN EC 325 MG TABLET PO SCH (08:46)
[2017-06-12] MEDS: PANTOPRAZOLE 40 MG TABLET PO SCH (08:46)
[2017-06-12] MEDS: SPIRONOLACTONE 25 MG TABLET PO SCH (08:46)
[2017-06-12] MEDS: TAMSULOSIN 0.4 MG CAPSULE PO SCH ×2 (08:46→21:46)
[2017-06-12] MEDS: INSULIN NPH/REGULAR 70/30 100 UNIT/ML SUBCUT SCH ×4 (08:47→21:56)
[2017-06-12] MEDS: SODIUM CHLORIDE 0.9% 1,000 ML IV SCH ×2 (09:22→13:48)
[2017-06-12] MEDS: ENOXAPARIN 100 MG/ML SYRINGE SUBCUT SCH ×2 (11:29→23:44)
[2017-06-12] MEDS: CARVEDILOL 3.125 MG TABLET PO SCH ×2 (11:37→21:46)
[2017-06-12] MEDS ORDERED: WARFARIN 2.5 MG TABLET PO ONE (18:00)
[2017-06-12] MEDS ORDERED: WARFARIN 5 MG TABLET PO SCH (19:30)
[2017-06-12] MEDS ORDERED: ATORVASTATIN 20 MG TABLET PO SCH (21:00)
[2017-06-12] MEDS: SERTRALINE 50 MG TABLET PO SCH (21:46)
[2017-06-13] MEDS: ACETAMINOPHEN 325 MG TABLET PO PRN (01:28)
[2017-06-13] MEDS: SODIUM CHLORIDE 0.9% 1,000 ML IV SCH (01:33)
[2017-06-13 04:55] LABS: Basophils % 0.5 % (0.0-0.8); Eosinophils # 0.2 10*3/uL (0.0-0.87); Eosinophils % 3.5 % (0.00-10.9); Hematocrit 29.5 VOL% (42.0-52.0); Hemoglobin 9.5 GM/DL (14.0-18.0); Immature Granulocytes % 1.4 %; Immature Granulocytes Absolute 0.09 #; Lymphocytes # 2.7 10*3/uL (1.4-4.0); Lymphocytes % 42.7 % (21.2-54.2); Mean Corpuscular HGB Conc 32.2 GM/DL (32-36); Mean Corpuscular Hemoglobin 28 PG (27-34); Mean Corpuscular Volume 85.5 FL (87-102); Mean Platelet Volume 10.4 FL (9.6-12.0); Monocytes # 0.5 10*3/uL (0.11-0.8); Monocytes % 7.7 % (1.7-12.7); Neutrophils # 2.8 10*3/uL (1.4-7.4); Neutrophils % 44.2 % (38.7-73.9); Platelet Count 181 T/CUMM (130-400); Red Blood Count 3.45 MC/CUMM (3.8-5.5); Red Cell Distribution Width 15.6 % (9.3-17.3); White Blood Count 6.3 T/CUMM (4-12)
[2017-06-13 04:59] LABS: INR 1.4; PT Patient Result 14.7 SECS
[2017-06-13 05:22] LABS: Calcium 7.9 MG/DL (8.5-10.1); Magnesium 1.6 MG/DL (1.8-2.4); Osmolality,Calculated 280.7 MOS/KG (273-304); Potassium 3.9 MMOL/L (3.5-5.1)
[2017-06-13 05:26] LABS: Risk Ratio 5.67; VLDL CHOLESTEROL 51.6 MG/DL
[2017-06-13] MEDS: LEVOTHYROXINE 175 MCG TABLET PO SCH (05:47)
[2017-06-13] MEDS: INSULIN REGULAR 100 UNIT/ML SUBCUT SCH ×2 (08:24→11:25)
[2017-06-13] MEDS: INSULIN NPH/REGULAR 70/30 100 UNIT/ML SUBCUT SCH (08:29)
[2017-06-13] MEDS: CARVEDILOL 3.125 MG TABLET PO SCH (08:32)
[2017-06-13] MEDS: SPIRONOLACTONE 25 MG TABLET PO SCH (08:32)
[2017-06-13] MEDS: amLODIPine 5 MG TABLET PO SCH (08:32)
[2017-06-13] MEDS: PANTOPRAZOLE 40 MG TABLET PO SCH (08:32)
[2017-06-13] MEDS: GABAPENTIN 300 MG CAPSULE PO SCH ×2 (08:32→16:46)
[2017-06-13] MEDS: TAMSULOSIN 0.4 MG CAPSULE PO SCH (08:32)
[2017-06-13] MEDS: FUROSEMIDE 40 MG TABLET PO SCH (08:32)
[2017-06-13] MEDS: LOSARTAN 50 MG TABLET PO SCH (08:32)
[2017-06-13] MEDS: ASPIRIN EC 325 MG TABLET PO SCH (08:33)
[2017-06-13] MEDS: AMIODARONE 200 MG TABLET PO SCH (08:33)
[2017-06-13] MEDS: ENOXAPARIN 100 MG/ML SYRINGE SUBCUT SCH (12:31)
[2017-06-13 17:07] VITALS: BP 131/70
[2017-06-13] MEDS ORDERED: WARFARIN 2.5 MG TABLET PO ONE (18:00)
[2017-06-14] MEDS ORDERED: WARFARIN 7.5 MG TABLET PO SCH (18:00)
== END 2017-06-13 17:29 | disposition home or self-care (01) ==
LOC: N.EDINP 12:59 → N.ED 12:59 → SUATTDRO 18:39 → N.TELES 19:18
PROVIDERS: ADMIT Hospitalist; ATTEND Internal Medicine Cardiovascular Disease

== ENCOUNTER 2018-05-05 20:06 | Observation (INO) ==
[2018-05-05 22:42] LABS: Basophils # 0.1 10*3/uL (0.0-0.2); Basophils % 0.6 % (0.0-0.8); Eosinophils # 0.2 10*3/uL (0.0-0.87); Eosinophils % 2.1 % (0.00-10.9); Hematocrit 42.9 VOL% (42.0-52.0); Hemoglobin 13.9 GM/DL (14.0-18.0); Immature Granulocytes % 0.7 %; Immature Granulocytes Absolute 0.08 #; Lymphocytes % 18.1 % (21.2-54.2); Mean Corpuscular HGB Conc 32.4 GM/DL (32-36); Mean Corpuscular Hemoglobin 28 PG (27-34); Mean Corpuscular Volume 86.1 FL (87-102); Mean Platelet Volume 10.8 FL (9.6-12.0); Monocytes # 0.9 10*3/uL (0.11-0.8); Monocytes % 8.2 % (1.7-12.7); Neutrophils # 7.7 10*3/uL (1.4-7.4); Neutrophils % 70.3 % (38.7-73.9); Platelet Count 253 T/CUMM (130-400); Red Blood Count 4.98 MC/CUMM (3.8-5.5)
[2018-05-05 22:53] LABS: INR 1.7; PT Patient Result 17.4 SECS; Partial Thromboplastin Time 33.9 SECS (0-40)
[2018-05-05 23:01] LABS: Alanine Aminotransferase 34 U/L (16-61); Albumin 4.1 G/DL (3.4-5.0); Alkaline Phosphatase 109 U/L (45-117); Aspartate Amino Transferase 27 U/L (0-37); Blood Urea Nitrogen 27 MG/DL (7-18); Calcium 9.5 MG/DL (8.5-10.1); Glucose 173 MG/DL (74-106); Osmolality,Calculated 281.8 MOS/KG (273-304); Potassium 4.4 MMOL/L (3.5-5.1); Sodium 137 MMOL/L (136-145); Total Protein 8.3 G/DL (6.4-8.3)
[2018-05-06] MEDS ORDERED: DEXTROSE 50% 25 GM/50 ML VIAL IV PRN ×2 (03:12→03:39)
[2018-05-06] MEDS ORDERED: GLUCAGON 1 MG VIAL IM PRN ×2 (03:12→03:39)
[2018-05-06] MEDS ORDERED: ONDANSETRON 4 MG/2 ML VIAL IV PRN ×2 (03:12→03:39)
[2018-05-06] MEDS ORDERED: ACETAMINOPHEN 325 MG TABLET PO PRN ×2 (03:12→03:39)
[2018-05-06] MEDS ORDERED: SODIUM CHLORIDE 0.9% 1,000 ML IV SCH ×2 (03:30)
[2018-05-06 06:51] LABS: Albumin 3.4 G/DL (3.4-5.0); Bilirubin,Total 0.4 MG/DL (0.2-1.0); Calcium 8.6 MG/DL (8.5-10.1); Osmolality,Calculated 282.8 MOS/KG (273-304); Total Protein 7.1 G/DL (6.4-8.3)
[2018-05-06] MEDS: PANTOPRAZOLE 40 MG TABLET PO SCH (08:20)
[2018-05-06] MEDS: DOCUSATE SODIUM 100 MG CAPSULE PO SCH ×2 (08:20→20:47)
[2018-05-06] MEDS ORDERED: PANTOPRAZOLE 40 MG TABLET PO SCH (09:00)
[2018-05-06] MEDS ORDERED: DOCUSATE SODIUM 100 MG CAPSULE PO SCH (09:00)
[2018-05-06] MEDS: SODIUM CHLORIDE 0.9% 1,000 ML IV SCH ×3 (09:11→20:53)
[2018-05-06] MEDS: GABAPENTIN 300 MG CAPSULE PO SCH ×2 (15:16→20:47)
[2018-05-06] MEDS: INSULIN LISPRO 100 UNIT/ML SUBCUT SCH ×2 (17:34→20:52)
[2018-05-06] MEDS ORDERED: WARFARIN 7.5 MG TABLET PO SCH ×2 (18:00)
[2018-05-06] MEDS: LOSARTAN 50 MG TABLET PO SCH (20:47)
[2018-05-06] MEDS ORDERED: ATORVASTATIN 10 MG TABLET PO SCH (21:00)
[2018-05-06] MEDS ORDERED: INSULIN GLARGINE 100 UNIT/ML SUBCUT SCH (21:00)
[2018-05-06] MEDS ORDERED: TEMAZEPAM 15 MG CAPSULE PO PRN (21:41)
[2018-05-07 06:20] LABS: INR 1.5; PT Patient Result 15.7 SECS
[2018-05-07] MEDS ORDERED: LEVOTHYROXINE 200 MCG TABLET PO SCH (06:30)
[2018-05-07] MEDS: INSULIN LISPRO 100 UNIT/ML SUBCUT SCH ×2 (07:53→11:44)
[2018-05-07] MEDS: DOCUSATE SODIUM 100 MG CAPSULE PO SCH (08:34)
[2018-05-07] MEDS: GABAPENTIN 300 MG CAPSULE PO SCH (08:34)
[2018-05-07] MEDS: PANTOPRAZOLE 40 MG TABLET PO SCH (08:35)
[2018-05-07] MEDS: LOSARTAN 50 MG TABLET PO SCH (08:35)
[2018-05-07] MEDS ORDERED: amLODIPine 5 MG TABLET PO SCH (09:00)
[2018-05-07] MEDS ORDERED: SPIRONOLACTONE 25 MG TABLET PO SCH (09:00)
[2018-05-07] MEDS ORDERED: FUROSEMIDE 40 MG TABLET PO SCH (09:00)
[2018-05-07] MEDS ORDERED: ASPIRIN EC 325 MG TABLET PO SCH (09:00)
[2018-05-07] MEDS ORDERED: AMIODARONE 200 MG TABLET PO SCH ×2 (09:00)
[2018-05-07 11:34] VITALS: BP 163/90
[2018-05-07] MEDS ORDERED: WARFARIN 5 MG TABLET PO SCH ×2 (18:00)
== END 2018-05-07 11:46 | disposition home or self-care (01) ==
LOC: EDBD → EDUNIT# → N.EDINP 20:06 → N.ED 20:06 → N.EDINP 05-06 01:31 → N.2E 05-06 04:05
PROVIDERS: ADMIT Family Medicine; ATTEND Family Medicine

== ENCOUNTER 2019-03-18 12:20 | Observation (INO) ==
[2019-03-18] MEDS ORDERED: ACETAMINOPHEN 325 MG TABLET PO PRN (12:41)
[2019-03-18] MEDS ORDERED: DEXTROSE 50% 25 GM/50 ML VIAL IV PRN (12:41)
[2019-03-18] MEDS ORDERED: ONDANSETRON 4 MG/2 ML VIAL IV PRN (12:41)
[2019-03-18] MEDS ORDERED: GLUCAGON 1 MG VIAL IM PRN (12:41)
[2019-03-18 13:04] LABS: Basophils # 0.1 10*3/uL (0.0-0.2); Basophils % 0.7 % (0.0-0.8); Eosinophils # 0.2 10*3/uL (0.0-0.87); Eosinophils % 2.8 % (0.00-10.9); Hematocrit 44.7 VOL% (42.0-52.0); Hemoglobin 14.7 GM/DL (14.0-18.0); Immature Granulocytes % 0.5 %; Immature Granulocytes Absolute 0.04 #; Lymphocytes # 2.2 10*3/uL (1.4-4.0); Lymphocytes % 29.3 % (21.2-54.2); Mean Corpuscular HGB Conc 32.9 GM/DL (32-36); Mean Platelet Volume 11.1 FL (9.6-12.0); Monocytes % 8.5 % (1.7-12.7); Neutrophils % 58.2 % (38.7-73.9); Platelet Count 239 T/CUMM (130-400); Red Cell Distribution Width 15.5 % (9.3-17.3); White Blood Count 7.6 T/CUMM (4-12)
[2019-03-18 13:25] LABS: Troponin I < 0.015 NG/ML (0.00-0.045)
[2019-03-18] MEDS ORDERED: NITROGLYCERIN SL 0.4 MG TABLET SL PRN (13:40)
[2019-03-18 13:56] LABS: Albumin 3.9 G/DL (3.4-5.0); Bilirubin,Total 0.6 MG/DL (0.2-1.0); Calcium 8.8 MG/DL (8.5-10.1); Osmolality,Calculated 284.4 MOS/KG (273-304); Total Protein 7.7 G/DL (6.4-8.3)
[2019-03-18 13:59] LABS: INR 3.3
[2019-03-18 14:09] LABS: PT Patient Result 35.5 SECS (9.6-12.2)
[2019-03-18 14:16] LABS: Thyroid Stimulating Hormone 6.59 uIU/ml (0.358-3.74)
[2019-03-18] MEDS: INSULIN LISPRO 100 UNIT/ML SUBCUT SCH ×2 (17:56→21:43)
[2019-03-18] MEDS: GABAPENTIN 300 MG CAPSULE PO SCH ×2 (18:03→21:43)
[2019-03-18] MEDS: INSULIN NPH/REGULAR 70/30 100 UNIT/ML SUBCUT SCH (18:03)
[2019-03-18] MEDS ORDERED: INFLUENZA VIRUS VACCINE 0.5 ML SYRINGE IM ONE (18:09)
[2019-03-18] MEDS ORDERED: ENOXAPARIN 40 MG/0.4 ML SYRINGE SUBCUT SCH (21:00)
[2019-03-18] MEDS ORDERED: ATORVASTATIN 20 MG TABLET PO SCH (21:00)
[2019-03-18] MEDS ORDERED: INSULIN GLARGINE 100 UNIT/ML SUBCUT SCH (21:00)
[2019-03-18] MEDS: DOCUSATE SODIUM 100 MG CAPSULE PO SCH (21:43)
[2019-03-18] MEDS: LOSARTAN 50 MG TABLET PO SCH (21:43)
[2019-03-19] MEDS ORDERED: amLODIPine 5 MG TABLET PO ONE (00:55)
[2019-03-19] MEDS ORDERED: hydrALAZINE 20 MG/1 ML VIAL IV ONE (00:55)
[2019-03-19] MEDS ORDERED: hydrALAZINE 20 MG/1 ML VIAL IV PRN (03:11)
[2019-03-19] MEDS ORDERED: LEVOTHYROXINE 200 MCG TABLET PO SCH (06:30)
[2019-03-19 06:39] LABS: Risk Ratio 4.91; VLDL CHOLESTEROL 93.2 MG/DL
[2019-03-19] MEDS ORDERED: INSULIN NPH/REGULAR 70/30 100 UNIT/ML SUBCUT SCH (07:30)
[2019-03-19] MEDS: INSULIN LISPRO 100 UNIT/ML SUBCUT SCH ×4 (08:56→17:19)
[2019-03-19] MEDS: DOCUSATE SODIUM 100 MG CAPSULE PO SCH (08:56)
[2019-03-19] MEDS: GABAPENTIN 300 MG CAPSULE PO SCH ×2 (08:56→14:33)
[2019-03-19] MEDS: LOSARTAN 50 MG TABLET PO SCH (08:56)
[2019-03-19] MEDS ORDERED: PANTOPRAZOLE 40 MG TABLET PO SCH ×2 (09:00)
[2019-03-19] MEDS ORDERED: ATORVASTATIN 40 MG TABLET PO SCH (11:19)
[2019-03-19] MEDS ORDERED: amLODIPine 10 MG TABLET PO SCH (11:30)
[2019-03-19 16:06] VITALS: BP 175/81
[2019-03-19] MEDS: INSULIN NPH/REGULAR 70/30 100 UNIT/ML SUBCUT SCH (16:43)
[2019-03-19] MEDS ORDERED: OMEGA 3 ACID ETHYL ESTERS 1 GM CAPSULE PO SCH (21:00)
== END 2019-03-19 17:19 | disposition home or self-care (01) ==
LOC: N.TELES
PROVIDERS: ADMIT Family Medicine; ATTEND Family Medicine

== ENCOUNTER 2019-05-26 10:00 | Observation (INO) ==
[2019-05-26] MEDS ORDERED: ONDANSETRON 4 MG/2 ML VIAL IV PRN (11:18)
[2019-05-26] MEDS ORDERED: ACETAMINOPHEN 325 MG TABLET PO PRN (11:18)
[2019-05-26] MEDS ORDERED: DEXTROSE 50% 25 GM/50 ML VIAL IV PRN (11:20)
[2019-05-26] MEDS ORDERED: GLUCAGON 1 MG VIAL IM PRN (11:20)
[2019-05-26 12:58] LABS: Basophils # 0.1 10*3/uL (0.0-0.2); Basophils % 0.8 % (0.0-0.8); Eosinophils # 0.2 10*3/uL (0.0-0.87); Eosinophils % 2.5 % (0.00-10.9); Hematocrit 41.3 VOL% (42.0-52.0); Hemoglobin 13.8 GM/DL (14.0-18.0); Immature Granulocytes % 0.5 %; Immature Granulocytes Absolute 0.04 #; Lymphocytes # 1.8 10*3/uL (1.4-4.0); Lymphocytes % 23.6 % (21.2-54.2); Mean Corpuscular HGB Conc 33.4 GM/DL (32-36); Mean Corpuscular Volume 85.5 FL (87-102); Mean Platelet Volume 12.2 FL (9.6-12.0); Monocytes % 8.9 % (1.7-12.7); Neutrophils % 63.7 % (38.7-73.9); Platelet Count 209 T/CUMM (130-400); Red Blood Count 4.83 MC/CUMM (3.8-5.5); Red Cell Distribution Width 15.3 % (9.3-17.3); White Blood Count 7.6 T/CUMM (4-12)
[2019-05-26 13:04] LABS: INR 1.3; PT Patient Result 14.4 SECS (9.6-12.2)
[2019-05-26] MEDS: INSULIN LISPRO 100 UNIT/ML SUBCUT SCH ×3 (13:08→21:22)
[2019-05-26 13:15] LABS: Albumin 3.5 G/DL (3.4-5.0); Bilirubin,Total 0.5 MG/DL (0.2-1.0); Calcium 9.1 MG/DL (8.5-10.1); Osmolality,Calculated 296.8 MOS/KG (273-304); Total Protein 7.7 G/DL (6.4-8.3)
[2019-05-26 13:16] LABS: Troponin I < 0.015 NG/ML (0.00-0.045)
[2019-05-26] MEDS ORDERED: NITROGLYCERIN SL 0.4 MG TABLET SL PRN (14:33)
[2019-05-26] MEDS ORDERED: INFLUENZA VIRUS VACCINE 0.5 ML SYRINGE IM ONE (14:48)
[2019-05-26] MEDS ORDERED: WARFARIN 3 MG TABLET PO ONE (15:30)
[2019-05-26] MEDS: hydrALAZINE 25 MG TABLET PO SCH ×2 (15:47→21:21)
[2019-05-26] MEDS: GABAPENTIN 300 MG CAPSULE PO SCH ×2 (15:47→21:20)
[2019-05-26] MEDS: ASPIRIN EC 81 MG TABLET PO SCH (15:47)
[2019-05-26] MEDS: HEPARIN DRIP 25,000 UNITS/500 ML PREMIX IV SCH (16:19)
[2019-05-26 16:26] LABS: Apearance,Urine CLEAR (Clear); Bilirubin,Urine Negative (Negative); Blood, Urine Negative (Negative); Glucose,Urine (UA) >=500 mg/dL (Negative); Hyaline Casts,Urine 1 /LPF (0-3); Ketones,Urine Negative (Negative); Mucus,Urine Occasional /LPF (Occasional); Nitrite,Urine Negative (Negative); Protein,Urine Negative; RBC,Urine 1 /HPF (0-4); Urine Color Straw (Yellow); Urine Specific Gravity 1.014 (1.001-1.035); Urine Urobilinogen < 2.0 EU/DL (0.2-1.0); WBC,Urine 1 /HPF (0-6)
[2019-05-26] MEDS: INSULIN NPH/REGULAR 70/30 100 UNIT/ML SUBCUT SCH (17:43)
[2019-05-26] MEDS: WARFARIN 7.5 MG TABLET PO SCH (17:44)
[2019-05-26] MEDS ORDERED: INSULIN GLARGINE 100 UNIT/ML SUBCUT SCH (21:00)
[2019-05-26] MEDS ORDERED: ENOXAPARIN 40 MG/0.4 ML SYRINGE SUBCUT SCH (21:00)
[2019-05-26] MEDS: OMEGA 3 ACID ETHYL ESTERS 1 GM CAPSULE PO SCH (21:20)
[2019-05-26] MEDS: ATORVASTATIN 20 MG TABLET PO SCH (21:20)
[2019-05-26] MEDS: LOSARTAN 50 MG TABLET PO SCH (21:20)
[2019-05-26] MEDS: DOCUSATE SODIUM 100 MG CAPSULE PO SCH (21:21)
[2019-05-27 05:16] LABS: Basophils # 0.1 10*3/uL (0.0-0.2); Basophils % 0.9 % (0.0-0.8); Eosinophils # 0.3 10*3/uL (0.0-0.87); Eosinophils % 3.2 % (0.00-10.9); Hematocrit 40.6 VOL% (42.0-52.0); Hemoglobin 13.4 GM/DL (14.0-18.0); Immature Granulocytes % 0.9 %; Immature Granulocytes Absolute 0.08 #; Lymphocytes # 2.7 10*3/uL (1.4-4.0); Lymphocytes % 29.6 % (21.2-54.2); Mean Corpuscular Volume 86.9 FL (87-102); Monocytes % 8.6 % (1.7-12.7); Neutrophils % 56.8 % (38.7-73.9); Platelet Count 196 T/CUMM (130-400); Red Blood Count 4.67 MC/CUMM (3.8-5.5); Red Cell Distribution Width 15.5 % (9.3-17.3)
[2019-05-27 05:25] LABS: INR 1.5; PT Patient Result 16.3 SECS (9.6-12.2)
[2019-05-27 05:41] LABS: Calcium 8.2 MG/DL (8.5-10.1); Osmolality,Calculated 286.5 MOS/KG (273-304); Total Protein 6.4 G/DL (6.4-8.3)
[2019-05-27] MEDS: LEVOTHYROXINE 200 MCG TABLET PO SCH (06:31)
[2019-05-27] MEDS: INSULIN LISPRO 100 UNIT/ML SUBCUT SCH ×4 (08:32→20:45)
[2019-05-27] MEDS: INSULIN NPH/REGULAR 70/30 100 UNIT/ML SUBCUT SCH ×2 (08:32→17:30)
[2019-05-27] MEDS: LOSARTAN 50 MG TABLET PO SCH ×2 (08:33→20:45)
[2019-05-27] MEDS: ASPIRIN EC 81 MG TABLET PO SCH (08:33)
[2019-05-27] MEDS: amLODIPine 10 MG TABLET PO SCH (08:33)
[2019-05-27] MEDS: OMEGA 3 ACID ETHYL ESTERS 1 GM CAPSULE PO SCH ×2 (08:33→20:45)
[2019-05-27] MEDS: DOCUSATE SODIUM 100 MG CAPSULE PO SCH ×2 (08:33→20:44)
[2019-05-27] MEDS: hydrALAZINE 25 MG TABLET PO SCH ×3 (08:33→20:45)
[2019-05-27] MEDS: PANTOPRAZOLE 40 MG TABLET PO SCH (08:33)
[2019-05-27] MEDS: GABAPENTIN 300 MG CAPSULE PO SCH ×3 (08:33→20:45)
[2019-05-27] MEDS: POLYETHYLENE GLYCOL POWDER 17 GM PACK PO SCH (08:37)
[2019-05-27] MEDS ORDERED: PANTOPRAZOLE 40 MG TABLET PO SCH (09:00)
[2019-05-27 10:14] LABS: Troponin I < 0.015 NG/ML (0.00-0.045)
[2019-05-27] MEDS ORDERED: WARFARIN 5 MG TABLET PO ONE (10:41)
[2019-05-27] MEDS: HEPARIN DRIP 25,000 UNITS/500 ML PREMIX IV SCH (10:41)
[2019-05-27 12:52] LABS: Troponin I < 0.015 NG/ML (0.00-0.045)
[2019-05-27 17:17] LABS: Troponin I < 0.015 NG/ML (0.00-0.045)
[2019-05-27] MEDS: WARFARIN 7.5 MG TABLET PO SCH (17:30)
[2019-05-27] MEDS: ACETAMINOPHEN 325 MG TABLET PO SCH ×2 (17:30→20:44)
[2019-05-27] MEDS: INSULIN GLARGINE 100 UNIT/ML SUBCUT SCH (20:45)
[2019-05-27] MEDS: ATORVASTATIN 20 MG TABLET PO SCH (20:45)
[2019-05-28 05:25] LABS: Basophils # 0.1 10*3/uL (0.0-0.2); Basophils % 0.8 % (0.0-0.8); Eosinophils # 0.3 10*3/uL (0.0-0.87); Eosinophils % 3.5 % (0.00-10.9); Hematocrit 39.5 VOL% (42.0-52.0); Immature Granulocytes % 0.7 %; Immature Granulocytes Absolute 0.06 #; Lymphocytes # 2.5 10*3/uL (1.4-4.0); Lymphocytes % 30.4 % (21.2-54.2); Mean Corpuscular HGB Conc 32.9 GM/DL (32-36); Mean Corpuscular Volume 86.4 FL (87-102); Mean Platelet Volume 11.3 FL (9.6-12.0); Monocytes % 10.2 % (1.7-12.7); Neutrophils % 54.4 % (38.7-73.9); Platelet Count 205 T/CUMM (130-400); Red Blood Count 4.57 MC/CUMM (3.8-5.5); Red Cell Distribution Width 15.4 % (9.3-17.3); White Blood Count 8.3 T/CUMM (4-12)
[2019-05-28 05:29] LABS: INR 1.7; PT Patient Result 18.7 SECS (9.6-12.2)
[2019-05-28] MEDS: LEVOTHYROXINE 200 MCG TABLET PO SCH (05:59)
[2019-05-28 06:04] LABS: Bilirubin,Total 1.4 MG/DL (0.2-1.0); Calcium 8.2 MG/DL (8.5-10.1); Osmolality,Calculated 287.3 MOS/KG (273-304); Total Protein 6.7 G/DL (6.4-8.3)
[2019-05-28] MEDS: HEPARIN DRIP 25,000 UNITS/500 ML PREMIX IV SCH (06:21)
[2019-05-28] MEDS: INSULIN LISPRO 100 UNIT/ML SUBCUT SCH ×4 (09:25→22:01)
[2019-05-28] MEDS: amLODIPine 10 MG TABLET PO SCH (09:26)
[2019-05-28] MEDS: hydrALAZINE 25 MG TABLET PO SCH ×3 (09:26→21:19)
[2019-05-28] MEDS: INSULIN NPH/REGULAR 70/30 100 UNIT/ML SUBCUT SCH ×2 (09:26→16:04)
[2019-05-28] MEDS: PANTOPRAZOLE 40 MG TABLET PO SCH (09:26)
[2019-05-28] MEDS: ASPIRIN EC 81 MG TABLET PO SCH (09:26)
[2019-05-28] MEDS: LOSARTAN 50 MG TABLET PO SCH ×2 (09:26→21:18)
[2019-05-28] MEDS: GABAPENTIN 300 MG CAPSULE PO SCH ×3 (09:27→21:18)
[2019-05-28] MEDS: ACETAMINOPHEN 325 MG TABLET PO SCH ×2 (09:27→21:18)
[2019-05-28] MEDS: POLYETHYLENE GLYCOL POWDER 17 GM PACK PO SCH (09:27)
[2019-05-28] MEDS: OMEGA 3 ACID ETHYL ESTERS 1 GM CAPSULE PO SCH ×2 (09:27→21:18)
[2019-05-28] MEDS: DOCUSATE SODIUM 100 MG CAPSULE PO SCH ×2 (09:27→21:18)
[2019-05-28] MEDS ORDERED: WARFARIN 5 MG TABLET PO ONE (11:44)
[2019-05-28] MEDS ORDERED: ERGOCALCIFEROL 50,000 UNIT CAPSULE PO SCH (13:00)
[2019-05-28] MEDS: WARFARIN 7.5 MG TABLET PO SCH (17:23)
[2019-05-28] MEDS: ATORVASTATIN 20 MG TABLET PO SCH (21:18)
[2019-05-28] MEDS: INSULIN GLARGINE 100 UNIT/ML SUBCUT SCH (21:51)
[2019-05-29] MEDS: HEPARIN DRIP 25,000 UNITS/500 ML PREMIX IV SCH (01:20)
[2019-05-29 05:33] LABS: Basophils # 0.1 10*3/uL (0.0-0.2); Basophils % 1.1 % (0.0-0.8); Eosinophils # 0.3 10*3/uL (0.0-0.87); Eosinophils % 3.6 % (0.00-10.9); Hemoglobin 12.8 GM/DL (14.0-18.0); Immature Granulocytes % 0.9 %; Immature Granulocytes Absolute 0.07 #; Lymphocytes # 2.1 10*3/uL (1.4-4.0); Lymphocytes % 27.1 % (21.2-54.2); Mean Corpuscular HGB Conc 32.8 GM/DL (32-36); Mean Corpuscular Volume 86.5 FL (87-102); Mean Platelet Volume 11.3 FL (9.6-12.0); Monocytes % 10.8 % (1.7-12.7); Neutrophils % 56.5 % (38.7-73.9); Platelet Count 210 T/CUMM (130-400); Red Blood Count 4.51 MC/CUMM (3.8-5.5); Red Cell Distribution Width 15.5 % (9.3-17.3); White Blood Count 7.6 T/CUMM (4-12)
[2019-05-29 05:42] LABS: INR 1.9; PT Patient Result 20.5 SECS (9.6-12.2)
[2019-05-29 05:56] LABS: Albumin 3.1 G/DL (3.4-5.0); Bilirubin,Total 0.7 MG/DL (0.2-1.0); Osmolality,Calculated 280.7 MOS/KG (273-304); Total Protein 6.6 G/DL (6.4-8.3)
[2019-05-29] MEDS: LEVOTHYROXINE 200 MCG TABLET PO SCH (06:49)
[2019-05-29 08:34] VITALS: BP 141/72
[2019-05-29] MEDS: INSULIN NPH/REGULAR 70/30 100 UNIT/ML SUBCUT SCH (09:11)
[2019-05-29] MEDS: POLYETHYLENE GLYCOL POWDER 17 GM PACK PO SCH (09:11)
[2019-05-29] MEDS: INSULIN LISPRO 100 UNIT/ML SUBCUT SCH (09:11)
[2019-05-29] MEDS: ASPIRIN EC 81 MG TABLET PO SCH (09:12)
[2019-05-29] MEDS: GABAPENTIN 300 MG CAPSULE PO SCH (09:12)
[2019-05-29] MEDS: DOCUSATE SODIUM 100 MG CAPSULE PO SCH (09:12)
[2019-05-29] MEDS: ACETAMINOPHEN 325 MG TABLET PO SCH (09:12)
[2019-05-29] MEDS: OMEGA 3 ACID ETHYL ESTERS 1 GM CAPSULE PO SCH (09:12)
[2019-05-29] MEDS: amLODIPine 10 MG TABLET PO SCH (09:12)
[2019-05-29] MEDS: PANTOPRAZOLE 40 MG TABLET PO SCH (09:12)
[2019-05-29] MEDS: hydrALAZINE 25 MG TABLET PO SCH (09:13)
[2019-05-29] MEDS: LOSARTAN 50 MG TABLET PO SCH (09:15)
== END 2019-05-29 11:04 | disposition home or self-care (01) ==
LOC: N.2W → N.TELEN 16:47
PROVIDERS: ADMIT Family Medicine; ATTEND Family Medicine

== ENCOUNTER 2019-12-28 05:42 | Observation (INO) ==
[2019-12-28] MEDS ORDERED: NITROGLYCERIN 2% OINT 1 INCH/GM PACK TOP STA (06:28)
[2019-12-28] MEDS ORDERED: ENOXAPARIN 100 MG/ML SYRINGE SUBCUT STA (06:28)
[2019-12-28] MEDS ORDERED: ASPIRIN 325 MG TABLET PO STA (06:28)
[2019-12-28 07:07] LABS: Basophils # 0.1 10*3/uL (0.0-0.2); Basophils % 0.8 % (0.0-0.8); Eosinophils # 0.2 10*3/uL (0.0-0.87); Eosinophils % 2.3 % (0.00-10.9); Hematocrit 45.2 VOL% (42.0-52.0); Hemoglobin 15.3 GM/DL (14.0-18.0); Immature Granulocytes % 0.6 %; Immature Granulocytes Absolute 0.05 #; Lymphocytes # 2.5 10*3/uL (1.4-4.0); Lymphocytes % 30.5 % (21.2-54.2); Mean Corpuscular HGB Conc 33.8 GM/DL (32-36); Mean Corpuscular Volume 89.5 FL (87-102); Mean Platelet Volume 11.2 FL (9.6-12.0); Monocytes % 8.1 % (1.7-12.7); Neutrophils % 57.7 % (38.7-73.9); Platelet Count 229 T/CUMM (130-400); Red Blood Count 5.05 MC/CUMM (3.8-5.5); Red Cell Distribution Width 14.6 % (9.3-17.3); White Blood Count 8.3 T/CUMM (4-12)
[2019-12-28 07:17] LABS: INR 2.1; PT Patient Result 21.6 SECS (9.8-11.9); Partial Thromboplastin Time 42.9 SECS (23.9-33.8)
[2019-12-28 07:27] LABS: Albumin 3.7 G/DL (3.4-5.0); Bilirubin,Total 1.4 MG/DL (0.2-1.0); Calcium 8.2 MG/DL (8.5-10.1); Osmolality,Calculated 284.1 MOS/KG (273-304); Total Protein 7.3 G/DL (6.4-8.3)
[2019-12-28] MEDS ORDERED: NITROGLYCERIN SL 0.4 MG TABLET SL PRN (10:26)
[2019-12-28] MEDS ORDERED: LOSARTAN 50 MG TABLET PO SCH (10:26)
[2019-12-28] MEDS ORDERED: GLUCAGON 1 MG VIAL IM PRN (10:26)
[2019-12-28] MEDS ORDERED: SODIUM CHLORIDE 0.9% 1,000 ML IV SCH (10:26)
[2019-12-28] MEDS ORDERED: DEXTROSE 50% 25 GM/50 ML VIAL IV PRN (10:26)
[2019-12-28] MEDS ORDERED: ACETAMINOPHEN 325 MG TABLET PO PRN (10:26)
[2019-12-28] MEDS ORDERED: ONDANSETRON 4 MG/2 ML VIAL IV PRN (10:26)
[2019-12-28] MEDS ORDERED: hydrALAZINE 20 MG/1 ML VIAL IV PRN (10:31)
[2019-12-28] MEDS: hydrALAZINE 25 MG TABLET PO SCH ×3 (12:05→21:53)
[2019-12-28] MEDS: ATORVASTATIN 20 MG TABLET PO SCH (12:05)
[2019-12-28] MEDS: PANTOPRAZOLE 40 MG TABLET PO SCH (12:05)
[2019-12-28] MEDS: DOCUSATE SODIUM 100 MG CAPSULE PO SCH ×2 (12:05→23:22)
[2019-12-28] MEDS: INSULIN LISPRO 100 UNIT/ML SUBCUT SCH ×3 (12:06→21:52)
[2019-12-28] MEDS: FUROSEMIDE 40 MG TABLET PO SCH (12:06)
[2019-12-28] MEDS: GABAPENTIN 300 MG CAPSULE PO SCH ×3 (12:06→21:53)
[2019-12-28] MEDS: ENOXAPARIN 40 MG/0.4 ML SYRINGE SUBCUT SCH (12:11)
[2019-12-28 12:32] LABS: Apearance,Urine CLEAR (Clear); Bacteria,Urine Occasional /HPF (Few); Bilirubin,Urine Negative (Negative); Blood, Urine Negative (Negative); Glucose,Urine (UA) 50 mg/dL (Negative); Hyaline Casts,Urine 17 /LPF (0-3); Ketones,Urine Negative (Negative); Mucus,Urine Occasional /LPF (Occasional); Nitrite,Urine Negative (Negative); Protein,Urine 30 MG/DL; Squamous Epithelial Cell,Urine Occasional /HPF (0-10); Urine Color Yellow (Yellow); Urine Specific Gravity 1.026 (1.001-1.035); Urine Urobilinogen < 2.0 EU/DL (0.2-1.0)
[2019-12-28 15:02] LABS: Barbiturates Screen,Urine Negative (Negative); Benzodiazepines Screen,Urine Negative (Negative); Cannabinoid Screen,Urine Negative (Negative); Opiate Screen,Urine Negative (Negative); Phencyclidine Screen,Urine Negative (Negative)
[2019-12-28] MEDS ORDERED: WARFARIN 10 MG TABLET PO SCH (18:00)
[2019-12-28] MEDS ORDERED: WARFARIN 2 MG TABLET PO SCH (18:00)
[2019-12-28] MEDS ORDERED: INSULIN GLARGINE 100 UNIT/ML SUBCUT SCH (21:00)
[2019-12-28] MEDS: ACETAMINOPHEN 325 MG TABLET PO PRN (21:53)
[2019-12-29 05:09] LABS: Basophils # 0.1 10*3/uL (0.0-0.2); Basophils % 1.1 % (0.0-0.8); Eosinophils # 0.2 10*3/uL (0.0-0.87); Eosinophils % 2.5 % (0.00-10.9); Hemoglobin 15.2 GM/DL (14.0-18.0); Immature Granulocytes % 0.7 %; Immature Granulocytes Absolute 0.05 #; Lymphocytes # 2.5 10*3/uL (1.4-4.0); Mean Corpuscular HGB Conc 35.3 GM/DL (32-36); Mean Corpuscular Volume 89.8 FL (87-102); Mean Platelet Volume 11.2 FL (9.6-12.0); Monocytes % 7.9 % (1.7-12.7); Neutrophils % 52.8 % (38.7-73.9); Platelet Count 210 T/CUMM (130-400); Red Blood Count 4.79 MC/CUMM (3.8-5.5); Red Cell Distribution Width 14.8 % (9.3-17.3); White Blood Count 7.1 T/CUMM (4-12)
[2019-12-29 05:18] LABS: INR 1.9; PT Patient Result 19.6 SECS (9.8-11.9)
[2019-12-29 06:52] LABS: Alanine Aminotransferase 35 U/L (16-61); Albumin 3.3 G/DL (3.4-5.0); Alkaline Phosphatase 90 U/L (45-117); Aspartate Amino Transferase 37 U/L (0-37); Estimated Glom Filtration Rate 65 ML/MIN; Glucose 272 MG/DL (74-106)
[2019-12-29] MEDS ORDERED: ASPIRIN EC 81 MG TABLET PO SCH (07:00)
[2019-12-29] MEDS ORDERED: LEVOTHYROXINE 200 MCG TABLET PO SCH (07:00)
[2019-12-29] MEDS ORDERED: amLODIPine 10 MG TABLET PO SCH (07:00)
[2019-12-29] MEDS: GABAPENTIN 300 MG CAPSULE PO SCH (08:09)
[2019-12-29] MEDS: PANTOPRAZOLE 40 MG TABLET PO SCH (08:09)
[2019-12-29] MEDS: ATORVASTATIN 20 MG TABLET PO SCH (08:10)
[2019-12-29] MEDS: DOCUSATE SODIUM 100 MG CAPSULE PO SCH (08:10)
[2019-12-29] MEDS: hydrALAZINE 25 MG TABLET PO SCH ×2 (08:10→16:16)
[2019-12-29] MEDS: FUROSEMIDE 40 MG TABLET PO SCH (08:10)
[2019-12-29 08:16] LABS: Risk Ratio 8.97; VLDL CHOLESTEROL 407.4 MG/DL
[2019-12-29] MEDS: INSULIN LISPRO 100 UNIT/ML SUBCUT SCH ×3 (08:37→16:15)
[2019-12-29] MEDS ORDERED: LOSARTAN 50 MG TABLET PO SCH (09:00)
[2019-12-29] MEDS ORDERED: METAXALONE 800 MG TABLET PO PRN (09:23)
[2019-12-29] MEDS ORDERED: ACETAMINOPHEN 325 MG TABLET PO SCH (09:30)
[2019-12-29] MEDS: ACETAMINOPHEN 325 MG TABLET PO PRN (09:32)
[2019-12-29] MEDS ORDERED: OMEGA 3 ACID ETHYL ESTERS 1 GM CAPSULE PO SCH (10:00)
[2019-12-29] MEDS: ENOXAPARIN 40 MG/0.4 ML SYRINGE SUBCUT SCH (10:33)
[2019-12-29] MEDS ORDERED: GABAPENTIN 600 MG TABLET PO SCH (10:35)
[2019-12-29] MEDS ORDERED: ERGOCALCIFEROL 50,000 UNIT CAPSULE PO SCH (11:00)
[2019-12-29] MEDS ORDERED: GABAPENTIN 300 MG CAPSULE PO ONE (11:32)
[2019-12-29 16:28] VITALS: BP 124/82
[2019-12-29] MEDS ORDERED: WARFARIN 2 MG TABLET PO SCH (18:00)
[2019-12-29] MEDS ORDERED: WARFARIN 10 MG TABLET PO SCH ×2 (18:00)
[2019-12-29] MEDS ORDERED: ATORVASTATIN 80 MG TABLET PO SCH (21:00)
[2019-12-30] MEDS ORDERED: LEVOTHYROXINE 200 MCG TABLET PO SCH (06:30)
[2019-12-30] MEDS ORDERED: LEVOTHYROXINE 25 MCG TABLET PO SCH (06:30)
[2019-12-30] MEDS ORDERED: LIDOCAINE 5% PATCH TRANSDERM SCH (09:43)
== END 2019-12-29 18:29 | disposition home or self-care (01) ==
LOC: N.ED 05:42 → N.EDINP 05:42 → N.TELEN 09:18
PROVIDERS: ADMIT Family Medicine; ATTEND Family Medicine

== ENCOUNTER 2020-10-02 15:53 | Inpatient (IN) ==
[2020-10-02 16:41] LABS: Basophils # 0.1 10*3/uL (0.0-0.2); Basophils % 0.5 % (0.0-0.8); Eosinophils # 0.3 10*3/uL (0.0-0.87); Eosinophils % 3.2 % (0.00-10.9); Hematocrit 37.7 VOL% (42.0-52.0); Hemoglobin 12.4 GM/DL (14.0-18.0); Immature Granulocytes % 0.5 %; Immature Granulocytes Absolute 0.05 #; Lymphocytes # 1.6 10*3/uL (1.4-4.0); Lymphocytes % 15.2 % (21.2-54.2); Mean Corpuscular HGB Conc 32.9 GM/DL (32-36); Mean Platelet Volume 10.2 FL (9.6-12.0); Neutrophils % 74.6 % (38.7-73.9); Platelet Count 319 T/CUMM (130-400); White Blood Count 10.5 T/CUMM (4-12)
[2020-10-02 17:01] LABS: PT Patient Result 59.5 SECS (9.8-11.9)
[2020-10-02 17:02] LABS: INR 6.1
[2020-10-02] MEDS ORDERED: LEVOFLOXACIN INJ 500 MG in PREMIX 1 EACH IV STA (17:08)
[2020-10-02 17:13] LABS: Albumin 2.8 G/DL (3.4-5.0); Bilirubin,Total 0.5 MG/DL (0.2-1.0); Calcium 8.9 MG/DL (8.5-10.1); Osmolality,Calculated 288.5 MOS/KG (273-304); Potassium 3.3 MMOL/L (3.5-5.1); Total Protein 8.2 G/DL (6.4-8.2)
[2020-10-02] MEDS ORDERED: DEXTROSE 50% 25 GM/50 ML VIAL IV STA (17:17)
[2020-10-02] MEDS ORDERED: ACETAMINOPHEN 325 MG TABLET PO PRN (17:21)
[2020-10-02] MEDS ORDERED: ONDANSETRON 4 MG/2 ML VIAL IV PRN (17:21)
[2020-10-02] MEDS ORDERED: LEVOFLOXACIN INJ 500 MG in PREMIX 1 EACH IV SCH (17:30)
[2020-10-02] MEDS: SODIUM CHLORIDE 0.9% 1,000 ML IV SCH (18:11)
[2020-10-02] MEDS: ASPIRIN CHEW 81 MG TABLET PO SCH (21:50)
[2020-10-03] MEDS ORDERED: ALBUTEROL/IPRATROPIUM 3 ML NEB RESP TX PRN (00:45)
[2020-10-03] MEDS ORDERED: FUROSEMIDE 40 MG TABLET PO ONE (00:45)
[2020-10-03] MEDS: ALBUTEROL/IPRATROPIUM 3 ML NEB RESP TX SCH ×4 (01:10→21:12)
[2020-10-03] MEDS: NITROGLYCERIN 2% OINT 1 INCH/GM PACK TOP SCH ×3 (01:13→13:00)
[2020-10-03] MEDS: POTASSIUM CHLORIDE 20 MEQ TABLET PO PRN ×2 (01:14→02:25)
[2020-10-03] MEDS: SODIUM CHLORIDE 0.9% 1,000 ML IV SCH ×2 (02:24→09:32)
[2020-10-03 05:36] LABS: Basophils % 0.2 % (0.0-0.8); Eosinophils # 0.2 10*3/uL (0.0-0.87); Eosinophils % 1.7 % (0.00-10.9); Hematocrit 31.9 VOL% (42.0-52.0); Hemoglobin 10.7 GM/DL (14.0-18.0); Immature Granulocytes % 0.3 %; Immature Granulocytes Absolute 0.03 #; Lymphocytes # 0.8 10*3/uL (1.4-4.0); Lymphocytes % 8.2 % (21.2-54.2); Mean Corpuscular HGB Conc 33.5 GM/DL (32-36); Mean Corpuscular Volume 89.9 FL (87-102); Mean Platelet Volume 10.3 FL (9.6-12.0); Monocytes % 7.3 % (1.7-12.7); Neutrophils % 82.3 % (38.7-73.9); Platelet Count 285 T/CUMM (130-400); Red Blood Count 3.55 MC/CUMM (3.8-5.5); Red Cell Distribution Width 14.9 % (9.3-17.3); White Blood Count 9.5 T/CUMM (4-12)
[2020-10-03 06:02] LABS: Albumin 2.2 G/DL (3.4-5.0); Bilirubin,Total 0.8 MG/DL (0.2-1.0); Calcium 8.3 MG/DL (8.5-10.1); Osmolality,Calculated 289.8 MOS/KG (273-304); Potassium 3.7 MMOL/L (3.5-5.1); Total Protein 6.8 G/DL (6.4-8.2)
[2020-10-03 08:35] LABS: PT Patient Result 67.5 SECS (9.8-11.9)
[2020-10-03] MEDS: FUROSEMIDE 40 MG TABLET PO SCH (08:52)
[2020-10-03] MEDS: amLODIPine 10 MG TABLET PO SCH (08:52)
[2020-10-03] MEDS: hydrALAZINE 25 MG TABLET PO SCH ×3 (08:52→21:06)
[2020-10-03] MEDS ORDERED: PANTOPRAZOLE 40 MG VIAL IV SCH (09:00)
[2020-10-03] MEDS ORDERED: INSULIN GLARGINE 100 UNIT/ML SUBCUT PRN (10:28)
[2020-10-03] MEDS ORDERED: DEXTROSE 50% 25 GM/50 ML VIAL IV PRN (10:34)
[2020-10-03] MEDS ORDERED: MAGNESIUM SULF RIDER 2 GM in PREMIX 1 EACH IV PRN (10:34)
[2020-10-03] MEDS ORDERED: GLUCAGON 1 MG VIAL IM PRN (10:34)
[2020-10-03] MEDS ORDERED: MAGNESIUM SULF RIDER 4 GM in PREMIX 1 EACH IV PRN (10:34)
[2020-10-03] MEDS ORDERED: cefTRIAXone 2,000 MG in SODIUM CHLORIDE 0.9% 100 ML IV ONE (14:00)
[2020-10-03] MEDS: GABAPENTIN 300 MG CAPSULE PO SCH ×2 (15:01→21:07)
[2020-10-03] MEDS: INSULIN REGULAR 100 UNIT/ML SUBCUT SCH ×3 (15:09→21:07)
[2020-10-03] MEDS: methylPREDNISolone SOD SUC 40 MG/1 ML VIAL IV SCH (16:53)
[2020-10-03] MEDS: INSULIN NPH/REGULAR 70/30 100 UNIT/ML SUBCUT SCH (17:59)
[2020-10-03] MEDS: ASPIRIN CHEW 81 MG TABLET PO SCH (21:06)
[2020-10-03] MEDS: ATORVASTATIN 20 MG TABLET PO SCH (21:07)
[2020-10-04] MEDS: NITROGLYCERIN 2% OINT 1 INCH/GM PACK TOP SCH ×6 (00:01→23:25)
[2020-10-04] MEDS: ALBUTEROL/IPRATROPIUM 3 ML NEB RESP TX SCH ×4 (01:28→20:19)
[2020-10-04 05:56] LABS: Basophils % 0.1 % (0.0-0.8); Hemoglobin 10.2 GM/DL (14.0-18.0); Immature Granulocytes % 0.6 %; Immature Granulocytes Absolute 0.05 #; Lymphocytes # 0.4 10*3/uL (1.4-4.0); Lymphocytes % 4.7 % (21.2-54.2); Mean Corpuscular HGB Conc 31.9 GM/DL (32-36); Mean Platelet Volume 10.8 FL (9.6-12.0); Monocytes % 4.3 % (1.7-12.7); Neutrophils % 90.3 % (38.7-73.9); Platelet Count 305 T/CUMM (130-400); Red Blood Count 3.44 MC/CUMM (3.8-5.5); Red Cell Distribution Width 14.8 % (9.3-17.3); White Blood Count 8.1 T/CUMM (4-12)
[2020-10-04] MEDS: methylPREDNISolone SOD SUC 40 MG/1 ML VIAL IV SCH ×2 (06:00→16:50)
[2020-10-04 06:14] LABS: Calcium 8.4 MG/DL (8.5-10.1); Osmolality,Calculated 294.4 MOS/KG (273-304); Potassium 4.2 MMOL/L (3.5-5.1)
[2020-10-04 06:17] LABS: Lymphocytes 5 % (20-55); Nucleated Red Blood Cells 1 (0-5); Segmented Neutrophils 90 % (50-85); Total Cells Counted 100
[2020-10-04 06:18] LABS: Hypochromasia 1+; Microcytosis 1+
[2020-10-04 06:26] LABS: PT Patient Result 49.5 SECS (9.8-11.9)
[2020-10-04] MEDS: hydrALAZINE 25 MG TABLET PO SCH ×3 (08:41→20:37)
[2020-10-04] MEDS: LEVOTHYROXINE 200 MCG TABLET PO SCH (08:41)
[2020-10-04] MEDS: GABAPENTIN 300 MG CAPSULE PO SCH ×3 (08:41→20:36)
[2020-10-04] MEDS: PANTOPRAZOLE 40 MG TABLET PO SCH (08:42)
[2020-10-04] MEDS: FUROSEMIDE 40 MG TABLET PO SCH (08:42)
[2020-10-04] MEDS: amLODIPine 10 MG TABLET PO SCH (08:42)
[2020-10-04] MEDS: INSULIN REGULAR 100 UNIT/ML SUBCUT SCH ×4 (08:42→20:39)
[2020-10-04] MEDS: INSULIN NPH/REGULAR 70/30 100 UNIT/ML SUBCUT SCH ×2 (08:44→18:27)
[2020-10-04] MEDS ORDERED: INSULIN NPH/REGULAR 70/30 100 UNIT/ML SUBCUT SCH (09:00)
[2020-10-04] MEDS: guaiFENesin 200 MG/10 ML UDCUP PO PRN ×2 (12:58→18:26)
[2020-10-04] MEDS: BENZONATATE 100 MG CAPSULE PO PRN ×2 (12:58→20:36)
[2020-10-04] MEDS: cefTRIAXone 1,000 MG in SODIUM CHLORIDE 0.9% 100 ML IV SCH (15:13)
[2020-10-04] MEDS: ATORVASTATIN 20 MG TABLET PO SCH (20:37)
[2020-10-04] MEDS: ASPIRIN CHEW 81 MG TABLET PO SCH (20:37)
[2020-10-05] MEDS: ALBUTEROL/IPRATROPIUM 3 ML NEB RESP TX SCH ×4 (00:26→19:20)
[2020-10-05] MEDS: methylPREDNISolone SOD SUC 40 MG/1 ML VIAL IV SCH ×2 (04:11→18:43)
[2020-10-05 05:55] LABS: Basophils % 0.1 % (0.0-0.8); Hematocrit 33.3 VOL% (42.0-52.0); Hemoglobin 11.3 GM/DL (14.0-18.0); Immature Granulocytes % 0.7 %; Immature Granulocytes Absolute 0.09 #; Lymphocytes # 0.7 10*3/uL (1.4-4.0); Mean Corpuscular HGB Conc 33.9 GM/DL (32-36); Mean Platelet Volume 11.1 FL (9.6-12.0); Neutrophils % 89.2 % (38.7-73.9); Platelet Count 390 T/CUMM (130-400); Red Blood Count 3.74 MC/CUMM (3.8-5.5); Red Cell Distribution Width 14.6 % (9.3-17.3); White Blood Count 12.3 T/CUMM (4-12)
[2020-10-05 06:05] LABS: INR 3.1
[2020-10-05 06:06] LABS: PT Patient Result 31.5 SECS (9.8-11.9)
[2020-10-05] MEDS: NITROGLYCERIN 2% OINT 1 INCH/GM PACK TOP SCH ×3 (06:15→18:43)
[2020-10-05 06:18] LABS: Osmolality,Calculated 297.7 MOS/KG (273-304); Potassium 4.4 MMOL/L (3.5-5.1)
[2020-10-05] MEDS: GABAPENTIN 300 MG CAPSULE PO SCH ×3 (09:24→21:47)
[2020-10-05] MEDS: FUROSEMIDE 40 MG TABLET PO SCH (09:25)
[2020-10-05] MEDS: PANTOPRAZOLE 40 MG TABLET PO SCH (09:25)
[2020-10-05] MEDS: LEVOTHYROXINE 200 MCG TABLET PO SCH (09:25)
[2020-10-05] MEDS: amLODIPine 10 MG TABLET PO SCH (09:25)
[2020-10-05] MEDS: hydrALAZINE 25 MG TABLET PO SCH ×3 (09:25→21:47)
[2020-10-05] MEDS: INSULIN REGULAR 100 UNIT/ML SUBCUT SCH ×4 (09:26→21:48)
[2020-10-05] MEDS: INSULIN NPH/REGULAR 70/30 100 UNIT/ML SUBCUT SCH ×2 (09:26→18:45)
[2020-10-05] MEDS ORDERED: DEXTROMETHORPHAN ER 6 MG/ML 90 ML/BOTTLE PO PRN (09:29)
[2020-10-05] MEDS: cefTRIAXone 1,000 MG in SODIUM CHLORIDE 0.9% 100 ML IV SCH (14:30)
[2020-10-05] MEDS ORDERED: FUROSEMIDE 40 MG/4 ML VIAL IV ONE ×2 (15:10→23:30)
[2020-10-05] MEDS: ATORVASTATIN 20 MG TABLET PO SCH (21:47)
[2020-10-05] MEDS: ASPIRIN CHEW 81 MG TABLET PO SCH (21:47)
[2020-10-06] MEDS: ALBUTEROL/IPRATROPIUM 3 ML NEB RESP TX SCH ×4 (00:47→19:17)
[2020-10-06] MEDS: NITROGLYCERIN 2% OINT 1 INCH/GM PACK TOP SCH ×4 (02:00→17:34)
[2020-10-06] MEDS: methylPREDNISolone SOD SUC 40 MG/1 ML VIAL IV SCH ×2 (06:11→17:30)
[2020-10-06 07:02] LABS: Basophils % 0.1 % (0.0-0.8); Hematocrit 33.7 VOL% (42.0-52.0); Immature Granulocytes % 2.2 %; Immature Granulocytes Absolute 0.27 #; Lymphocytes # 0.9 10*3/uL (1.4-4.0); Lymphocytes % 7.6 % (21.2-54.2); Mean Corpuscular HGB Conc 32.6 GM/DL (32-36); Mean Corpuscular Volume 92.1 FL (87-102); Mean Platelet Volume 11.6 FL (9.6-12.0); Monocytes % 6.8 % (1.7-12.7); NRBC # 0.03 10*3/uL; Neutrophils % 83.3 % (38.7-73.9); Platelet Count 333 T/CUMM (130-400); Red Blood Count 3.66 MC/CUMM (3.8-5.5); Red Cell Distribution Width 14.8 % (9.3-17.3); White Blood Count 12.3 T/CUMM (4-12)
[2020-10-06 07:04] LABS: INR 2.6
[2020-10-06 07:58] LABS: Calcium 8.9 MG/DL (8.5-10.1); Osmolality,Calculated 299.7 MOS/KG (273-304); Potassium 4.3 MMOL/L (3.5-5.1)
[2020-10-06] MEDS: INSULIN NPH/REGULAR 70/30 100 UNIT/ML SUBCUT SCH ×2 (09:32→18:52)
[2020-10-06] MEDS: INSULIN REGULAR 100 UNIT/ML SUBCUT SCH ×4 (09:34→21:37)
[2020-10-06] MEDS: GABAPENTIN 300 MG CAPSULE PO SCH ×3 (09:34→21:37)
[2020-10-06] MEDS: PANTOPRAZOLE 40 MG TABLET PO SCH (09:34)
[2020-10-06] MEDS: LEVOTHYROXINE 200 MCG TABLET PO SCH (09:34)
[2020-10-06] MEDS: amLODIPine 10 MG TABLET PO SCH (09:34)
[2020-10-06] MEDS: hydrALAZINE 25 MG TABLET PO SCH ×3 (09:35→21:36)
[2020-10-06] MEDS: SODIUM CHLORIDE 0.9% 1,000 ML IV SCH (09:53)
[2020-10-06] MEDS: cefTRIAXone 1,000 MG in SODIUM CHLORIDE 0.9% 100 ML IV SCH (14:55)
[2020-10-06] MEDS: ASPIRIN CHEW 81 MG TABLET PO SCH (21:36)
[2020-10-06] MEDS: ATORVASTATIN 20 MG TABLET PO SCH (21:37)
[2020-10-07] MEDS: ALBUTEROL/IPRATROPIUM 3 ML NEB RESP TX SCH ×4 (01:23→17:55)
[2020-10-07] MEDS: NITROGLYCERIN 2% OINT 1 INCH/GM PACK TOP SCH ×4 (03:01→18:03)
[2020-10-07] MEDS: methylPREDNISolone SOD SUC 40 MG/1 ML VIAL IV SCH ×2 (06:30→17:50)
[2020-10-07 06:58] LABS: Basophils % 0.2 % (0.0-0.8); Hematocrit 35.7 VOL% (42.0-52.0); Hemoglobin 11.5 GM/DL (14.0-18.0); Immature Granulocytes % 4.7 %; Immature Granulocytes Absolute 0.69 #; Lymphocytes % 6.7 % (21.2-54.2); Mean Corpuscular HGB Conc 32.2 GM/DL (32-36); Mean Corpuscular Volume 92.2 FL (87-102); Mean Platelet Volume 10.8 FL (9.6-12.0); Monocytes % 7.2 % (1.7-12.7); NRBC # 0.08 10*3/uL; Neutrophils % 81.2 % (38.7-73.9); Platelet Count 351 T/CUMM (130-400); Red Blood Count 3.87 MC/CUMM (3.8-5.5); White Blood Count 14.7 T/CUMM (4-12)
[2020-10-07 07:09] LABS: INR 1.9
[2020-10-07 07:19] LABS: Band Neutrophils 1 % (0-10); Hypochromasia 1+; Lymphocytes 5 % (20-55); Microcytosis 1+; Platelet Estimate Adequate; Segmented Neutrophils 88 % (50-85); Total Cells Counted 100
[2020-10-07 07:24] LABS: Albumin 2.7 G/DL (3.4-5.0); Bilirubin,Total 0.7 MG/DL (0.2-1.0); Calcium 8.7 MG/DL (8.5-10.1); Osmolality,Calculated 300.2 MOS/KG (273-304); Potassium 4.1 MMOL/L (3.5-5.1); Total Protein 6.9 G/DL (6.4-8.2)
[2020-10-07] MEDS: SODIUM CHLORIDE 0.9% 1,000 ML IV SCH ×2 (07:26→23:36)
[2020-10-07] MEDS ORDERED: diphenhydrAMINE CAP 25 MG CAPSULE PO ONE (07:48)
[2020-10-07] MEDS ORDERED: DIAZEPAM 5 MG TABLET PO ONE (07:48)
[2020-10-07] MEDS: INSULIN REGULAR 100 UNIT/ML SUBCUT SCH ×4 (08:52→21:25)
[2020-10-07] MEDS: LEVOTHYROXINE 200 MCG TABLET PO SCH (08:53)
[2020-10-07] MEDS: hydrALAZINE 25 MG TABLET PO SCH ×3 (08:53→22:11)
[2020-10-07] MEDS: GABAPENTIN 300 MG CAPSULE PO SCH ×3 (08:53→22:10)
[2020-10-07] MEDS: amLODIPine 10 MG TABLET PO SCH (08:53)
[2020-10-07] MEDS: PANTOPRAZOLE 40 MG TABLET PO SCH (08:53)
[2020-10-07] MEDS: INSULIN NPH/REGULAR 70/30 100 UNIT/ML SUBCUT SCH ×2 (08:54→17:54)
[2020-10-07] MEDS ORDERED: fentaNYL 100 MCG/2 ML VIAL ONE (12:01)
[2020-10-07] MEDS ORDERED: MIDAZOLAM 2 MG/2 ML VIAL ONE (12:01)
[2020-10-07] MEDS ORDERED: LIDOCAINE 1% 20 ML VIAL ONE (12:40)
[2020-10-07] MEDS ORDERED: methylPREDNISolone SOD SUC 125 MG/2 ML VIAL ONE (12:44)
[2020-10-07] MEDS ORDERED: ASPIRIN CHEW 81 MG TABLET PO ONE (12:55)
[2020-10-07] MEDS ORDERED: HEPARIN 5,000 UNIT/1 ML VIAL ONE (13:07)
[2020-10-07] MEDS ORDERED: TIROFIBAN 5,000 MCG/100 ML PREMIX IV ONE (13:17)
[2020-10-07] MEDS ORDERED: TIROFIBAN 5,000 MCG/100 ML PREMIX IV SCH (13:25)
[2020-10-07] MEDS ORDERED: TICAGRELOR 90 MG TABLET ONE (14:33)
[2020-10-07] MEDS: cefTRIAXone 1,000 MG in SODIUM CHLORIDE 0.9% 100 ML IV SCH (15:20)
[2020-10-07 16:07] LABS: CKMB % 4.2 %
[2020-10-07] MEDS: cilostazoL 50 MG TABLET PO SCH ×2 (16:10→22:11)
[2020-10-07 16:12] LABS: Troponin I 6.91 NG/ML (0.00-0.045)
[2020-10-07] MEDS: guaiFENesin 200 MG/10 ML UDCUP PO PRN (18:34)
[2020-10-07] MEDS ORDERED: FUROSEMIDE 40 MG/4 ML VIAL IV ONE (18:45)
[2020-10-07] MEDS ORDERED: LORazepam 2 MG/1 ML VIAL IV ONE ×2 (18:57→23:54)
[2020-10-07] MEDS ORDERED: LORazepam 2 MG/1 ML VIAL ONE ×2 (19:18→23:58)
[2020-10-07] MEDS: ATORVASTATIN 20 MG TABLET PO SCH (22:11)
[2020-10-07] MEDS: TICAGRELOR 90 MG TABLET PO SCH (22:11)
[2020-10-07 23:50] LABS: Bilirubin,Urine Negative (Negative); Blood, Urine Negative (Negative); Glucose,Urine (UA) Negative (Negative); Hyaline Casts,Urine 1 /LPF (0-3); Ketones,Urine Negative (Negative); Nitrite,Urine Negative (Negative); Protein,Urine Negative; RBC,Urine 2 /HPF (0-4); Squamous Epithelial Cell,Urine Occasional /HPF (0-10); Urine Appearance CLEAR (Clear); Urine Color Yellow (Yellow); Urine Specific Gravity 1.033 (1.001-1.035); Urine Urobilinogen < 2.0 EU/DL (0.2-1.0); WBC,Urine 1 /HPF (0-6)
[2020-10-08 00:06] LABS: CKMB % 4.9 %
[2020-10-08 00:08] LABS: Troponin I 10.7 NG/ML (0.00-0.045)
[2020-10-08] MEDS: ALBUTEROL/IPRATROPIUM 3 ML NEB RESP TX SCH ×4 (00:42→19:30)
[2020-10-08] MEDS: NITROGLYCERIN 2% OINT 1 INCH/GM PACK TOP SCH ×3 (01:55→12:31)
[2020-10-08 04:24] LABS: ABG Base Excess -0.4 MMOL/L (-2.5-2.5); ABG HCO3 22.3 MMOL/L (20-26); ABG Oxygen Saturation 97.6 % (95-100); ABG PCO2 30.1 MM HG (35-48); ABG PH 7.487 (7.35-7.45); ABG PO2 117.9 MM HG (80-95); ABG TCO2 23.2 MMOL/L (23-27); Allen Test Positive; Pt O2 Delivery Device BIPAP
[2020-10-08 04:59] LABS: Basophils % 0.2 % (0.0-0.8); Immature Granulocytes % 3.6 %; Immature Granulocytes Absolute 0.66 #; Lymphocytes # 0.5 10*3/uL (1.4-4.0); Lymphocytes % 2.7 % (21.2-54.2); Mean Corpuscular HGB Conc 33.3 GM/DL (32-36); Mean Corpuscular Volume 90.2 FL (87-102); Monocytes % 5.1 % (1.7-12.7); NRBC # 0.05 10*3/uL; Neutrophils % 88.4 % (38.7-73.9); Platelet Count 338 T/CUMM (130-400); Red Blood Count 3.66 MC/CUMM (3.8-5.5); Red Cell Distribution Width 15.2 % (9.3-17.3); White Blood Count 18.4 T/CUMM (4-12)
[2020-10-08 05:08] LABS: INR 1.9; PT Patient Result 20.1 SECS (9.8-11.9)
[2020-10-08 05:13] LABS: Calcium 8.3 MG/DL (8.5-10.1); Osmolality,Calculated 307.5 MOS/KG (273-304); Potassium 4.2 MMOL/L (3.5-5.1)
[2020-10-08] MEDS: methylPREDNISolone SOD SUC 40 MG/1 ML VIAL IV SCH ×3 (06:25→22:12)
[2020-10-08 07:46] LABS: Band Neutrophils 3 % (0-10); Metamyelocytes 1 %; Myelocytes 1 %; Segmented Neutrophils 89 % (50-85); Total Cells Counted 100
[2020-10-08 07:47] LABS: Platelet Estimate Normal; Target Cells Few
[2020-10-08] MEDS ORDERED: HALOPERIDOL 5 MG/ML AMP IM PRN (07:52)
[2020-10-08] MEDS ORDERED: BUMETANIDE 1 MG/4 ML VIAL IV SCH (08:00)
[2020-10-08 08:06] LABS: CKMB % 4.9 %
[2020-10-08 08:09] LABS: Troponin I 11.2 NG/ML (0.00-0.045)
[2020-10-08] MEDS: INSULIN REGULAR 100 UNIT/ML SUBCUT SCH ×4 (08:52→20:45)
[2020-10-08] MEDS: INSULIN NPH/REGULAR 70/30 100 UNIT/ML SUBCUT SCH ×2 (08:52→17:51)
[2020-10-08] MEDS: TICAGRELOR 90 MG TABLET PO SCH ×2 (09:17→20:43)
[2020-10-08] MEDS: LEVOTHYROXINE 200 MCG TABLET PO SCH (09:18)
[2020-10-08] MEDS: amLODIPine 10 MG TABLET PO SCH (09:19)
[2020-10-08] MEDS: BUMETANIDE 1 MG/4 ML VIAL IV SCH ×2 (09:19→16:28)
[2020-10-08] MEDS: cilostazoL 50 MG TABLET PO SCH ×2 (09:19→20:43)
[2020-10-08] MEDS: GABAPENTIN 300 MG CAPSULE PO SCH ×3 (09:19→20:43)
[2020-10-08] MEDS: PANTOPRAZOLE 40 MG TABLET PO SCH (09:19)
[2020-10-08] MEDS: hydrALAZINE 25 MG TABLET PO SCH ×3 (09:19→20:44)
[2020-10-08] MEDS: CEFEPIME 1,000 MG in SODIUM CHLORIDE 0.9% 100 ML IV SCH ×2 (09:36→17:57)
[2020-10-08] MEDS ORDERED: ZIPRASIDONE 20 MG/1 ML VIAL IM ONE ×2 (10:49→12:57)
[2020-10-08] MEDS ORDERED: DEXMEDETOMIDINE 200 MCG in SODIUM CHLORIDE 0.9% 48 ML IV PRN (14:27)
[2020-10-08 14:54] VITALS: BP 137/83
[2020-10-08] MEDS ORDERED: AMIODARONE INJ 150 MG in DEXTROSE 5% 100 ML IV ONE ×2 (15:20→16:00)
[2020-10-08] MEDS ORDERED: AMIODARONE INJ 450 MG in DEXTROSE 5% 241 ML IV SCH ×2 (15:30→21:30)
[2020-10-08] MEDS ORDERED: DEXMEDETOMIDINE 400 MCG in SODIUM CHLORIDE 0.9% 96 ML IV PRN (17:59)
[2020-10-08] MEDS: ATORVASTATIN 20 MG TABLET PO SCH (20:43)
[2020-10-08] MEDS ORDERED: QUEtiapine 25 MG TABLET PO SCH (21:00)
[2020-10-09] MEDS: ALBUTEROL/IPRATROPIUM 3 ML NEB RESP TX SCH ×2 (01:51→07:13)
[2020-10-09] MEDS: CEFEPIME 1,000 MG in SODIUM CHLORIDE 0.9% 100 ML IV SCH ×2 (02:34→09:34)
[2020-10-09 06:22] LABS: Basophils % 0.2 % (0.0-0.8); Hemoglobin 10.5 GM/DL (14.0-18.0); Immature Granulocytes % 4.2 %; Immature Granulocytes Absolute 0.71 #; Lymphocytes # 0.5 10*3/uL (1.4-4.0); Mean Corpuscular HGB Conc 31.8 GM/DL (32-36); Mean Corpuscular Volume 93.8 FL (87-102); Mean Platelet Volume 11.3 FL (9.6-12.0); Monocytes % 4.2 % (1.7-12.7); NRBC # 0.25 10*3/uL; Neutrophils % 88.4 % (38.7-73.9); Platelet Count 224 T/CUMM (130-400); Red Blood Count 3.52 MC/CUMM (3.8-5.5); Red Cell Distribution Width 15.6 % (9.3-17.3); White Blood Count 17.1 T/CUMM (4-12)
[2020-10-09] MEDS: methylPREDNISolone SOD SUC 40 MG/1 ML VIAL IV SCH (06:23)
[2020-10-09 06:27] LABS: INR 2.9
[2020-10-09 06:28] LABS: PT Patient Result 30.6 SECS (9.8-11.9)
[2020-10-09 06:45] LABS: Osmolality,Calculated 308.2 MOS/KG (273-304); Potassium 5.3 MMOL/L (3.5-5.1)
[2020-10-09] MEDS: INSULIN REGULAR 100 UNIT/ML SUBCUT SCH (07:31)
[2020-10-09] MEDS: INSULIN NPH/REGULAR 70/30 100 UNIT/ML SUBCUT SCH (07:31)
[2020-10-09] MEDS: LEVOTHYROXINE 200 MCG TABLET PO SCH (08:43)
[2020-10-09] MEDS: PANTOPRAZOLE 40 MG TABLET PO SCH (08:44)
[2020-10-09] MEDS: hydrALAZINE 25 MG TABLET PO SCH (08:44)
[2020-10-09] MEDS: GABAPENTIN 300 MG CAPSULE PO SCH (08:44)
[2020-10-09] MEDS: TICAGRELOR 90 MG TABLET PO SCH (08:44)
[2020-10-09] MEDS: cilostazoL 50 MG TABLET PO SCH (08:44)
[2020-10-09] MEDS: amLODIPine 10 MG TABLET PO SCH (08:44)
[2020-10-09] MEDS ORDERED: SODIUM BICARB INJ 100 MEQ in STERILE WATER INJ 1,000 ML IV SCH (09:00)
[2020-10-09 09:46] LABS: Band Neutrophils 5 % (0-10); Lymphocytes 4 % (20-55); Metamyelocytes 2 %; Platelet Estimate Normal; Segmented Neutrophils 87 % (50-85); Total Cells Counted 100
[2020-10-09] MEDS ORDERED: SODIUM CHLORIDE 0.9% 1,000 ML IV SCH (10:30)
[2020-10-09] MEDS ORDERED: AMIODARONE 200 MG TABLET PO SCH (10:30)
[2020-10-09] MEDS ORDERED: SODIUM CHLORIDE 0.9% 1,000 ML IV ONE (11:04)
[2020-10-09] MEDS ORDERED: NOREPINEPHRINE 4 MG/4 ML VIAL IV ONE (11:04)
[2020-10-09] MEDS ORDERED: NOREPINEPHRINE 8 MG in SODIUM CHLORIDE 0.9% 242 ML IV PRN (11:05)
== END 2020-10-09 11:08 | disposition expired | DRG 246 ==
LOC: N.ED 15:53 → N.EDINP 17:19 → SUATTDRO 17:19 → N.TELEN 18:17 → N.CC 10-07 14:50
PROVIDERS: ADMIT Family Medicine; ATTEND Internal Medicine